=== PATIENT | female | born 1970 | race Caucasian/White ===

== ENCOUNTER 2016-05-11 17:55 | Emergency (ER) | payer MEDICARE, OTHER ==
[2016-05-11 18:55] VITALS: BP 135/83
[2016-05-11] MEDS ORDERED: Lidocaine 4% TOPICAL* 50 ML TOP.SOLN TOPICAL ONE (20:35)
[2016-05-11] MEDS ORDERED: Lidocaine 4% TOPICAL* 50 ML TOP.SOLN ONE (20:37)
[2016-05-11] MEDS ORDERED: Amoxicillin/Clavulanate TAB* 875 MG PO ONE (21:14)
[2016-05-11] MEDS ORDERED: Sulfamethox/Trimethoprim DS 800/160* TAB PO ONE (21:14)
[2016-05-11] MEDS ORDERED: cefTRIAXone VIAL(*) 250 MG VIAL IM ONE (21:14)
[2016-05-11] MEDS ORDERED: Lidocaine 1% MPF* 2 ML VIAL ONE (21:23)
--- NOTE | 2016-06-24 09:09 | UC ---
Gale Diaz Matthew, scribed for Katrina Hollis MD on 05/11/16 at 1954 . Skin Complaint HPI - HPI Summary HPI Summary: A 46 y/o female presents to [facility] with gradually worsening, constant pain at the incision site of a recent surgery on 03/30/[address] White. At that time, 3 lipomas were removed. The pain is rated 9/10 in severity. Associated symptoms include foul smell, worsening pain, purulent drainage, and erythema. The procedure was preformed at [facility]. The patient saw the surgeon this morning, who per the patient stated the incision was healing well. The patient's last tetanus shot was a few years ago. Hx of fibromyalgia. The patient 's glucose was 135 this morning. She is not currently taking Abx. The patient has been dressing her wound with aquacell and an Abx cream. The patient was exposed to MRSA two years ago. - History of Current Complaint Chief Complaint: UCSkin Time Seen by Provider: 05/11/16 19:47 Stated Complaint: OPEN INFLAMED INSCISION ON BACK Hx Obtained From: Patient Onset/Duration: Gradual Onset, Lasting Weeks, Still Present Timing: Constant Onset Severity: Moderate Current Severity: Moderate Pain Intensity: 9 Pain Scale Used: 0-10 Numeric Location: Other - buttock Character: Pain Aggravating: Touch Alleviating: Nothing Associated Signs & Symptoms: Positive: Drainage - Allergy/Home Medications Allergies/Adverse Reactions: Allergies Allergy/AdvReac Type Severity Reaction Status Date / Time Iodine Allergy Anaphylatic Verified 12/01/15 08:57 Shock BEE STINGS Allergy Mild Swelling Uncoded 12/01/15 08:57 DOWN FEATHERS Allergy Eyes Uncoded 12/01/15 08:57 Itchy/Swollen/Red/Watery Home Medications: Home Medications Lamotrigine [Lamictal] 100 mg PO 05/11/16 [History] Review of Systems Constitutional: Negative Skin: Other - 3 wounds on her ischium - 2 left one on the right; Yellow purulent drainage; erythema; foul smell Eyes: Negative ENT: Negative Respiratory: Negative Cardiovascular: Negative Gastrointestinal: Negative Genitourinary: Negative Motor: Negative Neurovascular: Negative Musculoskeletal: Negative Neurological: Negative Psychological: Negative All Other Systems Reviewed And Are Negative: Yes PMH/Surg Hx/FS Hx/Imm Hx Endocrine History Of: Reports: Diabetes - TAKES MEDICATION Cardiovascular History Of: Denies: Hypertension, Pacemaker/ICD, Myocardial Infarction Respiratory History Of: Reports: Asthma - USES INHALERS, Bronchitis Denies: COPD GI/ History Of: Reports: Gastroesophageal Reflux, Ulcer - CURRENTLY, Kidney Stones Denies: Renal Disease Neurological History Of: Reports: Seizures - EPILEPSY, Migraine Psychological History Of: Reports: Anxiety - PANIC ATTACKS - Surgical History Surgical History: Yes Surgery Procedure, Year, and Place: facial orif,stomach stapling and gastric bypass (rouyen y),laproscopic cholecystectomy,csection,tubal ligation,left shoulder repair x 2, carpal tunnel repair bilateral, left radial nerve relocation, rt elbow ulnar relocated surgery and bone fragments removed, tonsils , teeth extraction ,RADIAL LEFT and RIGHT HAND,RIGHT FIRST METATARSAL ABLATION, 3 INGROWN TOENAILS REMOVED, RIGHT CALCANEAL X3, LT KNEE ARTHROSCOPY, CERVICAL DYSPLASIA, LUMBAR SURGERY REMOVAL OF LYPOMAS X2, LEFT EYE (BLOW OUT FRACTURE) WITH SCREWS AND PLATES,fatty tumars removed. - Family History Known Family History: Positive: Cardiac Disease - [place], Hypertension, Diabetes, Other - CVA - Social History Alcohol Use: Occasionally Substance Use Type: None Smoking Status (MU): Former Smoker Physical Exam Triage Information Reviewed: Yes Appearance: Well-Nourished Vital Signs: Initial Vital Signs Temp 96.9 F 05/11/16 18:48 Pulse 94 05/11/16 18:48 Resp 18 05/11/16 18:48 BP 135/83 05/11/16 18:48 Pulse Ox 100 05/11/16 18:48 Vital Signs Reviewed: Yes Eye Exam: Normal ENT Exam: Normal Neck exam: Normal Neck: Positive: No Lymphadenopathy Respiratory: Positive: Chest non-tender, Lungs clear, Normal breath sounds, No respiratory distress, No accessory muscle use Cardiovascular: Positive: RRR, No Murmur, Pulses Normal, Brisk Capillary Refill Abdominal Exam: Normal Bowel Sounds: Positive: Present Musculoskeletal Exam: Normal Musculoskeletal: Positive: Strength Intact Neurological Exam: Normal - non-focal, grossly Psychological Exam: Normal Skin: Positive: Other - 2 wounds on the left ischemia and one on the right ischium- Inferior left ischium wound Depth of 5.8 cm, Length of 4.4cm, Width of 1cm; Superior left ischium wound Unsure of exact measurement, but wound was measured at .5cm, 4cm, .5cm; Right ischium wound 5.2cm, 6.2cm, .5cm. Post buttock / ischial regions with ulcers as above. + mild redness periulcers , not hot to touch. + green-yellow drainage to all ulcers, with odor. Ulcer bases lumpy bumpy, deep. No jorge a visible or palpable bone, although given configuration and conformity of ulcers, the exact depth is unclear. Suspect left ischial ulcers connect, but not directly evident on examn. No crepitus appreciated. ++ devitalized fibrin and slough noted among lumpy bumpy granulation type tissue. Course/Dx - Course Course Of Treatment: Ms. Cindy Barragan was seen by her surgeon, Dr. Knox, today, per pt report. Has upcoming appt next week. Concerned that drainage and pain has increased. I spoke with Dr. Garvey (mailroom personnel for her surgeon) to advise of situation/ condition, he recommends f/u early next week, start abx. Tests today: crp, sed rate. ulcer culture R ischium. FS glucose - 155mg / dl (pt states "borderline dm"). Will f/u pcp, re bg. Rocephin IM here. Rx - bactrim, augmentin (first dose here). Note pt has had exposure 3 yrs ago to mrsa. Ulcer cx sent. Has wound care dressings at home, and has help to change dressings for now. But will check with her doctor about home health. Strongly consider wound care physician referral. Questions answered to the best of my ability. Departed with , who will be driving. - Diagnoses Provider Diagnoses: non-healing surgical wounds. elevated blood glucose. wound infection - Physician Notification/Consults Discussed Patient Care With: Dr. Garvey (Surgery) at 20:49 -- Notified of patient' s history. Discharge - Discharge Plan Condition: Stable Disposition: HOME Prescriptions: Amoxicillin/Clavulanate TAB* [Augmentin TAB 875*] 875 mg PO BID #20 tab Sulfamethox/Trimethoprim DS* [Bactrim DS 800/160 TAB*] 1 tab PO BID #20 tab Patient Education Materials: Chronic Wound Care (ED) Referrals: Edouard Louie DO [Primary Care Provider] - Additional Instructions: Avoid pressure to ulcers. Use offloading cushion and offloading mattress. Check with your surgeon / wound care physician. Tests today: blood work - crp, sed rate fingerstick glucose 155mg/dl ulcer culture (Right buttock) Go to the Emergency Department for any worse or new problems. Change dressing at least every other day, more frequently as needed if soiled or soaked. The documentation as recorded by the Gale bacon Matthew accurately reflects the service I personally performed and the decisions made by me, Katrina Hollis MD.
== END 2016-05-11 21:53 | disposition home or self-care (01) ==
LOC: UCEAST 17:55
DX: T81.4XXA Infection following a procedure, initial encounter (principal); B99.9 Unspecified infectious disease; E11.65 Type 2 diabetes mellitus with hyperglycemia; J45.909 Unspecified asthma, uncomplicated; Z98.84 Bariatric surgery status; Z90.49 Acquired absence of other specified parts of digestive tract; Z87.891 Personal history of nicotine dependence
CPT/HCPCS: 36415; 85652; 86140; 87070; 87077; 87186; 87205; 87640; 87641; 96372; 99213; A9270-GY; G0463; J0696

== ENCOUNTER 2016-06-24 16:57 | Observation (INO) | payer MEDICARE, OTHER ==
[2016-06-24] MEDS ORDERED: NS 0.9% 1000 ML* 1,000 ML IV ONE (17:25)
[2016-06-24] MEDS ORDERED: LORazepam INJ* 2 MG/ML 1 ML VIAL IV ONE ×2 (17:32→17:52)
[2016-06-24 17:59] LABS: Albumin 4.3 g/dL (3.2-5.2); BUN/Creatinine Ratio 12.5 (8-20); C Reactive Protein 2.25 mg/L (< 5.00); Calcium 9.2 mg/dL (8.6-10.3); EGFR African American 98.9 (>60); EGFR Non-African American 76.9 (>60); Magnesium 1.9 mg/dL (1.9-2.7); Potassium 4.2 mmol/L (3.5-5.0); Total Bilirubin 0.2 mg/dL (0.2-1.0); Total Protein 7.3 g/dL (6.4-8.9)
[2016-06-24 18:01] LABS: Troponin I 0.02 ng/mL (<0.04)
[2016-06-24 18:10] LABS: Hematocrit 41 % (35-47); Hemoglobin 13.2 g/dl (12.0-16.0); Mean Corpuscular HGB Conc 32 g/dl (31-36); Mean Corpuscular Hemoglobin 27 pg (27-31); Mean Corpuscular Volume 84 fL (80-97); Mean Platelet Volume 8 um3 (7.4-10.4); Red Cell Distribution Width 15 % (10.5-15); White Blood Count 10.1 10^3/ul (3.5-10.8)
--- NOTE | 2016-06-24 18:30 | RAD ---
INDICATION: Seizures x3. COMPARISON: There is an is made with a prior chest x-ray study from December 01, 2015. TECHNIQUE: A portable view of the chest was obtained. FINDINGS: Cardiac and mediastinal contours appear to be within normal limits. The lungs are clear. No pleural effusion is seen. IMPRESSION: NO EVIDENCE FOR ACUTE DISEASE.
[2016-06-24 18:32] LABS: TSH (Thyroid Stimulating Horm) 4.05 mcIU/mL (0.34-5.60)
--- NOTE | 2016-06-24 19:45 | RAD ---
INDICATION: Seizures x3 today. COMPARISON: Comparison is made with a prior CT of the brain from February 11, 2015. TECHNIQUE: Contiguous axial sections of the brain were obtained from the skull base to the vertex without contrast. FINDINGS: The ventricles, cisterns and sulci are within normal limits. No significant focal abnormality or mass effect is seen. There is no evidence for hemorrhage. No significant focal osseous abnormality is seen. The visualized portion of the paranasal sinuses and mastoid air cells appear clear. On the lowest image there is a metallic nail in the posterior inferior wall of the left orbit extending part way into the orbit adjacent to the globe. Recommend clinical correlation. IMPRESSION: 1. NO EVIDENCE FOR GROSS ACUTE INFARCT, MASS EFFECT OR HEMORRHAGE. 2. ON THE LOWEST IMAGE PARTIALLY VISUALIZED ON THIS STUDY THERE IS A METALLIC NAIL IN THE POSTERIOR WALL OF THE LEFT ORBIT WHICH EXTENDS PARTLY INTO THE ORBIT. RECOMMEND CLINICAL CORRELATION.
--- NOTE | 2016-06-24 22:20 | ED ---
I, Oh,Maria Guadalupe, scribed for Lei Bustos MD on 06/24/16 at 1728 . Neurological HPI - HPI Summary HPI Summary: LEVEL 5 CAVEAT secondary to AMS This 46 y/o female presents to ED for 3x episodes of seizure this afternoon. First episode was at 1230 and lasted about 10 minutes, and pt has just taken her morning medications. Second episode occurred ~ 1430 PM, and third episodes occurred while in waiting room. RN reports rigid extremities during the third episode. Female family member present at bedside reports that pt was verbal and at her normal yesterday and today until her episode. PMHx does include known fibromyalgia and seizure per female family member. Negative fever. Primary care used to involve Dr. Louie as her neurologist. - History of Current Complaint Chief Complaint: EDSeizure Stated Complaint: SEIZURES Hx Obtained From: Patient, Medical Records Hx From Patient Unobtainable Due To: Altered Mental Status Onset/Duration: Sudden Onset Timing: Intermittent Episodes Lasting: - 10 minutes Number of Seizures: 3 Aggravating: Nothing Alleviating: Spontanious Resolution Associated Signs and Symptoms: Negative: Fever - Allergy/Home Medications Allergies/Adverse Reactions: Allergies Allergy/AdvReac Type Severity Reaction Status Date / Time Iodine Allergy Anaphylatic Verified 12/01/15 08:57 Shock BEE STINGS Allergy Mild Swelling Uncoded 12/01/15 08:57 DOWN FEATHERS Allergy Eyes Uncoded 12/01/15 08:57 Itchy/Swollen/Red/Watery PMH/Surg Hx/FS Hx/Imm Hx Endocrine/Hematology History: Reports: Hx Diabetes - TAKES MEDICATION Denies: Hx Sickle Cell Disease Cardiovascular History: Reports: Hx Angina - "a few weeks", Hx Hypotension Denies: Hx Coronary Artery Disease, Hx Hypercholesterolemia, Hx Hypertension , Hx Myocardial Infarction, Hx Pacemaker/ICD, Hx Valvular Heart Disease, Other Cardiovascular Problems/Disorders Respiratory History: Reports: Hx Asthma - USES INHALERS Denies: Hx Chronic Obstructive Pulmonary Disease (COPD) GI History: Reports: Hx Irritable Bowel, Hx Ulcer - CURRENTLY History: Reports: Hx Kidney Stones Denies: Hx Renal Disease Musculoskeletal History: Reports: Hx Arthritis - HANDS, SHOULDERS AND NECK, Hx Tendonitis, Other Musculoskeletal History - RT THUMB INJURY /12 LACERATION TO THUMB AND HYPEREXTENSION INJURY Sensory History: Reports: Hx Contacts or Glasses - GLASSES Denies: Hx Hearing Aid Opthamlomology History: Reports: Hx Contacts or Glasses - GLASSES Neurological History: Reports: Hx Migraine, Hx Seizures - EPILEPSY Psychiatric History: Reports: Hx Anxiety - PANIC ATTACKS, Hx Panic Disorder - Cancer History Cancer Type, 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 - Surgical History Surgery Procedure, Year, and Place: facial orif,stomach stapling and gastric bypass (rouyen y),laproscopic cholecystectomy,csection,tubal ligation,left shoulder repair x 2, carpal tunnel repair bilateral, left radial nerve relocation, rt elbow ulnar relocated surgery and bone fragments removed, tonsils , teeth extraction ,RADIAL LEFT and RIGHT HAND,RIGHT FIRST METATARSAL ABLATION, 3 INGROWN TOENAILS REMOVED, RIGHT CALCANEAL X3, LT KNEE ARTHROSCOPY, CERVICAL DYSPLASIA, LUMBAR SURGERY REMOVAL OF LYPOMAS X2, LEFT EYE (BLOW OUT FRACTURE) WITH SCREWS AND PLATES,fatty tumars removed. Hx Anesthesia Reactions: Yes - NAUSEA WITH ANESTHESIA - Family History Known Family History: Positive: Cardiac Disease - [place], Hypertension, Diabetes, Other - CVA - Social History Alcohol Use: Occasionally Hx Substance Use: No Substance Use Type: Reports: None Hx Tobacco Use: Yes Smoking Status (MU): Former Smoker Review of Systems - ROS Summary Review of Systems Summary: LEVEL 5 CAVEAT secondary to AMS Negative: Fever Neurological: Other - positive for post ictal. 3x seizure episodes All Other Systems Reviewed And Are Negative: No Physical Exam Vital Signs On Initial Exam: Initial Vitals BP 143/89 06/24/16 17:17 Completion Of Physical Exam Limited Due To: Altered Mental Status, Level 5 - LEVEL 5 CAVEAT secondary to AMS Appearance: Positive: No Pain Distress - post ictal Skin: Positive: Warm, Skin Color Reflects Adequate Perfusion, Dry Head/Face: Positive: Normal Head/Face Inspection Eyes: Positive: EOMI, DAVID Neck: Positive: Supple, Nontender Respiratory/Lung Sounds: Positive: Clear to Auscultation, Breath Sounds Present Cardiovascular: Positive: RRR, Pulses are Symmetrical in both Upper and Lower Extremities Neurological: Positive: Other - post-ictal. Somewhat obtunded. AVPU Assessment: Verbal (Reponds To) Diagnostics - Vital Signs Vital Signs Temp Pulse Resp BP Pulse Ox 06/24/16 19:00 93 21 96 06/24/16 18:24 18 06/24/16 18:00 103 98 06/24/16 17:31 111 22 154/66 98 06/24/16 17:30 98.2 F 109 16 154/66 98 06/24/16 17:19 98.6 F 108 21 144/90 96 06/24/16 17:17 143/89 - Laboratory Lab Results: Lab Results 06/24/16 06/24/16 06/24/16 Range/Units 17:20 17:20 17:50 WBC 10.1 (3.5-10.8) 10^3/ul RBC 4.90 (4.0-5.4) 10^6/ul Hgb 13.2 (12.0-16.0) g/dl Hct 41 (35-47) % MCV 84 (80-97) fL MCH 27 (27-31) pg MCHC 32 (31-36) g/dl RDW 15 (10.5-15) % Plt Count 364 (150-450) 10^3/ul MPV 8 (7.4-10.4) um3 Neut % (Auto) 78.5 (38-83) % Lymph % (Auto) 13.3 L (25-47) % Dundy % (Auto) 7.4 (1-9) % Eos % (Auto) 0.4 (0-6) % Baso % (Auto) 0.4 (0-2) % Absolute Neuts (auto) 7.9 H (1.5-7.7) 10^3/ul Absolute Lymphs (auto) 1.3 (1.0-4.8) 10^3/ul Absolute Monos (auto) 0.7 (0-0.8) 10^3/ul Absolute Eos (auto) 0 (0-0.6) 10^3/ul Absolute Basos (auto) 0 (0-0.2) 10^3/ul Absolute Nucleated RBC 0 10^3/ul Nucleated RBC % 0 INR (Anticoag Therapy) 0.94 (0.89-1.11) APTT 29.0 (26.0-36.3) seconds Sodium 135 (133-145) mmol/L Potassium 4.2 (3.5-5.0) mmol/L Chloride 103 (101-111) mmol/L Carbon Dioxide 18 L (22-32) mmol/L Anion Gap 14 H (2-11) mmol/L BUN 10 (6-24) mg/dL Creatinine 0.80 (0.51-0.95) mg/dL Est GFR ( Amer) 98.9 (>60) Est GFR (Non-Af Amer) 76.9 (>60) BUN/Creatinine Ratio 12.5 (8-20) Glucose 195 H (70-100) mg/dL Lactic Acid (0.5-2.0) mmol/L Calcium 9.2 (8.6-10.3) mg/dL Magnesium 1.9 (1.9-2.7) mg/dL Total Bilirubin 0.20 (0.2-1.0) mg/dL AST 31 (13-39) U/L ALT 47 (7-52) U/L Alkaline Phosphatase 121 H (34-104) U/L Total Creatine Kinase 86 (10-223) U/L CK-MB (CK-2) 2.4 (0.6-6.3) ng/mL Troponin I 0.02 (<0.04) ng/mL C-Reactive Protein 2.25 (< 5.00) mg/L Total Protein 7.3 (6.4-8.9) g/dL Albumin 4.3 (3.2-5.2) g/dL Globulin 3.0 (2-4) g/dL Albumin/Globulin Ratio 1.4 (1-3) Lipase 21 (11.0-82.0) U/L TSH 4.05 (0.34-5.60) mcIU/mL 06/24/16 Range/Units 18:40 WBC (3.5-10.8) 10^3/ul RBC (4.0-5.4) 10^6/ul Hgb (12.0-16.0) g/dl Hct (35-47) % MCV (80-97) fL MCH (27-31) pg MCHC (31-36) g/dl RDW (10.5-15) % Plt Count (150-450) 10^3/ul MPV (7.4-10.4) um3 Neut % (Auto) (38-83) % Lymph % (Auto) (25-47) % Dundy % (Auto) (1-9) % Eos % (Auto) (0-6) % Baso % (Auto) (0-2) % Absolute Neuts (auto) (1.5-7.7) 10^3/ul Absolute Lymphs (auto) (1.0-4.8) 10^3/ul Absolute Monos (auto) (0-0.8) 10^3/ul Absolute Eos (auto) (0-0.6) 10^3/ul Absolute Basos (auto) (0-0.2) 10^3/ul Absolute Nucleated RBC 10^3/ul Nucleated RBC % INR (Anticoag Therapy) (0.89-1.11) APTT (26.0-36.3) seconds Sodium (133-145) mmol/L Potassium (3.5-5.0) mmol/L Chloride (101-111) mmol/L Carbon Dioxide (22-32) mmol/L Anion Gap (2-11) mmol/L BUN (6-24) mg/dL Creatinine (0.51-0.95) mg/dL Est GFR ( Amer) (>60) Est GFR (Non-Af Amer) (>60) BUN/Creatinine Ratio (8-20) Glucose (70-100) mg/dL Lactic Acid 2.9 H* (0.5-2.0) mmol/L Calcium (8.6-10.3) mg/dL Magnesium (1.9-2.7) mg/dL Total Bilirubin (0.2-1.0) mg/dL AST (13-39) U/L ALT (7-52) U/L Alkaline Phosphatase (34-104) U/L Total Creatine Kinase (10-223) U/L CK-MB (CK-2) (0.6-6.3) ng/mL Troponin I (<0.04) ng/mL C-Reactive Protein (< 5.00) mg/L Total Protein (6.4-8.9) g/dL Albumin (3.2-5.2) g/dL Globulin (2-4) g/dL Albumin/Globulin Ratio (1-3) Lipase (11.0-82.0) U/L TSH (0.34-5.60) mcIU/mL Result Diagrams: 06/24/16 17:50 06/24/16 17:20 Lab Statement: Any lab studies that have been ordered have been reviewed, and results considered in the medical decision making process. - Radiology CXR Xray Interpretation: No Acute Changes Radiology Interpretation Completed By: Radiologist - CT Brain CT Interpretation: Positive (See Comments) - 1. NO EVIDENCE FOR GROSS ACUTE INFARCT, MASS EFFECT OR HEMORRHAGE. 2. ON THE LOWEST IMAGE PARTIALLY VISUALIZED ON THIS STUDY THERE IS A METALLIC NAIL IN THE POSTERIOR WALL OF THE LEFT ORBIT WHICH EXTENDS PARTLY INTO THE ORBIT. RECOMMEND CLINICAL CORRELATION. CT Interpretation Completed By: Radiologist - EKG 2041 Cardiac Rate: NL - 90 bpm EKG Rhythm: Sinus Rhythm Ectopy: None Re-Evaluation - Re-Evaluation First Eval Re-Evaluation Time: 18:03 Comment: MD in room to update family member on plan of care. Course/Dx - Course Course Of Treatment: NO CRITICAL CARE TIME Assessment/Plan: PATIENT HAD 3 SEIZURES TODAY. SHE IS SLOW IN CLEARING HER SENSORIUM POST ICTAL. DISCUSSED WITH DR RIVERA, NEUROLOGY. ADMIT HOSPITALIST STABLE. - Diagnoses Provider Diagnoses: Seizures - Physician Notifications Discussed Care of Patient With: Dr. Rivera (neurologist) at 1751 PM Discharge - Discharge Plan Condition: Stable Disposition: ADMITTED TO [facility] Referrals: Edouard Louie DO [Primary Care Provider] - The documentation as recorded by the Jatin bacon Soohyun accurately reflects the service I personally performed and the decisions made by me, Lei Bustos MD.
[2016-06-24] MEDS ORDERED: Naproxen TAB* 250 MG PO PRN (23:30)
[2016-06-24] MEDS ORDERED: Albuterol HFA INHALER* 8 gm MDI INH PRN (23:30)
[2016-06-24] MEDS ORDERED: Simethicone CHEW TAB* 80 MG PO PRN (23:30)
[2016-06-24] MEDS ORDERED: Diphenoxylat/Atrop 2.5-0.025M* 1 TAB PO PRN (23:30)
[2016-06-24] MEDS ORDERED: Albuterol/Ipratropium RESP(NF) MDI (Combivent Respimat) INH PRN (23:30)
[2016-06-24] MEDS ORDERED: Diclofenac 1.3% PATCH (NF) 5 PATCHS TRANSDERM PRN (23:30)
[2016-06-24] MEDS ORDERED: NS 0.9% 1000 ML* 1,000 ML IV SCH (23:45)
[2016-06-25] MEDS: Heparin VIAL(*) 5000 UNITS/ML VIAL (FIVE THOUSAND) SUBCUT SCH ×2 (06:11→14:01)
[2016-06-25] MEDS ORDERED: Calcium Polycarbophil TAB* 625 MG PO SCH (09:00)
[2016-06-25] MEDS ORDERED: Fludrocortisone Acetate TAB* 0.1 MG PO SCH (09:00)
[2016-06-25] MEDS ORDERED: Amoxicillin/Clavulanate TAB* 875 MG PO SCH (09:00)
[2016-06-25] MEDS ORDERED: lamoTRIgine TAB(*) 100 MG PO SCH (09:00)
[2016-06-25] MEDS ORDERED: Vitamin B Complex TAB PO SCH (09:00)
[2016-06-25] MEDS ORDERED: Sulfamethox/Trimethoprim DS 800/160* TAB PO SCH (09:00)
--- NOTE | 2016-06-25 09:24 | HP ---
HISTORY AND PHYSICAL: DATE OF ADMISSION: 06/24/16 PRIMARY CARE PHYSICIAN: Dr. Edouard Louie. CHIEF COMPLAINT: Seizure. HISTORY OF PRESENT ILLNESS: Please note that history is gotten from the patient who is very groggy at this time and cannot give me complete information. Apparently, this morning at some time, she was alone at home with her son when she started having a tonic-clonic seizure which she has not had for a few years. She said she was feeling in her usual state of health the day before with no complaints. She said she became confused, does not recall it, but apparently it lasted about 10 minutes before she awoke. When she did wake up, she was quite confused for some time. She denies tongue biting, urinary or bowel incontinence. She has a wound VAC source to clear up her wounds, but did not report or call 911 because she was stable. However, it happened apparently a second time and after that, she did call 911. Apparently, she had a seizure in the waiting room as well. The patient states she has been compliant with her meds and has no specific complaints. PAST MEDICAL HISTORY: She has a past medical history apparently for diabetes, although I currently do not see her on any medications; hypertension; chronic pain; fibromyalgia; asthma. PAST SURGICAL HISTORY: 1. Significant for gastric bypass. 2. Cholecystectomy. 3. Multiple lipomas removed from the lower back. 4. Cervical conization procedure. 5. First metatarsal joint fusion. 6. Multiple foot surgeries. 7. Bilateral carpal tunnel. 8. De Quervain's radial nerve relocation on the left arm and ulnar nerve relocation both on the right arm. 9. Left shoulder labral repair. 10. Left shoulder rotator cuff repair. 11. Tonsillectomy. CURRENT MEDICATIONS: Are as follows: 1. Vitamin C and E 1 capsule at bedtime. 2. Simethicone 1 tablet daily. 3. Pamelor 10 mg at bedtime. 4. Naproxen 100 mg twice daily. 5. Lamictal 100 mg twice daily. 6. Ginkgo biloba 1 capsule daily. 7. Fludrocortisone mg twice daily. 8. Fiber 1 packet daily. 9. Lomotil 1 tablet 4 times daily. 10. Diclofenac patch 1 topical daily. 11. Cyclobenzaprine 10 mg 3 times a day. 12. B-complex vitamins 2 tablets daily. 13. Albuterol. 14. Ipratropium/Combivent 1 puff every 6 hours. 15. Albuterol sulfate 1 puff every 6 hours as needed. ALLERGIES: She has an allergy to IODINE and IV CONTRAST. FAMILY HISTORY: Positive for cardiac history. SOCIAL HISTORY: She is . Lives with her and son. No alcohol, recreational drug use, or tobacco use. REVIEW OF SYSTEMS: Difficult to obtain from patient as she is quite groggy. PHYSICAL EXAMINATION GENERAL: Pleasant woman lying in bed, in no acute distress. VITAL SIGNS: Temperature 98.2 degrees, heart rate of 111 beats per minute, respiratory 22 breaths per minute, pulse ox 90%, blood pressure 150/66. HEENT: Normocephalic, atraumatic. Pupils equal, reactive to light. Moist mucous membranes. NECK: Supple. No JVD, bruits, palpable thyroid or lymphadenopathy. CHEST: Clear to auscultation and percussion bilaterally. CARDIOVASCULAR: S1, S2 appreciated. ABDOMEN: Positive bowel sounds in all 4 quadrants, soft, nontender, nondistended. EXTREMITIES: No cyanosis, clubbing or edema; +2 peripheral pulses bilaterally. NEUROLOGIC: Very groggy but she is alert and oriented x3 when aroused. Moves all extremities. SKIN: She has got a wound VAC on her lower back. DIAGNOSTIC STUDIES/LABORATORY DATA: White count 10.1, hemoglobin 13.2, hematocrit 41, platelets were 364. Sodium 135, potassium 4.2, chloride 103, CO2 18, BUN 10, creatinine 0.80, glucose 195, lactic acid 2.9. Alk phos 121. INR is 0.94. Brain CT shows no evidence for gross acute infarct, mass effect or hemorrhage. On the lowest image partially visualized in the study, there is a metallic nail in the posterior wall of the left orbit which extend partially into the orbit. Recommend clinical correlation. Chest x-ray, no evidence for acute disease. ASSESSMENT AND PLAN: 1. Seizure. We will get EEG in the morning. We have increased the Lamictal to 150 mg twice daily. We will monitor overnight, do neuro checks q.4h., do swallow evaluation on the floor. At this point, it is unclear as to what precipitated this. We will also get a urinalysis to make sure there is no evidence of urinary tract infection, although she was asymptomatic. 2. Fibromyalgia. Continue chronic pain medications. 3. Status post surgery it appears for the lipomas. Continue wound VAC. 4. FEN. Regular diet when awake and if swallow. 5. DVT prophylaxis. Heparin subcu. 6. The patient is a full code. TIME SPENT: Over 75 minutes was spent on this H and P, more than 40 minutes of which was spent in direct [id number] contact with the patient in evaluation, physical exam, and counseling and coordination of care. CC: Dr. Edouard Louie* [id number]/CPS #: [id number] MARJORIE
[2016-06-25 10:01] LABS: Urine Bilirubin Negative (Negative); Urine Glucose 3+(>=500 mg/dL) (Negative); Urine Nitrite Negative (Negative)
[2016-06-25] MEDS: Cyclobenzaprine TAB* 10 MG PO SCH ×2 (10:26→14:00)
[2016-06-25] MEDS ORDERED: oxyCODONE/Acetamin 5/325 MG* TAB PO PRN (11:02)
[2016-06-25] MEDS ORDERED: oxyCODONE TAB* 5 MG TAB PO PRN (11:21)
[2016-06-25] MEDS ORDERED: oxyCODONE TAB* 5 MG TAB ONE (11:23)
[2016-06-25] MEDS ORDERED: oxyCODONE SR TAB(*) 20 MG TAB.SR PO SCH (14:00)
[2016-06-25 16:28] VITALS: BP 115/56
[2016-06-25] MEDS ORDERED: Ascorbic Acid TAB* 500 MG PO SCH (21:00)
[2016-06-25] MEDS ORDERED: Amitriptyline TAB* 100 MG PO SCH (21:00)
[2016-06-25] MEDS ORDERED: Vitamin E CAP* 400 UNIT PO SCH (21:00)
[2016-06-25] MEDS ORDERED: Nortriptyline CAP* 10 MG PO SCH (21:00)
--- NOTE | 2016-06-25 22:45 | CONS ---
NEUROLOGY CONSULTATION: DATE OF CONSULT: 06/25/16 REFERRING PROVIDER: Sherri Bhat MD LOCATION: She is an inpatient at [facility]. CHIEF COMPLAINT: Seizures. HISTORY OF PRESENT ILLNESS: Jailene Barragan is a 46-year-old woman who had her first seizure at about 20 years of age in college when she was sleep deprived. She was not treated at that point in time which had several seizures over the years and ultimately ended on Depakote. She was started on it 15 or 20 years ago, she is not quite sure. She was on it for at least a decade or longer. She had occasional seizures and her medication will be adjusted. She then wanted to come off Depakote because of hair loss and weight gain and saw Dr. Walker at the [facility] Neurology Department within the last year or so. He decided to taper off the Depakote and on to lamotrigine. She has been gradually tapering since January and took her last Depakote dose about 3 weeks ago. She is on Lamotrigine 100 mg twice per day at home, although she is a little bit uncertain as to the exact dosing. In any case she says she has been taking it very regularly. She has not had any rashes, but she has been treated for chronic sacral decubitus at the [facility]. She is on a number of other medications, but none of them have been changed recently. She has not been ill lately, but she is under stressors. Her 's parents have been sick and he is gone to [place] to care for them. PAST MEDICAL HISTORY: Notable for chronic sacral wound, diabetes, fibromyalgia syndrome, depression, epilepsy, and asthma. MEDICATIONS: At home consist of: 1. Januvia 100 mg p.o. every day. 2. Oxycodone 10 mg p.o. q.4 hours p.r.n. pain. 3. Invokana 100 mg p.o. every day. 4. Fludrocortisone 0.1 mg p.o. every day. 5. Amitriptyline 100 mg p.o. at bedtime. 6. Opana ER 5 mg p.o. b.i.d. 7. Ginkgo biloba 1 tablet twice per day. 8. Lamotrigine 100 mg p.o. b.i.d. 9. Naproxen 500 mg p.o. b.i.d. 10. Cyclobenzaprine 10 mg p.o. t.i.d. 11. Albuterol inhaler. ALLERGIES: She is not allergic to medications, but she is to BEE STINGS. FAMILY HISTORY: Negative for epilepsy. SOCIAL HISTORY: She does not smoke, rarely drinks alcohol. Lives with her who is currently visiting in laws who are ill. REVIEW OF SYSTEMS: Notable for chronic neck, shoulder, and back pain. She says she has been sleeping pretty well recently in spite of the stress. She did not bite her tongue and no recent falls. She gets jerking motion of her head and trunk if she is exposed to flickering lights and avoids it. She has not noticed any jerking motions or seizures from alcohol, which she drinks very little. There is no recent gastrointestinal problems or weight gain. There is no recent headaches, fevers, or chills. She has chronic intermittent diarrhea. There is no history of heart disease. There is no history of meningitis or encephalitis. PHYSICAL EXAM: She is obese. Temperature 98.1 orally, blood pressure 115/56, heart rate 80s and regular, respirations 16, and oxygen saturation is 97% on room air. Head is atraumatic. Lungs are clear anterolaterally. Heart is in a regular rate and rhythm without murmurs. She has a bandage over sacral wound. Oral mucosa is moist and atraumatic. Neurologic Exam: Pupils, fundi, and eye movements are normal. Visual ford are full to confrontation. Facial musculature and sensation are symmetric. Palate and tongue are normal. Speech is clear. Hearing is intact. Motor exam reveals normal muscle tone and strength in the limbs proximally and distally. There is no myoclonus or asterixis. There is no rest tremor. There is no tension tremor either. Finger taps are normal in the hands. Reflexes are present and symmetric. Plantars are flexor bilaterally. Sensation to light touch and vibration is intact in the limbs. She is alert and oriented, but sleepy. She is able to provide a good history with intact memory and fluent language. She has reasonably good attention, concentration, and adequate fund of knowledge. DIAGNOSTIC STUDIES/LAB DATA: Includes a CT scan of the brain, which is reviewed and interpreted as normal. She has a metal plate in the left orbit, which was somewhat surgery to repair an orbital fracture, she describes. Other laboratories notable for a normal CBC and normal chemistries other than a glucose of 195 and a lactic acid when she presented of 2.9. TSH is normal at 4.05. She had an EEG earlier today, which I reviewed and reveals probably spike in slow wave activity, which appears to be generalized, but at times seems to have a right frontal origin. 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 I think she just needs her Lamictal increased. Recommend going to 150 mg twice per day. She has been on it for 4 or 5 months, so I think we can increase the dose relatively quickly particularly that she has been off Depakote for over 3 weeks. She is on a number of medications which could lower seizure threshold and I went over those with her, but she states she has been on them all for a long time and so as long as seizures going to control on an increased dose of Lamotrigine, I do not think we necessarily have to advice that she decrease any of them. Specifically, I brought up cyclobenzaprine, amitriptyline, opioids, and gingko as potentially lowering the seizure threshold. [id number]/[facility] #: [id number] [facility]
--- NOTE | 2016-06-26 15:47 | EEG ---
ELECTROENCEPHALOGRAM REPORT: DATE OF STUDY: 06/25/16 - ROOM #[id number] LOCATION: She is an inpatient. CLINICAL HISTORY: History of seizures, 3 seizures the day upon presentation in the emergency room, which is one day prior to this recording. Seizure started in her 20s. MEDICATIONS: Include: 1. Pamelor. 2. Lamictal. 3. Florinef. 4. Flexeril. EEG DESCRIPTION: This 16-channel EEG is remarkable for background activity consisting of a well-formed alpha rhythm in the posterior derivations at 10 cycles per second, which is symmetric and suppressed by eye opening. Lower voltage faster rhythms are seen bifrontally. Not long into the tracing, there is a brief polyspike and slow-wave discharge, which seems to start in the right frontal region, but is bilateral. Several times during the recording, there is a burst of generalized polyspike and slow-wave activity varying from 2-1/2 to about 4 to 5 cycles per second. There were no clinical accompaniments described. Activation procedures are not attempted. The patient does not sleep during the recording. INTERPRETATION: Abnormal EEG due to multiple generalized bursts of polyspike slow- wave activity consistent with either a primary generalized or rapidly secondarily generalized seizure disorder. [id number]/[facility] #: [id number] [facility] SYSTEMSravan
--- NOTE | 2016-06-26 18:28 | DS ---
DISCHARGE SUMMARY: DATE OF ADMISSION: 06/24/16 DATE OF DISCHARGE: 06/25/16 PRIMARY CARE PROVIDER: Dr. Louie. DISCHARGE DIAGNOSIS: Seizure. SECONDARY DIAGNOSES: 1. History of status post gastric bypass surgery. 2. Cholecystectomy. 3. Lipomas removed from the lower back with subsequent development of chronic wounds. The patient currently has a wound VAC. 4. History of cervical conization procedure. 5. First metatarsal joint fusion. 6. Multiple foot surgeries. 7. Bilateral carpal tunnel surgery. 8. History of radial nerve surgery on the left arm. 9. Left shoulder rotator cuff repair. 10. Tonsillectomy. MEDICATIONS AT DISCHARGE: Include: 1. Vitamin C and E one capsule at bedtime. 2. Simethicone 1 tablet daily. 3. Januvia 100 mg daily. 4. Invokana 100 mg daily. 5. Oxycodone 10 mg every 4 hours p.r.n. 6. Florinef 0.1 mg, the patient takes 2 in the morning and 1 in the afternoon. 7. Elavil 100 mg at bedtime. 8. Opana 5 mg b.i.d. 9. Ginkgo biloba complex 1 capsule b.i.d. 10. Vitamin C and E one capsule daily. 11. Naproxen 500 mg b.i.d. p.r.n. 12. Fiber therapy 1 packet daily. 13. Lomotil 1 tablet 4 times a day p.r.n. 14. Flexeril 10 mg 3 times a day p.r.n. 15. Combivent inhaler 1 puff every 4 to 6 hours p.r.n. 16. Albuterol inhaler every 6 hours p.r.n. 17. Lamictal 150 mg b.i.d. The patient's Lamictal was increased from 100 mg b.i.d. to 150 mg b.i.d. That is the only medication change. The remaining medications are unchanged. LABORATORY DATA AND STUDIES PERFORMED DURING THE HOSPITAL STAY: Included, brain CT, impression: No evidence for gross acute infarct, mass effect, or hemorrhage. On the lowest image partially visualized on the study, there is a metallic nail in the posterior wall of the left orbit, which extends partially into the orbit. Recommend clinical correlation. CONSULTATIONS DURING THE HOSPITAL STAY: Included Dr. Paula from Neurology. Pending at the time of dictation is the patient's EEG. HOSPITALIZATION COURSE: Ms. White is a 46-year-old female with a history of above- mentioned chronic conditions and current ongoing problems with bilateral lower back wounds with history of MRSA infection in the past, currently with a wound VAC. The patient stated that she started losing hair recently and she thought that could have been related to Depakote, which was controlling her seizures for over 20 years. She stated the left generalized tonic-clonic seizures she had 8 years ago. She presented to the [facility] on 06/24/16 after three seizures that occurred at home. Those were witnessed tonic-clonic episodes. The patient also stated that the last dose of Depakote she took was 2 weeks ago and she had been in process of switching from Depakote to Lamictal. The patient was treated in the emergency department with 750 mg of IV Keppra. She was placed on observation with telemetry monitored bed and seizure precautions. No further seizure episodes were noted. The patient was seen by Dr. Paula in Neurology consultation, who recommended for the patient to continue on her Lamictal, but at an increased dose at 150 mg b.i.d. The patient is also recommended not to drive. At discharge, the patient is recommended to follow up with her primary care provider in 4 to 7 days and her neurologist. PHYSICAL EXAMINATION: At the time of discharge, blood pressure of 115/56, heart rate of 81 and regular, respiratory rate 16, oxygen saturation 97% on room air, temperature 98.1. General: The patient is a pleasant 46-year-old female with a BMI of 35. The patient is in no acute distress. Alert, awake, and oriented x3. HEENT: Head is atraumatic, normocephalic. Eyes: Pupils equal , reactive to light and accommodation. Oropharynx clear. Mucosa moist. Neck: Supple. No JVD. No bruits bilaterally. Cardiovascular: Regular rate and rhythm. No murmur. Respiratory: Clear to auscultation bilaterally. Abdomen: Soft, nontender. Bowel sounds present in all 4 quadrants. Extremities: There is no edema. Pulses are +2 bilaterally. There is no clubbing or cyanosis. On neuro evaluation, cranial nerves II through XII grossly intact. Motor strength is 5/5 bilaterally. Upon evaluation of the skin, the patient has two incisions on her lower back, each of them is approximately 4 to 5 cm in length. They are mostly healed apart from the central area of each of the incisions and that is on both sides of the patient's lower back. The central areas are approximately 1 cm in length, 0.5 cm in width. The left side one is approximately 2 cm deep. The right side is approximately 0.5 cm deep. They were draining serous fluid. VAC was reapplied and changed during the hospital stay. Please note that this is a short summary of the patient's hospital stay. Please refer to the further medical records for details. CC: Dr. Louie; Dr. Hollis; [facility], [facility]; Dr. Paula* [id number]/[facility] #: [id number] MARJORIE
== END 2016-06-25 18:30 | disposition home or self-care (01) ==
LOC: ED 16:57 → MEDTELE 23:46
PROVIDERS: ADMIT Internal Medicine; ATTEND Internal Medicine
DX: G40.909 Epilepsy, unspecified, not intractable, without status epilepticus (principal); R94.01 Abnormal electroencephalogram [EEG]; Z98.84 Bariatric surgery status; I10 Essential (primary) hypertension; E11.9 Type 2 diabetes mellitus without complications; M79.7 Fibromyalgia; J45.909 Unspecified asthma, uncomplicated; Z79.899 Other long term (current) drug therapy; Z87.891 Personal history of nicotine dependence; Z79.84 Long term (current) use of oral hypoglycemic drugs
CPT/HCPCS: 36415; 70450; 71010; 80053; 80175; 81003; 82550; 82553; 83605; 83690; 83735; 84443; 84484; 85025; 85610; 85730; 86140; 87040; 93005; 95816; 96361; 96365; 96372; 96375; 99285; A9270-GY; G0378; J1644; J2060

== ENCOUNTER 2016-08-30 13:35 | Emergency (ER) | payer MEDICARE, OTHER ==
--- NOTE | 2016-08-30 15:09 | UC ---
Eye Complaint HPI - HPI Summary HPI Summary: left eye lid (upper and lower) swollen, red painful felt like she was getting a stye yesterday---warm compress applied significantly worse today with pain, erythema and swelling eye movements are painful- - History of Current Complaint Chief Complaint: UCEye Stated Complaint: EYE COMPLAINT Time Seen by Provider: 08/30/16 14:59 Hx Obtained From: Patient Hx Last Menstrual Period: 08/29/16 ?: No Onset/Duration: Sudden Onset, Lasting Days - 1, Still Present Timing: Constant Severity Initially: Mild Severity Currently: Moderate Pain Intensity: 7 Pain Scale Used: 0-10 Numeric Location of Injury: Eye Lid (lower), Eye Lid (upper) Character: Throbbing Aggravating Factor(s): Nothing Alleviating Factor(s): Nothing Associated Signs And Symptoms: Positive: Drainage (Purulent), Swelling - Allergies/Home Medications Allergies/Adverse Reactions: Allergies Allergy/AdvReac Type Severity Reaction Status Date / Time Iodine Allergy Anaphylatic Verified 08/30/16 13:41 Shock BEE STINGS Allergy Mild Swelling Uncoded 08/30/16 13:41 DOWN FEATHERS Allergy Eyes Uncoded 08/30/16 13:41 Itchy/Swollen/Red/Watery Home Medications: Home Medications Ascorbic Acid TAB* [Vitamin C TAB*] 500 mg PO BID 08/30/16 [History Confirmed 08/30/16] Divalproex Sodium [Depakote ER] 500 mg PO BEDTIME 08/30/16 [History Confirmed ] Vitamin E 400 mg PO DAILY 08/30/16 [History Confirmed 08/30/16] PMH/Surg Hx/FS Hx/Imm Hx Previously Healthy: No Endocrine History: Diabetes Cardiovascular History: Hypertension Neurological History: Seizures - Surgical History Surgical History: Yes Surgery Procedure, Year, and Place: facial orif,stomach stapling and gastric bypass (rouyen y),laproscopic cholecystectomy,csection,tubal ligation,left shoulder repair x 2, carpal tunnel repair bilateral, left radial nerve relocation, rt elbow ulnar relocated surgery and bone fragments removed, tonsils , teeth extraction ,RADIAL LEFT and RIGHT HAND,RIGHT FIRST METATARSAL ABLATION, 3 INGROWN TOENAILS REMOVED, RIGHT CALCANEAL X3, LT KNEE ARTHROSCOPY, CERVICAL DYSPLASIA, LUMBAR SURGERY REMOVAL OF LYPOMAS X2, LEFT EYE (BLOW OUT FRACTURE) WITH SCREWS AND PLATES,fatty tumars removed. - Family History Known Family History: Positive: Cardiac Disease - [place], Hypertension, Diabetes, Other - CVA - Social History Occupation: Disabled Lives: With Family Alcohol Use: Rare Substance Use Type: None Smoking Status (MU): Former Smoker Review of Systems Constitutional: Chills Skin: Negative Eyes: Drainage, Other - upper and lower lid red/swollen/moving eye is painful ENT: Negative Respiratory: Negative Cardiovascular: Negative Gastrointestinal: Negative Genitourinary: Negative Motor: Negative Neurovascular: Negative Musculoskeletal: Negative Neurological: Negative Psychological: Negative All Other Systems Reviewed And Are Negative: Yes Physical Exam Triage Information Reviewed: Yes Appearance: Well-Nourished, Ill-Appearing, Pain Distress Vital Signs: Initial Vital Signs Temp 97.9 F 08/30/16 13:37 Pulse 95 08/30/16 13:37 Resp 16 08/30/16 13:37 BP 152/98 08/30/16 13:37 Pulse Ox 98 08/30/16 13:37 Vital Signs Reviewed: Yes Eye Exam: Normal Eyes: Positive: Other: - left upper and lower eye lids are swollen red tender and warm, hurts to move eye in cardinal ford of gaze ENT Exam: Normal ENT: Positive: Normal ENT inspection, Hearing grossly normal, TMs normal. Negative: Nasal congestion, Nasal drainage, Tonsillar swelling, Tonsillar exudate, Trismus, Muffled/hoarse voice Dental Exam: Normal Neck exam: Normal Neck: Positive: Supple, Nontender, No Lymphadenopathy Respiratory Exam: Normal Respiratory: Positive: Chest non-tender, Lungs clear, Normal breath sounds, No respiratory distress, No accessory muscle use Cardiovascular Exam: Normal Cardiovascular: Positive: RRR, No Murmur, Pulses Normal, Brisk Capillary Refill Musculoskeletal Exam: Normal Musculoskeletal: Positive: Strength Intact, ROM Intact, No Edema Neurological Exam: Normal Neurological: Positive: Alert, Muscle Tone Normal Psychological Exam: Normal Skin Exam: Normal Eye Complaint Course/Dx - Course Course Of Treatment: transfer to [facility] ED for higher level of care--patient will go AMA in private car - Differential Dx/Diagnosis Differential Diagnosis/HQI/PQRI: Periorbital Cellulitis, Orbital Cellulitis Provider Diagnoses: Left eye cellulitis Discharge - Discharge Plan Condition: Stable Disposition: AGAINST MEDICAL ADVICE
[2016-08-30 15:31] VITALS: BP 160/90
== END 2016-08-30 15:33 | disposition left against medical advice (07) ==
LOC: UCEAST 13:35
DX: H00.036 Abscess of eyelid left eye, unspecified eyelid (principal); E11.9 Type 2 diabetes mellitus without complications; I10 Essential (primary) hypertension
CPT/HCPCS: 99212; G0463

== ENCOUNTER 2016-08-30 16:24 | Emergency (ER) | payer MEDICARE, OTHER ==
[2016-08-30] MEDS ORDERED: Ketorolac INJ* 30 MG/ML 1 ML VIAL IV ONE (17:13)
[2016-08-30] MEDS ORDERED: NS 0.9% 1000 ML* 1,000 ML IV ONE (17:13)
--- NOTE | 2016-08-30 17:47 | ED ---
Throat Pain/Nasal Congestion - HPI Summary HPI Summary: 46F presents with left orbital swelling today. She has a previous orbital blowout fracture there. She states that yesterday she had a stye there and applied warm compresses. She states this morning the swelling was significantly worst. She states eye movements are painful. She denies any previous infection here. She denies any sinus infection or dental pain. The area is warm and tender to touch. She denies any fever. She denies any drainage from the eye. She admits to blurry vision. She does not wear contacts. - History of Current Complaint Chief Complaint: EDEyeProblem Time Seen by Provider: 08/30/16 16:33 - Allergies/Home Medications Allergies/Adverse Reactions: Allergies Allergy/AdvReac Type Severity Reaction Status Date / Time Iodine Allergy Anaphylatic Verified 08/30/16 13:41 Shock BEE STINGS Allergy Mild Swelling Uncoded 08/30/16 13:41 DOWN FEATHERS Allergy Eyes Uncoded 08/30/16 13:41 Itchy/Swollen/Red/Watery PMH/Surg Hx/FS Hx/Imm Hx Endocrine/Hematology History: Reports: Hx Diabetes - TAKES MEDICATION Denies: Hx Sickle Cell Disease Cardiovascular History: Reports: Hx Angina - "a few weeks", Hx Hypotension Denies: Hx Coronary Artery Disease, Hx Hypercholesterolemia, Hx Hypertension , Hx Myocardial Infarction, Hx Pacemaker/ICD, Hx Valvular Heart Disease, Other Cardiovascular Problems/Disorders Respiratory History: Reports: Hx Asthma - USES INHALERS Denies: Hx Chronic Obstructive Pulmonary Disease (COPD) GI History: Reports: Hx Irritable Bowel, Hx Ulcer History: Reports: Hx Kidney Stones Denies: Hx Renal Disease Musculoskeletal History: Reports: Hx Arthritis - HANDS, SHOULDERS AND NECK, Hx Tendonitis, Other Musculoskeletal History - RT THUMB INJURY / LACERATION TO THUMB AND HYPEREXTENSION INJURY Sensory History: Reports: Hx Contacts or Glasses Denies: Hx Hearing Aid Opthamlomology History: Reports: Hx Contacts or Glasses Neurological History: Reports: Hx Migraine, Hx Seizures - EPILEPSY Psychiatric History: Reports: Hx Anxiety - PANIC ATTACKS, Hx Panic Disorder - Cancer History Cancer Type, 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 - Surgical History Surgery Procedure, Year, and Place: facial orif,stomach stapling and gastric bypass (rouyen y),laproscopic cholecystectomy,csection,tubal ligation,left shoulder repair x 2, carpal tunnel repair bilateral, left radial nerve relocation, rt elbow ulnar relocated surgery and bone fragments removed, tonsils , teeth extraction ,RADIAL LEFT and RIGHT HAND,RIGHT FIRST METATARSAL ABLATION, 3 INGROWN TOENAILS REMOVED, RIGHT CALCANEAL X3, LT KNEE ARTHROSCOPY, CERVICAL DYSPLASIA, LUMBAR SURGERY REMOVAL OF LYPOMAS X2, LEFT EYE (BLOW OUT FRACTURE) WITH SCREWS AND PLATES,fatty tumars removed. Hx Anesthesia Reactions: Yes - NAUSEA WITH ANESTHESIA Infectious Disease History: No Infectious Disease History: Reports: Hx of Known/Suspected MRSA Denies: Traveled Outside the [place] in Last 30 Days - Family History Known Family History: Positive: Cardiac Disease - [place], Hypertension, Diabetes, Other - CVA - Social History Alcohol Use: Rare Hx Substance Use: No Substance Use Type: Reports: Prescribed Substance Use Comment - Amount & Last Used: oxycodone, opana Hx Tobacco Use: Yes Smoking Status (MU): Former Smoker Review of Systems Negative: Fever Positive: Blurred Vision, Other - swelling left eye Negative: Chest Pain Negative: Shortness Of Breath All Other Systems Reviewed And Are Negative: Yes Physical Exam Triage Information Reviewed: Yes Vital Signs On Initial Exam: Initial Vitals Temp Pulse Resp BP Pulse Ox 97.0 F 101 20 151/76 98 08/30/16 16:27 08/30/16 16:27 08/30/16 16:27 08/30/16 16:27 08/30/16 16:27 Vital Signs Reviewed: Yes Appearance: Positive: Well-Appearing Skin: Positive: Warm, Cold Eyes: Positive: EOMI - with pain, DAVID, Conjunctiva Clear, Other: - edema and erythema to left eye ENT: Positive: Normal ENT inspection, Pharynx normal, TMs normal Neck: Positive: Supple, Nontender, No Lymphadenopathy Respiratory/Lung Sounds: Positive: Clear to Auscultation, Breath Sounds Present Cardiovascular: Positive: Normal, RRR Diagnostics - Vital Signs Vital Signs Temp Pulse Resp BP Pulse Ox 08/30/16 16:28 97.0 F 99 20 151/76 99 08/30/16 16:27 97.0 F 101 20 151/76 98 - Laboratory Result Diagrams: 08/30/16 17:40 08/30/16 17:40 Lab Statement: Any lab studies that have been ordered have been reviewed, and results considered in the medical decision making process. - CT orbit CT Interpretation: Positive (See Comments) - IMPRESSION: Soft tissue swelling is noted in the infraorbital soft tissues. No abscess is noted. CT Interpretation Completed By: Radiologist JEYSON Course/Dx - Course Course Of Treatment: 46F presents with left eye swelling for a day. admits to pain with eye movement. denies any drainage from eye. on exam edema and erythematous left eye. pain with EOM. gave dose of clindamycin. labs normal WBC. CT orbit no orbital cellulitis seen, will treat with clindamycin. patient understands and agrees with plan - Differential Diagnoses Differential Diagnoses: Conjunctivitis, Periorbital/Orbital Cellulitis, Sinusitis - Diagnoses Provider Diagnoses: Periorbital cellulitis of left eye Discharge - Discharge Plan Condition: Good Disposition: HOME Prescriptions: Clindamycin CAP* [Cleocin 150 MG CAP*] 300 mg PO TID #56 cap Patient Education Materials: Periorbital Cellulitis in Adults (ED) Referrals: Edouard Louie DO [Primary Care Provider] - Additional Instructions: Take antibiotic two tablets three times a day for 10 days, first dose given in ED Place ice on area Follow up with primary within 7 days Return to ED if develop extreme pain with eye movement or any new or worsening symptoms
[2016-08-30] MEDS ORDERED: Clindamycin 600 MG IVPREMIX(* 600 MG/50 ML SDV IV ONE (17:49)
[2016-08-30 17:51] LABS: Hematocrit 41 % (35-47); Mean Corpuscular HGB Conc 32 g/dl (31-36); Mean Corpuscular Hemoglobin 27 pg (27-31); Mean Corpuscular Volume 84 fL (80-97); Mean Platelet Volume 8 um3 (7.4-10.4); Red Blood Count 4.83 10^6/ul (4.0-5.4); Red Cell Distribution Width 19 % (10.5-15); White Blood Count 8.9 10^3/ul (3.5-10.8)
[2016-08-30 18:08] LABS: Albumin 4.1 g/dL (3.2-5.2); C Reactive Protein 5.24 mg/L (< 5.00); Calcium 9.3 mg/dL (8.6-10.3); EGFR African American 98.9 (>60); EGFR Non-African American 76.9 (>60); Globulin 2.8 g/dL (2-4); Total Bilirubin 0.2 mg/dL (0.2-1.0); Total Protein 6.9 g/dL (6.4-8.9)
--- NOTE | 2016-08-30 18:31 | RAD ---
Indication: Left orbit swelling. CT of the orbits was obtained in the axial plane. Sagittal and coronal reconstructed images were obtained. No IV contrast was given. There is soft tissue swelling and thickening of the subcutaneous tissue in the infraorbital region of the left orbit. There is no definite fracture noted. No abscess is noted. There is been prior hardware 4 internal fixation presumably from a orbital floor fracture reduction. The right orbit and paranasal sinuses are unremarkable. Paranasal sinuses are clear. No intraconal or extraconal masses are identified. IMPRESSION: Soft tissue swelling is noted in the infraorbital soft tissues. No abscess is noted.
[2016-08-30] MEDS ORDERED: Clindamycin CAP* 150 MG PO ONE (19:32)
[2016-08-30 20:04] VITALS: BP 146/76
== END 2016-08-30 20:03 | disposition home or self-care (01) ==
LOC: ED 16:24
DX: L03.213 Periorbital cellulitis (principal); H53.8 Other visual disturbances; Z87.891 Personal history of nicotine dependence
CPT/HCPCS: 36415; 70480; 80053; 85025; 86140; 96374; 99282; A9270-GY; J1885

== ENCOUNTER 2017-03-17 12:42 | Emergency (ER) | payer MEDICARE, OTHER ==
[2017-03-17 14:26] VITALS: BP 112/64
--- NOTE | 2017-03-17 14:33 | UC ---
Complaint Female HPI - HPI Summary HPI Summary: Patient presents with one day onset complaints of gross hematuria, dysuria,and urinary frequency. She denies fever, chills, abdominal pain, back pain, nausea, vomiting, diarrhea associated with her symptoms. - History Of Current Complaint Hx Obtained From: Patient Hx Last Menstrual Period: 08/29/16 ?: No Onset/Duration: Sudden Onset, Lasting Days Timing: Constant Severity Initially: Mild Severity Currently: Moderate Character: Burning Aggravating Factor(s): Urination Associated Signs And Symptoms: Positive: Back Pain - Risk Factors Ectopic Risk Factor: Negative Ovarian Torsion Risk Factor: Negative <Blank Blakely - Last Filed: 03/17/17 15:00> <Brie Anderson - Last Filed: 03/17/17 15:05> - History Of Current Complaint Chief Complaint: UCGU Stated Complaint: URINARY ISSUE Time Seen by Provider: 03/17/17 14:23 - Allergies/Home Medications Allergies/Adverse Reactions: Allergies Allergy/AdvReac Type Severity Reaction Status Date / Time Iodine Allergy Anaphylatic Verified 03/17/17 14:16 Shock BEE STINGS Allergy Mild Swelling Uncoded 03/17/17 14:16 DOWN FEATHERS Allergy Eyes Uncoded 03/17/17 14:16 Itchy/Swollen/Red/Watery Home Medications: Home Medications Azo For Uti 03/17/17 [History] Penicillin VK TAB* [Penicillin VK 250 mg Tab*] 03/17/17 [History] PMH/Surg Hx/FS Hx/Imm Hx Previously Healthy: Yes - Surgical History Surgical History: Yes Surgery Procedure, Year, and Place: facial orif,stomach stapling and gastric bypass (rouyen y),laproscopic cholecystectomy,csection,tubal ligation,left shoulder repair x 2, carpal tunnel repair bilateral, left radial nerve relocation, rt elbow ulnar relocated surgery and bone fragments removed, tonsils , teeth extraction ,RADIAL LEFT and RIGHT HAND,RIGHT FIRST METATARSAL ABLATION, 3 INGROWN TOENAILS REMOVED, RIGHT CALCANEAL X3, LT KNEE ARTHROSCOPY, CERVICAL DYSPLASIA, LUMBAR SURGERY REMOVAL OF LYPOMAS X2, LEFT EYE (BLOW OUT FRACTURE) WITH SCREWS AND PLATES,fatty tumars removed. - Family History Known Family History: Positive: Cardiac Disease - [place], Hypertension, Diabetes, Other - CVA - Social History Lives: Alone Alcohol Use: Rare Substance Use Type: Prescribed Substance Use Comment - Amount & Last Used: oxycodone, opana Smoking Status (MU): Former Smoker <Blank Blakely - Last Filed: 03/17/17 15:00> Review of Systems Constitutional: Fatigue Skin: Negative Eyes: Negative ENT: Negative Respiratory: Negative Cardiovascular: Negative Gastrointestinal: Negative Genitourinary: Dysuria, Hematuria, Frequency, Urgency Motor: Negative Neurovascular: Negative Musculoskeletal: Negative Neurological: Negative Psychological: Negative Is Patient Immunocompromised?: No All Other Systems Reviewed And Are Negative: Yes <Blank Blakely - Last Filed: 03/17/17 15:00> Physical Exam Triage Information Reviewed: Yes Appearance: Well-Appearing Vital Signs: Initial Vital Signs Temp 97.6 F 03/17/17 14:22 Pulse 91 03/17/17 14:22 Resp 16 03/17/17 14:22 BP 112/64 03/17/17 14:22 Pulse Ox 99 03/17/17 14:22 Vital Signs Reviewed: Yes Eye Exam: Normal ENT Exam: Normal Neck exam: Normal Neck: Positive: 1 Respiratory Exam: Normal Cardiovascular Exam: Normal Abdominal Exam: Normal Musculoskeletal Exam: Normal Skin Exam: Normal <Blank Blakely - Last Filed: 03/17/17 15:00> Vital Signs: Initial Vital Signs Temp 97.6 F 03/17/17 14:22 Pulse 91 03/17/17 14:22 Resp 16 03/17/17 14:22 BP 112/64 03/17/17 14:22 Pulse Ox 99 03/17/17 14:22 <Brie Anderson - Last Filed: 03/17/17 15:05> Complaint Female Dx - Course Course Of Treatment: Patient presents with complaints of hematuria, dysuria, and urinary frequency. Ua was obtained and was positive for UTI. The patient was started on Macrobid 100 mg by mouth twice daily for 10 days. - Differential Dx/Diagnosis Differential Diagnosis/HQI/PQRI: Urinary Tract Infection Provider Diagnoses: uti <Blank Blakely - Last Filed: 03/17/17 15:00> Discharge <Blank Blakely - Last Filed: 03/17/17 15:00> <Brie Anderson - Last Filed: 03/17/17 15:05> - Discharge Plan Condition: Stable Disposition: HOME Prescriptions: Nitrofurantoin Monohyd Macro [Macrobid] 100 mg PO BID #20 cap Patient Education Materials: Urinary Tract Infection in Women (ED) Referrals: Edouard Louie DO [Primary Care Provider] - Attestation Statement User Type: Provider - I was available for consult. This patient was seen by the [facility]. The patient was not presented to, seen by, or examined by me. -Moise <Brie Anderson - Last Filed: 03/17/17 15:05>
--- NOTE | 2017-03-20 07:57 | UC ---
- Progress Note Progress Note: NOTIFY PT NO UTI STOP ANTIBIOTIC RECHECK IF STILL SYMPTOMATIC Course/Dx - Course Course Of Treatment: Patient presents with complaints of hematuria, dysuria, and urinary frequency. Ua was obtained and was positive for UTI. The patient was started on Macrobid 100 mg by mouth twice daily for 10 days.
== END 2017-03-17 15:01 | disposition home or self-care (01) ==
LOC: UCEAST 12:42
DX: N39.0 Urinary tract infection, site not specified (principal); Z87.891 Personal history of nicotine dependence; Z79.891 Long term (current) use of opiate analgesic
CPT/HCPCS: 81003; 87086; 99212; G0463

== ENCOUNTER → 2017-12-16 07:57 | Day surgery (SDC) | payer MEDICARE, OTHER ==
[~2017-12-16 07:57] MED LIST: Buffered Lidocaine 0.9% SYRIN* 5 ML/SYR SYRINGE INTRADERM ONE; Bupivacaine 0.25% SDV PF* 10 ML VIAL INJ ONE; Dexamethasone IV* 4 MG/ML 1 ML (4 MG) ONE; Dextrose 50% Syringe 50 ML* 25 GM/50 ML SYRINGE IV PUSH PRN; DiMENhydriNATE IV* 50 MG/ML VIAL IV PUSH PRN; DiMENhydriNATE IV* 50 MG/ML VIAL ONE; Famotidine IV* 10 MG/ML 2 ML (20 mg) IV ONE; Famotidine IV* 10 MG/ML 2 ML (20 mg) ONE; Insulin LISPRO* 1 UNITS UNIT SUBCUT ONE; Levalbuterol 0.63MG/3ML NEB* UNIT OF USE INH PRN; Lidocaine 2% PF * 5 ML VIAL ONE; Midazolam* 1 MG/ML 5 ML VIAL (5 MG) ONE; Naloxone* 0.4 MG/ML 1 ML VIAL IV PRN; Ondansetron INJ* 2 MG/ML VIAL ONE; Phenylephrine INJ* 10 MG/ML 1 ML VIAL (10 MG) ONE; Propofol* 10 MG/ML 20 ML BTL IV PUSH ONE; ROPIVACAINE 5 MG/ML 30 ML BTL (0.5%) ONE; Scopolamine 1.5 mg* PATCH ONE; Scopolamine 1.5 mg* PATCH TRANSDERM ONE; Scopolamine PATCH Remove* 1 NOTE MISC PATCH OFF ONE; ceFAZolin 2 GM in NS PREMIX(*) 2 GM/100 ML BAG IVPB ONE; fentaNYL* 50 MCG/ML 2 ML VIAL (100 MCG VIAL) IV PRN; fentaNYL* 50 MCG/ML 2 ML VIAL (100 MCG VIAL) ONE; oxyCODONE/Acetamin 5/325 MG* TAB PO PRN
[2017-12-16 15:51] VITALS: BP 121/66
--- NOTE | 2017-12-17 07:02 | RAD ---
INDICATION: Right wrist arthroscopically ulnar shortening osteotomy. COMPARISON: Comparison is made with a prior MRI study of the right wrist from July 24, 2017. TECHNIQUE: 16 seconds of intermittent fluoroscopic guidance were provided and 7 spot films of the right wrist and forearm were obtained in the operating room. FINDINGS: There appear to be osteotomies of the fourth and fifth metacarpal bones transfixed with surgical plates and screws. There is also an osteotomy of the mid diaphysis of the ulna transfixed with a surgical plate and screws. The bones are normal alignment. IMPRESSION: INTRAOPERATIVE CONTROL FILMS. CPT II Codes: G9500
--- NOTE | 2017-12-17 16:43 | OP ---
DATE OF OPERATION: 12/16/17 - [facility] DATE OF : 68 SURGEON: Grzegorz Petersen MD SHIPWRIGHT SUPERVISOR: TRISTON Hoang. An account assistant was needed for the entirety of the procedure to aid in positioning of the arm and retraction. ANESTHESIOLOGIST: Dr. Orozco. ANESTHESIA: General. PRE-OP DIAGNOSES: 1. Right ulnar-sided wrist pain, degenerative changes. 2. Right pisotriquetral degenerative joint disease. 3. Right dorsal ulnar sensory nerve neuritis. 4. Right recurrent de Quervain's disease. POST-OP DIAGNOSES: 1. Right ulnar-sided wrist pain, degenerative changes. 2. Right pisotriquetral degenerative joint disease. 3. Right dorsal ulnar sensory nerve neuritis. 4. Right recurrent de Quervain's disease. OPERATIVE PROCEDURE: 1. Right wrist arthroscopic debridement of large TFCC tear. 2. Right ulnar shortening osteotomy. 3. Right pisiform excision. 4. Neurolysis of right dorsal ulnar sensory nerve. 5. Revision, right de Quervain's release. INDICATIONS: Jailene is 47. She is having severe right wrist pain. I followed her now for some time. She follows with Dr. Vail with Pain Management. She had multiple de Quervain's injections. She had a release done years ago. The pain on the ulnar-sided wrist has been progressive and moderate to severe. I had talked to her about the proposed surgery. She wished to proceed. She understands there is a risk of persistent pain and numbness and tingling in the dorsal ulnar sensory nerve distribution. She also understands there is a risk of nonunion with the ulnar shortening osteotomy. ESTIMATED BLOOD LOSS: 2 mL. COMPLICATIONS: None. FINDINGS: See above and below. DESCRIPTION OF PROCEDURE: Jailene was seen in the preoperative holding area. The correct site, side, and procedure were identified. We came back to the operating room where the arm was prepped and draped in the usual fashion. A time-out was performed. The arm was exsanguinated with the Esmarch and the tourniquet was inflated to 250 mmHg. The arm was placed in the Acumed traction tower. I developed a 3/4 portal in the typical location in standard fashion with an 11 blade and mosquito and then the trocar was placed and camera was placed in that portal. Radial-sided structures all looked good. When I came ulnar, there was a very large TFCC tear noted. I developed a 6R portal, brought in the biter, and debrided back the TFCC tear to the extent possible. There was a lot of tearing on the dorsal side. I attempted to dig it as much as of that with the biter as I could; however, some of it due to the location of the TFCC tear was just not able to debride it. I went ahead and used the shaver to trim everything back to a nice smooth stable edge. The arthroscopic equipment was then removed and I carried my attention to the open portion of the procedure. I then supinated the forearm and then made a V-shaped incision over the pisiform bone. The FCU tendon was split longitudinally, the soft tissue was released circumferentially around the pisiform until it was excised. Care was taken not to injure the ulnar neurovascular bundle. There were extensive degenerative changes on the undersurface of the pisiform. I irrigated out the wound. I closed the split in the FCU with 4-0 Ethibond suture, skin was closed with 4-0 nylon suture. I made a longitudinal incision over the distal ulnar. This was brought back and curved back over the dorsal ulnar side of the wrist. Dissection was carried down and the interval between the FCU and ECU tendons was utilized to raise a periosteal flap off the dorsal ulnar. A TriMed plate was brought in, this was clamped into place, 1 screw was placed in the oblong hole, 3 proximal screws were placed. I then used a 3-mm cutting guide and a sagittal saw to excise 3 mm of the ulna. The compression clamp was then used to compress the osteotomy. The lag screw was placed. Excellent compression was generated across the osteotomy. The remainder of the distal screws was placed. Everything was tightened down. Fluoroscopic imaging revealed that a couple of screws were a little short so I switched that out for screws that were 2 mm longer. This was the TriMed ulnar shortening osteotomy system. At this point, I went ahead and performed a neurolysis of the dorsal ulnar sensory nerve; this was taken from all the way where it came off from underneath the FCU and crossed over the ulnar styloid toward the nerve branch. Both branches were neurolysed. Once the nerve was decompressed in its entirety , I went ahead and irrigated out the wound. The subcutaneous tissue was reapproximated with 3-0 Vicryl sutures. Skin was closed with 3-0 Monocryl and Steri-Strips. Lastly, I reopened her longitudinal incision over the de Quervain's, where she had the prior de Quervain's release. Dissection was carried down. There were 2 compartments, more volar and a more dorsal compartment. The tendon sheath overlying the compartments was opened. There was some fraying of the tendon in the dorsal compartment. I excised the septum between the dorsal and volar compartments. The sheath was released off its dorsal margin. Once the release was complete, I irrigated out the wound. The skin was closed with 3-0 Monocryl suture and Steri-Strips. Local anesthetic was infiltrated all around the operative area. The wounds were dressed. She was placed in a sugar tong splint. Tourniquet was deflated. The hand pinked up immediately. She was taken to the recovery room in stable condition. [id number]/CPS #: [id number] MARJORIE
== END | disposition home or self-care (01) ==
LOC: OR 07:57
PROVIDERS: ATTEND Orthopaedic Surgery Hand Surgery
DX: M24.831 Other specific joint derangements of right wrist, not elsewhere classified (principal); G56.21 Lesion of ulnar nerve, right upper limb; M65.4 Radial styloid tenosynovitis [de Quervain]; Z87.891 Personal history of nicotine dependence; E11.9 Type 2 diabetes mellitus without complications; Z79.84 Long term (current) use of oral hypoglycemic drugs; K21.9 Gastro-esophageal reflux disease without esophagitis; J45.909 Unspecified asthma, uncomplicated; F41.8 Other specified anxiety disorders
CPT/HCPCS: 76000; 88304; 88311; A9270-GY; C1713; C1776; J0690; J1100; J1240; J2250; J2405; J2704; J2795; J3010; J3490

== ENCOUNTER 2018-03-04 18:07 | Emergency (ER) | payer MEDICARE, OTHER ==
--- OUTSIDE RECORDS SUMMARY | 2018-03-04 18:14 | XMS REPORT | Continuity of Care Document ---
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 [place] [address] Policy Number: [id number] [facility] [place] Barragan PayID: [id number] [address] [place] [address] Advance Directives Description No Information Available Problems Description No Information Family History Date Family Member(s) Problem(s) Comments Father 82 Mother 77 Children 1 Social History Type Date Description Comments Sex Unknown Marital Status Cigarette Use Former Cigarette Smoker ETOH Use Rarely consumes alcohol Recreational Drug Use Denies Drug Use Tobacco Use Start: Unknown End: Unknown Patient is a former smoker Smoking Status Reviewed: 02/26/18 Patient is a former smoker Allergies, Adverse Reactions, Alerts Date Description Reaction Status Severity Comments 08/19/2012 Iodine Active 08/19/2012 Shellfish-derived Products Active 08/19/2012 Bee Sting Active 08/19/2012 Down Feathers Active Medications Medication Date Status Form Strength Qnty SIG Indications Ordering Provider Oxycodone HCL 10/09 Active Tablets 5mg 120ta si by Yared, bs mouth Carmelo, every 6 to DO, MPH 8 hours as directed chronic pain patient Oxymorphone HCL 05/27 Active Tablets ER 5mg 60tab 1 by mouth Yared, ER 12HR s every 12 Carmelo, hours DO, MPH Zofran Odt 12/04 Active Tablets 8mg 90tab si by [place], Dispers s mouth Carmelo, every 8 DO, MPH hours as directed Alpha-Lipoic 07/27 Active Capsules 200mg 90cap take one [place]ail, s capsule by Carmelo, mouth DO, MPH every 8 hours as directed chronic pain. Naproxen Sodium 07/28 Active Tablets 550mg 60tab si by [place], s mouth Carmelo, every 12 DO, MPH hours Promethazine HCL 05/27 Active Tablets 25mg 30tab si/2-1 [place], s by mouth Carmelo, every 12 DO, MPH hours as directed Flonase Active Suspension 50mcg/Act Unknown /0000 Ventolin HFA Active Aerosol 108(90Bas Unknown /0000 e) mcg/Act No Doz Maximum Active Tablets 200mg Unknown Strength /0000 Cyclobenzaprine Active Tablets 10mg 90tab si po Unknown HCL /0000 s tid ud Excedrin Active Tablets 250-250-6 Unknown Migraine /0000 5mg Combivent Active Aerosol 18-103mcg Unknown /0000 /Act Proventil HFA Active Aerosol 108(90Bas Unknown /0000 e) mcg/Act Ginkoba Active Tablets 40mg Unknown /0000 B Complex Plus Active Tablets Unknown /0000 Fiber Therapy Active Tablets 500mg Unknown /0000 Diazepam Active Tablets 10mg 90tab si2 Unknown /0000 s -1 po q8h ud Gas-X Extra Active Capsules 125mg Unknown Strength /0000 Motrin Ib Active Tablets 200mg Unknown /0000 Magnesium Active Capsules 400mg 30cap Unknown /0000 s Januvia 00 Active Tablets 100mg 1 by mouth Unknown /0000 every other day Invokana Active Tablets 100mg 1 by mouth Unknown /0000 in the morning Lamictal Active Tablets 150mg twice Unknown /[address] Active Table[address] 500mg 1 by mouth Unknown /0000 every day as directed Oxycodone HCL 09/03 Hx Concentrate 100mg/5ML 30ml si/4 [place] milliliter Carmelo, - s sl by DO, MPH 10/09 every 6 to 8 hours as directed chronic pain patient Bactrim DS 12/04 Hx Tablets 800-160mg 14tab 1 by mouth Vail, s twice Cramelo, - daily DO, MPH 03/04 Oxycodone HCL 11/27 Hx Tablets 10mg 120ta si by Yared, bs mouth Carmelo, - every 6 DO, MPH / hours directed chronic pain patient Opana ER 07/02 Hx Tab ER 12H 5mg 60tab si by [place], Abuse-Det s mouth Carmelo, - every 12 DO, MPH / hours Oxycodone HCL 06/28 Hx Tablets 15mg 21tab si by Yared, s mouth Carmelo, - every 8 DO, MPH / hours directed chronic pain patient Oxycodone HCL 05/29 Hx Tablets 20mg 90tab si by Yared, s mouth Carmelo, - every 8 DO, MPH / hours directed chronic pain patient Oxycodone HCL 04/30 Hx Tablets 15mg 90tab si by Yared, s mouth Carmelo, - every 8 DO, MPH /07 hours directed chronic pain patient Oxycodone HCL 04/18 Hx Tablets 5mg 90tab si by [place] s mouth Carmelo, - every 8 DO, MPH /06 hours directed chronic pain patient, post-surgi katrina pain Amitriptyline 03/09 Hx Tablets 50mg 14tab si by Yared, s mouth Carmelo, - every DO, MPH 03/04 night as directed Oxycodone HCL 01/25 Hx Tablets 10mg 90tab si by Yared, s mouth Carmelo, - every 8 DO, MPH /06 hours directed chronic pain patient Opana ER 06/24 Hx Tab ER 12H 5mg 60tab si by Yared Abuse-Det s mouth Carmelo, - every 12 DO, MPH / Oxycodone HCL 06/24 Hx Tablets 5mg 120ta si-2 by Yared, bs mouth Carmelo, - every 4 to DO, MPH 07/28 6 hours directed chronic pain patient Opana ER 06/24 Hx Tab ER 12H 5mg 60tab si by [place], Abuse-Det s mouth Carmelo, - every 12 DO, MPH 06/28 hours chronic pain patient Oxycodone HCL 06/24 Hx Tablets 5mg 120ta si by [place], bs mouth Carmelo, - every 4 to DO, MPH 01/25 6 hours directed chronic pain patient Promethazine HCL 05/27 Hx Tablets 25mg 30tab si2-1 [place], s by mouth Carmelo, - every 12 DO, MPH 07/28 hours directed Oxycodone HCL 05/27 Hx Concentrate 20mg/ml 30ml sig: Vail03/28-1/2mls Carmelo, - l by mouth DO, MPH 06/24 q8-12h directed chronic pain patient Vicodin ES 03/26 Hx Tablets 7.5-300mg 90tab si by [place], s mouth Carmelo, - every 8 DO, MPH chronic pain patient Opana 02/23 Hx Tablets 5mg 60tab si po [place] s q12h ud Carmelo, - DO, MPH 03/26 chronic pain patient Dilaudid 10/26 Hx Tablets 2mg 90tab si q8h [place], s ud Carmelo, - DO, MPH 02/23 chronic pain patient Oxycodone HCL 03/04 Hx Concentrate 20mg/ml 30ml sig: Vail03/28-1/2mls Carmelo, - l po DO, MPH 03/26 q8-12h chronic pain patient Analgesic Cream 09/18 Hx Vail, (Black) Carmelo, - DO, MPH 06/18 Oxycodone HCL 09/02 Hx Tablets 10mg 90tab si2-1 [place], s po q8h ud Carmelo, - DO, MPH 10/26 chronic pain patient Oxycodone HCL 08/19 Hx Tablets 5mg 45tab si po V[place], /2012 s q8h Tyra Campos DO, MPH 09/02 chronic pain patient Vamsi Oil Hx Capsules 1000mg Unknown - 07/17 Metformin HCL Hx Tablets 500mg Unknown - 08/29 Fludrocortisone Hx Tablets 0.1mg Unknown Acetate - 08/[address] 500mg Unknown Sodium DR - 08/29 Amitriptyline Hx Tablets 10mg 30tab 1 po q hs Unknown HCL /0000 s - 03/09 Naproxen Hx Tablets 250mg 60tab si po Unknown / s bid - 08/29 Cipro HC Hx Suspension 0.2-1% Unknown - 08/29 Bactrim DS Hx Tablets 800-160mg 1 by mouth Unknown /0000 every 12 - hours 05/24 Amoxicillin/Clav Hx Tablets 875-125mg Unknown ulanate /0000 Potassium - 05/24 Lamotrigine Hx Tablets 25mg 1 by mouth Unknown /0000 Dispers every - other day 08/29 Nortriptyline Hx Capsules 25mg si by Unknown HCL /0000 mouth - every at 03/09 Amoxicillin/Clav Hx Tablets 875-125mg 1 by mouth Unknown ulanate /0000 twice a Potassium - day for 10 Immunizations Description No Information Available Vital Signs Date Vital Result Comment 02/26/2018 3:12pm BP Systolic 132 mmHg BP Diastolic 84 mmHg Heart Rate 86 /min Respiratory Rate 20 /min Height 66 inches 5'6" Weight 223.00 lb Pain Level 6 Pain at this time. Pain Level With Medicine 5 on average with meds Pain Level Without Medicine 01/01 without meds Pain Level After Procedure 4 BP Systolic Recheck 130 mmHg Pulse: 88 BP Diastolic Recheck 84 mmHg Pulse: 88 BMI (Body Mass Index) 36.0 kg/m2 02/18/2018 11:06am BP Systolic 132 mmHg BP Diastolic 84 mmHg Heart Rate 80 /min Respiratory Rate 20 /min Height 66 inches 5'6" Weight 224.00 lb Pain Level 9 Pain at this time. Pain Level With Medicine 8 on average with meds Pain Level Without Medicine 10 01/01 without meds BMI (Body Mass Index) 36.2 kg/m2 01/14/2018 11:13am BP Systolic 128 mmHg BP Diastolic 80 mmHg Heart Rate 82 /min Respiratory Rate 20 /min Height 66 inches 5'6" Weight 224.00 lb Pain Level 7 Pain at this time. Pain Level With Medicine 6 on average with meds Pain Level Without Medicine 10 01/01 without meds BMI (Body Mass Index) 36.2 kg/m2 12/13/2017 2:03pm BP Systolic 144 mmHg BP Diastolic 78 mmHg Heart Rate 82 /min Respiratory Rate 20 /min Height 66 inches 5'6" Weight 222.00 lb Pain Level 8 Pain at this time. Pain Level With Medicine 7 on average with meds Pain Level Without Medicine 10 01/01 without meds BMI (Body Mass Index) 35.8 kg/m2 11/15/2017 1:11pm BP Systolic 132 mmHg BP Diastolic 84 mmHg Heart Rate 86 /min Respiratory Rate 20 /min Height 66 inches 5'6" Weight 218.00 lb Pain Level 8 Pain at this time. Pain Level With Medicine 7 on average with meds Pain Level Without Medicine 01/01 without meds Pain Level After Procedure 2 BP Systolic Recheck 138 mmHg Pulse: 84 BP Diastolic Recheck 82 mmHg Pulse: 84 BMI (Body Mass Index) 35.2 kg/m2 10/03/2017 9:58am BP Systolic 124 mmHg BP Diastolic 76 mmHg Heart Rate 78 /min Respiratory Rate 20 /min Height 66 inches 5'6" Weight 225.00 lb Pain Level 8 Pain at this time. Pain Level With Medicine 7 on average with meds Pain Level Without Medicine 10 01/01 without meds BMI (Body Mass Index) 36.3 kg/m2 09/03/2017 10:00am BP Systolic 132 mmHg BP Diastolic 76 mmHg Heart Rate 90 /min Respiratory Rate 20 /min Height 66 inches 5'6" Weight 230.00 lb Pain Level 6 Pain at this time. Pain Level With Medicine 5 on average with meds Pain Level Without Medicine 10 01/01 without meds BMI (Body Mass Index) 37.1 kg/m2 08/02/2017 9:32am BP Systolic 140 mmHg BP Diastolic 86 mmHg Heart Rate 84 /min Respiratory Rate 20 /min Height 66 inches 5'6" Weight 232.00 lb Pain Level 5 Pain at this time. Pain Level With Medicine 4 on average with meds Pain Level Without Medicine 10 01/01 without meds Pain Level After Procedure 4 BP Systolic Recheck 140 mmHg Pulse: 84 BP Diastolic Recheck 86 mmHg Pulse: 84 BMI (Body Mass Index) 37.4 kg/m2 07/03/2017 10:16am BP Systolic 140 mmHg BP Diastolic 86 mmHg Heart Rate 84 /min Respiratory Rate 20 /min Height 66 inches 5'6" Weight 232.00 lb Pain Level 8 Pain at this time. Pain Level With Medicine 7 on average with meds Pain Level Without Medicine 10 01/01 without meds Pain Level After Procedure 6 BP Systolic Recheck 136 mmHg Pulse: 80 BP Diastolic Recheck 82 mmHg Pulse: 80 BMI (Body Mass Index) 37.4 kg/m2 06/11/2017 9:30am BP Systolic 128 mmHg BP Diastolic 82 mmHg Heart Rate 84 /min Respiratory Rate 20 /min Height 66 inches 5'6" Weight 231.00 lb Pain Level 5 Pain at this time. Pain Level With Medicine 4 on average with meds Pain Level Without Medicine 10 01/01 without meds Pain Level After Procedure 4 BP Systolic Recheck 124 mmHg Pulse: 80 BP Diastolic Recheck 78 mmHg Pulse: 80 BMI (Body Mass Index) 37.3 kg/m2 06/03/2017 9:57am BP Systolic 130 mmHg BP Diastolic 86 mmHg Heart Rate 84 /min Respiratory Rate 20 /min Height 66 inches 5'6" Weight 231.00 lb Pain Level 5 Pain at this time. Pain Level With Medicine 4 on average with meds Pain Level Without Medicine 10 01/01 without meds BMI (Body Mass Index) 37.3 kg/m2 05/03/2017 10:22am BP Systolic 140 mmHg BP Diastolic 86 mmHg Heart Rate 88 /min Respiratory Rate 20 /min Height 66 inches 5'6" Weight 226.00 lb Pain Level 8 Pain at this time. Pain Level With Medicine 6 on average with meds Pain Level Without Medicine 10 01/01 without meds Pain Level After Procedure 6 BP Systolic Recheck 132 mmHg Pulse: 84 BP Diastolic Recheck 88 mmHg Pulse: 84 BMI (Body Mass Index) 36.5 kg/m2 04/04/2017 9:58am BP Systolic 144 mmHg BP Diastolic 86 mmHg Heart Rate 80 /min Respiratory Rate 20 /min Height 66 inches 5'6" Weight 225.00 lb Pain Level 7 Pain at this time. Pain Level With Medicine 7 on average with meds Pain Level Without Medicine 10 01/01 without meds Pain Level After Procedure 5 BP Systolic Recheck 122 mmHg Pulse: 74 BP Diastolic Recheck 72 mmHg Pulse: 74 BMI (Body Mass Index) 36.3 kg/m2 03/04/2017 11:03am BP Systolic 132 mmHg BP Diastolic 84 mmHg Heart Rate 86 /min Respiratory Rate 20 /min Height 66 inches 5'6" Weight 214.00 lb Pain Level 8 Pain at this time. Pain Level With Medicine 7 on average with meds Pain Level Without Medicine 10 01/01 without meds Pain Level After Procedure 6 BP Systolic Recheck 120 mmHg Pulse: 80 BP Diastolic Recheck 76 mmHg Pulse: 80 BMI (Body Mass Index) 34.5 kg/m2 02/01/2017 11:04am BP Systolic 128 mmHg BP Diastolic 78 mmHg Heart Rate 80 /min Respiratory Rate 20 /min Height 66 inches 5'6" Weight 214.00 lb Pain Level 7 Pain at this time. Pain Level With Medicine 6 on average with meds Pain Level Without Medicine 10 01/01 without meds Pain Level After Procedure 5 BP Systolic Recheck 128 mmHg Pulse: 76 BP Diastolic Recheck 80 mmHg Pulse: 76 BMI (Body Mass Index) 34.5 kg/m2 01/15/2017 11:07am BP Systolic 130 mmHg BP Diastolic 84 mmHg Heart Rate 86 /min Respiratory Rate 20 /min Height 66 inches 5'6" Weight 214.00 lb Pain Level 9 Pain at this time. Pain Level With Medicine 8 on average with meds Pain Level Without Medicine 10 01/01 without meds BMI (Body Mass Index) 34.5 kg/m2 01/02/2017 3:23pm BP Systolic 128 mmHg BP Diastolic 82 mmHg Heart Rate 84 /min Respiratory Rate 20 /min Height 66 inches 5'6" Weight 210.00 lb Pain Level 8 Pain at this time. Pain Level With Medicine 7 on average with meds Pain Level Without Medicine 10 01/01 without meds BMI (Body Mass Index) 33.9 kg/m2 12/04/2016 2:49pm BP Systolic 128 mmHg BP Diastolic 84 mmHg Heart Rate 80 /min Respiratory Rate 20 /min Height 66 inches 5'6" Weight 210.00 lb Pain Level 7 Pain at this time. Pain Level With Medicine 7 on average with meds Pain Level Without Medicine 10 01/01 without meds BMI (Body Mass Index) 33.9 kg/m2 11/27/2016 10:48am BP Systolic 136 mmHg BP Diastolic 82 mmHg Heart Rate 84 /min Respiratory Rate 20 /min Height 66 inches 5'6" Weight 208.00 lb Pain Level 9 Pain at this time. Pain Level With Medicine 8 on average with meds Pain Level Without Medicine 10 01/01 without meds Pain Level After Procedure 6 BP Systolic Recheck 130 mmHg Pulse: 80 BP Diastolic Recheck 82 mmHg Pulse: 80 BMI (Body Mass Index) 33.6 kg/m2 10/25/2016 2:41pm BP Systolic 130 mmHg BP Diastolic 86 mmHg Heart Rate 80 /min Respiratory Rate 20 /min Height 66 inches 5'6" Weight 226.00 lb Pain Level 8 Pain at this time. Pain Level With Medicine 7 on average with meds Pain Level Without Medicine 10 01/01 without meds BMI (Body Mass Index) 36.5 kg/m2 09/27/2016 3:00pm BP Systolic 132 mmHg BP Diastolic 78 mmHg Heart Rate 76 /min Respiratory Rate 20 /min Height 66 inches 5'6" Weight 236.00 lb Pain Level 8 Pain at this time. Pain Level With Medicine 7 on average with meds Pain Level Without Medicine 01/01 without meds BMI (Body Mass Index) 38.1 kg/m2 08/29/2016 2:15pm BP Systolic 140 mmHg BP Diastolic 80 mmHg Heart Rate 78 /min Respiratory Rate 20 /min Height 66 inches 5'6" Weight 236.00 lb Pain Level 8 Pain at this time. Pain Level With Medicine 7 on average with meds Pain Level Without Medicine 10 01/01 without meds BMI (Body Mass Index) 38.1 kg/m2 07/27/2016 9:38am BP Systolic 130 mmHg BP Diastolic 82 mmHg Heart Rate 78 /min Respiratory Rate 20 /min Height 66 inches 5'6" Weight 235.00 lb Pain Level 8 Pain at this time. Pain Level With Medicine 7 on average with meds Pain Level Without Medicine 10 01/01 without meds BMI (Body Mass Index) 37.9 kg/m2 06/28/2016 2:01pm BP Systolic 128 mmHg BP Diastolic 76 mmHg Heart Rate 80 /min Respiratory Rate 20 /min Height 66 inches 5'6" Weight 235.00 lb Pain Level 7 Pain at this time. Pain Level With Medicine 7 on average with meds Pain Level Without Medicine 10 01/01 without meds BMI (Body Mass Index) 37.9 kg/m2 05/29/2016 10:06am BP Systolic 136 mmHg BP Diastolic 80 mmHg Heart Rate 82 /min Respiratory Rate 20 /min Height 66 inches 5'6" Weight 229.00 lb Pain Level 7 Pain at this time. Pain Level With Medicine 7 on average with meds Pain Level Without Medicine 10 01/01 without meds BMI (Body Mass Index) 37.0 kg/m2 04/30/2016 2:47pm BP Systolic 142 mmHg BP Diastolic 86 mmHg Heart Rate 84 /min Respiratory Rate 20 /min Height 66 inches 5'6" Weight 234.00 lb Pain Level 9 Pain at this time. Pain Level With Medicine 9 on average with meds Pain Level Without Medicine 10 01/01 without meds BMI (Body Mass Index) 37.8 kg/m2 04/18/2016 9:30am BP Systolic 130 mmHg BP Diastolic 78 mmHg Heart Rate 84 /min Respiratory Rate 20 /min Height 66 inches 5'6" Weight 234.00 lb Pain Level 9 Pain at this time. Pain Level With Medicine 8 on average with meds Pain Level Without Medicine 10 01/01 without meds BMI (Body Mass Index) 37.8 kg/m2 03/28/2016 10:02am BP Systolic 132 mmHg BP Diastolic 86 mmHg Heart Rate 84 /min Respiratory Rate 20 /min Height 66 inches 5'6" Weight 232.00 lb Pain Level 7 Pain at this time. Pain Level With Medicine 5 on average with meds Pain Level Without Medicine 10 01/01 without meds Pain Level After Procedure 5 BP Systolic Recheck 138 mmHg Pulse: 90 BP Diastolic Recheck 84 mmHg Pulse: 90 BMI (Body Mass Index) 37.4 kg/m2 03/09/2016 2:02pm BP Systolic 136 mmHg BP Diastolic 84 mmHg Heart Rate 80 /min Respiratory Rate 20 /min Height 66 inches 5'6" Weight 234.00 lb Pain Level 6 Pain at this time. Pain Level With Medicine 6 on average with meds Pain Level Without Medicine 10 01/01 without meds Pain Level After Procedure 5 BP Systolic Recheck 142 mmHg Pulse: 84 BP Diastolic Recheck 86 mmHg Pulse: 84 BMI (Body Mass Index) 37.8 kg/m2 02/24/2016 10:18am BP Systolic 132 mmHg BP Diastolic 86 mmHg Heart Rate 84 /min Respiratory Rate 20 /min Height 66 inches 5'6" Weight 234.00 lb Pain Level 6 Pain at this time. Pain Level With Medicine 5 on average with meds Pain Level Without Medicine 01/01 without meds BMI (Body Mass Index) 37.8 kg/m2 01/25/2016 10:03am BP Systolic 130 mmHg BP Diastolic 74 mmHg Heart Rate 78 /min Respiratory Rate 18 /min Height 66 inches 5'6" Weight 234.00 lb Pain Level 6 Pain at this time. Pain Level With Medicine 5 on average with meds Pain Level Without Medicine 10 01/01 without meds BMI (Body Mass Index) 37.8 kg/m2 01/02/2016 3:19pm BP Systolic 128 mmHg BP Diastolic 86 mmHg Heart Rate 80 /min Respiratory Rate 20 /min Height 66 inches 5'6" Weight 228.00 lb Pain Level 8 Pain at this time. Pain Level With Medicine 7 on average with meds Pain Level Without Medicine 01/01 without meds BMI (Body Mass Index) 36.8 kg/m2 12/26/2015 10:08am BP Systolic 126 mmHg BP Diastolic 78 mmHg Heart Rate 74 /min Respiratory Rate 18 /min Height 66 inches 5'6" Weight 228.00 lb Pain Level 8 Pain at this time. Pain Level With Medicine 7 on average with meds Pain Level Without Medicine 01/01 without meds BMI (Body Mass Index) 36.8 kg/m2 11/24/2015 10:24am BP Systolic 142 mmHg BP Diastolic 78 mmHg Heart Rate 80 /min Respiratory Rate 20 /min Height 66 inches 5'6" Weight 227.00 lb Pain Level 7 Pain at this time. Pain Level With Medicine 6 on average with meds Pain Level Without Medicine 01/01 without meds BMI (Body Mass Index) 36.6 kg/m2 11/08/2015 11:01am BP Systolic 128 mmHg BP Diastolic 80 mmHg Heart Rate 76 /min Respiratory Rate 20 /min Height 66 inches 5'6" Weight 227.00 lb Pain Level 7 Pain at this time. Pain Level With Medicine 6 on average with meds Pain Level Without Medicine 01/01 without meds BMI (Body Mass Index) 36.6 kg/m2 10/25/2015 8:43am BP Systolic 130 mmHg BP Diastolic 78 mmHg Heart Rate 76 /min Respiratory Rate 18 /min Height 66 inches 5'6" Weight 227.00 lb Pain Level 6 Pain at this time. Pain Level With Medicine 5 on average with meds Pain Level Without Medicine 10 01/01 without meds Pain Level After Procedure 2 BP Systolic Recheck 122 mmHg Pulse:74 BP Diastolic Recheck 70 mmHg Pulse:74 BMI (Body Mass Index) 36.6 kg/m2 09/27/2015 10:43am BP Systolic 124 mmHg BP Diastolic 80 mmHg Heart Rate 78 /min Respiratory Rate 18 /min Height 66 inches 5'6" Weight 223.00 lb Pain Level 7 Pain at this time. Pain Level With Medicine 6 on average with meds Pain Level Without Medicine 10 01/01 without meds BMI (Body Mass Index) 36.0 kg/m2 09/07/2015 2:58pm BP Systolic 132 mmHg BP Diastolic 84 mmHg Heart Rate 86 /min Respiratory Rate 20 /min Height 66 inches 5'6" Weight 223.00 lb Pain Level 9 Pain at this time. Pain Level With Medicine 9 on average with meds Pain Level Without Medicine 10 01/01 without meds BMI (Body Mass Index) 36.0 kg/m2 07/29/2015 1:00pm BP Systolic 132 mmHg BP Diastolic 86 mmHg Heart Rate 84 /min Respiratory Rate 20 /min Height 66 inches 5'6" Weight 224.00 lb Pain Level 7 Pain at this time. Pain Level With Medicine 6 on average with meds Pain Level Without Medicine 10 01/01 without meds BMI (Body Mass Index) 36.2 kg/m2 05/25/2015 10:00am BP Systolic 148 mmHg BP Diastolic 86 mmHg Heart Rate 112 /min Respiratory Rate 20 /min Height 66 inches 5'6" Weight 224.00 lb Pain Level 7 7/10, Pain at this time. Pain Level With Medicine 6 6/10, on average with meds Pain Level Without Medicine 10 01/01 without meds BMI (Body Mass Index) 36.2 kg/m2 04/11/2015 10:54am BP Systolic 128 mmHg BP Diastolic 78 mmHg Heart Rate 76 /min Respiratory Rate 20 /min Height 66 inches 5'6" Weight 224.00 lb Pain Level 8 8/10, Pain at this time. Pain Level With Medicine 7 7/10, on average with meds Pain Level Without Medicine 10 01/01 without meds Pain Level After Procedure 4 BP Systolic Recheck 128 mmHg Pulse:82 BP Diastolic Recheck 78 mmHg Pulse:82 BMI (Body Mass Index) 36.2 kg/m2 03/09/2015 2:45pm BP Systolic 136 mmHg BP Diastolic 82 mmHg Heart Rate 84 /min Respiratory Rate 20 /min Height 66 inches 5'6" Weight 224.00 lb Pain Level 9 Pain at this time. Pain Level With Medicine 8 on average with meds Pain Level Without Medicine 10 01/01 without meds BMI (Body Mass Index) 36.2 kg/m2 01/13/2015 10:10am BP Systolic 134 mmHg BP Diastolic 78 mmHg Heart Rate 76 /min Respiratory Rate 18 /min Height 66 inches 5'6" Weight 222.00 lb Pain Level 9 Pain at this time. Pain Level With Medicine 8 on average with meds Pain Level Without Medicine 10 01/01 without meds Pain Level After Procedure 7 BP Systolic Recheck 128 mmHg Pulse:76 BP Diastolic Recheck 74 mmHg Pulse:76 BMI (Body Mass Index) 35.8 kg/m2 12/23/2014 11:00am BP Systolic 144 mmHg BP Diastolic 90 mmHg Heart Rate 88 /min Respiratory Rate 20 /min Height 66 inches 5'6" Weight 222.00 lb Pain Level 9 Pain at this time. Pain Level With Medicine 8 on average with meds Pain Level Without Medicine 10 01/01 without meds BMI (Body Mass Index) 35.8 kg/m2 11/26/2014 12:59pm BP Systolic 132 mmHg BP Diastolic 80 mmHg Heart Rate 80 /min Respiratory Rate 20 /min Height 66 inches 5'6" Weight 230.00 lb Pain Level 6 Pain at this time. Pain Level With Medicine 5 on average with meds Pain Level Without Medicine 10 01/01 without meds BMI (Body Mass Index) 37.1 kg/m2 11/02/2014 9:06am BP Systolic 140 mmHg BP Diastolic 86 mmHg Heart Rate 84 /min Respiratory Rate 20 /min Height 66 inches 5'6" Weight 236.00 lb Pain Level 8 Pain at this time. Pain Level With Medicine 7 on average with meds Pain Level Without Medicine 10 01/01 without meds Pain Level After Procedure 7 BP Systolic Recheck 138 mmHg Pulse:82 BP Diastolic Recheck 84 mmHg Pulse:82 BMI (Body Mass Index) 38.1 kg/m2 10/29/2014 10:25am BP Systolic 126 mmHg BP Diastolic 78 mmHg Heart Rate 74 /min Respiratory Rate 18 /min Height 66 inches 5'6" Pain Level 7 Pain at this time. Pain Level With Medicine 6 on average with meds Pain Level Without Medicine 10 10/10 without meds 09/29/2014 11:16am BP Systolic 128 mmHg BP Diastolic 72 mmHg Heart Rate 76 /min Respiratory Rate 18 /min Height 66 inches 5'6" Weight 234.00 lb Pain Level 8 8/10, Pain at this time. Pain Level With Medicine 6 6/10, on average with meds Pain Level Without Medicine 10 10/10 without meds Pain Level After Procedure 7 BP Systolic Recheck 132 mmHg Pulse:78 BP Diastolic Recheck 72 mmHg Pulse:78 BMI (Body Mass Index) 37.8 kg/m2 08/30/2014 10:43am BP Systolic 128 mmHg BP Diastolic 76 mmHg Heart Rate 76 /min Respiratory Rate 18 /min Height 66 inches 5'6" Weight 242.00 lb Pain Level 8 8/10, Pain at this time. Pain Level With Medicine 7 7, on average with meds Pain Level Without Medicine 10 01/01 without meds Pain Level After Procedure 6 BP Systolic Recheck 124 mmHg Pulse: 80 BP Diastolic Recheck 78 mmHg Pulse: 80 BMI (Body Mass Index) 39.1 kg/m2 07/29/2014 3:04pm BP Systolic 126 mmHg BP Diastolic 78 mmHg Heart Rate 74 /min Respiratory Rate 20 /min Height 66 inches 5'6" Weight 242.00 lb Pain Level 8 Pain at this time. Pain Level With Medicine 6 on average with meds Pain Level Without Medicine 10 10 without meds Pain Level After Procedure 6 BP Systolic Recheck 132 mmHg Pulse: 80 BP Diastolic Recheck 84 mmHg Pulse: 80 BMI (Body Mass Index) 39.1 kg/m2 07/13/2014 3:34pm BP Systolic 140 mmHg BP Diastolic 86 mmHg Heart Rate 84 /min Respiratory Rate 20 /min Height 66 inches 5'6" Weight 240.00 lb Pain Level 7 Pain at this time. Pain Level With Medicine 6 on average with meds Pain Level Without Medicine 10 1010 without meds BMI (Body Mass Index) 38.7 kg/m2 06/24/2014 2:04pm BP Systolic 130 mmHg BP Diastolic 80 mmHg Heart Rate 84 /min Respiratory Rate 20 /min Height 66 inches 5'6" Weight 240.00 lb Pain Level 7 /10, Pain at this time. Pain Level With Medicine 7 /10, on average with meds Pain Level Without Medicine 10 01/01 without meds BMI (Body Mass Index) 38.7 kg/m2 06/10/2014 2:07pm BP Systolic 130 mmHg BP Diastolic 78 mmHg Heart Rate 84 /min Respiratory Rate 20 /min Height 66 inches 5'6" Weight 231.00 lb Pain Level 4 Pain at this time. Pain Level With Medicine 3 on average with meds Pain Level Without Medicine 10 01/01 without meds BMI (Body Mass Index) 37.3 kg/m2 05/27/2014 3:49pm BP Systolic 136 mmHg BP Diastolic 82 mmHg Heart Rate 84 /min Respiratory Rate 22 /min Height 66 inches 5'6" Weight 234.00 lb Pain Level 9 12/02, Pain at this time. Pain Level With Medicine 8 11/01, on average with meds Pain Level Without Medicine 10 01/01 without meds Pain Level After Procedure 5 BP Systolic Recheck 134 mmHg Pulse:86 BP Diastolic Recheck 80 mmHg Pulse:86 BMI (Body Mass Index) 37.8 kg/m2 04/08/2014 9:17am BP Systolic 132 mmHg BP Diastolic 80 mmHg Heart Rate 76 /min Respiratory Rate 20 /min Height 66 inches 5'6" Weight 234.00 lb Pain Level 6 Pain at this time. Pain Level With Medicine 5 on average with meds Pain Level Without Medicine 10 01/01 without meds BMI (Body Mass Index) 37.8 kg/m2 03/26/2014 1:05pm BP Systolic 128 mmHg BP Diastolic 84 mmHg Heart Rate 80 /min Respiratory Rate 20 /min Height 66 inches 5'6" Weight 242.00 lb Pain Level 6 Pain at this time. Pain Level With Medicine 5 on average with meds Pain Level Without Medicine 10 01/01 without meds BMI (Body Mass Index) 39.1 kg/m2 03/11/2014 9:57am BP Systolic 142 mmHg BP Diastolic 80 mmHg Heart Rate 84 /min Respiratory Rate 20 /min Height 66 inches 5'6" Weight 240.00 lb Pain Level 8 11/01, Pain at this time. Pain Level With Medicine 8 8/10, on average with meds Pain Level Without Medicine 10 01/01 without meds Pain Level After Procedure 6 BP Systolic Recheck 138 mmHg Pulse: 88 BP Diastolic Recheck 82 mmHg Pulse: 88 BMI (Body Mass Index) 38.7 kg/m2 02/23/2014 2:21pm BP Systolic 134 mmHg BP Diastolic 74 mmHg Heart Rate 78 /min Respiratory Rate 18 /min Height 66 inches 5'6" Weight 240.00 lb Pain Level 9 9/10, Pain at this time. Pain Level With Medicine 8 8/10, on average with meds Pain Level Without Medicine 10 10/10 without meds Pain Level After Procedure 8 BP Systolic Recheck 130 mmHg Pulse: 76 BP Diastolic Recheck 76 mmHg Pulse: 76 BMI (Body Mass Index) 38.7 kg/m2 01/27/2014 3:33pm BP Systolic 138 mmHg BP Diastolic 84 mmHg Heart Rate 80 /min Respiratory Rate 18 /min Height 66 inches 5'6" Weight 236.00 lb Pain Level 9.5 Pain at this time. Pain Level With Medicine 7 on average with meds Pain Level Without Medicine 10 10/10 without meds Pain Level After Procedure 7 BP Systolic Recheck 124 mmHg Pulse: 70 BP Diastolic Recheck 72 mmHg Pulse: 70 BMI (Body Mass Index) 38.1 kg/m2 01/11/2014 10:03am BP Systolic 128 mmHg BP Diastolic 76 mmHg Heart Rate 74 /min Respiratory Rate 18 /min Height 66 inches 5'6" Weight 236.00 lb Pain Level 8.5 8.5/10 Pain Level With Medicine 8 8/10 Pain Level Without Medicine 10 10 Pain Level After Procedure 7 BP Systolic Recheck 126 mmHg Pulse: 80 BP Diastolic Recheck 74 mmHg Pulse: 80 BMI (Body Mass Index) 38.1 kg/m2 12/08/2013 10:17am BP Systolic 132 mmHg BP Diastolic 78 mmHg Heart Rate 76 /min Respiratory Rate 18 /min Height 66 inches 5'6" Weight 229.00 lb Pain Level 8 8/10, Pain at this time. Pain Level With Medicine 7 7/10, on average with meds Pain Level Without Medicine 10 10/10 without meds Pain Level After Procedure 4-5 BP Systolic Recheck 130 mmHg Pulse: 80 BP Diastolic Recheck 76 mmHg Pulse: 80 BMI (Body Mass Index) 37.0 kg/m2 11/10/2013 10:34am BP Systolic 126 mmHg BP Diastolic 88 mmHg Heart Rate 84 /min Respiratory Rate 18 /min Height 66 inches 5'6" Weight 247.00 lb Pain Level 8 8/10, Pain at this time. Pain Level With Medicine 5 5/10, on average with meds Pain Level Without Medicine 10 10/10 without meds Pain Level After Procedure 3 BP Systolic Recheck 128 mmHg Pulse: 80 BP Diastolic Recheck 84 mmHg Pulse: 80 BMI (Body Mass Index) 39.9 kg/m2 10/26/2013 11:03am BP Systolic 126 mmHg BP Diastolic 80 mmHg Heart Rate 80 /min Respiratory Rate 18 /min Height 66 inches 5'6" Weight 225.00 lb Pain Level 8 8/10, Pain at this time. Pain Level With Medicine 4 4/10, on average with meds Pain Level Without Medicine 10 01/01 without meds BMI (Body Mass Index) 36.3 kg/m2 09/17/2013 11:07am BP Systolic 130 mmHg BP Diastolic 78 mmHg Heart Rate 76 /min Respiratory Rate 18 /min Height 66 inches 5'6" Weight 235.00 lb Pain Level 7 7/10, Pain at this time. Pain Level With Medicine 6.5 6.5/10, on average with meds Pain Level Without Medicine 10 01/01 without meds Pain Level After Procedure 4 BP Systolic Recheck 124 mmHg Pulse:74 BP Diastolic Recheck 72 mmHg Pulse:74 BMI (Body Mass Index) 37.9 kg/m2 09/01/2013 9:42am BP Systolic 132 mmHg BP Diastolic 80 mmHg Heart Rate 120 /min Respiratory Rate 20 /min Height 66 inches 5'6" Weight 220.00 lb Pain Level 7.5 Pain at this time. Pain Level With Medicine 7 on average with meds Pain Level Without Medicine 10 01/01 without meds Pain Level After Procedure 4 BP Systolic Recheck 128 mmHg Pulse:92 BP Diastolic Recheck 78 mmHg Pulse:92 BMI (Body Mass Index) 35.5 kg/m2 08/19/2013 10:42am BP Systolic 122 mmHg BP Diastolic 76 mmHg Heart Rate 74 /min Respiratory Rate 18 /min Height 66 inches 5'6" Weight 220.00 lb Pain Level 5-6 Pain at this time. Pain Level With Medicine 4 on average with meds Pain Level Without Medicine 10 01/01 without meds BMI (Body Mass Index) 35.5 kg/m2 07/22/2013 9:22am BP Systolic 122 mmHg BP Diastolic 80 mmHg Heart Rate 84 /min Respiratory Rate 20 /min Height 66 inches 5'6" Weight 220.00 lb Pain Level 4 Pain at this time. Pain Level With Medicine 3 on average with meds Pain Level Without Medicine 10 01/01 without meds Pain Level After Procedure 2 BP Systolic Recheck 120 mmHg Pulse: 76 BP Diastolic Recheck 68 mmHg Pulse: 76 BMI (Body Mass Index) 35.5 kg/m2 07/17/2013 10:55am BP Systolic 128 mmHg BP Diastolic 80 mmHg Heart Rate 78 /min Respiratory Rate 20 /min Height 66 inches 5'6" Weight 220.00 lb Pain Level 8 Pain at this time. Pain Level With Medicine 7 on average with meds Pain Level Without Medicine 10 10/10 without meds Pain Level After Procedure 5 BP Systolic Recheck 120 mmHg Pulse: 84 BP Diastolic Recheck 68 mmHg Pulse: 84 BMI (Body Mass Index) 35.5 kg/m2 06/18/2013 9:46am BP Systolic 124 mmHg BP Diastolic 76 mmHg Heart Rate 74 /min Respiratory Rate 20 /min Height 66 inches 5'6" Weight 230.00 lb Pain Level 6.5 6.5/10, Pain at this time. Pain Level With Medicine 5 on average with meds Pain Level Without Medicine 10 10/ without meds Pain Level After Procedure 5 BP Systolic Recheck 124 mmHg Pulse:72 BP Diastolic Recheck 76 mmHg Pulse:72 BMI (Body Mass Index) 37.1 kg/m2 05/19/2013 11:17am BP Systolic 124 mmHg BP Diastolic 76 mmHg Heart Rate 76 /min Respiratory Rate 18 /min Height 66 inches 5'6" Weight 221.00 lb Pain Level 8 8/10, Pain at this time. Pain Level With Medicine 3 3/10, on average with meds Pain Level Without Medicine 10 10/10 without meds BMI (Body Mass Index) 35.7 kg/m2 04/08/2013 10:47am BP Systolic 154 mmHg BP Diastolic 88 mmHg Heart Rate 80 /min Respiratory Rate 18 /min Height 66 inches 5'6" Weight 254.00 lb Pain Level 7 7/10, Pain at this time. Pain Level With Medicine 4 4/10, on average with meds Pain Level Without Medicine 10 10/10 without meds Pain Level After Procedure 6 BP Systolic Recheck 128 mmHg Pulse:76 BP Diastolic Recheck 80 mmHg Pulse:76 BMI (Body Mass Index) 41.0 kg/m2 03/04/2013 10:05am BP Systolic 124 mmHg BP Diastolic 76 mmHg Heart Rate 80 /min Respiratory Rate 18 /min Height 66 inches 5'6" Weight 236.00 lb Pain Level 9 9/10, Pain at this time. Pain Level With Medicine 7 7/10, on average with meds Pain Level Without Medicine 10 10/ without meds Pain Level After Procedure 5 BP Systolic Recheck 122 mmHg Pulse:76 BP Diastolic Recheck 80 mmHg Pulse:76 BMI (Body Mass Index) 38.1 kg/m2 02/23/2013 9:25am BP Systolic 122 mmHg BP Diastolic 74 mmHg Heart Rate 80 /min Respiratory Rate 18 /min Height 66 inches 5'6" Weight 236.00 lb Pain Level 7-8 7-810, Pain at this time. Pain Level With Medicine 4 4/10, on average with meds Pain Level Without Medicine 10 01/01 without meds Pain Level After Procedure 5 BP Systolic Recheck 122 mmHg Pulse:72 BP Diastolic Recheck 80 mmHg Pulse:72 BMI (Body Mass Index) 38.1 kg/m2 02/02/2013 10:07am BP Systolic 130 mmHg BP Diastolic 82 mmHg Heart Rate 80 /min Respiratory Rate 18 /min Height 66 inches 5'6" Weight 236.00 lb Pain Level 7.5 7.510, Pain at this time. Pain Level With Medicine 4 4/10, on average with meds Pain Level Without Medicine 10 01/01 without meds BMI (Body Mass Index) 38.1 kg/m2 01/02/2013 11:31am BP Systolic 132 mmHg BP Diastolic 78 mmHg Heart Rate 68 /min Respiratory Rate 18 /min Height 66 inches 5'6" Weight 238.00 lb Pain Level 6 6/10, Pain at this time. Pain Level With Medicine 4 4/10, on average with meds Pain Level Without Medicine 10 01/01 without meds BMI (Body Mass Index) 38.4 kg/m2 12/03/2012 11:08am BP Systolic 128 mmHg BP Diastolic 86 mmHg Heart Rate 76 /min Respiratory Rate 18 /min Height 66 inches 5'6" Weight 234.00 lb Pain Level 8 810, Pain at this time., Pain at this time. Pain Level With Medicine 6 6/10, on average with meds Pain Level Without Medicine 10 01/01 without meds Pain Level After Procedure 6 BP Systolic Recheck 118 mmHg Pulse:64 BP Diastolic Recheck 72 mmHg Pulse:64 BMI (Body Mass Index) 37.8 kg/m2 11/03/2012 10:46am BP Systolic 148 mmHg BP Diastolic 86 mmHg Heart Rate 88 /min Respiratory Rate 20 /min Height 66 inches 5'6" Weight 236.00 lb Pain Level 7.5 7.5/10, Pain at this time. Pain Level With Medicine 3.5-4 3.5-4/10, on average with meds Pain Level Without Medicine 10 10/10 without meds Pain Level After Procedure 5 BP Systolic Recheck 122 mmHg Pulse:72 BP Diastolic Recheck 82 mmHg Pulse:72 BMI (Body Mass Index) 38.1 kg/m2 10/02/2012 10:01am BP Systolic 120 mmHg BP Diastolic 80 mmHg Heart Rate 80 /min Respiratory Rate 18 /min Height 66 inches 5'6" Weight 240.00 lb Pain Level 7 7/10, Pain at this time. Pain Level With Medicine 4 4/10, on average with meds Pain Level Without Medicine 10 10/10 without meds BMI (Body Mass Index) 38.7 kg/m2 09/02/2012 11:04am BP Systolic 120 mmHg BP Diastolic 60 mmHg Heart Rate 70 /min Respiratory Rate 18 /min Height 66 inches 5'6" Weight 240.00 lb Pain Level 4 4/10, Pain at this time. Pain Level With Medicine 5 5/10, on average with meds Pain Level Without Medicine 10 10/10 without meds BMI (Body Mass Index) 38.7 kg/m2 08/19/2012 9:21am BP Systolic 142 mmHg BP Diastolic 88 mmHg Heart Rate 76 /min Respiratory Rate 18 /min Height 66 inches 5'6" Weight 231.00 lb Pain Level 8 8/10, Pain at this time. Pain Level With Medicine 6 6/10, on average with meds Pain Level Without Medicine 10 10/10 without meds BMI (Body Mass Index) 37.3 kg/m2 Results Test Date Facility Test Result H/L Range Note Laboratory test 12/16/2017 [facility] 157 mg/dL High 70-100 [address] [place] [address] [phone] Laboratory test 12/16/2017 [facility] 120 mg/dL High 70-100 [address] [place] [address] [phone] Laboratory test 12/16/2017 [facility] 182 mg/dL High 70-100 [address] Glucose [place] [id number] [phone] [employer]: [id number] [employer]: [id number] [employer]: [id number] Procedures Date Code Description Status 02/26/2018 Arthrocentesis/Aspiration/Inj Of Major Joint Or Bursa W/ Completed Ultra 02/18/2018 67503 Therapeutic, Prophylactic Or Diagnostic Injection Subq/Im Completed 11/15/2017 60919 Therapeutic, Prophylactic Or Diagnostic Injection Subq/Im Completed 11/15/2017 43060 Injection For Nerve Block, Greater Occipital Nerve Completed 11/15/201705438 Injection, Single Or Mutiple Trigger Points One Or Two Completed Muscles 09/03/2017 37867 Omt 1-2 Body Regions Completed 08/02/2017 Arthrocentesis Aspiration Inj, Small Joint/Bursa W US Completed Guidance 08/02/201728287 Inject Tendon/Ligament Completed 07/03/201777104 Arthrocentesis Aspiration Inj, Small Joint/Bursa W US Completed Guidance 06/11/201717627 Arthrocentesis Aspiration Inj, Small Joint/Bursa W US Completed Guidance 05/03/201757821 Arthrocentesis Aspiration Inj, Small Joint/Bursa W US Completed Guidance 04/04/2017 27097 Injection, Single Or Mutiple Trigger Points One Or Two Completed Muscles 04/04/2017 07891 Injection For Nerve Block, Greater Occipital Nerve Completed 03/04/2017 91105 Omt 1-2 Body Regions Completed 03/04/2017 75004 Therapeutic, Prophylactic Or Diagnostic Injection Subq/Im Completed 03/04/201739878 Injection, Single Or Mutiple Trigger Points One Or Two Completed Muscles 03/04/201733688 Injection, Tendon Origin/Insertion Completed 03/04/201701501 Injection, Tendon Origin/Insertion Completed 03/04/2017 60720 Inject Tendon/Ligament Completed 03/04/2017 26449 Inject Tendon/Ligament Completed 03/04/2017 36336 Inject Tendon/Ligament Completed 02/01/2017 10754 Inject Tendon/Ligament Completed 02/01/2017 58098 U/S Guidance For Needle Placement Completed 02/01/2017 84128 Therapeutic, Prophylactic Or Diagnostic Injection Subq/Im Completed 11/27/2016 82215 Injection For Nerve Block, Greater Occipital Nerve Completed 11/27/201653575 Injection, Single Or Mutiple Trigger Points One Or Two Completed Muscles 10/25/2016 48087 Therapeutic, Prophylactic Or Diagnostic Injection Subq/Im Completed 07/27/2016 64243 Omt 1-2 Body Regions Completed 07/27/2016 36055 Therapeutic, Prophylactic Or Diagnostic Injection Subq/Im Completed 05/29/2016 74819 Therapeutic, Prophylactic Or Diagnostic Injection Subq/Im Completed 03/28/201666710 Inject Tendon/Ligament Completed 03/28/201609770 Inject Tendon/Ligament Completed 03/28/201656585 Inject Tendon/Ligament Completed 03/28/201670360 Inject Tendon/Ligament Completed 03/28/201639885 Injection, Tendon Origin/Insertion Completed 03/28/201645979 Injection, Tendon Origin/Insertion Completed 03/28/201678908 Injection, Single Or Mutiple Trigger Points One Or Two Completed Muscles 03/28/2016 60325 Therapeutic, Prophylactic Or Diagnostic Injection Subq/Im Completed 03/28/2016 28720 Omt 1-2 Body Regions Completed 03/09/201608129 Arthrocentesis/Aspiration/Inj Of Major Joint Or Bursa W/ Completed Ultra 02/24/201609632 Inject Tendon/Ligament Completed 02/24/201699160 Inject Tendon/Ligament Completed 02/24/201692797 Inject Tendon/Ligament Completed 02/24/201650901 Inject Tendon/Ligament Completed 02/24/201607938 Injection, Tendon Origin/Insertion Completed 02/24/201640634 Injection, Tendon Origin/Insertion Completed 02/24/201691712 Injection, Single Or Mutiple Trigger Points One Or Two Completed Muscles 02/24/2016 38923 Omt 3-4 Body Regions Completed 01/25/2016 03322 Omt 3-4 Body Regions Completed 01/25/2016 59797 Therapeutic, Prophylactic Or Diagnostic Injection Subq/Im Completed 01/25/201671662 Arthrocentesis Aspiration Inj, Small Joint/Bursa W US Completed Guidance 01/02/2016 28034 Omt 3-4 Body Regions Completed 12/26/2015 55397 Omt 3-4 Body Regions Completed 11/24/201592459 Inject Tendon/Ligament Completed 11/24/2015 99345 U/S Guidance For Needle Placement Completed 11/08/2015 96728 Therapeutic, Prophylactic Or Diagnostic Injection Subq/Im Completed 11/08/201544732 Inject Tendon/Ligament Completed 10/25/2015 10700 Therapeutic, Prophylactic Or Diagnostic Injection Subq/Im Completed 10/25/2015 Arthrocentesis Aspiration Inj, Small Joint/Bursa W US Completed Guidance 10/25/201540784 Inject Tendon/Ligament Completed 09/27/201556978 Inject Tendon/Ligament Completed 09/27/201532719 Inject Tendon/Ligament Completed 09/27/201517991 Inject Tendon/Ligament Completed 09/27/201572593 Inject Tendon/Ligament Completed 09/27/201529923 Injection, Tendon Origin/Insertion Completed 09/27/201555474 Injection, Tendon Origin/Insertion Completed 09/27/201522080 Injection, Single Or Mutiple Trigger Points One Or Two Completed Muscles 09/27/2015 10952 Omt 1-2 Body Regions Completed 09/07/2015 65527 Omt 1-2 Body Regions Completed 09/07/201584827 Injection, Single Or Mutiple Trigger Points One Or Two Completed Muscles 09/07/201505579 Injection, Tendon Origin/Insertion Completed 09/07/201529294 Injection, Tendon Origin/Insertion Completed 09/07/201531142 Inject Tendon/Ligament Completed 09/07/201578601 Inject Tendon/Ligament Completed 09/07/201501285 Inject Tendon/Ligament Completed 07/29/2015 66782 Omt 1-2 Body Regions Completed 05/25/2015 Arthrocentesis Aspiration Inj, Small Joint/Bursa W US Completed Guidance 05/25/2015 03556 Omt 1-2 Body Regions Completed 04/11/2015 91313 Test Autonomic Nervous System, Sudomotor Completed 04/11/2015 26883 U/S Guidance For Needle Placement Completed 04/11/201550356 Injection, Tendon Origin/Insertion Completed 04/11/201522320 Injection, Tendon Origin/Insertion Completed 03/09/2015 58486 Omt 3-4 Body Regions Completed 03/09/201547334 Injection, Single Or Mutiple Trigger Points One Or Two Completed Muscles 03/09/201543842 Injection, Tendon Origin/Insertion Completed 03/09/201501585 Injection, Tendon Origin/Insertion Completed 03/09/201520604 Inject Tendon/Ligament Completed 01/13/201518737 Injection Single Or Multiple Trigger Points Three Or More Completed Muscles 01/13/2015 37420 Injection For Nerve Block, Greater Occipital Nerve Completed 01/13/2015 65571 Therapeutic, Prophylactic Or Diagnostic Injection Subq/Im Completed 01/13/2015 89043 Omt 1-2 Body Regions Completed 12/23/2014 64808 Omt 1-2 Body Regions Completed 11/26/2014 76256 Omt 1-2 Body Regions Completed 11/02/201476542 Arthrocentesis Aspiration Inj, Small Joint/Bursa W US Completed Guidance 09/29/201451968 Arthrocentesis Aspirtation Inj,Intermediate W/ US Guide & Completed Report 08/30/2014 21713 Omt 1-2 Body Regions Completed 08/30/2014 36230 Injection For Nerve Block, Greater Occipital Nerve Completed 08/30/201479807 Injection Single Or Multiple Trigger Points Three Or More Completed Muscles 07/29/2014 Inject/Drain Arthrocentesis Small Joint/Bursa Completed 07/29/2014 72641 U/S Guidance For Needle Placement Completed 07/29/2014 32324 Omt 3-4 Body Regions Completed 07/13/2014 63834 Omt 3-4 Body Regions Completed 06/24/2014 77690 Omt 1-2 Body Regions Completed 06/24/2014 15232 Test Autonomic Nervous System, Sudomotor Completed 06/24/2014 41410 Injection, Single Or Mutiple Trigger Points One Or Two Completed Muscles 06/24/201462481 Injection, Tendon Origin/Insertion Completed 06/24/201488897 Injection, Tendon Origin/Insertion Completed 06/24/2014 31398 Inject Tendon/Ligament Completed 06/24/201441027 Inject Tendon/Ligament Completed 06/10/2014 88887 Omt 1-2 Body Regions Completed 06/10/2014 84726 Test Autonomic Nervous System, Sudomotor Completed 05/27/201481571 Inject/Drain Arthrocentesis Intermediate Joint/Bursa Completed 05/27/2014 91620 U/S Guidance For Needle Placement Completed 05/27/2014 81049 Omt 1-2 Body Regions Completed 04/08/2014 78124 Omt 1-2 Body Regions Completed 03/26/2014 19961 Omt 1-2 Body Regions Completed 03/11/2014 58283 Injection For Nerve Block, Greater Occipital Nerve Completed 03/11/201494100 Injection, Single Or Mutiple Trigger Points One Or Two Completed Muscles 02/23/2014 54726 U/S Guidance For Needle Placement Completed 02/23/2014 Inject/Drain Arthrocentesis Small Joint/Bursa Completed 02/23/201462099 Inject Tendon/Ligament Completed 01/27/201403133 Inject Tendon/Ligament Completed 01/27/201497847 Inject Tendon/Ligament Completed 01/27/201406687 Inject Tendon/Ligament Completed 01/27/201411728 Injection, Single Or Mutiple Trigger Points One Or Two Completed Muscles 01/11/201459069 Inject Tendon/Ligament Completed 12/08/2013 46433 Omt 3-4 Body Regions Completed 12/08/201382957 Injection, Single Or Mutiple Trigger Points One Or Two Completed Muscles 12/08/201366816 Injection, Tendon Origin/Insertion Completed 12/08/201355082 Injection, Tendon Origin/Insertion Completed 12/08/201359055 Inject Tendon/Ligament Completed 12/08/201382106 Inject Tendon/Ligament Completed 12/08/201320411 Inject Tendon/Ligament Completed 11/10/201392862 Inject Tendon/Ligament Completed 11/10/2013 13433 U/S Guidance For Needle Placement Completed 11/10/2013 99445 Omt 3-4 Body Regions Completed 10/26/2013 68212 Omt 3-4 Body Regions Completed 09/17/2013 80758 Injection For Nerve Block, Other Peripheral Nerve Or Completed Branch 09/17/201336262 Injection, Single Or Mutiple Trigger Points One Or Two Completed Muscles 09/17/201383419 Inject Tendon/Ligament Completed 09/01/201390486 Inject Tendon/Ligament Completed 09/01/201380074 Inject Tendon/Ligament Completed 09/01/201396446 Inject Tendon/Ligament Completed 09/01/201328026 Injection, Tendon Origin/Insertion Completed 09/01/201343930 Injection, Tendon Origin/Insertion Completed 09/01/201336596 Injection, Single Or Mutiple Trigger Points One Or Two Completed Muscles 07/22/2013 26488 Omt 1-2 Body Regions Completed 07/17/2013 76196 Omt 1-2 Body Regions Completed 07/17/2013 57900 Injection For Nerve Block, Greater Occipital Nerve Completed 07/17/201339906 Injection, Single Or Mutiple Trigger Points One Or Two Completed Muscles 06/18/201376939 Inject Tendon/Ligament Completed 06/18/201330937 Inject Tendon/Ligament Completed 06/18/201391404 Inject Tendon/Ligament Completed 06/18/201336158 Injection, Tendon Origin/Insertion Completed 06/18/201388283 Injection, Tendon Origin/Insertion Completed 06/18/201325598 Injection, Single Or Mutiple Trigger Points One Or Two Completed Muscles 04/08/201393137 Injection, Single Or Mutiple Trigger Points One Or Two Completed Muscles 04/08/201363013 Inject Tendon/Ligament Completed 04/08/201320510 Inject Tendon/Ligament Completed 04/08/201357185 Inject Tendon/Ligament Completed 04/08/201301092 Inject Tendon/Ligament Completed 03/04/201392118 Inject Tendon/Ligament Completed 03/04/201342012 Inject Tendon/Ligament Completed 03/04/201370087 Injection, Tendon Origin/Insertion Completed 03/04/201303450 Injection, Tendon Origin/Insertion Completed 03/04/201323610 Injection, Single Or Mutiple Trigger Points One Or Two Completed Muscles 02/23/2013 55096 Omt 1-2 Body Regions Completed 02/23/2013 03816 Injection For Nerve Block, Greater Occipital Nerve Completed 02/23/2013 89207 Injection For Nerve Block, Greater Occipital Nerve Completed 02/23/2013 13471 Injection, Single Or Mutiple Trigger Points One Or Two Completed Muscles 12/03/2012 62568 Injection For Nerve Block, Greater Occipital Nerve Completed 12/03/2012 89130 Injection For Nerve Block, Greater Occipital Nerve Completed 12/03/2012 09395 Injection, Single Or Mutiple Trigger Points One Or Two Completed Muscles 11/03/2012 44043 Injection For Nerve Block, Greater Occipital Nerve Completed 11/03/2012 02230 Injection For Nerve Block, Greater Occipital Nerve Completed 11/03/2012 21236 Injection, Single Or Mutiple Trigger Points One Or Two Completed Muscles 10/02/2012 15869 Omt 1-2 Body Regions Completed Encounters Type Date Location Provider Dx Diagnosis Office Visit 02/26/2018 Main Office as Of [facility] [place] DO G89.29 Other chronic pain 3:15p 04/25/13 MPH M54.5 Low back pain M25.551 Pain in right hip M70.61 Trochanteric bursitis, right hip Office Visit 02/18/2018 11:00a Main Office as [facility]elo [place] G89.29 Other chronic Of 04/25/13 DO, [facility] pain M54.5 Low back pain M54.2 Cervicalgia Z79.891 [employer] (current) use of opiate analgesic R53.83 Other fatigue Office Visit 01/14/2018 11:30a Main Office as Carmelo [place] G89.29 Other chronic Of 04/25/13 DO, MPH pain M54.5 Low back pain M54.2 Cervicalgia M25.531 Pain in right wrist Z79.891 [employer]orer [employer] (current) use of opiate analgesic Office Visit 12/13/2017 1:45p Main Office as Carmelo [place] G89.29 Other chronic Of 04/25/13 DO, MPH pain M54.5 Low back pain M54.2 Cervicalgia M79.641 Pain in right hand M25.531 Pain in right wrist Z79.891 alf (current) use of opiate analgesic Office Visit 11/15/2017 1:15p Main Office as Carmelo [place] G89.29 Other chronic Of 04/25/13 DO, MPH pain M54.5 Low back pain M54.2 Cervicalgia M79.641 Pain in right hand M25.531 Pain in right wrist M54.81 Occipital neuralgia R53.83 Other fatigue M79.1 Myalgia Z79.891 [employer] (current) use of opiate analgesic Office Visit 10/03/2017 10:00a Main Office as Carmelo [place] G89.29 Other chronic Of 04/25/13 DO, MPH pain M54.2 Cervicalgia M54.5 Low back pain M25.531 Pain in right wrist M79.641 Pain in right hand Z79.891 alf (current) use of opiate analgesic Office Visit 09/03/2017 10:00a Main Office as Carmelo [place] G89.29 Other chronic Of 04/25/13 DO, MPH pain M54.2 Cervicalgia M99.01 Segmental and somatic dysfunction of cervical region M54.5 Low back pain M79.1 Myalgia M25.531 Pain in right wrist M79.641 Pain in right hand Z79.891 [employer] (current) use of opiate analgesic Office Visit 08/02/2017 10:15a Main Office as Carmelo [place] G89.29 Other chronic Of 04/25/13 DO, MPH pain M25.541 Pain in joints of right hand M65.88 Other synovitis and tenosynovitis, other site M79.1 Myalgia M54.5 Low back pain M54.2 Cervicalgia Z79.891 alf (current) use of opiate analgesic Office Visit 07/03/2017 10:15a Main Office as [place], G89.29 Other chronic Of 04/25/13 DO, MPH pain M25.542 Pain in joints of left hand M79.1 Myalgia M54.5 Low back pain Z79.891 [employer] (current) use of opiate analgesic Office Visit 06/11/2017 9:30a Main Office as Carmelo [place] G89.29 Other chronic Of 04/25/13 DO, MPH pain M54.5 Low back pain M25.542 Pain in joints of left hand M79.1 Myalgia Office Visit 06/03/2017 10:15a Main Office as Carmelo [place] G89.29 Other chronic Of 04/25/13 DO, MPH pain M54.5 Low back pain M25.531 Pain in right wrist M25.541 Pain in joints of right hand M25.542 Pain in joints of left hand M54.2 Cervicalgia Z79.891 [employer] (current) use of opiate analgesic Office Visit 05/03/2017 10:15a Main Office as [place], G89.29 Other chronic Of 04/25/13 DO, MPH pain M54.5 Low back pain M79.1 Myalgia M25.531 Pain in right wrist Z79.891 alf (current) use of opiate analgesic Office Visit 04/04/2017 10:30a Main Office as Carm[place] G89.29 Other chronic Of 04/25/13 DO, MPH pain G44.89 Other headache syndrome M79.1 Myalgia M54.81 Occipital neuralgia Z79.891 alf (current) use of opiate analgesic Office Visit 03/04/2017 10:45a Main Office as [place], G89.29 Other chronic Of 04/25/13 DO, MPH pain M54.5 Low back pain M54.2 Cervicalgia M99.01 Segmental and somatic dysfunction of cervical region M65.4 Radial styloid tenosynovitis [de Quervain] M65.88 Other synovitis and tenosynovitis, other site M79.1 Myalgia Z79.891 alf (current) use of opiate analgesic R53.83 Other fatigue Office Visit 02/01/2017 11:00a Main Office as Carmelo [place] G89.29 Other chronic Of 04/25/13 DO, MPH pain M65.4 Radial styloid tenosynovitis [de Quervain] M54.5 Low back pain M54.2 Cervicalgia M79.1 Myalgia G44.89 Other headache syndrome G40.89 Other seizures Z79.891 alf (current) use of opiate analgesic R53.83 Other fatigue Office Visit 01/15/2017 11:15a Main Office as Carmelo [place] G89.29 Other chronic Of 04/25/13 DO, MPH pain M54.5 Low back pain M54.2 Cervicalgia M79.1 Myalgia G44.89 Other headache syndrome G40.89 Other seizures Z79.891 alf (current) use of opiate analgesic Office Visit 01/02/2017 3:15p Main Office as Carmelo [place] G89.29 Other chronic Of 04/25/13 DO, MPH pain M54.2 Cervicalgia M54.5 Low back pain M79.1 Myalgia Z79.891 [employer] (current) use of opiate analgesic Z63.4 Disappearance and of family member Office Visit 12/04/2016 3:00p Main Office as Carmelo [place] G89.29 Other chronic Of 04/25/13 DO, MPH pain M54.5 Low back pain M54.2 Cervicalgia G44.89 Other headache syndrome N39.0 Urinary tract infection, site not specified Z79.891 alf (current) use of opiate analgesic Office Visit 11/27/2016 11:30a Main Office as Carmelo [place] G89.29 Other chronic Of 04/25/13 DO, MPH pain M54.5 Low back pain M54.2 Cervicalgia G44.89 Other headache syndrome M54.81 Occipital neuralgia M79.1 Myalgia Z63.4 Disappearance and of family member Z79.891 alf (current) use of opiate analgesic Office Visit 10/25/2016 2:30p Main Office as Carmelo [place] G89.29 Other chronic Of 04/25/13 DO, MPH pain M54.5 Low back pain M54.2 Cervicalgia M79.1 Myalgia R53.83 Other fatigue Z79.891 [employer] (current) use of opiate analgesic Office Visit 09/27/2016 3:00p Main Office as Carmelo [place] G89.29 Other chronic Of 04/25/13 DO, MPH pain M54.5 Low back pain M54.2 Cervicalgia H57.10 Ocular pain, unspecified eye Z79.891 alf (current) use of opiate analgesic Office Visit 08/29/2016 2:15p Main Office as Carmelo [place] G89.29 Other chronic Of 04/25/13 DO, MPH pain M54.5 Low back pain M79.1 Myalgia G40.89 Other seizures M54.2 Cervicalgia Z79.891 alf (current) use of opiate analgesic Office Visit 07/27/2016 9:30a Main Office as Carmelo [place] G89.29 Other chronic Of 04/25/13 DO, MPH pain M54.5 Low back pain M79.1 Myalgia G40.89 Other seizures M54.2 Cervicalgia M99.01 Segmental and somatic dysfunction of cervical region R53.83 Other fatigue Z79.891 alf (current) use of opiate analgesic Office Visit 06/28/2016 2:15p Main Office as Carmelo [place] G89.29 Other chronic Of 04/25/13 DO, MPH pain M54.5 Low back pain M79.1 Myalgia Z71.89 Other specified counseling Z79.891 alf (current) use of opiate analgesic Office Visit 05/29/2016 10:15a Main Office as Carm[place] G89.29 Other chronic Of 04/25/13 DO, MPH pain M54.5 Low back pain M79.1 Myalgia G89.18 Other acute postprocedural pain 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 J44.9 Chronic obstructive pulmonary disease, unspecified Z79.891 alf (current) use of opiate analgesic R53.83 Other fatigue Office Visit 04/30/2016 2:45p Main Office as [place], G89.29 Other chronic Of 04/25/13 DO, MPH pain M54.5 Low back pain M79.1 Myalgia G89.18 Other acute postprocedural pain 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 I10 Essential (primary) hypertension J44.9 Chronic obstructive pulmonary disease, unspecified Z79.891 alf (current) use of opiate analgesic Office Visit 04/18/2016 9:45a Main Office as [place], G89.29 Other chronic Of 04/25/13 DO, MPH pain M54.5 Low back pain M79.1 Myalgia G89.18 Other acute postprocedural pain Office Visit 03/28/2016 10:00a Main Office as [place], G89.29 Other chronic Of 04/25/13 DO, MPH pain M54.5 Low back pain M79.1 Myalgia M65.88 Other synovitis and tenosynovitis, other site M46.06 Spinal enthesopathy, lumbar region M99.03 Segmental and somatic dysfunction of lumbar region R53.83 Other fatigue Office Visit 03/09/2016 2:15p Main Office as [place], G89.29 Other chronic Of 04/25/13 DO, MPH pain M54.2 Cervicalgia M79.1 Myalgia M54.17 Radiculopathy, lumbosacral region Z79.891 [employer] (current) use of opiate analgesic Office Visit 02/24/2016 10:30a Main Office as [place], G89.29 Other chronic Of 04/25/13 DO, MPH pain M79.642 Pain in left hand M54.2 Cervicalgia M65.88 Other synovitis and tenosynovitis, other site M79.1 Myalgia M54.6 Pain in thoracic spine M99.01 Segmental and somatic dysfunction of cervical region M99.02 Segmental and somatic dysfunction of thoracic region M54.5 Low back pain M99.03 Segmental and somatic dysfunction of lumbar region Office Visit 01/25/2016 11:00a Main Office as Carm[place] G89.29 Other chronic Of 04/25/13 DO, MPH pain M79.642 Pain in left hand R53.83 Other fatigue Z79.891 [employer] (current) use of opiate analgesic Office Visit 01/02/2016 3:30p Main Office as Carm[place] G89.29 Other chronic Of 04/25/13 DO, MPH pain M54.2 Cervicalgia M99.01 Segmental and somatic dysfunction of cervical region M54.6 Pain in thoracic spine M99.02 Segmental and somatic dysfunction of thoracic region M25.511 Pain in right shoulder M25.512 Pain in left shoulder M99.07 Segmental and somatic dysfunction of upper extremity Office Visit 12/26/2015 10:15a Main Office as Carmelo [place] G89.29 Other chronic Of 04/25/13 DO, MPH pain M54.2 Cervicalgia M79.631 Pain in right forearm M76.51 Patellar tendinitis, right knee Z79.891 [employer] (current) use of opiate analgesic M99.01 Segmental and somatic dysfunction of cervical region M99.02 Segmental and somatic dysfunction of thoracic region M99.07 Segmental and somatic dysfunction of upper extremity Office Visit 11/24/2015 10:30a Main Office as Carmelo [place] G89.29 Other chronic Of 04/25/13 DO, MPH pain M54.2 Cervicalgia M65.88 Other synovitis and tenosynovitis, other site M79.631 Pain in right forearm Office Visit 11/08/2015 11:00a Main Office as Carmelo [place] G89.29 Other chronic Of 04/25/13 DO, MPH pain M54.2 Cervicalgia M76.51 Patellar tendinitis, right knee R53.83 Other fatigue Z79.891 [employer] (current) use of opiate analgesic Office Visit 10/25/2015 10:30a Main Office as Carm[place] G89.29 Other chronic Of 04/25/13 DO, MPH pain M54.2 Cervicalgia M25.841 Other specified joint disorders, right hand M65.88 Other synovitis and tenosynovitis, other site R53.83 Other fatigue Z71.89 Other specified counseling Z79.891 alf (current) use of opiate analgesic Office Visit 09/27/2015 10:45a Main Office as [place], Z79.891 [employer] Of 04/25/13 DO, MPH (current) use of opiate analgesic G89.29 Other chronic pain M54.2 Cervicalgia M99.01 Segmental and somatic dysfunction of cervical region G44.209 Tension-type headache, unspecified, not intractable M79.1 Myalgia M65.88 Other synovitis and tenosynovitis, other site Z79.891 [employer] (current) use of opiate analgesic Office Visit 09/07/2015 3:00p Main Office as Carmelo [place] G89.29 Other chronic Of 04/25/13 DO, MPH pain M54.2 Cervicalgia M99.01 Segmental and somatic dysfunction of cervical region G44.209 Tension-type headache, unspecified, not intractable M54.81 Occipital neuralgia M79.1 Myalgia M65.88 Other synovitis and tenosynovitis, other site Z79.891 [employer] (current) use of opiate analgesic Office Visit 07/29/2015 1:00p Main Office as Carmelo [place] G89.29 Other chronic Of 04/25/13 DO, MPH pain M54.2 Cervicalgia M99.01 Segmental and somatic dysfunction of cervical region M79.644 Pain in right finger(s) M79.1 Myalgia Z79.891 alf (current) use of opiate analgesic Z71.89 Other specified counseling Office Visit 05/25/2015 9:45a Main Office as Carm[place] Z79.891 [employer] Of 04/25/13 DO, MPH (current) use of opiate analgesic G89.29 Other chronic pain M54.2 Cervicalgia M99.01 Segmental and somatic dysfunction of cervical region M79.644 Pain in right finger(s) Z79.891 alf (current) use of opiate analgesic Office Visit 04/11/2015 10:30a Main Office as Carm[place] G89.29 Other chronic Of 04/25/13 DO, MPH pain M79.1 Myalgia M54.2 Cervicalgia M54.6 Pain in thoracic spine M54.5 Low back pain M65.88 Other synovitis and tenosynovitis, other site G90.3 Multi-system degeneration of the autonomic nervous system Office Visit 03/09/2015 2:45p Main Office as [place], G89.29 Other chronic Of 04/25/13 DO, MPH pain M79.1 Myalgia M54.2 Cervicalgia M54.6 Pain in thoracic spine M54.5 Low back pain M65.88 Other synovitis and tenosynovitis, other site M99.01 Segmental and somatic dysfunction of cervical region M99.02 Segmental and somatic dysfunction of thoracic region M99.03 Segmental and somatic dysfunction of lumbar region Office Visit 01/13/2015 10:00a Main Office as [place], G89.29 Other chronic Of 04/25/13 DO, MPH pain M54.2 Cervicalgia G44.209 Tension-type headache, unspecified, not intractable M79.1 Myalgia M54.81 Occipital neuralgia R53.83 Other fatigue M99.01 Segmental and somatic dysfunction of cervical region Office Visit 12/23/2014 11:15a Main Office as [place], G89.29 Other chronic Of 04/25/13 DO, MPH pain M54.2 Cervicalgia M99.01 Segmental and somatic dysfunction of cervical region M25.561 Pain in right knee Office Visit 11/26/2014 1:00p Main Office as [place], 338.29 Other Chronic Of 04/25/13 DO, MPH Pain 723.1 Cervicalgia 739.1 Lesion Nonallopathic Cervical Region Not Elsewhere Class 726.5 Enthesopathy Hip 729.1 Myalgia & Myositis Unspec Office Visit 10/29/2014 10:30a Main Office as [place], 338.29 Other Chronic Of 04/25/13 DO, MPH Pain 723.1 Cervicalgia 726.5 Enthesopathy Hip 719.44 Pain Joint Hand 729.1 Myalgia & Myositis Unspec Office Visit 09/29/2014 11:15a Main Office as [place], 338.29 Other Chronic Of 04/25/13 DO, MPH Pain 719.44 Pain Joint Hand Office Visit 08/30/2014 10:45a Main Office as [place], 338.29 Other Chronic Of 04/25/13 DO, MPH Pain 307.81 Headache Tension 723.1 Cervicalgia 729.1 Myalgia & Myositis Unspec 729.2 Neuralgia Neuritis & Radiculitis Unspec 739.1 Lesion Nonallopathic Cervical Region Not Elsewhere Class V58.69 Medications Mcc (Current) Use Encounter Office Visit 07/29/2014 3:00p Main Office as [place], 338.29 Other Chronic Of 04/25/13 DO, MPH Pain 726.5 Enthesopathy Hip 723.1 Cervicalgia 739.1 Lesion Nonallopathic Cervical Region Not Elsewhere Class 724.1 Pain Thoracic Spine 739.2 Lesion Nonallopathic Thoracic Region Not Elsewhere Class 724.2 Lumbago 739.3 Lesion Nonallopathic Lumbar Region Not Elsewhere Class 727.00 Synovitis & Tenosynovitis Unspec 719.44 Pain Joint Hand Office Visit 07/13/2014 3:30p Main Office as [place], 338.29 Other Chronic Of 04/25/13 DO, MPH Pain 729.1 Myalgia & Myositis Unspec 726.5 Enthesopathy Hip 723.1 Cervicalgia 739.1 Lesion Nonallopathic Cervical Region Not Elsewhere Class 724.1 Pain Thoracic Spine 739.2 Lesion Nonallopathic Thoracic Region Not Elsewhere Class 724.2 Lumbago 739.3 Lesion Nonallopathic Lumbar Region Not Elsewhere Class Office Visit 06/24/2014 2:15p Main Office as [place], 338.29 Other Chronic Of 04/25/13 DO, MPH Pain 724.2 Lumbago 726.5 Enthesopathy Hip 729.1 Myalgia & Myositis Unspec 727.00 Synovitis & Tenosynovitis Unspec 739.1 Lesion Nonallopathic Cervical Region Not Elsewhere Class 337.9 Autonomic Nervous System Disorder Unspec Office Visit 06/10/2014 2:00p Main Office as [place], 338.29 Other Chronic Of 04/25/13 DO, MPH Pain 724.2 Lumbago 723.1 Cervicalgia 739.1 Lesion Nonallopathic Cervical Region Not Elsewhere Class 337.9 Autonomic Nervous System Disorder Unspec Office Visit 05/27/2014 3:30p Main Office as [place], 338.29 Other Chronic Of 04/25/13 DO, MPH Pain 724.2 Lumbago 723.1 Cervicalgia 739.1 Lesion Nonallopathic Cervical Region Not Elsewhere Class 719.44 Pain Joint Hand Office Visit 04/08/2014 9:30a Main Office as [place], 338.29 Other Chronic Of 04/25/13 DO, MPH Pain 724.2 Lumbago 739.3 Lesion Nonallopathic Lumbar Region Not Elsewhere Class Office Visit 03/26/2014 1:00p Main Office as [place], 338.29 Other Chronic Of 04/25/13 DO, MPH Pain 724.2 Lumbago 739.3 Lesion Nonallopathic Lumbar Region Not Elsewhere Class Office Visit 03/11/2014 10:15a Main Office as [place], 338.29 Other Chronic Of 04/25/13 DO, MPH Pain 724.2 Lumbago 307.81 Headache Tension 729.1 Myalgia & Myositis Unspec 729.2 Neuralgia Neuritis & Radiculitis Unspec 723.4 Brachial,Cervical Or Suprascapular Neuritis Office Visit 02/23/2014 2:30p Main Office as [place], 338.29 Other Chronic Of 04/25/13 DO, MPH Pain 724.2 Lumbago 719.44 Pain Joint Hand 727.04 Tenosynovitis Radial Styloid V58.69 Medications 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 Office Visit 01/27/2014 3:30p Main Office as [place], 338.29 Other Chronic Of 04/25/13 DO, MPH Pain 724.2 Lumbago 726.5 Enthesopathy Hip 729.1 Myalgia & Myositis Unspec 727.09 Synovitis & Tenosynovitis Other Office Visit 01/11/2014 10:00a Main Office as [place], 338.29 Other Chronic Of 04/25/13 DO, MPH Pain 729.5 Pain In Limb 727.09 Synovitis & Tenosynovitis Other 724.2 Lumbago Office Visit 12/08/2013 11:00a Main Office as [place], 338.29 Other Chronic Of 04/25/13 DO, MPH Pain 726.5 Enthesopathy Hip 727.09 Synovitis & Tenosynovitis Other 729.1 Myalgia & Myositis Unspec 720.1 Enthesopathy Spinal 724.4 Neuritis Or Radiculitis Thoracic Or Lumbosacral Unspec 723.1 Cervicalgia 739.1 Lesion Nonallopathic Cervical Region Not Elsewhere Class 724.1 Pain Thoracic Spine 739.2 Lesion Nonallopathic Thoracic Region Not Elsewhere Class 724.2 Lumbago 739.3 Lesion Nonallopathic Lumbar Region Not Elsewhere Class Office Visit 11/10/2013 10:30a Main Office as [place], 338.29 Other Chronic Of 04/25/13 DO, MPH Pain 727.04 Tenosynovitis Radial Styloid 739.1 Lesion Nonallopathic Cervical Region Not Elsewhere Class 724.2 Lumbago 739.3 Lesion Nonallopathic Lumbar Region Not Elsewhere Class 724.1 Pain Thoracic Spine 739.2 Lesion Nonallopathic Thoracic Region Not Elsewhere Class 723.1 Cervicalgia Office Visit 10/26/2013 11:00a Main Office as [place], 338.29 Other Chronic Of 04/25/13 DO, MPH Pain 724.2 Lumbago 739.3 Lesion Nonallopathic Lumbar Region Not Elsewhere Class 724.1 Pain Thoracic Spine 739.2 Lesion Nonallopathic Thoracic Region Not Elsewhere Class 723.1 Cervicalgia 739.1 Lesion Nonallopathic Cervical Region Not Elsewhere Class 719.49 Pain Joint Multiple Sites 719.43 Pain Joint Forearm V62.82 Bereavement Uncomplicated V58.69 Medications Mcc (Current) Use Encounter Office Visit 09/17/2013 10:45a Main Office as [place], 338.29 Other Chronic Of 04/25/13 DO, MPH Pain 726.5 Enthesopathy Hip 727.09 Synovitis & Tenosynovitis Other 729.1 Myalgia & Myositis Unspec 720.1 Enthesopathy Spinal 724.4 Neuritis Or Radiculitis Thoracic Or Lumbosacral Unspec Office Visit 09/01/2013 9:30a Main Office as [place], 338.29 Other Chronic Of 04/25/13 DO, MPH Pain 726.5 Enthesopathy Hip 727.09 Synovitis & Tenosynovitis Other 729.1 Myalgia & Myositis Unspec 720.1 Enthesopathy Spinal Office Visit 08/19/2013 10:15a Main Office as [place], 338.29 Other Chronic Of 04/25/13 DO, MPH Pain 307.81 Headache Tension 726.5 Enthesopathy Hip Office Visit 07/22/2013 9:15a Main Office as [place], 338.29 Other Chronic Of 04/25/13 DO, MPH Pain 307.81 Headache Tension 726.5 Enthesopathy Hip 727.09 Synovitis & Tenosynovitis Other 739.3 Lesion Nonallopathic Lumbar Region Not Elsewhere Class Office Visit 07/17/2013 10:45a Main Office as [place], 338.29 Other Chronic Of 04/25/13 DO, MPH Pain 307.81 Headache Tension 739.0 Lesion Nonallopathic Head Region Not Elsewhere Class 729.1 Myalgia & Myositis Unspec 729.2 Neuralgia Neuritis & Radiculitis Unspec 724.2 Lumbago 719.47 Pain Joint Ankle & Foot Office Visit 06/18/2013 9:15a Main Office as [place], 338.29 Other Chronic Of 04/25/13 DO, MPH Pain 724.2 Lumbago 729.1 Myalgia & Myositis Unspec 720.1 Enthesopathy Spinal 727.09 Synovitis & Tenosynovitis Other 726.5 Enthesopathy Hip 729.2 Neuralgia Neuritis & Radiculitis Unspec Office Visit 05/19/2013 11:30a Main Office as [place], 338.29 Other Chronic Of 04/25/13 DO, MPH Pain 307.81 Headache Tension 729.1 Myalgia & Myositis Unspec 719.49 Pain Joint Multiple Sites 338.21 Chronic Pain Due To Trauma 816.00 FX One Or More Phalanx Or Phalanges Closed Unspec Office Visit 04/08/2013 10:45a Main Office as [place], 338.29 Other Chronic Of 04/25/13 DO, MPH Pain 307.81 Headache Tension 729.1 Myalgia & Myositis Unspec 719.49 Pain Joint Multiple Sites 726.5 Enthesopathy Hip Office Visit 03/04/2013 9:30a Main Office as [place], 307.81 Headache Tension Of 04/25/13 DO, MPH 729.1 Myalgia & Myositis Unspec 719.49 Pain Joint Multiple Sites 727.09 Synovitis & Tenosynovitis Other 338.29 Other Chronic Pain 278.01 Obesity Morbid 401.9 Hypertension Unspec Office Visit 02/23/2013 9:15a Main Office as [place], 338.29 Other Chronic Of 04/25/13 DO, MPH Pain 307.81 Headache Tension 729.1 Myalgia & Myositis Unspec 729.2 Neuralgia Neuritis & Radiculitis Unspec 739.1 Lesion Nonallopathic Cervical Region Not Elsewhere Class Office Visit 02/02/2013 10:30a Main Office as [place], 338.29 Other Chronic Of 04/25/13 DO, MPH Pain 724.2 Lumbago 307.81 Headache Tension 729.1 Myalgia & Myositis Unspec 337.9 Autonomic Nervous System Disorder Unspec Office Visit 01/02/2013 11:30a Main Office as [place], 338.29 Other Chronic Of 04/25/13 DO, MPH Pain 724.2 Lumbago 307.81 Headache Tension 729.1 Myalgia & Myositis Unspec 719.44 Pain Joint Hand Office Visit 12/03/2012 11:30a Main Office as [place], 338.29 Other Chronic Of 04/25/13 DO, MPH Pain 724.2 Lumbago 307.81 Headache Tension 729.1 Myalgia & Myositis Unspec 729.2 Neuralgia Neuritis & Radiculitis Unspec Office Visit 11/03/2012 10:45a Main Office as [place], 338.29 Other Chronic Of 04/25/13 DO, MPH Pain 724.2 Lumbago 739.7 Lesion Nonallopathic Upper Extremity Not Elsewhere Class 307.81 Headache Tension 729.1 Myalgia & Myositis Unspec 729.2 Neuralgia Neuritis & Radiculitis Unspec Office Visit 10/02/2012 10:30a Main Office as [place], 338.29 Other Chronic Of 04/25/13 DO, MPH Pain 724.2 Lumbago 739.7 Lesion Nonallopathic Upper Extremity Not Elsewhere Class Office Visit 09/02/2012 10:45a Main Office as [place], 338.29 Other Chronic Of 04/25/13 , MPH Pain 724.2 Lumbago 305.90 Drug Abuse Other Mixed Or Unspec Office Visit 08/19/2012 9:00a Main Office as Yared Carmelo, 338.29 Other Chronic Of 04/25/13 DO, MPH Pain 724.2 Lumbago 305.90 Drug Abuse Other Mixed Or Unspec Plan of Treatment Future Appointment(s):03/05/2018 10:15 am - Carmelo [place] DO, MPH at Main Office as Of 04/25/1411 11:15 am - Carmelo [place] DO, MPH at Main Office as Of 04/25/1411 - Carmelo [place] DO, MPHG89.29 Other chronic painComments: Chronic. Symptoms and complaints discussed and reviewed today. No significant changes in physical findings. Continue current medical pain management.M54.5 Low back painComments:Chronic. Symptoms and complaints discussed and reviewed today.No changes in physical findings. Patient is stable and comfortable when current medical therapy is rendered.M25.551 Pain in right hipComments:Injection therapy today. Joint injection performed using musculoskeletal ultrasound for visualization and demarcation of pertinent structures for needle guided injection. See procedure sheet.M70.61 Trochanteric bursitis, right hipComments: Chronic. Symptoms and complaints discussed and reviewed today. No significant changes in physical findings. Continue current medical pain management.AllComments:All above symptoms and complaints discussed as well as diagnoses reviewed.Continue trial of opioid pain management - note changes below ; injection therapy, osteopathic manipulation (OMT), PT / modalities, and consults as needed to manage chronic pain.Side effects discussed; anticipatory guidance given. Patient clearly understands and agrees with all medical treatments and suggestions. 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 Activity as toleratedContinue with PCP
--- OUTSIDE RECORDS SUMMARY | 2018-03-04 18:14 | XMS REPORT | Continuity of Care Document ---
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 [place] [address] Policy Number: [id number] [facility] Jailene Barragan PayID: [id number] [place] [address] Advance Directives Description No Information Available Problems [...] 14tab 1 by mouth Vail, s twice Carmelo, - daily DO, MPH 03/04 Oxycodone HCL [...] Result H/L Range Note Laboratory test 12/16/2017 [facility] 157 mg/dL High 70-[address] [place] [address] [phone] Laboratory test 12/16/2017 [facility] 120 mg/dL High 70-100 [address] [address] [phone] Laboratory test 12/16/2017 [facility] 182 mg/dL High 70-100 [address] Glucose [place] [id number] [phone] Computator: [id number] Computator: [id number] Computator: [id number] Procedures Date Code Description Status 02/18/2018 80693 Therapeutic, Prophylactic Or Diagnostic Injection Subq/Im Completed 11/15/2017 53558 Therapeutic, Prophylactic Or Diagnostic Injection Subq/Im Completed 11/15/2017 23064 Injection For Nerve Block, Greater Occipital Nerve Completed 11/15/2017 03723 Injection, Single Or Mutiple Trigger Points One Or Two Completed Muscles 09/03/2017 56336 Omt 1-2 Body Regions Completed 08/02/2017 Arthrocentesis Aspiration Inj, Small Joint/Bursa W US Completed Guidance 08/02/201715269 Inject Tendon/Ligament Completed 07/03/201740170 Arthrocentesis Aspiration Inj, Small Joint/Bursa W US Completed Guidance 06/11/201781379 Arthrocentesis Aspiration Inj, Small Joint/Bursa W US Completed Guidance 05/03/201755640 Arthrocentesis Aspiration Inj, Small Joint/Bursa W US Completed Guidance 04/04/2017 88248 Injection, Single Or Mutiple Trigger Points One Or Two Completed Muscles 04/04/2017 72820 Injection For Nerve Block, Greater Occipital Nerve Completed 03/04/2017 07723 Omt 1-2 Body Regions Completed 03/04/2017 27494 Therapeutic, Prophylactic Or Diagnostic Injection Subq/Im Completed 03/04/201795748 Injection, Single Or Mutiple Trigger Points One Or Two Completed Muscles 03/04/201761354 Injection, Tendon Origin/Insertion Completed 03/04/201781788 Injection, Tendon Origin/Insertion Completed 03/04/2017 20089 Inject Tendon/Ligament Completed 03/04/2017 99635 Inject Tendon/Ligament Completed 03/04/2017 33259 Inject Tendon/Ligament Completed 02/01/2017 72742 Inject Tendon/Ligament Completed 02/01/2017 00263 U/S Guidance For Needle Placement Completed 02/01/2017 32646 Therapeutic, Prophylactic Or Diagnostic Injection Subq/Im Completed 11/27/2016 65277 Injection For Nerve Block, Greater Occipital Nerve Completed 11/27/201682908 Injection, Single Or Mutiple Trigger Points One Or Two Completed Muscles 10/25/2016 91750 Therapeutic, Prophylactic Or Diagnostic Injection Subq/Im Completed 07/27/2016 42092 Omt 1-2 Body Regions Completed 07/27/2016 87690 Therapeutic, Prophylactic Or Diagnostic Injection Subq/Im Completed 05/29/2016 37268 Therapeutic, Prophylactic Or Diagnostic Injection Subq/Im Completed 03/28/201653849 Inject Tendon/Ligament Completed 03/28/201689793 Inject Tendon/Ligament Completed 03/28/201670430 Inject Tendon/Ligament Completed 03/28/201656392 Inject Tendon/Ligament Completed 03/28/201657601 Injection, Tendon Origin/Insertion Completed 03/28/201605447 Injection, Tendon Origin/Insertion Completed 03/28/201684962 Injection, Single Or Mutiple Trigger Points One Or Two Completed Muscles 03/28/2016 78677 Therapeutic, Prophylactic Or Diagnostic Injection Subq/Im Completed 03/28/2016 07117 Omt 1-2 Body Regions Completed 03/09/201656784 Arthrocentesis/Aspiration/Inj Of Major Joint Or Bursa W/ Completed Ultra 02/24/201699064 Inject Tendon/Ligament Completed 02/24/201615904 Inject Tendon/Ligament Completed 02/24/2016 80075 Inject Tendon/Ligament Completed 02/24/201627830 Inject Tendon/Ligament Completed 02/24/201664774 Injection, Tendon Origin/Insertion Completed 02/24/201647578 Injection, Tendon Origin/Insertion Completed 02/24/201681960 Injection, Single Or Mutiple Trigger Points One Or Two Completed Muscles 02/24/2016 72068 Omt 3-4 Body Regions Completed 01/25/2016 22867 Omt 3-4 Body Regions Completed 01/25/2016 77457 Therapeutic, Prophylactic Or Diagnostic Injection Subq/Im Completed 01/25/2016 75949 Arthrocentesis Aspiration Inj, Small Joint/Bursa W US Completed Guidance 01/02/2016 57920 Omt 3-4 Body Regions Completed 12/26/2015 45559 Omt 3-4 Body Regions Completed 11/24/201598426 Inject Tendon/Ligament Completed 11/24/2015 79860 U/S Guidance For Needle Placement Completed 11/08/2015 99446 Therapeutic, Prophylactic Or Diagnostic Injection Subq/Im Completed 11/08/2015 71027 Inject Tendon/Ligament Completed 10/25/2015 19106 Therapeutic, Prophylactic Or Diagnostic Injection Subq/Im Completed 10/25/2015 38995 Arthrocentesis Aspiration Inj, Small Joint/Bursa W US Completed Guidance 10/25/201545072 Inject Tendon/Ligament Completed 09/27/201546136 Inject Tendon/Ligament Completed 09/27/201523218 Inject Tendon/Ligament Completed 09/27/201526940 Inject Tendon/Ligament Completed 09/27/201599982 Inject Tendon/Ligament Completed 09/27/201510622 Injection, Tendon Origin/Insertion Completed 09/27/201585013 Injection, Tendon Origin/Insertion Completed 09/27/201525622 Injection, Single Or Mutiple Trigger Points One Or Two Completed Muscles 09/27/2015 40235 Omt 1-2 Body Regions Completed 09/07/2015 36191 Omt 1-2 Body Regions Completed 09/07/201580319 Injection, Single Or Mutiple Trigger Points One Or Two Completed Muscles 09/07/201572093 Injection, Tendon Origin/Insertion Completed 09/07/201582244 Injection, Tendon Origin/Insertion Completed 09/07/201546166 Inject Tendon/Ligament Completed 09/07/201528819 Inject Tendon/Ligament Completed 09/07/201593311 Inject Tendon/Ligament Completed 07/29/2015 61050 Omt 1-2 Body Regions Completed 05/25/2015 Arthrocentesis Aspiration Inj, Small Joint/Bursa W US Completed Guidance 05/25/2015 63908 Omt 1-2 Body Regions Completed 04/11/2015 72374 Test Autonomic Nervous System, Sudomotor Completed 04/11/2015 54669 U/S Guidance For Needle Placement Completed 04/11/201587546 Injection, Tendon Origin/Insertion Completed 04/11/201508489 Injection, Tendon Origin/Insertion Completed 03/09/2015 30229 Omt 3-4 Body Regions Completed 03/09/201569152 Injection, Single Or Mutiple Trigger Points One Or Two Completed Muscles 03/09/201549885 Injection, Tendon Origin/Insertion Completed 03/09/201572373 Injection, Tendon Origin/Insertion Completed 03/09/201595628 Inject Tendon/Ligament Completed 01/13/201537403 Injection Single Or Multiple Trigger Points Three Or More Completed Muscles 01/13/2015 26806 Injection For Nerve Block, Greater Occipital Nerve Completed 01/13/2015 74939 Therapeutic, Prophylactic Or Diagnostic Injection Subq/Im Completed 01/13/2015 22802 Omt 1-2 Body Regions Completed 12/23/2014 31168 Omt 1-2 Body Regions Completed 11/26/2014 51272 Omt 1-2 Body Regions Completed 11/02/201433223 Arthrocentesis Aspiration Inj, Small Joint/Bursa W US Completed Guidance 09/29/2014 Arthrocentesis Aspirtation Inj,Intermediate W/ US Guide & Completed Report 08/30/2014 71047 Omt 1-2 Body Regions Completed 08/30/2014 72822 Injection For Nerve Block, Greater Occipital Nerve Completed 08/30/201487306 Injection Single Or Multiple Trigger Points Three Or More Completed Muscles 07/29/2014 Inject/Drain Arthrocentesis Small Joint/Bursa Completed 07/29/2014 15317 U/S Guidance For Needle Placement Completed 07/29/2014 97866 Omt 3-4 Body Regions Completed 07/13/2014 30282 Omt 3-4 Body Regions Completed 06/24/2014 75143 Omt 1-2 Body Regions Completed 06/24/2014 16497 Test Autonomic Nervous System, Sudomotor Completed 06/24/201476466 Injection, Single Or Mutiple Trigger Points One Or Two Completed Muscles 06/24/201451351 Injection, Tendon Origin/Insertion Completed 06/24/201444209 Injection, Tendon Origin/Insertion Completed 06/24/201423281 Inject Tendon/Ligament Completed 06/24/201478038 Inject Tendon/Ligament Completed 06/10/2014 53640 Omt 1-2 Body Regions Completed 06/10/2014 40231 Test Autonomic Nervous System, Sudomotor Completed 05/27/201423816 Inject/Drain Arthrocentesis Intermediate Joint/Bursa Completed 05/27/2014 86005 U/S Guidance For Needle Placement Completed 05/27/2014 39468 Omt 1-2 Body Regions Completed 04/08/2014 82113 Omt 1-2 Body Regions Completed 03/26/2014 57373 Omt 1-2 Body Regions Completed 03/11/2014 93506 Injection For Nerve Block, Greater Occipital Nerve Completed 03/11/201408345 Injection, Single Or Mutiple Trigger Points One Or Two Completed Muscles 02/23/2014 28069 U/S Guidance For Needle Placement Completed 02/23/2014 Inject/Drain Arthrocentesis Small Joint/Bursa Completed 02/23/2014 90816 Inject Tendon/Ligament Completed 01/27/201444930 Inject Tendon/Ligament Completed 01/27/201429744 Inject Tendon/Ligament Completed 01/27/201429615 Inject Tendon/Ligament Completed 01/27/201448447 Injection, Single Or Mutiple Trigger Points One Or Two Completed Muscles 01/11/201409576 Inject Tendon/Ligament Completed 12/08/2013 77601 Omt 3-4 Body Regions Completed 12/08/201323588 Injection, Single Or Mutiple Trigger Points One Or Two Completed Muscles 12/08/201380069 Injection, Tendon Origin/Insertion Completed 12/08/201353118 Injection, Tendon Origin/Insertion Completed 12/08/201313977 Inject Tendon/Ligament Completed 12/08/201326765 Inject Tendon/Ligament Completed 12/08/201382847 Inject Tendon/Ligament Completed 11/10/201385759 Inject Tendon/Ligament Completed 11/10/2013 70686 U/S Guidance For Needle Placement Completed 11/10/2013 54921 Omt 3-4 Body Regions Completed 10/26/2013 33419 Omt 3-4 Body Regions Completed 09/17/2013 03623 Injection For Nerve Block, Other Peripheral Nerve Or Completed Branch 09/17/201378438 Injection, Single Or Mutiple Trigger Points One Or Two Completed Muscles 09/17/201348644 Inject Tendon/Ligament Completed 09/01/201303940 Inject Tendon/Ligament Completed 09/01/201313077 Inject Tendon/Ligament Completed 09/01/201312429 Inject Tendon/Ligament Completed 09/01/201303475 Injection, Tendon Origin/Insertion Completed 09/01/201385838 Injection, Tendon Origin/Insertion Completed 09/01/201310867 Injection, Single Or Mutiple Trigger Points One Or Two Completed Muscles 07/22/2013 92331 Omt 1-2 Body Regions Completed 07/17/2013 00169 Omt 1-2 Body Regions Completed 07/17/2013 81266 Injection For Nerve Block, Greater Occipital Nerve Completed 07/17/201326576 Injection, Single Or Mutiple Trigger Points One Or Two Completed Muscles 06/18/201337246 Inject Tendon/Ligament Completed 06/18/201340620 Inject Tendon/Ligament Completed 06/18/201317664 Inject Tendon/Ligament Completed 06/18/201314125 Injection, Tendon Origin/Insertion Completed 06/18/201318128 Injection, Tendon Origin/Insertion Completed 06/18/201314562 Injection, Single Or Mutiple Trigger Points One Or Two Completed Muscles 04/08/201391323 Injection, Single Or Mutiple Trigger Points One Or Two Completed Muscles 04/08/201339945 Inject Tendon/Ligament Completed 04/08/201356330 Inject Tendon/Ligament Completed 04/08/201309354 Inject Tendon/Ligament Completed 04/08/201316607 Inject Tendon/Ligament Completed 03/04/201324173 Inject Tendon/Ligament Completed 03/04/201351840 Inject Tendon/Ligament Completed 03/04/201329997 Injection, Tendon Origin/Insertion Completed 03/04/201377061 Injection, Tendon Origin/Insertion Completed 03/04/201303163 Injection, Single Or Mutiple Trigger Points One Or Two Completed Muscles 02/23/2013 12425 Omt 1-2 Body Regions Completed 02/23/2013 01609 Injection For Nerve Block, Greater Occipital Nerve Completed 02/23/2013 65473 Injection For Nerve Block, Greater Occipital Nerve Completed 02/23/2013 72961 Injection, Single Or Mutiple Trigger Points One Or Two Completed Muscles 12/03/2012 66641 Injection For Nerve Block, Greater Occipital Nerve Completed 12/03/2012 64218 Injection For Nerve Block, Greater Occipital Nerve Completed 12/03/2012 45408 Injection, Single Or Mutiple Trigger Points One Or Two Completed Muscles 11/03/2012 35522 Injection For Nerve Block, Greater Occipital Nerve Completed 11/03/2012 63541 Injection For Nerve Block, Greater Occipital Nerve Completed 11/03/2012 24547 Injection, Single Or Mutiple Trigger Points One Or Two Completed Muscles 10/02/2012 99929 Omt 1-2 Body Regions Completed Encounters Type Date Location Provider Dx Diagnosis Office Visit 02/18/2018 Main Office as Of Carmelo Vail DO G89.29 Other chronic pain 11:00a 04/25/13 MPH M54.5 Low back pain M54.2 Cervicalgia Z79.891 jail (current) use of opiate analgesic R53.83 Other fatigue Office Visit 01/14/2018 11:30a Main Office as Carmelo Vail G89.29 Other chronic Of 04/25/13 DO MPH pain M54.5 Low back pain M54.2 Cervicalgia M25.531 Pain in right wrist Z79.891 jail (current) use of opiate analgesic Office Visit 12/13/2017 1:45p Main Office as Carmelo Vail G89.29 Other chronic Of 04/25/13 DO, MPH pain M54.5 Low back pain M54.2 Cervicalgia M79.641 Pain in right hand M25.531 Pain in right wrist Z79.891 jail (current) use of opiate analgesic Office Visit 11/15/2017 1:15p Main Office as Carmelo Vail G89.29 Other chronic Of 04/25/13 DO, MPH pain M54.5 Low back pain M54.2 Cervicalgia M79.641 Pain in right hand M25.531 Pain in right wrist M54.81 Occipital neuralgia R53.83 Other fatigue M79.1 Myalgia 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 Office Visit 10/03/2017 10:00a Main Office as Carmelo Vail G89.29 Other chronic Of 04/25/13 DO, MPH pain M54.2 Cervicalgia M54.5 Low back pain M25.531 Pain in right wrist M79.641 Pain in right hand 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 Office Visit 09/03/2017 10:00a Main Office as Carmelo Vail G89.29 Other chronic Of 04/25/13 DO, MPH pain M54.2 Cervicalgia M99.01 Segmental and somatic dysfunction of cervical region M54.5 Low back pain M79.1 Myalgia M25.531 Pain in right wrist M79.641 Pain in right hand 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 Office Visit 08/02/2017 10:15a Main Office as Carmelo Vail G89.29 Other chronic Of 04/25/13 DO, MPH pain M25.541 Pain in joints of right hand M65.88 Other synovitis and tenosynovitis, other site M79.1 Myalgia M54.5 Low back pain M54.2 Cervicalgia Z79.891 jail (current) use of opiate analgesic Office Visit 07/03/2017 10:15a Main Office as Carmelo Vail G89.29 Other chronic Of 04/25/13 DO, MPH pain M25.542 Pain in joints of left hand M79.1 Myalgia M54.5 Low back pain Z79.891 jail (current) use of opiate analgesic Office Visit [...] joints of left hand M54.2 Cervicalgia 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 Office Visit 05/03/2017 10:15a Main Office as Carmelo Vail G89.29 Other chronic Of 04/25/13 DO, MPH pain M54.5 Low back pain M79.1 Myalgia M25.531 Pain in right wrist Z79.891 jail (current) use of opiate analgesic Office Visit 04/04/2017 10:30a Main Office as Carmelo Vail G89.29 Other chronic Of 04/25/13 DO, MPH pain G44.89 Other headache syndrome M79.1 Myalgia M54.81 Occipital neuralgia 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 Office Visit 03/04/2017 10:45a Main Office as Carmelo Vail G89.29 Other chronic Of 04/25/13 DO, MPH pain M54.5 Low back pain M54.2 Cervicalgia M99.01 Segmental and somatic dysfunction of cervical region M65.4 Radial styloid tenosynovitis [de Quervain] M65.88 Other synovitis and tenosynovitis, other site M79.1 Myalgia 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 R53.83 Other fatigue Office Visit 02/01/2017 11:00a Main Office as Carmelo Vail G89.29 Other chronic Of 04/25/13 DO, MPH pain M65.4 Radial styloid tenosynovitis [de Quervain] M54.5 Low back pain M54.2 Cervicalgia M79.1 Myalgia G44.89 Other headache syndrome G40.89 Other seizures Z79.891 jail (current) use of opiate analgesic R53.83 Other fatigue Office Visit 01/15/2017 11:15a Main Office as Carmelo Vail G89.29 Other chronic Of 04/25/13 DO, MPH pain M54.5 Low back pain M54.2 Cervicalgia M79.1 Myalgia G44.89 Other headache syndrome G40.89 Other seizures Z79.891 jail (current) use of opiate analgesic Office Visit 01/02/2017 3:15p Main Office as Carmelo Vail G89.29 Other chronic Of 04/25/13 DO, MPH pain M54.2 Cervicalgia M54.5 Low back pain M79.1 Myalgia Z79.891 jail (current) use of opiate analgesic Z63.4 Disappearance and of family member Office Visit 12/04/2016 3:00p Main Office as Carmelo Vail G89.29 Other chronic Of 04/25/13 DO, MPH pain M54.5 Low back pain M54.2 Cervicalgia G44.89 Other headache syndrome N39.0 Urinary tract infection, site not specified Z79.891 jail (current) use of opiate analgesic Office Visit 11/27/2016 11:30a Main Office as Carmelo Vail G89.29 Other chronic Of 04/25/13 DO, MPH pain M54.5 Low back pain M54.2 Cervicalgia G44.89 Other headache syndrome M54.81 Occipital neuralgia M79.1 Myalgia Z63.4 Disappearance and of family member Z79.891 jail (current) use of opiate analgesic Office Visit 10/25/2016 2:30p Main Office as Carmelo Vail G89.29 Other chronic Of 04/25/13 DO, MPH pain M54.5 Low back pain M54.2 Cervicalgia M79.1 Myalgia R53.83 Other fatigue Z79.891 jail (current) use of opiate analgesic Office Visit 09/27/2016 3:00p Main Office as Carmelo Vail G89.29 Other chronic Of 04/25/13 DO, MPH pain M54.5 Low back pain M54.2 Cervicalgia H57.10 Ocular pain, unspecified eye 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 Office Visit 08/29/2016 2:15p Main Office as Cramelo Vail G89.29 Other chronic Of 04/25/13 DO, MPH pain M54.5 Low back pain M79.1 Myalgia G40.89 Other seizures M54.2 Cervicalgia Z79.891 jail (current) use of opiate analgesic Office Visit 07/27/2016 9:30a Main Office as Carmelo Vail G89.29 Other chronic Of 04/25/13 DO, MPH pain M54.5 Low back pain M79.1 Myalgia G40.89 Other seizures M54.2 Cervicalgia M99.01 Segmental and somatic dysfunction of cervical region R53.83 Other fatigue Z79.891 jail (current) use of opiate analgesic Office Visit 06/28/2016 2:15p Main Office as Carmelo Vail G89.29 Other chronic Of 04/25/13 DO, MPH pain M54.5 Low back pain M79.1 Myalgia Z71.89 Other specified counseling Z79.891 jail (current) use of opiate analgesic Office Visit 05/29/2016 10:15a Main Office as Carmelo Vail G89.29 Other chronic Of 04/25/13 DO, MPH pain M54.5 Low back pain M79.1 Myalgia G89.18 Other acute postprocedural pain 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 J44.9 Chronic obstructive pulmonary disease, unspecified Z79.891 jail (current) use of opiate analgesic R53.83 Other fatigue Office Visit 04/30/2016 2:45p Main Office as Carmelo [place], G89.29 Other chronic Of 04/25/13 DO, MPH pain M54.5 Low back pain M79.1 Myalgia G89.18 Other acute postprocedural pain 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 I10 Essential (primary) hypertension J44.9 Chronic obstructive pulmonary disease, unspecified Z79.891 jail (current) use of opiate analgesic Office Visit [...] Visit 03/09/2016 2:15p Main Office as Carmelo Vail G89.29 Other chronic Of 04/25/13 DO, MPH pain M54.2 Cervicalgia M79.1 Myalgia M54.17 Radiculopathy, lumbosacral region Z79.891 jail (current) use of opiate analgesic Office Visit 02/24/2016 10:30a Main Office as Carmelo Vail G89.29 [...] in left hand R53.83 Other fatigue Z79.891 jail (current) use of opiate analgesic Office Visit [...] Visit 12/26/2015 10:15a Main Office as Carmelo [place], G89.29 Other chronic Of 04/25/13 DO, MPH pain M54.2 Cervicalgia M79.631 Pain in right forearm M76.51 Patellar tendinitis, right knee 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 M99.01 Segmental and somatic dysfunction of cervical region M99.02 Segmental and somatic dysfunction of thoracic region M99.07 Segmental and somatic dysfunction of upper extremity Office Visit 11/24/2015 10:30a Main Office as Carmelo [place], G89.29 Other chronic Of 04/25/13 DO, MPH pain M54.2 Cervicalgia M65.88 Other synovitis and tenosynovitis, other site M79.631 Pain in right forearm Office Visit 11/08/2015 11:00a Main Office as Carmelo [place], G89.29 Other chronic Of 04/25/13 DO, MPH pain M54.2 Cervicalgia M76.51 Patellar tendinitis, right knee R53.83 Other fatigue Z79.891 jail (current) use of opiate analgesic Office Visit 10/25/2015 10:30a Main Office as Carmelo [place], G89.29 Other chronic Of 04/25/13 DO, MPH pain M54.2 Cervicalgia M25.841 Other specified joint disorders, right hand M65.88 Other synovitis and tenosynovitis, other site R53.83 Other fatigue Z71.89 Other specified counseling Z79.891 jail (current) use of opiate analgesic Office Visit 09/27/2015 10:45a Main Office as Carmelo [place], Z79.891 long term care administrator Of 04/25/13 DO, MPH (current) use of opiate analgesic G89.29 Other chronic pain M54.2 Cervicalgia M99.01 Segmental and somatic dysfunction of cervical region G44.209 Tension-type headache, unspecified, not intractable M79.1 Myalgia M65.88 Other synovitis and tenosynovitis, other site Z79.891 jail (current) use of opiate analgesic Office Visit 09/07/2015 3:00p Main Office as Carmelo Vail G89.29 Other chronic Of 04/25/13 DO, MPH pain M54.2 Cervicalgia M99.01 Segmental and somatic dysfunction of cervical region G44.209 Tension-type headache, unspecified, not intractable M54.81 Occipital neuralgia M79.1 Myalgia M65.88 Other synovitis and tenosynovitis, other site Z79.891 jail (current) use of opiate analgesic Office Visit 07/29/2015 1:00p Main Office as Carmelo Vail G89.29 Other chronic Of 04/25/13 DO, MPH pain M54.2 Cervicalgia M99.01 Segmental and somatic dysfunction of cervical region M79.644 Pain in right finger(s) M79.1 Myalgia 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 Z71.89 Other specified counseling Office Visit 05/25/2015 9:45a Main Office as Carmelo [place], Z79.891 long term care administrator Of 04/25/13 DO, MPH (current) use of opiate analgesic G89.29 Other chronic pain M54.2 Cervicalgia M99.01 Segmental and somatic dysfunction of cervical region M79.644 Pain in right finger(s) Z79.891 jail (current) use of opiate analgesic Office Visit 04/11/2015 10:30a Main Office as Carmleo Vail G89.29 Other chronic Of 04/25/13 DO, MPH pain M79.1 Myalgia M54.2 Cervicalgia M54.6 Pain in thoracic spine M54.5 Low back pain M65.88 Other synovitis and tenosynovitis, other site G90.3 Multi-system degeneration of the autonomic nervous system Office Visit 03/09/2015 2:45p Main Office as Carmelo Vail G89.29 Other [...] Cervical Region Not Elsewhere Class V58.[address] (Current) Use Encounter Office Visit 07/29/2014 3:00p [...] Hand 727.04 Tenosynovitis Radial Styloid V58.69 Medications Alf (Current) Use Encounter Office Visit 01/27/2014 3:30p [...] Joint Forearm V62.82 Bereavement Uncomplicated V58.[address] (Current) Use Encounter Office Visit 09/17/2013 10:45a [...] Office Visit 08/19/2012 9:00a Main Office as Carmelo V[place], 338.29 Other [...] maintaining satisfactory side effect profile and minimizing jail end-organ damage. Activity as toleratedContinue with PCP
[2018-03-04 18:19] VITALS: BP 135/84
--- NOTE | 2018-03-04 20:13 | UC ---
Upper Extremity HPI - HPI Summary HPI Summary: 47-year-old woman comes in to clinic today with a chief complaint of right forearm injury. She has some small dogs at home and she tripped over one striking her right mid forearm on a piece of furniture. She has quite a bit of pain in that area. She's had prior surgery left forearm and she has hardware in. She has any pain with supination and pronation. She feels grinding when she started with supination and pronation. Pain is less when she does not move the arm. She has oxycodone for chronic pain and that's not helping very much with the pain. No loss of range of motion no numbness or weakness. Elbow and wrist do not have any pain. no Laceration. - History of Current Complaint Chief Complaint: UCUpperExtremity Stated Complaint: WRIST INJURY Time Seen by Provider: 03/04/18 18:58 Hx Last Menstrual Period: 4 months Pain Intensity: 9 - Allergies/Home Medications Allergies/Adverse Reactions: Allergies Allergy/AdvReac Type Severity Reaction Status Date / Time Iodinated Contrast- Oral and Allergy Severe Anaphylatic Verified 03/04/18 18:19 IV Dye Shock iodine Allergy Severe Difficulty Verified 03/04/18 18:19 Breathing/Wheezing BEE STINGS AdvReac Intermediate Swelling Uncoded 03/04/18 18:19 DOWN FEATHERS AdvReac Intermediate Eyes Uncoded 03/04/18 18:19 Itchy/Swollen/Red/Watery Home Medications: Home Medications Liraglutide (NF) [Victoza (NF)] 0.6 mg SUBCUT DAILY 03/04/18 [History Confirmed 03/04/18] PMH/Surg Hx/FS Hx/Imm Hx GI/ History: Gastroesophageal Reflux - Surgical History Surgical History: Yes Surgery Procedure, Year, and Place: Tonsillectomy, 1983, [facility] [place]. Extraction of 8 teeth, 1983, dental office. ORIF right 1st metatarsal, 1987, [place]. Right calcaneous (bursitis), 1989, [place]. Left knee arthroscopy, , [place]. ORIF left orbit for blow out fx,. Right calcaneous (bursitis), 1996, [place]. Left carpal tunnel release, 1996, [place]. Left DeQuervains, 1996 , [place]. Left elbow radial nerve relocation, decompression, removal of bone fragments, 1996, [place]. , and tubal ligation, 1998, [place]. Cone biopsy, uterine ablation (severe dysplasia) 1998, [place]. Right elbow tendonitis, 2001, [place]. Gastric bypass (ngoc-en-y), 2002, [facility]. Right elbow removal of bone fragments, 2003, [place]. Cholecystectomy, 2004, [place]. Right breast biopsy, titanium marker placement, 2005, [place]. Left shoulder labral repair, 2006, [place]. Left rotator cuff repair, 2007, [place]. Right carpal tunnel release, 2008, [place]. Right DeQuervains, 2008, [place]. ORIF right thumb x 2 (injury) 2009 [facility]. Removal of ingrown toenails x 3, podiatry office, [place]. Excision of 4 lipomas lumbar spine, 2016, [place]. Excision of 2 lipomas lumbar spine, 2016, [place] (contracted MRSA post-op). - Family History Known Family History: Positive: Cardiac Disease - [place], Hypertension, Diabetes, Other - CVA - Social History Alcohol Use: Rare Alcohol Amount: SPECIAL OCCASIONS- RARELY Substance Use Type: Prescribed Substance Use Comment - Amount & Last Used: oxycodone, opana Smoking Status (MU): Former Smoker Type: Cigarettes Amount Used/How Often: 1 PPD FOR 7 YRS Length of Time of Smoking/Using Tobacco: 7 YRS Have You Smoked in the Last Year: No When Did the Patient Quit Smoking/Using Tobacco: 2000 Review of Systems All Other Systems Reviewed And Are Negative: Yes Constitutional: Positive: Negative Skin: Positive: Negative Eyes: Positive: Negative ENT: Positive: Negative Respiratory: Positive: Negative Cardiovascular: Positive: Negative Gastrointestinal: Positive: Negative Motor: Positive: Negative Neurovascular: Positive: Negative Musculoskeletal: Positive: Other: - see hpi Neurological: Positive: Negative Psychological: Positive: Negative Is Patient Immunocompromised?: No Physical Exam Triage Information Reviewed: Yes Appearance: Well-Appearing, Well-Nourished, Pain Distress - mild with movement of rt forearm Vital Signs: Initial Vital Signs Temp 96.2 F 03/04/18 18:14 Pulse 87 03/04/18 18:14 Resp 18 03/04/18 18:14 BP 135/84 03/04/18 18:14 Pulse Ox 100 03/04/18 18:14 Vital Signs Reviewed: Yes Eye Exam: Normal Eyes: Positive: Conjunctiva Clear Neck exam: Normal Neck: Positive: Supple Respiratory: Positive: No respiratory distress Musculoskeletal: Positive: Other: - Tender to palpation right mid shaft ulna. There is no skin break. Wrist fingers and elbow have full range of motion full- strength. Neurological Exam: Normal Neurological: Positive: Alert, Muscle Tone Normal Psychological Exam: Normal Psychological: Positive: Age Appropriate Behavior Skin Exam: Normal Upper Extremity Course/Dx - Course Course Of Treatment: Obtained x-rays of the right elbow wrist and forearm. I do not appreciate any fracture on the x-rays. I discussed my findings with the patient. Radiologist reading is pending. Because the patient has pain and there is been surgery repair and she is feeling grinding with pronation and supination the plan is to have her follow-up with orthopedics tomorrow. I placed her in a sugar tong splint and she is neurovascularly intact after splint placement. also put her in a sling. - Differential Dx/Diagnosis Provider Diagnosis: Right forearm pain Discharge - Sign-Out/Discharge Documenting (check all that apply): Patient Departure All imaging exams completed and their final reports reviewed: No - Discharge Plan Condition: Stable Disposition: HOME Patient Education Materials: Arm Pain (ED) Referrals: Edouard Louie DO [Primary Care Provider] - Grzegorz Petersen MD [Medical Doctor] - Additional Instructions: FOLLOW UP WITH ORTHOPEDICS, DR PETERSEN. GET RECHECKED FOR ANY WORSENING OF YOUR CONDITION OR QUESTIONS OR CONCERNS. - Billing Disposition and Condition Condition: STABLE Disposition: Home
--- NOTE | 2018-03-05 10:27 | UC ---
- Progress Note Progress Note: Xrays reviewed - No acute finding Course/Dx - Diagnoses Provider Diagnoses: Right forearm pain Discharge - Sign-Out/Discharge Documenting (check all that apply): Post-Discharge Follow Up All imaging exams completed and their final reports reviewed: Yes - Discharge Plan Condition: Stable Disposition: HOME Patient Education Materials: Arm Pain (ED) Referrals: Edouard Louie DO [Primary Care Provider] - Grzegorz Petersen MD [Medical Doctor] - Additional Instructions: FOLLOW UP WITH ORTHOPEDICS, DR PETERSEN. GET RECHECKED FOR ANY WORSENING OF YOUR CONDITION OR QUESTIONS OR CONCERNS. - Billing Disposition and Condition Condition: STABLE Disposition: Home
== END 2018-03-04 20:15 | disposition home or self-care (01) ==
LOC: UCEAST 18:07
DX: M79.631 Pain in right forearm (principal); W01.0XXA Fall on same level from slipping, tripping and stumbling without subsequent striking against object, initial encounter; Y92.009 Unspecified place in unspecified non-institutional (private) residence as the place of occurrence of the external cause; Z91.041 Radiographic dye allergy status; Z88.8 Allergy status to other drugs, medicaments and biological substances; Z87.891 Personal history of nicotine dependence
CPT/HCPCS: 99211; G0463

== ENCOUNTER 2018-08-01 13:04 | Emergency (ER) | payer MEDICARE, OTHER ==
--- OUTSIDE RECORDS SUMMARY | 2018-08-01 13:20 | XMS REPORT | Continuity of Care Document ---
:1970 External Reference #:[id number] Author Name NarcisoDariusfaviola Care Team Providers Name Role Phone Edouard Louie DO Primary Care Physician Unavailable Payers Date Identification Numbers Payment Provider Subscriber Effective: Policy Number: [id number] Medicare Jailene Reid 2000 PayID: [id number] [address] [place] [address] Policy Number: [id number] Jens Reid PayID: [id number] [address] [place] [address] Effective: 2001 Policy Number: [id number] Jens Reid Expires: 2017 [address] [address] [place] [address] Advance Directives Description No Information Available Problems Active Problems Provider Date Radial styloid tenosynovitis Grzegorz Petersen MD Onset: 09/13/2017 Localized, primary osteoarthritis of the wrist Grzegorz Petersen MD Onset: 11/2017 Other specific joint derangements of right Grzegorz Petersen MD Onset: 2017 wrist, not elsewhere classified Lesion of ulnar nerve Grzegorz Petersen MD Onset: 06/21/2017 Sprain of medial collateral ligament of knee John Paul Ramey M.D. Onset: 2014 Family History Date Family Member(s) Observation Comments General heart disease General diabetes General cancer Social History Type Date Description Comments Sex Unknown Lives With Spouse Occupation Disabled Hand Dominance Right-handed ETOH Use Rarely consumes alcohol Tobacco Use Start: Unknown Patient has never smoked Recreational Drug Use Denies Drug Use Smoking Status Reviewed: 07/22/18 Patient has never smoked Exercise Type/Frequency Exercises regularly Allergies, Adverse Reactions, Alerts Active Allergies Reaction Severity Comments Date Iodine 04/24/2013 Contrast Dye 04/24/2013 Honey Bee Venom 06/11/2018 Medications Active Medications SIG Qnty Indications Ordering Date Provider Vinayak Quanunkeenan G62.9 Joshua Berrios 07/22/2018 Misc Katy Paula Hydrocodone-Acetamino 1 or 2 tabs by mouth 10tabs Grzegorz 06/23/2018 phen every 6-8 hours as MD [facility] 5-325mg Tablets needed for pain Amitriptyline HCL 1 by mouth every 90tabs G43.009 Joshua Berrios 01/21/2018 10mg night at bedtime 90 Katy Paula Tablets day supply Selenium 1 by mouth every day 90tabs L64.0 Joshua Berrios 03/27/2017 50mcg Tablets Katy Paula Divalproex Sodium 2 po qam 1 tab po q 360tabs G40.309 Joshua Berrios 08/08/2016 500mg afternoon and 2 tabs Katy Paula Tablets DR po qpm Custom Knee Brace For 844.1 John Paul Ramey 10/15/2014 Chronic MCL Sprain Katy Florinef 2 tab po qam 1 tab Lynn 04/28/2013 po pm Katy Riddle Oxycodone HCL 1 tabs by mouth four Unknown 5mg times daily Capsules Naproxen Sodium 1 by mouth twice a Unknown 550mg day Tablets Ztlido apply 1 patch every Unknown 1.8% Patches 24 hours Prilosec OTC 1 by mouth bid Unknown 20mg Tablets Cyanojustinamin 1 milliliters Unknown intramuscular 1000mcg/ML Solution [id number] Echinacea 1 tab po bid Unknown 125mg Capsules Metformin HCL 1 by mouth po qd Unknown 500mg Tablets Zinc 1 tab po bid Unknown 23-60-20mg Lozenges Oxymorphone HCL ER take 1 tablet by Unknown 5mg mouth every 12 hours Tablets ER 12HR Multivitamin Adults 1/2 tab po tid Unknown Tablets Vitamin B-Complex 1 by mouth tid Unknown Tablets Vitamin C 1 by mouth tid Unknown 500mg Capsules Vitamin D High 1 tab daily (unsure Unknown Potency of dosage) 1000Unit Capsules Calcium 600 High 1 by mouth bid Unknown Potency 600mg Tablets Fluticasone spray 1 spray in Unknown Propionate each nostril qd 50mcg/Act Suspension Combivent Respimat 1 puffs tid Unknown 20-100mcg/Act Aerosol Albuterol Sulfate 1 vial via nebulizer Unknown 4 times daily as (2.5mg/3ML) 0.083% needed Nebulizer Flexeril 1 tab po tid Unknown 25mg Amitriptyline HCL 1 tab po at hs Unknown 100mg History Medications Hydrocodone-Acetaminophen 1 or 2 tabs by 30tabs Grzegorz 12/16/2017 - 5-325mg Tablets mouth every 6-8 MD Trinity 05/22/2018 hours as needed for pain Lamotrigine 1/2 qam and 1 qhs 180tabs Joshua Berrios 01/23/2017 - 100mg Tablets for 1 month then Chai 07/14/2017 1/2 bid for 1 mo M.D. then 1/2 d/ Lamotrigine take one tablet 60tabs Joshua Berrios 08/08/2016 - 150mg Tablets by mouth twice a Chai 01/23/2017 day M.DEve Keppra 1 by mouth twice 60tabs Joshua Berrios 08/08/2016 - 500mg Tablets a day Chai 01/20/2017 M.D. Selenium 1 po qday 90tabs L63. Joshua Berrios 08/08/2016 - 50mcg Tablets 9 Chai 07/14/2017 M.DEve Asthma Medication Lynn 04/28/2013 - Janessa 07/24/2016 Katy apply to affected 1Tube John Paul Ramey, 02/12/2013 - 1% Gel area four times M.D. 01/23/2015 daily Percocet 1-2 tabs po tid 30tabs John Paul Ramey 08/22/2012 - 5-325mg Tablets M.D. 01/23/2015 Naproxen 1 tab bid 90tabs John Paul Ramey, 03/04/2012 - 500mg Tablets M.D. 05/22/2018 Salem 1 tablet po bid 10tabs John Paul Ramey, 01/09/2012 - 5-325mg Tablets prn pain M.D. 04/28/2013 Depakote Unknown - 07/24/2016 Combivent Respimat Unknown - 08/08/2016 Albuterol Sulfate as needed Unknown - 08/08/2016 15MG as needed Unknown - 15mg-325mg 07/24/2016 Opana unknown- Dr Padilla Unknown - Tablets 07/14/2017 Metformin HCL unknown- Unknown - Tablets Stupple 07/24/2016 Januvia 3 by mouth every Unknown - 100mg Tablets at night 05/22/2018 Vitamin B12 2 by mouth Qam 1 Unknown - 1000mcg Tablets ER tab po afternoon 07/14/2017 Cyanocobalamin 1 milliliters Unknown - 1000mcg/ML Solution intramuscular 07/14/2017 [id number] Ginseng 1 tab po qd ( Unknown - 50mg Capsules unsure of dosage) 01/20/2017 Oxycodone HCL 1 by mouth tid Unknown - 10mg Tablets and 1 tab as 05/23/2018 needed Flector apply for 12 Unknown - 1.3% Patches hours as needed 05/22/2018 cut patch to size of painful area Medications Administered in Office Medication SIG Qnty Indications Ordering Provider Date Celestone 3 mg and 3mg Grzegorz Petersen MD 09/13/2017 Injection Depomedrol 80MG John Paul Ramey M.D. 09/14/2014 Injection Depomedrol 80MG PASTORA Mcallister 05/08/2012 Injection Celestone 3 mg and 3mg Lynn Riddle, 08/08/2011 Injection M.DEve Celestone 3 mg and 3mg Lynn Riddle, 08/08/2011 Injection M.DEve Immunizations Description No Information Available Vital Signs Date Vital Result Comment 07/22/2018 11:50am Height 65 inches 5'5" Weight 225.00 lb Heart Rate 76 /min BP Systolic Sitting 120 mmHg BP Diastolic Sitting 82 mmHg BMI (Body Mass Index) 37.4 kg/m2 07/16/2018 11:55am Height 65 inches 5'5" Heart Rate 91 /min BP Systolic Sitting 130 mmHg BP Diastolic Sitting 92 mmHg Respiratory Rate 14 /min Pain Level 0 07/04/2018 1:15pm Height 65 inches 5'5" Weight 234.00 lb BP Systolic Sitting 132 mmHg BP Diastolic Sitting 82 mmHg Respiratory Rate 16 /min Pain Level 2 BMI (Body Mass Index) 38.9 kg/m2 06/11/2018 10:04am Height 65 inches 5'5" Weight 234.75 lb Heart Rate 76 /min BP Systolic Sitting 136 mmHg BP Diastolic Sitting 82 mmHg Respiratory Rate 20 /min Body Temperature 98.1 F Pain Level 8 BMI (Body Mass Index) 39.1 kg/m2 05/23/2018 3:32pm Height 66 inches 5'6" Weight 234.00 lb Heart Rate 90 /min BP Systolic Sitting 148 mmHg BP Diastolic Sitting 92 mmHg Respiratory Rate 16 /min Pain Level 8 BMI (Body Mass Index) 37.8 kg/m2 04/30/2018 11:59am Height 66 inches Weight 232.00 lb Heart Rate 96 /min Respiratory Rate 18 /min Body Temperature 98.0 F Pain Level 3 BMI (Body Mass Index) 37.4 kg/m2 04/04/2018 3:18pm Height 66 inches 5'6" Weight 232.00 lb BP Systolic Sitting 116 mmHg BP Diastolic Sitting 68 mmHg Respiratory Rate 16 /min Pain Level 8 BMI (Body Mass Index) 37.4 kg/m2 03/05/2018 12:27pm Height 66 inches 5'6" Weight 232.00 lb Heart Rate 102 /min Body Temperature 97.9 F O2 % BldC Oximetry 98 % BMI (Body Mass Index) 37.4 kg/m2 01/28/2018 3:08pm Height 66 inches 5'6" Heart Rate 68 /min Respiratory Rate 16 /min Body Temperature 97.8 F Pain Level 2 01/21/2018 2:39pm Height 66 inches 5'6" Weight 223.00 lb Heart Rate 82 /min BP Systolic Sitting 122 mmHg BP Diastolic Sitting 76 mmHg Respiratory Rate 16 /min BMI (Body Mass Index) 36.0 kg/m2 01/21/2018 2:38pm Height 66 inches 5'6" Respiratory Rate 16 /min 12/31/2017 11:55am Height 66 inches 5'6" Body Temperature 98.0 F Pain Level 5 12/04/2017 11:22am Height 66 inches 5'6" Weight 221.00 lb Heart Rate 80 /min BP Systolic 122 mmHg BP Diastolic 82 mmHg Respiratory Rate 16 /min Body Temperature 97.5 F Pain Level 3 BMI (Body Mass Index) 35.7 kg/m2 10/04/2017 1:18pm Height 66 inches 5'6" Weight 232.00 lb Heart Rate 94 /min BP Systolic 130 mmHg BP Diastolic 76 mmHg Respiratory Rate 17 /min Body Temperature 97.6 F Pain Level 5 BMI (Body Mass Index) 37.4 kg/m2 09/13/2017 9:50am Height 66 inches 5'6" Heart Rate 101 /min BP Systolic 118 mmHg BP Diastolic 76 mmHg Respiratory Rate 16 /min Body Temperature 97.8 F Pain Level 9 07/31/2017 10:45am Height 66 inches 5'6" Weight 230.00 lb Heart Rate 99 /min BP Systolic 150 mmHg BP Diastolic 80 mmHg Body Temperature 97.8 F BMI (Body Mass Index) 37.1 kg/m2 07/16/2017 2:15pm Height 66 inches 5'6" Weight 227.00 lb Heart Rate 98 /min BP Systolic 139 mmHg BP Diastolic 80 mmHg Body Temperature 96.9 F BMI (Body Mass Index) 36.6 kg/m2 07/15/2017 1:44pm Height 66 inches 5'6" Weight 228.00 lb Heart Rate 82 /min BP Systolic Sitting 128 mmHg BP Diastolic Sitting 82 mmHg Respiratory Rate 16 /min BMI (Body Mass Index) 36.8 kg/m2 06/21/2017 2:32pm Height 66 inches 5'6" Heart Rate 90 /min BP Systolic 118 mmHg BP Diastolic 76 mmHg Respiratory Rate 16 /min Body Temperature 97.6 F Pain Level 8 03/27/2017 3:56pm Height 66 inches 5'6" Weight 230.00 lb Heart Rate 79 /min BP Systolic Sitting 128 mmHg BP Diastolic Sitting 82 mmHg Respiratory Rate 16 /min BMI (Body Mass Index) 37.1 kg/m2 01/23/2017 10:00am Height 66 inches 5'6" Weight 224.00 lb Heart Rate 77 /min BP Systolic Sitting 130 mmHg BP Diastolic Sitting 80 mmHg Respiratory Rate 16 /min BMI (Body Mass Index) 36.2 kg/m2 01/21/2017 9:24am Height 66 inches 5'6" 08/08/2016 10:33am Height 66 inches 5'6" Weight 231.00 lb Heart Rate 72 /min BP Systolic Sitting 130 mmHg BP Diastolic Sitting 82 mmHg Respiratory Rate 15 /min BMI (Body Mass Index) 37.3 kg/m2 01/24/2015 8:27am Height 66 inches 5'6" Weight 232.00 lb Pain Level 7 BMI (Body Mass Index) 37.4 kg/m2 10/15/2014 1:39pm Height 66 inches 5'6" Weight 232.00 lb Pain Level 4 BMI (Body Mass Index) 37.4 kg/m2 09/28/2014 11:16am Height 66 inches 5'6" Weight 232.00 lb Pain Level 5 BMI (Body Mass Index) 37.4 kg/m2 09/14/2014 10:55am Height 66 inches 5'6" Weight 232.00 lb Pain Level 7 when going up stairs or getting up off floor BMI (Body Mass Index) 37.4 kg/m2 07/20/2014 3:07pm Body Temperature 96.9 F Pain Level 8 Results Test Date Facility Test Result H/L Range Note Laboratory test 06/23/2018 [facility] Surgical SEE RESULT [address] [place] [address] [phone] Laboratory test 06/23/2018 [facility] Tissue Culture SEE RESULT 2, [address] & [place] [address] [phone] Laboratory test 06/23/2018 [facility] C Reactive 1.77 mg/L N < 8.[address] [place] [address] [phone] CBC Auto Diff 06/23/2018 [facility] White Blood 5.9 10^3/uL N 3.5-10.[address] [place] [address] [phone] Red Blood Count 4.28 10^6/uL N 3.70-4.87 Hemoglobin 12.7 g/dL N 12.0-16.0 Hematocrit 38 % N 33-41 Mean Corpuscular Volume 89 fL N 80-97 Mean Corpuscular Hemoglobin 30 pg N 27-31 Mean Corpuscular HGB Conc 33 g/dL N 31-36 Red Cell Distribution Width 14 % N 10.5-15 Platelet Count 228 10^3/uL N 150-450 Mean Platelet Volume 7.8 fL N 7.4-10.4 Abs Neutrophils 3.4 10^3/uL N 1.5-7.7 Abs Lymphocytes 1.8 10^3/uL N 1.0-4.8 Abs Monocytes 0.5 10^3/uL N 0-0.8 Abs Eosinophils 0.2 10^3/uL N 0-0.6 Abs Basophils 0 10^3/uL N 0-0.2 Abs Nucleated RBC 0 10^3/uL Granulocyte % 58.0 % Lymphocyte % 30.4 % Monocyte % 7.6 % Eosinophil % 3.4 % Basophil % 0.6 % Nucleated Red Blood Cells % 0 Laboratory test 06/23/2018 [facility] Erythrocyte Sed 13 mm/Hr N 0-20 [address] [place] [address] [phone] Laboratory test 06/23/2018 [facility] Point of Care 151 mg/dL High 70-[address] [place] [address] [phone] Laboratory test 12/16/2017 [facility] Point of Care 157 mg/dL High 70-[address] [place] [address] [phone] Laboratory test 12/16/2017 [facility] 182 mg/dL High 70-[address] [place] [address] [phone] Laboratory test 12/16/2017 [facility] Point of Care 120 mg/dL High 70-100 [address] [place] [address] [phone] Laboratory test 12/16/2017 [facility] Surgical SEE RESULT [address] [place] [address] [phone] Surgical 08/22/2012 [facility] S RUN DATE: [address] 08/25/ [place] [address] <SEE NOTE> [phone] 1 SEE RESULT BELOW Name: BENIGNO ABDULLAHIJAILENE Diego : [address]: Grzegorz Petersen MD Acct: [id number] Unit: [id number] AGE: 48 Location: OR Re06/23/18 SEX: F Status: REG [facility] SPEC: [id number] RILEY: 06/23/18- SUBM DR: Grzegorz Petersen MD REQ: [id number] RECD: 06/23/18 STATUS: SOUT _ ORDERED: Ashok, LEVEL 1, LEVEL 4 FINAL DIAGNOSIS 1. Ulna, excision: -- Benign bone and cartilage with reactive change. 2. Ulna, right, hardware removal: -- Foreign body (orthopedic hardware) (gross diagnosis) PRE-OPERATIVE DIAGNOSIS Unspecified fracture of shaft of right ulna GROSS DESCRIPTION 1. The specimen is received fresh labeled, Right Ulnar Hypertrophic Nonunion, and consists of a 2.9 x 2.4 x 1.0 cm aggregate of caballero irregular bone fragments. Guitar Instructor sections, one cassette following decalcification. 2. The specimen is received fresh labeled, Right Ulna Plate and Screws, and consists of a 9.0 x 1.0 by up to 0.4 cm craft metallic plate with multiple circular to ovoid holes. The following inscription is identified: [employer] UP [id number]. Received separately in the same container are seven silver metallic threaded to partially threaded Chase- headed screws ranging from 1.4 x 0.3 cm to 2.2 x 0.3 cm. Per established hospital medical staff protocol, no tissue is submitted. Gross only. Signed by and Reported on: Emperatriz Noland MD 06/25/18 1305 END OF REPORT DEPARTMENT OF PATHOLOGY, [address] [place] [address] Kareem Bee M.D. Director [facility] # [id number] 2 Scant specimen recieved 3 SEE RESULT BELOW Name: JAILENE CROWLEY : [address]: Grzegorz Petersen MD Acct: [id number] Unit: [id number] AGE: 48 Location: OR Re06/23/18 SEX: F Status: REG [facility] SPEC: [id number] RILEY: 06/23/18 [facility] DR: Grzegorz Petersen MD REQ: [id number] RECD: 06/23/18 STATUS: FOSTER JUAREZ DR: Edouard LEONARDO [facility] ORDERED: Tissue Cult/GS, Anaerobic Cult COMMENTS: Scant specimen recieved RIGHT ULNAR NONUNION Procedure Result Reported Site Tissue Gram Stain Final 06/23/18- 1643 ML 2+ Neutrophils 1+ Epithelial Cells No Organisms Seen Tissue Culture Final 06/27/18923 ML Organism 1 NORMAL SP Quantity 1+ NO PATHOGENS ISOLATED. Anaerobic Culture Final 06/27/18923 ML No Growth Day 4 * ML - Main Lab . END OF REPORT DEPARTMENT OF PATHOLOGY, [address] [place] [address] Kareem Bee M.D. Director [facility] # [id number] 4 Test Performed by: [facility] [address] [place] [address] Kareem Bee M.D. Director of Laboratory 5 Impregnating Tank Operator: [id number] Impregnating Tank Operator: [id number] Impregnating Tank Operator: [id number] Impregnating Tank Operator: [id number] 9 SEE RESULT BELOW Name: JAILENE REID : [address]: Grzegorz Petersen MD Acct: [id number] Unit: [id number] AGE: 47 Location: OR Re12/16/17 SEX: F Status: REG [facility] SPEC: [id number] RILEY: 12/16/17-1306 [facility] DR: Grzegorz Petersen MD REQ: [id number] RECD: 12/16/172697 STATUS: SOUT _ ORDERED: Ashok, LEVEL 3 FINAL DIAGNOSIS Pisiform, right, excision: -- Benign bone and cartilage with degenerative change. PRE-OPERATIVE DIAGNOSIS Lesion of ulnar right upper limb. GROSS DESCRIPTION The specimen is received in formalin labeled, Pisiform, and consists of a 1.3 x 1.2 x 1.1 cm caballero-pink ovoid shaggy bone fragment with scant adherent red-brown muscle. The specimen is partially surfaced by a glistening smooth caballero-white articular surface. Guitar Instructor sections, one cassette following decalcification. Signed by and Reported on: Emperatriz Noland MD 12/19/17 1622 END OF REPORT DEPARTMENT OF PATHOLOGY, [facility] [place] [address] Kareem Bee M.D. Director [facility] # [id number] 10 RUN DATE: 08/25/12 [facility] LAB LIVE PAGE 1 RUN TIME: 1609 [facility] [place] [address] Specimen Inquiry Name: JAILENE CROWLEY : [address]: John Paul Ramey MD Acct: [id number] Unit: [id number] AGE: 42 Location: OR Re08/22/12 SEX: F Status: REG [facility] SPEC: [id number] RILEY: 08/22/12- [facility] DR: John Paul Ramey MD REQ: [id number] RECD: 08/22/12-1201 STATUS: SOUT _ ORDERED: LEVEL III FINAL DIAGNOSIS Knee, left, shavings: 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 PRE-OPERATIVE DIAGNOSIS Left knee meniscus tear. GROSS DESCRIPTION The specimen is received in formalin labeled Jailene Abdullahi, Left Knee Shavings, and consists of a 2.2 x 0.8 x 0.6 cm. aggregate of yellow and white tissue fragments. Guitar Instructor sections, one cassette. Signed (signature on file) Kareem Bee MD 1609 END OF REPORT * ML=Testing performed at Main Lab DEPARTMENT OF PATHOLOGY, [address] [place] [address] Kareem Bee M.D. Director [facility] Permit #[id number] Procedures Date Code Description Status 07/16/2018 34776 Long Arm Cast Application Completed 07/04/2018 17349 Long Arm Cast Application Completed 06/23/2018 06655 Repair Nonunion/Malunion Radius Or Ulna W/Graft Completed 06/23/2018 17117 Repair Nonunion/Malunion Radius Or Ulna W/Graft Completed 04/04/2018 54533 Rad Exam; Forearm Completed 12/16/2017 41910 Dequervains-Tendon Sheath Incision/Extensor Sheath,Wrist Completed 12/16/2017 04022 Excision Bone Cyst/Benign Tumor Radius/Ulna Completed 12/16/2017 85726 Excision Bone Cyst/Benign Tumor Radius/Ulna Completed 12/16/2017 17885 Osteoplasty Shorten Radius Or Ulna Completed 12/16/2017 36035 Osteoplasty Shorten Radius Or Ulna Completed 12/16/2017 94033 Arthroscopy Wrist Excision/Repair Triang Completed Fibrocartilage/Debride 12/16/2017 39248 Arthroscopy Wrist Excision/Repair Triang Completed Fibrocartilage/Debride 12/16/2017 10549 Neuroplasty/Transposition, Ulnar Nerve AT Wrist Completed 09/13/2017 79192 Inject Tendon Sheath Or Ligament Aponeurosis Eg Plantar Completed Fascia 07/18/2016 55550 Chemical Cautery Granulation Tissue Completed 06/25/2016 76454 EEG Recording Awake & Drowsy Completed 05/30/2016 14800 Removal Devitalization Tissue Wound Less Than Equal 20 Completed Square CM 05/23/2016 10114 Debridement Skin,& sq Tissue Completed 12/01/2015 26514 Stress Test Supervsn W/Out I/R Completed 12/01/2015 69965 Treadmill Interp/Report Only Completed 12/01/2015 60041 Stress ECHO Interpretation/Report Hospital Completed 09/14/2014 46443 Injection Single Tendon Origin/Insertion Completed 09/14/2014 27807 Inject Tendon Sheath Or Ligament Aponeurosis Eg Plantar Completed Fascia 04/28/2013 29035 Rad Exam; Fingers Completed 04/28/2013 50800 Rad Exam; Fingers Completed 04/28/2013 37565 Short Arm Cast Application Completed 12/23/2012 69386 Closed TX Phalanx finger/thumb shaft w/o manipulation Completed 12/23/2012 12607 Gauntlet Cast Application Completed 12/23/2012 66311 Rad Exam; Fingers Completed 12/23/2012 16475 Rad Exam; Fingers Completed 12/11/2012 56149 Repair Of Collateral Ligament Metacarpophalangeal Or Completed Interphl JT 12/11/2012 01851 Repair Of Collateral Ligament Metacarpophalangeal Or Completed Interphl JT 08/22/2012 47515 Arthroscopy,Knee,Meniscectomy Medial Or Lateral Completed 08/22/2012 05182 Arthroscopy,Knee,Meniscectomy Medial Or Lateral Completed 05/08/201242568 Inject/Drain Joint/Bursa Major W/O US Completed 08/08/201120327 Inject Tendon Sheath Or Ligament Aponeurosis Eg Plantar Completed Fascia Encounters Type Date Location Provider Dx Diagnosis Office Visit 05/23/2018 Orthopedic Grzegorz Petersen, S52.201K Unsp fx shaft of 3:00p Services Of Sean MIX right ulna, subs AT [facility] for clos fx w nonunion Office Visit 04/30/2018 Orthopedic Grzegorz Petersen, M24.831 Oth specific joint 11:00a Services Of derangements of C.M.A. right wrist, NEC S50.11xA Contusion of right forearm, initial encounter M79.631 Pain in right forearm Office Visit 04/04/2018 2:45p Dwight Lantigua S50.11xA Contusion of Services Of Sean Petersen MD right forearm, AT [facility] initial encounter Office Visit 03/05/2018 12:00p Orthopedic Grzegorz M19.031 Primary Services Of MD [facility] osteoarthritis, C.M.A. right wrist M24.831 Oth specific joint derangements of right wrist, NEC M65.4 Radial styloid tenosynovitis [de Quervain] S50.11xA Contusion of right forearm, initial encounter W19.xxxA Unspecified fall, initial encounter Office Visit 01/21/2018 2:30p [facility] Joshua Diego. Z79.899 Other longterm Services Of Sean Paula M.D. (current) drug therapy G43.009 Migraine w/o aura, not intractable, w/o status migrainosus G40.209 Local-rel symptc epi w cmplx prt seiz,not ntrct,w/o stat epi Office Visit 09/13/2017 10:00a Orthopedic Grzegorz M65.4 Radial styloid Services Of MD [facility] tenosynovitis [de C.M.A. 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 epilepsy, not intractable, w/o stat epi Office 08/08/2016 Neurohospitalist Joshua Berrios G40.309 Gen idiopathic Visit 10:30a Pedro Paula M.D. epilepsy, not intractable, w/o stat epi L63.9 Alopecia areata, unspecified Office Visit 06/29/2016 9:30a Wound Care Gilles Lui T81.31xA Disruption of [facility] [place], external FACS operation (surgical) wound, NEC, init T81.4xxA Infection following a procedure, initial encounter T81.31xD Disruption of external operation (surgical) wound, NEC, subs Office 06/25/2016 Neurohospitalist Joshua Berrios G40.409 Oth generalized Visit 3:40p Pedro Paula M.D. epilepsy, not intractable, w/o stat epi Office 06/25/2016 [facility] Sherri R56.9 Unspecified Visit 3:38p Assoc,pc Hospitalists Katy Bhat convulsions M79.7 Fibromyalgia Office Visit 06/24/2016 3:31p [facility], R56.9 Unspecified Assoc,markus Burns convulsions Hospitalists M79.7 Fibromyalgia J45.902 Unspecified asthma with status asthmaticus Office Visit 06/20/2016 9:30a Wound Care Lee Berrios T81.31xA [facility] [place] [facility] [place] [facility] [place] external operation (surgical) wound, NEC, init T81.4xxA Infection following a procedure, initial encounter Office Visit 06/13/2016 10:30a Wound Care Lee Berrios T81.31xA Disruption of [facility] [place] Jesus external operation (surgical) wound, NEC, init T81.4xxA Infection following a procedure, initial encounter Office Visit 05/23/2016 8:00a Wound Care Lee Berrios T81.31xA Disruption of [facility] [place] Jesus external operation (surgical) wound, NEC, init T81.4xxA Infection following a procedure, initial encounter Office Visit 01/24/2015 8:15a Orthopedic John Paul Ramey, S83.91xA Sprain of Services Of M.D. unspecified site C.M.A. of right knee, initial encounter S76.311A Strain msl/fasc/tnd post grp at [facility], right thigh, init Office Visit 10/15/2014 1:30p Dwight Ramey, 844.1 Sprains & Strains Services Of C.M.A. M.D. Knee Medial Collateral Ligament Office Visit 09/28/2014 10:30a Dwight Ramey, 844.1 Sprains & Strains Services Of C.M.A. M.D. Knee Medial Collateral Ligament Office Visit 09/14/2014 10:45a Dwight Ramey 844.1 Sprains & Strains Services Of C.M.A. M.D. Knee Medial Collateral Ligament V54.89 Aftercare, Orthopedic Other Office Visit 07/20/2014 2:45p Dwight Ramey 844.1 Sprains & Services Of M.DEve Strains Knee C.M.A. Medial Collateral Ligament Office Visit 04/28/2013 10:45a Orthopedic Lynn 841.1 Sprains & Services Of Marlon Riddle Ulnar C.M.Avi Burns Collateral (Ligament) Office Visit 02/12/2013 9:00a Orthopedic John Paul Ramey 719.46 Pain Joint Lower Services Of Katy Leg C.MEveAEve 726.90 Enthesopathy Unspec Site Office Visit 11/25/2012 Orthopedic Lynn 841.1 Sprains & 11:00a Services Of Katy Riddle Strains Ulnar C.M.A. Collateral (Ligament) Office Visit 11/25/2012 Orthopedic John Paul Ramey M.D. 924.11 Contusion Knee 10:15a Services Of C.M.A. Office Visit 07/14/2012 Orthopedic PASTORA Mcallister 844.1 Sprains & 2:30p Services Of Strains Knee C.M.A. Medial Collateral Ligament Office Visit 06/05/2012 Dwight Ramey M.D. 844.1 Sprains & 11:00a Services Of Strains Knee C.M.A. Medial Collateral Ligament Office Visit 05/08/2012 Orthopedic PASTORA Mcallister 844.1 Sprains & 10:15a Services Of Strains Knee C.M.A. Medial Collateral Ligament 844.1 Sprains & Strains Knee Medial Collateral Ligament Office Visit 04/10/2012 1:15p Orthopedic John Paul Ramey 844.1 Sprains & Strains Services Of C.MMeliton SampsonDEve Knee Medial Collateral Ligament Office Visit 03/04/2012 2:45p Orthopedic John Paul Ramey 844.1 Sprains & Strains Services Of C.MMeliton SampsonDEve Knee Medial Collateral Ligament 836.2 Dislocation Knee Tear Of Cartilage Or Meniscus Current Other Office Visit 02/08/2012 Orthopedic Lynn 841.1 Sprains & Strains 9:15a Services Of Katy Riddle Ulnar Collateral C.M.A. (Ligament) Office Visit 01/09/2012 Orthopedic Lynn 719.44 Pain Joint Hand 10:00a Services Of Katy Riddle C.M.A. Office Visit 09/05/2011 Orthopedic Lynn 727.05 Tenosynovitis Hand 11:15a Services Of Katy Riddle & Wrist Other C.MMeliton 719.44 Pain Joint Hand 841.1 Sprains & Strains Ulnar Collateral (Ligament) Office Visit 08/08/2011 Orthopedic Lynn 727.05 Tenosynovitis Hand 11:45a Services Of Katy Riddle & Wrist Other C.M.A. 719.44 Pain Joint Hand Office Visit 07/17/2011 Orthopedic Lynn 841.1 Sprains & 11:15a Services Of Katy Riddle Strains Ulnar C.M.A. Collateral (Ligament) 842.10 Sprains & Strains Hand Unspec Site Office Visit 07/04/2011 Orthopedic Lynn 841.1 Sprains & 10:30a Services Of Katy Riddle Strains Ulnar C.M.A. Collateral (Ligament) Office Visit 06/21/2011 Orthopedic John Paul Ramey M.D. 841.1 Sprains & 8:00a Services Of Strains Ulnar C.M.A. Collateral (Ligament) Office Visit 06/14/2011 Orthopedic John Paul Ramey M.D. 842.10 Sprains & 4:00p Services Of Strains Hand C.M.A. Unspec Site Office Visit 06/13/2011 Orthopedic Bhumika Aleman, 841.1 Sprains & 11:30a Services Of RPA-C Strains Ulnar C.M.A. Collateral (Ligament) 842.10 Sprains & Strains Hand Unspec Site Plan of Treatment 07/22/2018 - Wilton Lenz, NPG40.209 Localization-related (focal) (partial) symptomatic epilepsyFollow up:3 MONTHS with EricG43.009 Migraine without aura, not intractable, without status fsuruL48.9 Polyneuropathy, unspecifiedNew Medication:Cane -New Orders:EMG w/Nerve Conduct Study, Lower, Ordered:
--- OUTSIDE RECORDS SUMMARY | 2018-08-01 13:20 | XMS REPORT | Continuity of Care Document ---
:1970 External Reference #:[id number] Author Name Ronak Wells Care Team Providers Name Role Phone Edouard Louie DO Primary Care Physician Unavailable Payers Date Identification Numbers Payment Provider Subscriber Effective: Policy Number: [id number] Medicare Jailene Reid 2000 PayID: [id number] [address] [place] [address] Policy Number: [id number] Jens Reid PayID: [id number] [address] [place] [address] Effective: 2001 Policy Number: [id number] Jens Reid Expires: 2017 [address] [address] [place] [address] Advance Directives Description No Information Available Problems [...] Use Denies Drug Use Smoking Status Reviewed: 04/30/19 Patient has never smoked Exercise Type/Frequency Exercises regularly Allergies, Adverse Reactions, Alerts Active Allergies Reaction Severity Comments Date Iodine 04/24/2013 Contrast Dye 04/24/2013 Honey Bee Venom 06/11/2018 Medications Active Medications SIG Qnty Indications Ordering Date Provider Vinayak Quanunkeenan G62.9 Joshua Berrios 07/22/2018 Talita Paula M.D. Hydrocodone-Acetamino 1 or 2 tabs by mouth [...] 1 by mouth bid Unknown 20mg Tablets Cyanojenniferbalamin 1 milliliters Unknown intramuscular 1000mcg/ML Solution [id number] Echinacea 1 tab po bid Unknown 125mg [...] Ramey, 03/04/2012 - 500mg Tablets M.D. 05/22/2018 [place] 1 tablet po bid 10tabs John Paul [...] milliliters Unknown - 1000mcg/ML Solution intramuscular 07/14/2017 [id number] Ginseng 1 tab po qd ( Unknown [...] Result H/L Range Note Laboratory test 06/23/2018 [facility] Surgical SEE RESULT [address] [address] [phone] Laboratory test 06/23/2018 [facility] Tissue Culture SEE RESULT 2, [address] & [place] [address] [phone] Laboratory test 06/23/2018 [facility] C Reactive 1.77 mg/L N < 8.[address] [place] [address] [phone] CBC Auto Diff 06/23/2018 [facility] White Blood 5.9 10^3/uL N 3.5-10.[address] [place] [address] [phone] Red Blood Count 4.28 10^6/uL N 3.70-4.87 [...] Blood Cells % 0 Laboratory test 06/23/2018 [facility] Erythrocyte Sed 13 mm/Hr N 0-20 [address] [place] [address] [phone] Laboratory test 06/23/2018 [facility] Point of Care 151 mg/dL High 70-[address] [place] [address] [phone] Laboratory test 12/16/2017 [facility] Point of Care 157 mg/dL High 70-100 [address] [place] [address] [phone] Laboratory test 12/16/2017 [facility] Point of Care 182 mg/dL High 70-[address] [place] [address] [phone] Laboratory test 12/16/2017 [facility] Point of Care 120 mg/dL High 70-100 [address] [place] [address] [phone] Laboratory test 12/16/2017 [facility] Surgical SEE RESULT [address] [place] [address] [phone] Surgical 08/22/2012 [facility] S RUN DATE: [address] 08/25/ [place] [address] <SEE NOTE> [phone] 1 SEE RESULT BELOW Name: BENIGNO ABDULLAHIJAILENE Cortez : [address]: Grzegorz Petersen MD Acct: [id number] Unit: [id number] AGE: 48 Location: OR Re06/23/18 SEX: F Status: [facility] SPEC: [id number] RILEY: 06/23/18- [facility] DR: Grzegorz Petersen MD REQ: [id number] RECD: 06/23/18 STATUS: SOUT _ ORDERED: Ashok, [...] cm aggregate of caballero irregular bone fragments. Wheel And Caster Repairer sections, one cassette following decalcification. 2. The [...] 1305 END OF REPORT DEPARTMENT OF PATHOLOGY, [address] [place] [address] Kareem Bee M.D. Director [facility] # [id number] 2 Scant specimen recieved 3 SEE RESULT BELOW Name: JAILENE CROWLEY : [address]: Grzegorz Petersen MD Acct: [id number] Unit: [id number] AGE: 48 Location: OR Re06/23/18 SEX: F Status: [facility] SPEC: [id number] RILEY: 06/23/18 [facility] DR: Grzegorz Petersen MD REQ: [id number] RECD: 06/23/18 STATUS: FOSTER JUAREZ DR: Edouard LEONARDO S[facility]: Tissue Cult/GS, Anaerobic Cult COMMENTS: [...] . END OF REPORT DEPARTMENT OF PATHOLOGY, [address] [place] [address] Kareem Bee M.D. Director [facility] # [id number] 4 Test Performed by: [facility] [address] [place] [address] Kareem Bee M.D. Director of Laboratory 5 Meat Team Member: [id number] Meat Team Member: [id number] Meat Team Member: [id number] 8 Meat Team Member: [id number] 9 SEE RESULT BELOW Name: JAILENE REID : [address]: Grzegorz Petersen MD Acct: [id number] Unit: [id number] AGE: 47 Location: OR Re12/16/17 SEX: F Status: [facility] SPEC: [id number] RILEY: 12/16/17-1306 [facility] DR: Grzegorz Petersen MD REQ: [id number] RECD: 12/16/17 STATUS: SOUT _ ORDERED: Ashok, LEVEL 3 [...] by a glistening smooth caballero-white articular surface. Wheel And Caster Repairer sections, one cassette following decalcification. Signed by and Reported on: Emperatriz Noland MD 12/19/17 1622 END OF REPORT DEPARTMENT OF PATHOLOGY, [facility] [place] [address] Kareem Bee M.D. 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 PRE-OPERATIVE DIAGNOSIS Left knee meniscus tear. GROSS DESCRIPTION The specimen is received in formalin labeled Jailene Abdullahi, Left Knee Shavings, and consists of a 2.2 x 0.8 x 0.6 cm. aggregate of yellow and white tissue fragments. Wheel And Caster Repairer sections, one cassette. Signed (signature on file) Kareem Bee MD 1609 END OF REPORT * ML=Testing performed at Main Lab DEPARTMENT OF PATHOLOGY, [address] [place] [address] Kareem Bee M.D. Director [facility] Permit #[id number] Procedures Date Code Description Status 07/16/2018 60865 Long Arm Cast Application Completed 07/04/2018 49387 Long Arm Cast Application Completed 06/23/2018 62300 Repair Nonunion/Malunion Radius Or Ulna W/Graft Completed 06/23/2018 53097 Repair Nonunion/Malunion Radius Or Ulna W/Graft Completed 04/04/2018 84171 Rad Exam; Forearm Completed 12/16/2017 87174 Dequervains-Tendon Sheath Incision/Extensor Sheath,Wrist Completed 12/16/2017 70427 Excision Bone Cyst/Benign Tumor Radius/Ulna Completed 12/16/2017 64324 Excision Bone Cyst/Benign Tumor Radius/Ulna Completed 12/16/2017 81642 Osteoplasty Shorten Radius Or Ulna Completed 12/16/2017 57471 Osteoplasty Shorten Radius Or Ulna Completed 12/16/2017 66443 Arthroscopy Wrist Excision/Repair Triang Completed Fibrocartilage/Debride 12/16/2017 20390 Arthroscopy Wrist Excision/Repair Triang Completed Fibrocartilage/Debride 12/16/2017 54803 Neuroplasty/Transposition, Ulnar Nerve AT Wrist Completed 09/13/2017 09340 Inject Tendon Sheath Or Ligament Aponeurosis Eg Plantar Completed Fascia 07/18/2016 23041 Chemical Cautery Granulation Tissue Completed 06/25/2016 56254 EEG Recording Awake & Drowsy Completed 05/30/2016 53222 Removal Devitalization Tissue Wound Less Than Equal 20 Completed Square CM 05/23/2016 14271 Debridement Skin,& sq Tissue Completed 12/01/2015 26896 Stress Test Supervsn W/Out I/R Completed 12/01/2015 31483 Treadmill Interp/Report Only Completed 12/01/2015 74098 Stress ECHO Interpretation/Report Hospital Completed 09/14/2014 58496 Injection Single Tendon Origin/Insertion Completed 09/14/2014 49539 Inject Tendon Sheath Or Ligament Aponeurosis Eg Plantar Completed Fascia 04/28/2013 12238 Rad Exam; Fingers Completed 04/28/2013 24626 Rad Exam; Fingers Completed 04/28/2013 68607 Short Arm Cast Application Completed 12/23/2012 05187 Closed TX Phalanx finger/thumb shaft w/o manipulation Completed 12/23/2012 25106 Gauntlet Cast Application Completed 12/23/2012 49189 Rad Exam; Fingers Completed 12/23/2012 87202 Rad Exam; Fingers Completed 12/11/2012 48647 Repair Of Collateral Ligament Metacarpophalangeal Or Completed Interphl JT 12/11/2012 30823 Repair Of Collateral Ligament Metacarpophalangeal Or Completed Interphl JT 08/22/2012 08044 Arthroscopy,Knee,Meniscectomy Medial Or Lateral Completed 08/22/2012 18632 Arthroscopy,Knee,Meniscectomy Medial Or Lateral Completed 05/08/2012 Inject/Drain Joint/Bursa Major W/O US Completed 08/08/201141377 Inject Tendon Sheath Or Ligament Aponeurosis Eg Plantar Completed Fascia Encounters Type Date Location Provider Dx Diagnosis Office Visit 05/23/2018 Orthopedic Grzegorz Petersen, S52.201K Unsp fx shaft of 3:00p Services Of Sean MIX right ulna, subs AT [facility] for clos fx w nonunion Office Visit 04/30/2018 Orthopedic Grzegorz Petersen, M24.831 Oth specific joint 11:00a Services Of derangements of C.M.A. 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 right wrist M24.831 Oth specific joint derangements of right wrist, NEC M65.4 Radial styloid tenosynovitis [de Quervain] S50.11xA Contusion of right forearm, initial encounter W19.xxxA Unspecified fall, initial encounter Office Visit 01/21/2018 2:30p [facility] Joshua Berrios Z79.899 Other predatory animal exterminator Services Of Sean Paula M.D. (current) drug [...] Neurologic Katy Paula epilepsy, not Services Of [facility] intractable, w/o stat epi Z79.899 Other senior living (current) drug therapy G43.909 Migraine, unsp, not intractable, without status migrainosus G25.1 Drug-induced tremor Office Visit 06/21/2017 2:00p Orthopedic Grzegorz G56.21 Lesion of ulnar Services Of MD Trinity nerve, right Malick.M.A. 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 epilepsy, not intractable, w/o stat epi Office 08/08/2016 Neurohospitalist Joshua Berrios G40.309 Gen idiopathic Visit 10:30a [place] Paula M.D. epilepsy, not intractable, w/o stat epi L63.9 Alopecia areata, unspecified Office Visit 06/29/2016 9:30a Wound Care Gilles Lui T81.31xA Disruption of [facility] [place], external FACS operation (surgical) wound, NEC, init T81.4xxA Infection following a procedure, initial encounter T81.31xD Disruption of external operation (surgical) wound, NEC, subs Office 06/25/2016 Neurohospitalist Joshua Berrios G40.409 Oth generalized Visit 3:40p [place] Paula M.D. epilepsy, not intractable, w/o stat epi Office 06/25/2016 [facility] Sherri R56.9 Unspecified Visit 3:38p Assoc,pc Hospitalists Katy Bhat convulsions M79.7 Fibromyalgia Office Visit 06/24/2016 3:31p [facility] Wilton Shanta, R56.9 Unspecified Assoc,pc Katy convulsions Hospitalists M79.7 Fibromyalgia J45.902 Unspecified asthma with status asthmaticus Office Visit 06/20/2016 9:30a Wound Care Lee Berrios T81.31xA Disruption of [facility] [place] Jesus external operation (surgical) wound, NEC, init T81.4xxA Infection following a procedure, initial encounter Office Visit 06/13/2016 10:30a Wound Care Lee Berrios T81.31xA Disruption of [facility] [place] Jesus external operation (surgical) wound, NEC, init T81.4xxA Infection following a procedure, initial encounter Office Visit 05/23/2016 8:00a Wound Care Lee Berrios T81.31xA Disruption of [facility] [place] Jesus external operation (surgical) wound, NEC, init T81.4xxA Infection following a procedure, initial encounter Office Visit 01/24/2015 8:15a Orthopedic John Paul Ramey, S83.91xA Sprain of Services Of M.D. unspecified site C.M.A. of right knee, initial encounter S76.311A Strain msl/fasc/tnd post grp at [facility], right thigh, init Office Visit 10/15/2014 1:30p [...] Dwight Ramey 844.1 Sprains & Services Of MRufino Strains Knee C.M.A. Medial Collateral Ligament Office Visit 04/28/2013 10:45a Orthopedic Lynn 841.1 Sprains & Services Of Marlon Riddle Ulnar C.M.A. M.D. Collateral (Ligament) Office Visit 02/12/2013 9:00a Orthopedic [...] Ramey 844.1 Sprains & Strains Services Of C.M.AEve MEveDEve Knee Medial Collateral Ligament Office Visit 03/04/2012 2:45p Dwight Ramey 844.1 Sprains & Strains Services [...] Migraine without aura, not intractable, without status kulueX10.9 Polyneuropathy, unspecifiedNew Medication:Cane -New Orders:EMG w/Nerve Conduct Study, Lower, Ordered:
--- OUTSIDE RECORDS SUMMARY | 2018-08-01 13:21 | XMS REPORT | Continuity of Care Document ---
:1970 External Reference #:[id number] Author Name Claudine Palma Care Team Providers Name Role Phone Edouard Louie DO Primary Care Physician Unavailable Payers Date Identification Numbers Payment Provider Subscriber Effective: Policy Number: [id number] Medicare Jailene Reid 2000 PayID: [id number] [address] [place] [address] Policy Number: [id number] Jens Reid PayID: [id number] [address] [place] [address] Effective: 2001 Policy Number: [id number] Jens Reid Expires: 2017 [address] [address] [place] [address] Advance Directives Description No Information Available Problems [...] Use Denies Drug Use Smoking Status Reviewed: 04/24/19 Patient has never smoked Exercise Type/Frequency Exercises regularly Allergies, Adverse Reactions, Alerts Active Allergies Reaction Severity Comments Date Iodine 04/24/2013 Contrast Dye 04/24/2013 Honey Bee Venom 06/11/2018 Medications Active Medications SIG Qnty Indications Ordering Date Provider Hydrocodone-Acetamino 1 or 2 tabs by mouth [...] Paul Ramey 10/15/2014 Chronic MCL Sprain Katy Elenaf 2 tab po qam 1 tab Lynn 04/28/2013 po pm Katy Riddle Oxycodone HCL 1 tabs by mouth four Unknown 5mg times daily Capsules Naproxen Sodium 1 by mouth twice a Unknown 550mg day Tablets Ztlido apply 1 patch every Unknown 1.8% Patches 24 hours Prilosec OTC 1 by mouth bid Unknown 20mg Tablets Cyanocobalamin 1 milliliters Unknown intramuscular 1000mcg/ML Solution [id number] Echinacea 1 tab po bid Unknown 125mg [...] Medications Hydrocodone-Acetaminophen 1 or 2 tabs by 30tasidney Lantigua 12/16/2017 - 5-325mg Tablets mouth every 6-8 MD [facility] 05/22/2018 hours as needed for pain Lamotrigine 1/2 qam and 1 qhs 180tabs Joshua Berrios 01/23/2017 - 100mg Tablets for 1 month then Chai 07/14/2017 1/2 bid for 1 mo M.D. then 1/2 d/ Lamotrigine take one tablet 60tabs Joshua Berrios 08/08/2016 - 150mg Tablets by mouth twice a Chai, 01/23/2017 day M.DEve Keppra 1 by mouth twice 60tabs Joshua Berrios 08/08/2016 - 500mg Tablets a day Chai 01/20/2017 M.D. Selenium 1 po qday 90tabs L63. Joshua Berrios 08/08/2016 - 50mcg Tablets 9 Chai, 07/14/2017 M.DEve Asthma Medication Lynn 04/28/2013 - Janessa 07/24/2016 Katy apply to affected 1Tube John Paul Ramey, 02/12/2013 - 1% Gel area four times M.D. 01/23/2015 daily Percocet 1-2 tabs po tid 30tabs John Paul Ramey 08/22/2012 - 5-325mg Tablets M.D. 01/23/2015 Naproxen 1 tab bid 90tabs John Paul Ramey 03/04/2012 - 500mg Tablets M.D. 05/22/2018 Hazen 1 tablet po bid 10tabs John Paul [...] milliliters Unknown - 1000mcg/ML Solution intramuscular 07/14/2017 [id number] Ginseng 1 tab po qd ( Unknown [...] mg and 3mg Lynn Riddle, 08/08/2011 Injection Katy Celestone 3 mg and 3mg Lynn Riddle, 08/08/2011 Injection Katy Immunizations Description No Information Available Vital Signs Date Vital Result Comment 07/16/2018 11:55am Height 65 inches 5'5" Heart [...] Result H/L Range Note Laboratory test 06/23/2018 [facility] Point of Care 151 mg/dL High 70-100 [address] [place] [address] [phone] Laboratory test 06/23/2018 [facility] Surgical SEE RESULT [address] [place] [address] [phone] Laboratory test 06/23/2018 [facility] Tissue Culture & SEE RESULT 3, [address] [address] [phone] Laboratory test 06/23/2018 [facility] C Reactive 1.77 mg/L N < 8.[address] [place] [address] [phone] Laboratory test 06/23/2018 [facility] Erythrocyte Sed 13 mm/Hr N 0-20 [address] [place] [address] [phone] CBC Auto Diff 06/23/2018 [facility] White Blood 5.9 10^3/uL N 3.5-10.[address] [place] [address] [phone] Red Blood Count 4.28 10^6/uL N 3.70-4.87 [...] Red Blood Cells % 0 Laboratory test 12/16/2017 [facility] Point of Care 182 mg/dL High 70-100 [address] [place] [address] [phone] Laboratory test 12/16/2017 [facility] Point of Care 157 mg/dL High 70-100 [address] [place] [address] [phone] Laboratory test 12/16/2017 [facility] Point of Care 120 mg/dL High 70-100 [address] [place] [address] [phone] Laboratory test 12/16/2017 [facility] Surgical SEE RESULT [address] [address] [phone] Surgical 08/22/2012 [facility] S RUN DATE: [address] 08/25/ <[place] [address] NOTE> [phone] Coffee Shop Manager: [id number] 2 SEE RESULT BELOW Name: JAILENE CROWLEY : [address]: Grzegorz Petersen MD Acct: [id number] Unit: [id number] AGE: 48 Location: OR Re06/23/18 SEX: F Status: REG [facility] SPEC: [id number] RILEY: 06/23/18- SUBM DR: Grzegorz Petersen MD REQ: [id number] RECD: 06/23/18 STATUS: SOUT _ ORDERED: Decal, LEVEL 1, LEVEL 4 FINAL DIAGNOSIS 1. [...] cm aggregate of caballero irregular bone fragments. Carpenter Prototype sections, one cassette following decalcification. 2. The specimen is received fresh labeled, Right Ulna Plate and Screws, and consists of a 9.0 x 1.0 by up to 0.4 cm craft metallic plate with multiple circular to ovoid holes. The following inscription is identified: [employer] UOCP 1771-. Received separately in the same container are seven silver metallic threaded to partially threaded Chase- headed screws ranging from 1.4 x 0.3 cm to 2.2 x 0.3 cm. Per established hospital medical staff protocol, no tissue is submitted. Gross only. Signed by and Reported on: Emperatriz Noland MD 06/25/18 1305 END OF REPORT DEPARTMENT OF PATHOLOGY, [address] [place] [address] Kareem Bee M.D. Director [facility] # [id number] 3 Scant specimen recieved 4 SEE RESULT BELOW Name: JAILENE CROWLEY : [address]: Grzegorz Petersen MD Acct: [id number] Unit: [id number] AGE: 48 Location: OR Re06/23/18 SEX: F Status: REG [facility] SPEC: [id number] RILEY: 06/23/18-[address] [facility] [address]: Grzegorz Petersen MD REQ: [id number] RECD: 06/23/18 STATUS: [facility] DR: Edouard Grant DO _ S[facility] ORDERED: Tissue Cult/GS, Anaerobic Cult COMMENTS: Scant specimen recieved RIGHT ULNAR NONUNION Procedure Result Reported Site Tissue Gram Stain Final 06/23/181643 ML 2+ Neutrophils 1+ Epithelial Cells No Organisms Seen Tissue Culture Final 06/27/18923 ML Organism 1 NORMAL SP Quantity 1+ NO PATHOGENS ISOLATED. Anaerobic Culture Final 06/27/18923 ML No Growth Day 4 * ML - Main Lab . END OF REPORT DEPARTMENT OF PATHOLOGY, [address] [place], [place] [id number] Kareem Bee M.D. Director [facility] # [id number] 5 Test Performed by: [facility] [address] [place] [address] Kareem Bee M.D. Director of Laboratory 6 Coffee Shop Manager: [id number] Coffee Shop Manager: [id number] Coffee Shop Manager: [id number] 9 SEE RESULT BELOW Name: JAILENE REID : [address]: Grzegorz Petersen MD Acct: [id number] Unit: [id number] AGE: 47 Location: OR Re12/16/17 SEX: F Status: REG [facility] SPEC: [id number] RILEY: 12/16/17-[address] [facility] [address]: Grzegorz Petersen MD REQ: [id number] RECD: 12/16/17 STATUS: SOUT _ ORDERED: [facility], LEVEL 3 FINAL DIAGNOSIS Pisiform, right, excision: [...] by a glistening smooth caballero-white articular surface. Carpenter Prototype sections, one cassette following decalcification. Signed by and Reported on: Emperatriz Noland MD 12/19/17 1622 END OF REPORT DEPARTMENT OF PATHOLOGY, [facility] [employer] [place], [place] [address] Kareem Bee M.D. Director [facility] # [id number] 10 RUN DATE: 08/25/12 [facility] LAB LIVE PAGE 1 RUN TIME: 1609 [facility] [employer] [place], [place] [address] Specimen Inquiry Name: JAILENE CROWLEY : [address]: John Paul Ramey MD Acct: [id number] Unit: [id number] AGE: 42 Location: OR Re08/22/12 SEX: F Status: REG [facility] SPEC: [id number] RILEY: 08/22/12- SUBM DR: John Paul Ramey MD REQ: [id number] RECD: 08/22/12-1201 STATUS: SOUT _ ORDERED: LEVEL III FINAL DIAGNOSIS Knee, left, shavings: 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 PRE-OPERATIVE DIAGNOSIS Left knee meniscus tear. GROSS DESCRIPTION The specimen is received in formalin labeled Jailene Barragan, Left Knee Shavings, and consists of a 2.2 x 0.8 x 0.6 cm. aggregate of yellow and white tissue fragments. Carpenter Prototype sections, one cassette. Signed (signature on file) Kareem Bee MD 1609 END OF REPORT * ML=Testing performed at Main Lab DEPARTMENT OF PATHOLOGY, [address] [place] [address] Kareem Bee M.D. Director [facility] Permit #[id number] Procedures Date Code Description Status 07/16/2018 37086 Long Arm Cast Application Completed 07/04/2018 19307 Long Arm Cast Application Completed 06/23/2018 25063 Repair Nonunion/Malunion Radius Or Ulna W/Graft Completed 06/23/2018 35530 Repair Nonunion/Malunion Radius Or Ulna W/Graft Completed 04/04/2018 20111 Rad Exam; Forearm Completed 12/16/2017 46393 Dequervains-Tendon Sheath Incision/Extensor Sheath,Wrist Completed 12/16/2017 65983 Excision Bone Cyst/Benign Tumor Radius/Ulna Completed 12/16/2017 07319 Excision Bone Cyst/Benign Tumor Radius/Ulna Completed 12/16/2017 77881 Osteoplasty Shorten Radius Or Ulna Completed 12/16/2017 20722 Osteoplasty Shorten Radius Or Ulna Completed 12/16/2017 17348 Arthroscopy Wrist Excision/Repair Triang Completed Fibrocartilage/Debride 12/16/2017 33919 Arthroscopy Wrist Excision/Repair Triang Completed Fibrocartilage/Debride 12/16/2017 98557 Neuroplasty/Transposition, Ulnar Nerve AT Wrist Completed 09/13/2017 46769 Inject Tendon Sheath Or Ligament Aponeurosis Eg Plantar Completed Fascia 07/18/2016 89570 Chemical Cautery Granulation Tissue Completed 06/25/2016 72571 EEG Recording Awake & Drowsy Completed 05/30/2016 14507 Removal Devitalization Tissue Wound Less Than Equal 20 Completed Square CM 05/23/2016 38985 Debridement Skin,& sq Tissue Completed 12/01/2015 83619 Stress Test Supervsn W/Out I/R Completed 12/01/2015 21649 Treadmill Interp/Report Only Completed 12/01/2015 15230 Stress ECHO Interpretation/Report Hospital Completed 09/14/2014 11184 Injection Single Tendon Origin/Insertion Completed 09/14/2014 67938 Inject Tendon Sheath Or Ligament Aponeurosis Eg Plantar Completed Fascia 04/28/2013 27777 Rad Exam; Fingers Completed 04/28/2013 19027 Rad Exam; Fingers Completed 04/28/2013 53709 Short Arm Cast Application Completed 12/23/2012 02717 Closed TX Phalanx finger/thumb shaft w/o manipulation Completed 12/23/2012 79890 Gauntlet Cast Application Completed 12/23/2012 74995 Rad Exam; Fingers Completed 12/23/2012 68004 Rad Exam; Fingers Completed 12/11/2012 00451 Repair Of Collateral Ligament Metacarpophalangeal Or Completed Interphl JT 12/11/2012 97644 Repair Of Collateral Ligament Metacarpophalangeal Or Completed Interphl JT 08/22/2012 53304 Arthroscopy,Knee,Meniscectomy Medial Or Lateral Completed 08/22/2012 14697 Arthroscopy,Knee,Meniscectomy Medial Or Lateral Completed 05/08/2012 89111 Inject/Drain Joint/Bursa Major W/O US Completed 08/08/2011 50792 Inject Tendon Sheath Or Ligament Aponeurosis Eg Plantar Completed Fascia Encounters Type Date Location Provider Dx Diagnosis Office Visit 05/23/2018 Orthopedic Grzegorz Petersen, S52.201K Unsp fx shaft of 3:00p Services Of Sean MIX right ulna, subs AT [place] for clos fx w nonunion Office Visit 04/30/2018 Orthopedic Grzegorz Petersen, M24.831 Oth specific joint 11:00a Services Of derangements of C.M.A. right wrist, NEC S50.11xA Contusion of right forearm, initial encounter M79.631 Pain in right forearm Office Visit 04/04/2018 2:45p Orthopedic Grzegorz S50.11xA Contusion of Services Of Sean Petersen MD right forearm, AT [place] initial encounter Office Visit 03/05/2018 12:00p Orthopedic Grzegorz M19.031 Primary Services Of MD [facility] osteoarthritis, C.M.A. 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 G40.309 Gen idiopathic epilepsy, not intractable, w/o stat epi Z79.899 Other [facility] (current[facility] drug therapy Office 01/23/2017 Neurohospitalist Joshua Berrios G40.309 Gen idiopathic Visit 10:00a Clinic Katy Paula epilepsy, not intractable, w/o stat epi Office 08/08/2016 Neurohospitalist Joshua Berrios G40.309 Gen idiopathic Visit 10:30a Clinic Katy Paula epilepsy, not intractable, w/o stat epi L63.9 Alopecia areata, unspecified Office Visit 06/29/2016 9:30a Wound Care Gilles Lui T81.31xA Disruption of [facility] [place], external FACS operation (surgical) wound, NEC, init T81.4xxA Infection following a procedure, initial encounter T81.31xD Disruption of external operation (surgical) wound, NEC, subs Office 06/25/2016 Neurohospitalist Joshua Berrios G40.409 Oth generalized Visit 3:40p Clinic Katy Paula epilepsy, not intractable, w/o stat epi Office 06/25/2016 [facility] Sherri R56.9 Unspecified Visit 3:38p [facility]oc[facility] Hospitalists Katy Bhat convulsions M79.7 Fibromyalgia Office Visit 06/24/2016 3:31p [facility] Wilton Womack R56.9 Unspecified Assocmarkus M.D. convulsions Hospitalists M79.7 Fibromyalgia J45.902 Unspecified asthma with status asthmaticus Office Visit 06/20/2016 9:30a Wound Care Lee Berrios T81.31xA Disruption of [facility] [place] Jesus external operation (surgical) wound, NEC, init T81.4xxA Infection following a procedure, initial encounter Office Visit 06/13/2016 10:30a Wound Care Lee Berrios T81.31xA Disruption of [facility] MD Jesus external operation (surgical) wound, NEC, init T81.4xxA Infection following a procedure, initial encounter Office Visit 05/23/2016 8:00a Wound Care Lee Berrios T81.31xA Disruption of [facility] MD Jesus external operation (surgical) wound, NEC, init T81.4xxA Infection following a procedure, initial encounter Office Visit 01/24/2015 8:15a Orthopedic John Paul Ramey, S83.91xA Sprain of Services Of M.D. unspecified site C.M.A. of right knee, initial encounter S76.311A Strain msl/fasc/tnd post grp at [facility], right thigh, init Office Visit 10/15/2014 1:30p Orthopedic John Paul Ramey 844.1 Sprains & Strains Services Of C.M.A. M.D. Knee Medial Collateral Ligament Office Visit 09/28/2014 10:30a Dwight Ramey 844.1 Sprains & Strains Services [...] Orthopedic Lynn 841.1 Sprains & Services Of Janessa, Marlon Ulnar C.M.A. M.D. Collateral (Ligament) Office Visit 02/12/2013 9:00a Orthopedic John Paul Ramey, 719.46 Pain Joint Lower Services Of M.D. Leg C.M.A. 726.90 Enthesopathy Unspec Site Office Visit 11/25/2012 Dwight Bailey 841.1 Sprains & 11:00a Services Of Katy [...] 844.1 Sprains & Strains Services Of C.M.A. M.DEve Knee Medial Collateral Ligament Office Visit 03/04/2012 2:45p Orthopedic John Paul Ramey 844.1 Sprains & Strains Services Of C.MMeliton MEveDEve Knee Medial Collateral Ligament 836.2 Dislocation Knee Tear Of Cartilage Or Meniscus Current Other Office Visit 02/08/2012 Orthopedic Lynn 841.1 Sprains & Strains 9:15a Services Of Katy Riddle Ulnar Collateral C.M.A. (Ligament) Office Visit 01/09/2012 Orthopedic Lynn 719.44 Pain Joint Hand 10:00a Services Of Katy Riddle C.M.A. Office Visit 09/05/2011 Orthopedic Lynn 727.05 Tenosynovitis Hand 11:15a Services Of Katy Ridlde & Wrist Other C.M.A. 719.44 Pain Joint Hand 841.1 Sprains & [...] C.M.A. Collateral (Ligament) Office Visit 06/14/2011 Orthopedic Joh nPaul Ramey M.D. 842.10 Sprains & 4:00p Services Of Strains Hand C.M.A. Unspec Site Office Visit 06/13/2011 Orthopedic Bhumika Aleman, 841.1 Sprains & 11:30a Services Of RPA-C Strains Ulnar C.M.A. Collateral (Ligament) 842.10 Sprains & Strains Hand Unspec Site Plan of Treatment Future Appointment(s):07/22/2018 11:15 am - Joshua Paula M.D. at [place] [facility]07/16/2018 - Grzegorz Petersen, MDS52.201K Unspecified fracture of shaft of right ulna, subsequent encoFollow up:Follow up: 1 week
--- OUTSIDE RECORDS SUMMARY | 2018-08-01 13:21 | XMS REPORT | Continuity of Care Document ---
:1970 External Reference #:[id number] Author Name Carmelo Vail DO, MPH Address [address] [place] [address] [address] [place] [address] Care Team Providers Name Role Phone Edouard Louie DO Care Team Information Client Technical Specialist Unavailable Edouard Louie DO Primary Care Physician Unavailable Payers Date Identification Numbers Payment Provider Subscriber Policy Number: [id number] [place] PayID: [id number] [address] [facility] [place] [address] Policy Number: [id number] Formerly [facility] Jailene Barragan PayID: [id number] [place] [address] Expires: 2018 Policy Number: [id number] [place] PayID: [id number] [facility] [address] Advance Directives Description No Information Available Problems Description No Information Family History Date Family Member(s) Observation Comments Father 82 Mother 77 Children 1 Social History Type Date Description Comments Sex Unknown Marital Status Cigarette Use Former Cigarette Smoker ETOH Use Rarely consumes alcohol Recreational Drug Use Denies Drug Use Tobacco Use Start: Unknown End: Unknown Patient is a former smoker Smoking Status Reviewed: 07/18/18 Patient is a former smoker Allergies, Adverse Reactions, Alerts Active Allergies Reaction Severity Comments Date Iodine 08/19/2012 Shellfish-derived Products 08/19/2012 Bee Sting 08/19/2012 Down Feathers 08/19/2012 Medications Active Medications SIG Qnty Indications Ordering Date Provider Oxycodone HCL si by mouth 120tabs Carmelo Vail, 10/09/2017 5mg Tablets every 6 to 8 hours DO MPH as directed chronic pain patient Oxymorphone HCL ER 1 by mouth every 12 60tabs Carmelo Vail, 05/27/2017 5mg hours DO, MPH Tablets ER 12HR Naproxen Sodium si by mouth Unknown 550mg every 12 hours Tablets Tylenol Extra Strength si by mouth Unknown twice a day as 500mg Tablets directed Prevagen Unknown 10mg Capsules Echinacea Unknown 125mg Capsules Zinc 15 Unknown 66mg Tablets Calcium 500 + D3 Unknown [id number] Tablets Prevacid take one by mouth Unknown 15mg Capsules DR every day. Icy Hot Extra Strength apply to alycia lower Unknown back twice a day as 10-30% Cream needed Fludrocortisone 2 by mouth in the Unknown Acetate morning and 1 in 0.1mg Tablets the afternoon Multi Vitamin Unknown Tablets Victoza Unknown 18mg/3ML Solution Pen-Inject Amitriptyline HCL 1 by mouth every at Unknown 10mg bedtime as directed Tablets taken with Amitriptyline 100 mg Amitriptyline HCL si by mouth Unknown 100mg every night at Tablets bedtime as directed Flonase Unknown 50mcg/Act Suspension No Doz Maximum Unknown Strength 200mg Tablets Cyclobenzaprine HCL si po tid ud 90tabs Unknown 10mg Tablets Excedrin Migraine Unknown [phone] Tablets Combivent Unknown 18-103mcg/Act Aerosol Proventil HFA Unknown 108(90Base) mcg/Act Aerosol Ginkoba Unknown 40mg Tablets B Complex Plus Unknown Tablets Fiber Therapy Unknown 500mg Tablets Gas-X Extra Strength Unknown 125mg Capsules Motrin Ib Unknown 200mg Tablets Magnesium 30caps Unknown 400mg Capsules Depakote 2 by mouth three Unknown 500mg Tablets DR times a day as directed History Medications Alpha Lipoic Acid take one capsule by 90abhis Carmelo Vail, 05/19/2018 - 200mg mouth every 8 hours DO, MPH 07/18/2018 Capsules as directed chronic pain. Ztlido 1 applied daily 30units VailCarmelo dawkins, 05/19/2018 - 1.8% Patches DO, MPH 07/18/2018 Oxycodone HCL si/4 30ml VailCarmelo dawkins, 09/03/2017 - 100mg/5ML milliliters sl by DO, MPH 10/09/2017 Concentrate mouth every 6 to 8 hours as directed chronic pain patient Bactrim DS 1 by mouth twice 14tabs VailCarmelo dawkins, 12/04/2016 - 800-160mg daily DO, MPH 03/04/2017 Tablets Zofran Odt si by mouth 90tabs VailCarmelo dawkins, 12/04/2016 - 8mg Tablets every 8 hours as DO, MPH 03/20/2018 Dispers directed Oxycodone HCL si by mouth 120tabs VailCarmelo dawkins, 11/27/2016 - 10mg Tablets every 6 hours as DO, MPH 09/03/2017 directed chronic pain patient Alpha-Lipoic Acid take one capsule by 90caps VailCarmelo dawkins, 07/27/2016 - 200mg mouth every 8 hours DO, MPH 07/31/2017 Capsules as directed chronic pain. Opana ER si by mouth 60tabs VailCarmelo dawkins, 07/02/2016 - 5mg Tab ER 12H every 12 hours DO, MPH 05/27/2017 Abuse-Det Oxycodone HCL si by mouth 21tabs Vail Carmelo, 06/28/2016 - 15mg Tablets every 8 hours as DO, MPH 11/27/2016 directed chronic pain patient Oxycodone HCL si by mouth 90tabs Vail Carmelo, 05/29/2016 - 20mg Tablets every 8 hours as DO, MPH 06/28/2016 directed chronic pain patient Oxycodone HCL si by mouth 90tabs Vail, Carmelo, 04/30/2016 - 15mg Tablets every 8 hours as DO, MPH 05/29/2016 directed chronic pain patient Oxycodone HCL si by mouth 90tabs Vail Carmelo, 04/18/2016 - 5mg Tablets every 8 hours as DO, MPH 04/30/2016 directed chronic pain patient, post-surgical pain Amitriptyline HCL si by mouth 14tabs Vail, Carmelo, 03/09/2016 - 50mg every night as DO, MPH 03/04/2017 Tablets directed Oxycodone HCL si by mouth 90tabs Vail, Carmelo, 01/26/2016 - 10mg Tablets every 8 hours as DO, MPH 04/30/2016 directed chronic pain patient Naproxen Sodium si by mouth 60tabs Vail, Carmelo, 07/29/2015 - 550mg every 12 hours DO, MPH 09/02/2017 Tablets Oxycodone HCL si by mouth 120tabs Vail, Carmelo, 06/24/2014 - 5mg Tablets every 4 to 6 hours DO, MPH 01/26/2016 as directed chronic pain patient Opana ER si by mouth 60tabs Vail, Carmelo, 06/24/2014 - 5mg Tab ER 12H every 12 hours DO, MPH 06/28/2016 Abuse-Det chronic pain patient Oxycodone HCL si-2 by mouth 120tabs Vail, Carmelo, 06/24/2014 - 5mg Tablets every 4 to 6 hours DO, MPH 07/29/2015 as directed chronic pain patient Opana ER si by mouth 60tabs Vail, Carmelo, 06/24/2014 - 5mg Tab ER 12H every 12 hours DO, MPH 07/29/2015 Abuse-Det Promethazine HCL si/2-1 by mouth 30tabs Vail, Carmelo, 05/27/2014 - 25mg every 12 hours as DO, MPH 07/29/2015 Tablets directed Oxycodone HCL si/4-1/2mlsl by 30ml Vail, Carmelo, 05/27/2014 - 20mg/ml mouth q8-12h as DO, MPH 06/24/2014 Concentrate directed chronic pain patient Promethazine HCL si/2-1 by mouth 30tabs Vail, Carmelo, 05/27/2014 - 25mg every 12 hours as DO, MPH 03/20/2018 Tablets directed Vicodin ES si by mouth 90tabs Vail, Carmelo, 03/26/2014 - 7.5-300mg every 8 hours DO, MPH 06/24/2014 Tablets chronic pain patient Opana si po q12h ud 60tabs Vail, Carmelo, 02/23/2014 - 5mg Tablets DO, [facility] 03/26/2014 chronic pain patient Dilaudid si q8h ud 90tabs Vail, Carmelo, 10/26/2013 - 2mg Tablets DO, [facility] 02/23/2014 chronic pain patient Oxycodone HCL si/4-1/2mlsl po 30ml Vail, Carmelo, 03/04/2013 - 20mg/ml q8-12h ud DO, [facility] 03/26/2014 Concentrate chronic pain patient Analgesic Cream Vail, Carmelo, 09/18/2012 - ([place]) DO, [facility] 06/18/2013 Oxycodone HCL si2-1 po q8h ud 90tabs Vail, Carmelo, 09/02/2012 - 10mg Tablets DO, [facility] 10/26/2013 chronic pain patient Oxycodone HCL si po q8h ud 45tabs Vail, Carmelo, 08/19/2012 - 5mg Tablets DO, [facility] 09/02/2012 chronic pain patient Amoxicillin/Clavulanate 1 by mouth twice a Unknown - Potassium day for 10 days 07/03/2017 875-125mg Tablets Lamictal twice daily Unknown - 150mg Tablets 03/20/2018 Invokana 1 by mouth in the Unknown - 100mg Tablets morning 03/20/2018 Januvia 1 by mouth every Unknown - 100mg Tablets other day 07/18/2018 Nortriptyline HCL si by mouth Unknown - 25mg every at night 03/09/2016 Capsules Lamotrigine 1 by mouth every Unknown - 25mg Tablets other day 08/29/2016 Dispers Amoxicillin/Clavulanate Unknown - Potassium 05/25/2015 875-125mg Tablets Bactrim DS 1 by mouth every 12 Unknown - 800-160mg hours 05/25/2015 Tablets Cipro HC Unknown - 0.2-1% Suspension 08/29/2016 Naproxen si po bid ud 60tabs Unknown - 250mg Tablets 08/29/2016 Amitriptyline HCL 1 po q hs ud 30tabs Unknown - 10mg 03/09/2016 Tablets Diazepam si/2 -1 po q8h 90tabs Unknown - 10mg Tablets ud 03/20/[address] Unknown - 500mg 08/29/[address] Fludrocortisone Acetate Unknown - 08/29/2016 0.1mg Tablets Metformin HCL Unknown - 500mg Tablets 08/29/2016 Vamsi Oil Unknown - 1000mg Capsules 07/17/2013 Immunizations Description No Information Available Vital Signs Date Vital Result Comment 07/18/2018 10:48am BP Systolic 140 mmHg BP Diastolic 82 mmHg Heart Rate 88 /min Respiratory Rate 20 /min Height 66 inches 5'6" Weight 233.00 lb Pain Level 7 Pain at this time. Pain Level With Medicine 7 on average with meds Pain Level Without Medicine 9 10/ without meds Pain Level After Procedure 5 BP Systolic Recheck 136 mmHg Pulse: 82 BP Diastolic Recheck 84 mmHg Pulse: 82 BMI (Body Mass Index) 37.6 kg/m2 06/16/2018 10:49am BP Systolic 132 mmHg BP Diastolic 84 mmHg Heart Rate 86 /min Respiratory Rate 20 /min Height 66 inches 5'6" Weight 233.00 lb Pain Level 8 Pain at this time. Pain Level With Medicine 7 on average with meds Pain Level Without Medicine 10 10/ without meds Pain Level After Procedure 7 BP Systolic Recheck 130 mmHg Pulse:84 BP Diastolic Recheck 80 mmHg Pulse:84 BMI (Body Mass Index) 37.6 kg/m2 05/19/2018 10:40am BP Systolic 144 mmHg BP Diastolic 86 mmHg Heart Rate 82 /min Respiratory Rate 20 /min Height 66 inches 5'6" Weight 233.00 lb Pain Level 7 Pain at this time. Pain Level With Medicine 7 on average with meds Pain Level Without Medicine 10 10/10 without meds BMI (Body Mass Index) 37.6 kg/m2 04/18/2018 10:48am BP Systolic 140 mmHg BP Diastolic 82 mmHg Heart Rate 78 /min Respiratory Rate 20 /min Height 66 inches 5'6" Weight 230.00 lb Pain Level 7 Pain at this time. Pain Level With Medicine 6 on average with meds Pain Level Without Medicine 10 01/01 without meds Pain Level After Procedure 5 BP Systolic Recheck 142 mmHg Pulse: 112 BP Diastolic Recheck 86 mmHg Pulse: 112 BMI (Body Mass Index) 37.1 kg/m2 03/20/2018 11:06am BP Systolic 144 mmHg BP Diastolic 82 mmHg Heart Rate 88 /min Respiratory Rate 20 /min Height 66 inches 5'6" Weight 225.00 lb Pain Level 8 Pain at this time. Pain Level With Medicine 7 on average with meds Pain Level Without Medicine 10 01/01 without meds BMI (Body Mass Index) 36.3 kg/m2 02/26/2018 3:12pm BP Systolic 132 mmHg BP [...] 10/10 without meds Pain Level After Procedure 4 [...] Level Without Medicine 10 10/ without meds BMI (Body Mass Index) 37.3 [...] 10/10 without meds BMI (Body Mass Index) 36.8 [...] 10/10 without meds BMI (Body Mass Index) 36.0 [...] Level Without Medicine 10 10 without meds BMI (Body Mass Index) 35.8 kg/m2 11/26/2014 12:59pm BP Systolic 132 mmHg BP Diastolic 80 mmHg Heart Rate 80 /min Respiratory Rate 20 /min Height 66 inches 5'6" Weight 230.00 lb Pain Level 6 Pain at this time. Pain Level With Medicine 5 on average with meds Pain Level Without Medicine 10 10 without meds BMI (Body Mass Index) 37.1 [...] Level Without Medicine 10 01/01 without meds 09/29/2014 11:16am BP Systolic 128 mmHg BP Diastolic 72 mmHg Heart Rate 76 /min Respiratory Rate 18 /min Height 66 inches 5'6" Weight 234.00 lb Pain Level 8 8/10, Pain at this time. Pain Level With Medicine 6 6/10, on average with meds Pain Level Without Medicine 10 10 without meds Pain Level After Procedure 7 [...] 10/ without meds Pain Level After Procedure 6 [...] 5'6" Weight 234.00 lb Pain Level 9 9/10, Pain at [...] 10/10 without meds BMI (Body Mass Index) 37.8 kg/m2 03/26/2014 1:05pm BP Systolic 128 mmHg BP Diastolic 84 mmHg Heart Rate 80 /min Respiratory Rate 20 /min Height 66 inches 5'6" Weight 242.00 lb Pain Level 6 Pain at this time. Pain Level With Medicine 5 on average with meds Pain Level Without Medicine 10 10/10 without meds BMI (Body Mass Index) 39.1 kg/m2 03/11/2014 9:57am BP Systolic 142 mmHg BP Diastolic 80 mmHg Heart Rate 84 /min Respiratory Rate 20 /min Height 66 inches 5'6" Weight 240.00 lb Pain Level 8 8/10, Pain at [...] 10/10 without meds BMI (Body Mass Index) 36.3 kg/m2 09/17/2013 11:07am BP Systolic 130 mmHg BP Diastolic 78 mmHg Heart Rate 76 /min Respiratory Rate 18 /min Height 66 inches 5'6" Weight 235.00 lb Pain Level 7 7/10, Pain at this time. Pain Level With Medicine 6.5 6.5/10, on average with meds Pain Level Without Medicine 10 10/10 without meds Pain Level After Procedure 4 [...] 10/ without meds Pain Level After Procedure 4 [...] 10 without meds Pain Level After Procedure 5 [...] Level Without Medicine 10 10/ without meds BMI (Body Mass Index) 35.7 [...] 5'6" Weight 236.00 lb Pain Level 9 10, Pain at this time. Pain Level With [...] Pain Level 8 8/10, Pain at this time., Pain at this time. Pain Level With Medicine 6 10, on average with meds Pain Level Without [...] Result H/L Range Note Laboratory test 06/23/2018 [facility] Tissue Culture SEE RESULT 1, [address] & [place] [address] [phone] Laboratory test 06/23/2018 [facility] C Reactive 1.77 mg/L N <8.[address] [place] [address] [phone] CBC Auto Diff 06/23/2018 [facility] White Blood 5.9 10 ^3/uL N 3.5-10.[address] [place] [address] [phone] Red Blood Count 4.28 10^6/uL N 3.70-4.87 [...] Blood Cells % 0 Laboratory test 06/23/2018 [facility] Erythrocyte Sed 13 mm/Hr N 0-20 [address] [place] [address] [phone] Laboratory test 06/23/2018 [facility] Point of Care 151 mg/dL High 70-100 [address] [place] [address] [phone] Laboratory test 12/16/2017 [facility] Point of Care 157 mg/dL High 70-100 [address] [place] [place] [address] [phone] Laboratory test 12/16/2017 [facility] Point of Care 120 mg/dL High 70-100 [address] [place] [address] [phone] Laboratory test 12/16/2017 [facility] Point of Care 182 mg/dL High 70-100 [address] [place] [place] [address] [phone] Scant specimen recieved 2 SEE RESULT BELOW Name: JAILENE FIELD : [address]: Grzegorz Petersen MD Acct: [id number] Unit: [id number] AGE: 48 Location: OR Re06/23/18 SEX: F Status: REG [facility] SPEC: [id number] [place]: 06/23/18 [facility] DR: Grzegorz Petersen MD REQ: [id number] RECD: 06/23/18 STATUS: FOSTER JUAREZ DR: Edouard LEONARDO SOURCE: T[facility]: ORDERED: Tissue Cult/GS, Anaerobic Cult COMMENTS: Scant [...] . END OF REPORT DEPARTMENT OF PATHOLOGY, [address] [place] [address] Kareem Bee M.D. Director [facility] # [id number] 3 Test Performed by: [facility] [address] [place] [id number] Kareem Bee M.D. Director of Laboratory 4 Drywall Stripper: [id number] Drywall Stripper: [id number] 6 Drywall Stripper: [id number] 7 Drywall Stripper: [id number] Procedures Date Code Description Status 06/16/2018 59727 Therapeutic, Prophylactic Or Diagnostic Injection Subq/Im Completed 06/16/201859622 Injection, Single Or Mutiple Trigger Points One Or Two Completed Muscles 06/16/201893805 Injection, Tendon Origin/Insertion Completed 06/16/201898787 Injection, Tendon Origin/Insertion Completed 06/16/201872695 Inject Tendon/Ligament Completed 06/16/201815028 Inject Tendon/Ligament Completed 06/16/201855951 Inject Tendon/Ligament Completed 06/16/201805679 Inject Tendon/Ligament Completed 05/19/2018 35775 Inject Tendon/Ligament Completed 05/19/2018 06992 Inject Tendon/Ligament Completed 05/19/201861455 Inject Tendon/Ligament Completed 05/19/2018 65048 Inject Tendon/Ligament Completed 05/19/201825359 Injection, Tendon Origin/Insertion Completed 05/19/201803767 Injection, Tendon Origin/Insertion Completed 05/19/201844011 Injection, Tendon Origin/Insertion Completed 05/19/201895525 Injection, Tendon Origin/Insertion Completed 05/19/201839824 Injection, Single Or Mutiple Trigger Points One Or Two Completed Muscles 05/19/2018 67060 Therapeutic, Prophylactic Or Diagnostic Injection Subq/Im Completed 04/18/2018 50012 Therapeutic, Prophylactic Or Diagnostic Injection Subq/Im Completed 04/18/2018 23228 Injection For Nerve Block, Other Peripheral Nerve Or Completed Branch 02/26/201890319 Arthrocentesis/Aspiration/Inj Of Major Joint Or Bursa W/ Completed Ultra 02/18/2018 41474 Therapeutic, Prophylactic Or Diagnostic Injection Subq/Im Completed 11/15/2017 73213 Therapeutic, Prophylactic Or Diagnostic Injection Subq/Im Completed 11/15/2017 74070 Injection For Nerve Block, Greater Occipital Nerve Completed 11/15/201731404 Injection, Single Or Mutiple Trigger Points One Or Two Completed Muscles 09/03/2017 74477 Omt 1-2 Body Regions Completed 08/02/201751205 Inject Tendon/Ligament Completed 08/02/201785003 Arthrocentesis Aspiration Inj, Small Joint/Bursa W US Completed Guidance 07/03/2017 Arthrocentesis Aspiration Inj, Small Joint/Bursa W US Completed Guidance 06/11/201792510 Arthrocentesis Aspiration Inj, Small Joint/Bursa W US Completed Guidance 05/03/201756728 Arthrocentesis Aspiration Inj, Small Joint/Bursa W US Completed Guidance 04/04/2017 22366 Injection For Nerve Block, Greater Occipital Nerve Completed 04/04/201750608 Injection, Single Or Mutiple Trigger Points One Or Two Completed Muscles 03/04/201789115 Inject Tendon/Ligament Completed 03/04/201756936 Inject Tendon/Ligament Completed 03/04/201755917 Inject Tendon/Ligament Completed 03/04/201750528 Injection, Tendon Origin/Insertion Completed 03/04/201704886 Injection, Tendon Origin/Insertion Completed 03/04/201704788 Injection, Single Or Mutiple Trigger Points One Or Two Completed Muscles 03/04/2017 91423 Therapeutic, Prophylactic Or Diagnostic Injection Subq/Im Completed 03/04/2017 63541 Omt 1-2 Body Regions Completed 02/01/2017 31630 Therapeutic, Prophylactic Or Diagnostic Injection Subq/Im Completed 02/01/2017 80269 U/S Guidance For Needle Placement Completed 02/01/201771357 Inject Tendon/Ligament Completed 11/27/201629126 Injection, Single Or Mutiple Trigger Points One Or Two Completed Muscles 11/27/2016 10319 Injection For Nerve Block, Greater Occipital Nerve Completed 10/25/2016 36378 Therapeutic, Prophylactic Or Diagnostic Injection Subq/Im Completed 07/27/2016 41878 Omt 1-2 Body Regions Completed 07/27/2016 05431 Therapeutic, Prophylactic Or Diagnostic Injection Subq/Im Completed 05/29/2016 40170 Therapeutic, Prophylactic Or Diagnostic Injection Subq/Im Completed 03/28/201601586 Inject Tendon/Ligament Completed 03/28/201698394 Inject Tendon/Ligament Completed 03/28/201683356 Inject Tendon/Ligament Completed 03/28/201605350 Inject Tendon/Ligament Completed 03/28/201665621 Injection, Tendon Origin/Insertion Completed 03/28/201609244 Injection, Tendon Origin/Insertion Completed 03/28/201695361 Injection, Single Or Mutiple Trigger Points One Or Two Completed Muscles 03/28/2016 16156 Therapeutic, Prophylactic Or Diagnostic Injection Subq/Im Completed 03/28/2016 90537 Omt 1-2 Body Regions Completed 03/09/201627680 Arthrocentesis/Aspiration/Inj Of Major Joint Or Bursa W/ Completed Ultra 02/24/201632971 Inject Tendon/Ligament Completed 02/24/201639729 Inject Tendon/Ligament Completed 02/24/201695417 Inject Tendon/Ligament Completed 02/24/201683730 Inject Tendon/Ligament Completed 02/24/201633918 Injection, Tendon Origin/Insertion Completed 02/24/201613500 Injection, Tendon Origin/Insertion Completed 02/24/201648473 Injection, Single Or Mutiple Trigger Points One Or Two Completed Muscles 02/24/2016 67243 Omt 3-4 Body Regions Completed 01/25/2016 82409 Omt 3-4 Body Regions Completed 01/25/2016 56108 Therapeutic, Prophylactic Or Diagnostic Injection Subq/Im Completed 01/25/201664816 Arthrocentesis Aspiration Inj, Small Joint/Bursa W US Completed Guidance 01/02/2016 46032 Omt 3-4 Body Regions Completed 12/26/2015 67437 Omt 3-4 Body Regions Completed 11/24/2015 04137 U/S Guidance For Needle Placement Completed 11/24/201506396 Inject Tendon/Ligament Completed 11/08/2015 70736 Therapeutic, Prophylactic Or Diagnostic Injection Subq/Im Completed 11/08/201552867 Inject Tendon/Ligament Completed 10/25/201500958 Inject Tendon/Ligament Completed 10/25/201505275 Arthrocentesis Aspiration Inj, Small Joint/Bursa W US Completed Guidance 10/25/2015 10543 Therapeutic, Prophylactic Or Diagnostic Injection Subq/Im Completed 09/27/2015 72726 Omt 1-2 Body Regions Completed 09/27/201525406 Injection, Single Or Mutiple Trigger Points One Or Two Completed Muscles 09/27/201585437 Injection, Tendon Origin/Insertion Completed 09/27/201596727 Injection, Tendon Origin/Insertion Completed 09/27/201549364 Inject Tendon/Ligament Completed 09/27/201510959 Inject Tendon/Ligament Completed 09/27/201557220 Inject Tendon/Ligament Completed 09/27/201519970 Inject Tendon/Ligament Completed 09/07/201581950 Inject Tendon/Ligament Completed 09/07/201565778 Inject Tendon/Ligament Completed 09/07/201528082 Inject Tendon/Ligament Completed 09/07/201531666 Injection, Tendon Origin/Insertion Completed 09/07/201524482 Injection, Tendon Origin/Insertion Completed 09/07/201519875 Injection, Single Or Mutiple Trigger Points One Or Two Completed Muscles 09/07/2015 32944 Omt 1-2 Body Regions Completed 07/29/2015 94491 Omt 1-2 Body Regions Completed 05/25/2015 89462 Omt 1-2 Body Regions Completed 05/25/201504744 Arthrocentesis Aspiration Inj, Small Joint/Bursa W US Completed Guidance 04/11/201504044 Injection, Tendon Origin/Insertion Completed 04/11/201577890 Injection, Tendon Origin/Insertion Completed 04/11/2015 65335 U/S Guidance For Needle Placement Completed 04/11/2015 90492 Test Autonomic Nervous System, Sudomotor Completed 03/09/2015 20442 Omt 3-4 Body Regions Completed 03/09/201505156 Injection, Single Or Mutiple Trigger Points One Or Two Completed Muscles 03/09/201538565 Injection, Tendon Origin/Insertion Completed 03/09/201531681 Injection, Tendon Origin/Insertion Completed 03/09/201560083 Inject Tendon/Ligament Completed 01/13/2015 13175 Omt 1-2 Body Regions Completed 01/13/2015 68479 Therapeutic, Prophylactic Or Diagnostic Injection Subq/Im Completed 01/13/2015 65576 Injection For Nerve Block, Greater Occipital Nerve Completed 01/13/201580736 Injection Single Or Multiple Trigger Points Three Or More Completed Muscles 12/23/2014 99381 Omt 1-2 Body Regions Completed 11/26/2014 28205 Omt 1-2 Body Regions Completed 11/02/201464562 Arthrocentesis Aspiration Inj, Small Joint/Bursa W US Completed Guidance 09/29/201481209 Arthrocentesis Aspirtation Inj,Intermediate W/ US Guide & Completed Report 08/30/2014 87516 Omt 1-2 Body Regions Completed 08/30/2014 03599 Injection For Nerve Block, Greater Occipital Nerve Completed 08/30/201455191 Injection Single Or Multiple Trigger Points Three Or More Completed Muscles 07/29/2014 63424 Omt 3-4 Body Regions Completed 07/29/2014 25852 U/S Guidance For Needle Placement Completed 07/29/2014 Inject/Drain Arthrocentesis Small Joint/Bursa Completed 07/13/2014 31636 Omt 3-4 Body Regions Completed 06/24/201477353 Inject Tendon/Ligament Completed 06/24/201426534 Inject Tendon/Ligament Completed 06/24/201470533 Injection, Tendon Origin/Insertion Completed 06/24/201404873 Injection, Tendon Origin/Insertion Completed 06/24/201422879 Injection, Single Or Mutiple Trigger Points One Or Two Completed Muscles 06/24/2014 36393 Test Autonomic Nervous System, Sudomotor Completed 06/24/2014 04519 Omt 1-2 Body Regions Completed 06/10/2014 11520 Omt 1-2 Body Regions Completed 06/10/2014 72444 Test Autonomic Nervous System, Sudomotor Completed 05/27/2014 78008 Omt 1-2 Body Regions Completed 05/27/2014 30717 U/S Guidance For Needle Placement Completed 05/27/201441968 Inject/Drain Arthrocentesis Intermediate Joint/Bursa Completed 04/08/2014 42445 Omt 1-2 Body Regions Completed 03/26/2014 65964 Omt 1-2 Body Regions Completed 03/11/201475509 Injection, Single Or Mutiple Trigger Points One Or Two Completed Muscles 03/11/2014 05139 Injection For Nerve Block, Greater Occipital Nerve Completed 02/23/2014 [address]24 U/S Guidance For Needle Placement Completed 02/23/2014 Inject/Drain Arthrocentesis Small Joint/Bursa Completed 02/23/201454572 Inject Tendon/Ligament Completed 01/27/201483166 Injection, Single Or Mutiple Trigger Points One Or Two Completed Muscles 01/27/201466268 Inject Tendon/Ligament Completed 01/27/201443576 Inject Tendon/Ligament Completed 01/27/201450804 Inject Tendon/Ligament Completed 01/11/201402831 Inject Tendon/Ligament Completed 12/08/201371643 Inject Tendon/Ligament Completed 12/08/201397048 Inject Tendon/Ligament Completed 12/08/201368535 Inject Tendon/Ligament Completed 12/08/201314994 Injection, Tendon Origin/Insertion Completed 12/08/201368131 Injection, Tendon Origin/Insertion Completed 12/08/201320016 Injection, Single Or Mutiple Trigger Points One Or Two Completed Muscles 12/08/2013 64278 Omt 3-4 Body Regions Completed 11/10/2013 24452 Omt 3-4 Body Regions Completed 11/10/2013 25473 U/S Guidance For Needle Placement Completed 11/10/201309623 Inject Tendon/Ligament Completed 10/26/2013 10090 Omt 3-4 Body Regions Completed 09/17/2013 07475 Injection For Nerve Block, Other Peripheral Nerve Or Completed Branch 09/17/201360754 Injection, Single Or Mutiple Trigger Points One Or Two Completed Muscles 09/17/201383239 Inject Tendon/Ligament Completed 09/01/201365986 Inject Tendon/Ligament Completed 09/01/201321521 Inject Tendon/Ligament Completed 09/01/201319034 Inject Tendon/Ligament Completed 09/01/201354304 Injection, Tendon Origin/Insertion Completed 09/01/201380946 Injection, Tendon Origin/Insertion Completed 09/01/201335116 Injection, Single Or Mutiple Trigger Points One Or Two Completed Muscles 07/22/2013 39706 Omt 1-2 Body Regions Completed 07/17/2013 82921 Omt 1-2 Body Regions Completed 07/17/2013 38525 Injection For Nerve Block, Greater Occipital Nerve Completed 07/17/201395391 Injection, Single Or Mutiple Trigger Points One Or Two Completed Muscles 06/18/201330903 Inject Tendon/Ligament Completed 06/18/201382351 Inject Tendon/Ligament Completed 06/18/201309982 Inject Tendon/Ligament Completed 06/18/201388969 Injection, Tendon Origin/Insertion Completed 06/18/201301409 Injection, Tendon Origin/Insertion Completed 06/18/201347954 Injection, Single Or Mutiple Trigger Points One Or Two Completed Muscles 04/08/201388458 Injection, Single Or Mutiple Trigger Points One Or Two Completed Muscles 04/08/201396465 Inject Tendon/Ligament Completed 04/08/201382078 Inject Tendon/Ligament Completed 04/08/201344387 Inject Tendon/Ligament Completed 04/08/201310291 Inject Tendon/Ligament Completed 03/04/201325784 Inject Tendon/Ligament Completed 03/04/201377773 Inject Tendon/Ligament Completed 03/04/2013 Injection, Tendon Origin/Insertion Completed 03/04/201317798 Injection, Tendon Origin/Insertion Completed 03/04/201382840 Injection, Single Or Mutiple Trigger Points One Or Two Completed Muscles 02/23/2013 99270 Omt 1-2 Body Regions Completed 02/23/2013 15174 Injection For Nerve Block, Greater Occipital Nerve Completed 02/23/2013 61909 Injection For Nerve Block, Greater Occipital Nerve Completed 02/23/201309885 Injection, Single Or Mutiple Trigger Points One Or Two Completed Muscles 12/03/2012 46602 Injection For Nerve Block, Greater Occipital Nerve Completed 12/03/2012 17898 Injection For Nerve Block, Greater Occipital Nerve Completed 12/03/201275509 Injection, Single Or Mutiple Trigger Points One Or Two Completed Muscles 11/03/2012 94338 Injection For Nerve Block, Greater Occipital Nerve Completed 11/03/2012 20348 Injection For Nerve Block, Greater Occipital Nerve Completed 11/03/201214508 Injection, Single Or Mutiple Trigger Points One Or Two Completed Muscles 10/02/2012 72302 Omt 1-2 Body Regions Completed Encounters Type Date Location Provider Dx Diagnosis Office Visit 06/16/2018 Main Office as Of Carmelo Vail DO, G89.29 Other chronic pain 10:45a 04/25/13 MPH M54.5 Low back pain M54.17 Radiculopathy, lumbosacral region M65.88 Other synovitis and tenosynovitis, other site M46.07 Spinal enthesopathy, lumbosacral region M79.18 Myalgia, other site Z79.891 terminal operator (current) use of opiate analgesic R53.83 Other fatigue Office Visit 05/19/2018 10:45a Main Office as Carmelo Vail G89.29 Other chronic Of 04/25/13 , MPH pain M54.5 Low back pain M54.17 Radiculopathy, lumbosacral region M65.88 Other synovitis and tenosynovitis, other site M46.07 Spinal enthesopathy, lumbosacral region M79.18 Myalgia, other site R53.83 Other fatigue Z79.891 terminal operator (current) use of opiate analgesic Z13.31 Encounter for screening for depression Office Visit 04/18/2018 11:00a Main Office as Carmelo Vail G89.29 Other chronic Of 04/25/13 DO, MPH pain M54.5 Low back pain M25.551 Pain in right hip M54.17 Radiculopathy, lumbosacral region R53.83 Other fatigue Z79.891 [facility] (current) use of opiate analgesic Office Visit 03/20/2018 11:15a Main Office as Carmelo Vail G89.29 Other chronic Of 04/25/13 DO, MPH pain M54.5 Low back pain M25.551 Pain in right hip Z79.891 [facility] (current) use of opiate analgesic Office Visit 02/26/2018 3:15p Main Office as Carmelo Vail G89.29 Other chronic Of 04/25/13 DO, MPH pain M54.5 Low back pain M25.551 Pain in right hip M70.61 Trochanteric bursitis, right hip Office Visit 02/18/2018 11:00a Main Office as Carmelo Vail G89.29 Other chronic Of 04/25/13 DO, MPH pain M54.5 Low back pain M54.2 Cervicalgia Z79.891 [facility] (current) use of opiate analgesic R53.83 Other fatigue Office Visit 01/14/2018 11:30a Main Office as Carmelo Vail G89.29 Other chronic Of 04/25/13 DO, MPH pain M54.5 Low back pain M54.2 Cervicalgia M25.531 Pain in right wrist Z79.891 [facility] (current) use of opiate analgesic Office Visit 12/13/2017 1:45p Main Office as Carmelo Vail G89.29 Other chronic Of 2 DO, MPH pain M54.5 Low back pain M54.2 Cervicalgia M79.641 Pain in right hand M25.531 Pain in right wrist Z79.891 terminal operator (current) use of opiate analgesic Office Visit 11/15/2017 1:15p Main Office as Carmelo Vail G89.29 Other chronic Of 04/25/13 DO, MPH pain M54.5 Low back pain M54.2 Cervicalgia M79.641 Pain in right hand M25.531 Pain in right wrist M54.81 Occipital neuralgia R53.83 Other fatigue M79.1 Myalgia Z79.891 [facility] (current) use of opiate analgesic Office Visit 10/03/2017 10:00a Main Office as Carmelo Vail G89.29 Other chronic Of 04/25/13 DO, MPH pain M54.2 Cervicalgia M54.5 Low back pain M25.531 Pain in right wrist M79.641 Pain in right hand Z79.891 [facility] (current) use of opiate analgesic Office Visit 09/03/2017 10:00a Main Office as Carmelo Vail G89.29 Other chronic Of 04/25/13 DO, MPH pain M54.2 Cervicalgia M99.01 Segmental and somatic dysfunction of cervical region M54.5 Low back pain M79.1 Myalgia M25.531 Pain in right wrist M79.641 Pain in right hand Z79.891 [facility] (current) use of opiate analgesic Office Visit 08/02/2017 10:15a Main Office as Carmelo Vail G89.29 Other chronic Of 04/25/13 DO, MPH pain M25.541 Pain in joints of right hand M65.88 Other synovitis and tenosynovitis, other site M79.1 Myalgia M54.5 Low back pain M54.2 Cervicalgia Z79.891 [facility] (current) use of opiate analgesic Office Visit 07/03/2017 10:15a Main Office as Carmelo Vail G89.29 Other chronic Of 04/25/13 DO, MPH pain M25.542 Pain in joints of left hand M79.1 Myalgia M54.5 Low back pain Z79.891 terminal operator (current) use of opiate analgesic Office Visit [...] joints of left hand M54.2 Cervicalgia Z79.891 [facility] (current) use of opiate analgesic Office Visit 05/03/2017 10:15a Main Office as Carmelo Vail G89.29 Other chronic Of 04/25/13 DO, MPH pain M54.5 Low back pain M79.1 Myalgia M25.531 Pain in right wrist Z79.891 [facility] (current) use of opiate analgesic Office Visit 04/04/2017 10:30a Main Office as Carmelo Vail G89.29 Other chronic Of 04/25/13 DO, MPH pain G44.89 Other headache syndrome M79.1 Myalgia M54.81 Occipital neuralgia Z79.891 terminal operator (current) use of opiate analgesic Office Visit 03/04/2017 10:45a Main Office as Carmelo Vail G89.29 Other chronic Of 04/25/13 DO, MPH pain M54.5 Low back pain M54.2 Cervicalgia M99.01 Segmental and somatic dysfunction of cervical region M65.4 Radial styloid tenosynovitis [de Quervain] M65.88 Other synovitis and tenosynovitis, other site M79.1 Myalgia Z79.891 [facility] (current) use of opiate analgesic R53.83 Other fatigue Office Visit 02/01/2017 11:00a Main Office as Carmelo Vail G89.29 Other chronic Of 04/25/13 DO, MPH pain M65.4 Radial styloid tenosynovitis [de Quervain] M54.5 Low back pain M54.2 Cervicalgia M79.1 Myalgia G44.89 Other headache syndrome G40.89 Other seizures Z79.891 terminal operator (current) use of opiate analgesic R53.83 Other fatigue Office Visit 01/15/2017 11:15a Main Office as Carmelo Vail G89.29 Other chronic Of 04/25/13 DO, MPH pain M54.5 Low back pain M54.2 Cervicalgia M79.1 Myalgia G44.89 Other headache syndrome G40.89 Other seizures Z79.891 [facility] (current) use of opiate analgesic Office Visit 01/02/2017 3:15p Main Office as Carmelo Vail G89.29 Other chronic Of 04/25/13 DO, MPH pain M54.2 Cervicalgia M54.5 Low back pain M79.1 Myalgia Z79.891 terminal operator (current) use of opiate analgesic Z63.4 Disappearance and of family member Office Visit 12/04/2016 3:00p Main Office as Carmelo Vail G89.29 Other chronic Of 04/25/13 DO, MPH pain M54.5 Low back pain M54.2 Cervicalgia G44.89 Other headache syndrome N39.0 Urinary tract infection, site not specified Z79.891 [facility] (current) use of opiate analgesic Office Visit 11/27/2016 11:30a Main Office as Carmelo Vail G89.29 Other chronic Of 04/25/13 DO, MPH pain M54.5 Low back pain M54.2 Cervicalgia G44.89 Other headache syndrome M54.81 Occipital neuralgia M79.1 Myalgia Z63.4 Disappearance and of family member Z79.891 [facility] (current) use of opiate analgesic Office Visit 10/25/2016 2:30p Main Office as Carmelo Vail G89.29 Other chronic Of 04/25/13 DO, MPH pain M54.5 Low back pain M54.2 Cervicalgia M79.1 Myalgia R53.83 Other fatigue Z79.891 terminal operator (current) use of opiate analgesic Office Visit 09/27/2016 3:00p Main Office as Carmelo Vail G89.29 Other chronic Of 04/25/13 DO, MPH pain M54.5 Low back pain M54.2 Cervicalgia H57.10 Ocular pain, unspecified eye Z79.891 terminal operator (current) use of opiate analgesic Office Visit 08/29/2016 2:15p Main Office as Carmelo Vail G89.29 Other chronic Of 04/25/13 DO, MPH pain M54.5 Low back pain M79.1 Myalgia G40.89 Other seizures M54.2 Cervicalgia Z79.891 terminal operator (current) use of opiate analgesic Office Visit 07/27/2016 9:30a Main Office as Caremlo V[place] G89.29 Other chronic Of 04/25/13 DO, MPH pain M54.5 Low back pain M79.1 Myalgia G40.89 Other seizures M54.2 Cervicalgia M99.01 Segmental and somatic dysfunction of cervical region R53.83 Other fatigue Z79.891 [facility] (current) use of opiate analgesic Office Visit 06/28/2016 2:15p Main Office as Carmelo Vail G89.29 Other chronic Of 04/25/13 DO, MPH pain M54.5 Low back pain M79.1 Myalgia Z71.89 Other specified counseling Z79.891 [facility] (current) use of opiate analgesic Office Visit 05/29/2016 10:15a Main Office as Carmelo Vail G89.29 Other chronic Of 04/25/13 DO, MPH pain M54.5 Low back pain M79.1 Myalgia G89.18 Other acute postprocedural pain 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 J44.9 Chronic obstructive pulmonary disease, unspecified Z79.891 terminal operator (current) use of opiate analgesic R53.83 Other fatigue Office Visit 04/30/2016 2:45p Main Office as Carmelo Vail G89.29 Other chronic Of 04/25/13 DO, MPH pain M54.5 Low back pain M79.1 Myalgia G89.18 Other acute postprocedural pain 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 I10 Essential (primary) hypertension J44.9 Chronic obstructive pulmonary disease, unspecified Z79.891 [facility] (current) use of opiate analgesic Office Visit 04/18/2016 9:45a Main Office as Carmelo Vail G89.29 Other chronic Of 04/25/13 DO, MPH pain M54.5 Low back pain M79.1 Myalgia G89.18 Other acute postprocedural pain Office Visit 03/28/2016 10:00a Main Office as Carmelo Vail G89.29 [...] M79.1 Myalgia M54.17 Radiculopathy, lumbosacral region Z79.891 [facility] (current) use of opiate analgesic Office Visit [...] Visit 01/25/2016 11:00a Main Office as Carmelo V[place], G89.29 Other chronic Of 04/25/13 DO, MPH pain M79.642 Pain in left hand R53.83 Other fatigue Z79.891 terminal operator (current) use of opiate analgesic Office Visit 01/02/2016 3:30p Main Office as Carmelo [place], G89.29 Other [...] forearm M76.51 Patellar tendinitis, right knee Z79.891 terminal operator (current) use of opiate analgesic M99.01 Segmental [...] tendinitis, right knee R53.83 Other fatigue Z79.891 [facility] (current) use of opiate analgesic Office Visit 10/25/2015 10:30a Main Office as Carmelo V[place], G89.29 Other chronic Of 04/25/13 DO, MPH pain M54.2 Cervicalgia M25.841 Other specified joint disorders, right hand M65.88 Other synovitis and tenosynovitis, other site R53.83 Other fatigue Z71.89 Other specified counseling Z79.891 terminal operator (current) use of opiate analgesic Office Visit 09/27/2015 10:45a Main Office as Carmelo [place], Z79.891 terminal operator Of 04/25/13 DO, MPH (current) use of opiate analgesic G89.29 Other chronic pain M54.2 Cervicalgia M99.01 Segmental and somatic dysfunction of cervical region G44.209 Tension-type headache, unspecified, not intractable M79.1 Myalgia M65.88 Other synovitis and tenosynovitis, other site Z79.891 [facility] (current) use of opiate analgesic Office Visit 09/07/2015 3:00p Main Office as Carmelo Vail G89.29 Other chronic Of 04/25/13 DO, MPH pain M54.2 Cervicalgia M99.01 Segmental and somatic dysfunction of cervical region G44.209 Tension-type headache, unspecified, not intractable M54.81 Occipital neuralgia M79.1 Myalgia M65.88 Other synovitis and tenosynovitis, other site Z79.891 terminal operator (current) use of opiate analgesic Office Visit 07/29/2015 1:00p Main Office as Carmelo [place], G89.29 Other chronic Of 04/25/13 DO, MPH pain M54.2 Cervicalgia M99.01 Segmental and somatic dysfunction of cervical region M79.644 Pain in right finger(s) M79.1 Myalgia Z79.891 terminal operator (current) use of opiate analgesic Z71.89 Other specified counseling Office Visit 05/25/2015 9:45a Main Office as Carmelo [place], Z79.891 [facility] Of 04/25/13 DO, MPH (current) use of opiate analgesic G89.29 Other chronic pain M54.2 Cervicalgia M99.01 Segmental and somatic dysfunction of cervical region M79.644 Pain in right finger(s) Z79.891 [facility] (current) use of opiate analgesic Office Visit 04/11/2015 10:30a Main Office as Carmelo V[place], G89.29 [...] Visit 12/23/2014 11:15a Main Office as Carmelo Vail G89.29 [...] Cervical Region Not Elsewhere Class V58.69 Medications Intermediate (Current) Use Encounter Office Visit 07/29/2014 3:00p [...] Hand 727.04 Tenosynovitis Radial Styloid V58.69 Medications Teller Coordinator (Current) Use Encounter Office Visit 01/27/2014 3:30p [...] Joint Forearm V62.82 Bereavement Uncomplicated V58.69 Medications Teller Coordinator (Current) Use Encounter Office Visit 09/17/2013 10:45a [...] Mixed Or Unspec Plan of Treatment Future Appointment(s):08/27/2018 10:45 am - Carmelo Vail DO MPH at Main Office as Of 04/25/1403 - Carmelo Vail DO MPHG89.29 Other chronic painComments:Chronic. Symptoms and complaints discussed and reviewed today. No significant changes in physical findings. Continue current medical pain management.M54.5 Low back painComments:Chronic. Symptoms and complaints discussed and reviewed today.No changes in physical findings. Patient is stable and comfortable when current medical therapy is rendered.M54.17 Radiculopathy, lumbosacral regionComments:Chronic. Symptoms and complaints discussed and reviewed today. No changes in physical findings; patient is stable on current medical therapy.M25.551 Pain in right hipComments:Injection therapy today. Joint injection performed using musculoskeletal ultrasound for visualization and demarcation of pertinent structures for needle guided injection. See procedure sheet.Z79.891 terminal operator (current) use of opiate analgesicNew Labs: Urine Drug Screen, Ordered: 07/18/18Comments:Urine drug screen sample taken today to monitor opiate use and to monitor use of illicit substances.Will discuss results at next appointment.The following tests were ordered:6 AM, AMPH , JUSTO, TIFFANIE, BUP, CARIS, COCM, COT, ETG, FENT, MCSHSG, OPI, OXY, PCP, TAPEN, XTSY, ZOLP. A urine drug test (UDT) was ordered for this patient and collected on site today. Creatinine has been ordered as well for specimen validity, not for kidney function. Preliminary UDT results are not final and should not be used to determine patient care or plan of treatment. Initially a qualitative immunoassay screen will be done. Any inconsistent or positive findings will be further tested with a more comprehensive quantitative confirmation LCMS study. It is part of the treatment process of prescribing controlled substances and is considered standard of care.AllComments:All above symptoms and complaints discussed as well as diagnoses reviewed.Continue trial of opioid pain management - note changes below; injection therapy, osteopathic manipulation (OMT), PT / [...] maintaining satisfactory side effect profile and minimizing assistant terminal manager end-organ damage. Activity as toleratedContinue with PCP
--- OUTSIDE RECORDS SUMMARY | 2018-08-01 13:22 | XMS REPORT | Continuity of Care Document ---
:1970 External Reference #:[id number] Author Name Sanjay Metzger Care Team Providers Name Role Phone Edouard Louie DO Primary Care Physician Unavailable Payers Date Identification Numbers Payment Provider Subscriber Effective: Policy Number: [id number] Medicare Jailene Matamoros 2000 PayID: [id number] [address] [place] [address] Policy Number: [id number] Jens Matamoros PayID: [id number] [address] [place] [address] Effective: 2001 Policy Number: [id number] eJns Matamoros Expires: 2017 [address] [address] [place] [address] Advance Directives Description No Information Available Problems Date Description Provider Status Onset: 09/13/2017 Radial styloid tenosynovitis Grzegorz Petersen MD Active Onset: 07/31/2017 Localized, 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 Active knee Family History Date Family Member(s) Observation Comments General heart disease General diabetes General cancer Social History Type Date Description Comments Sex Unknown Lives With Spouse Occupation Disabled Hand Dominance Right-handed ETOH Use Rarely consumes alcohol Tobacco Use Start: Unknown Patient has never smoked Recreational Drug Use Denies Drug Use Smoking Status Reviewed: 07/04/18 Patient has never smoked Exercise Type/Frequency Exercises regularly Allergies, Adverse Reactions, Alerts Date Description Reaction Status Severity Comments 04/24/2013 Iodine Active 04/24/2013 Contrast Dye Active 06/11/2018 Honey Bee Venom Active Medications Medication Date Status Form Strength Qnty SIG Indications Ordering Provider Hydrocodone-Santo 06/23 Active Tablets 5-325mg 10tab 1 or 2 tabs Grzegorz taminophen s by mouth Petersen, every 6-8 MD hours as needed for pain Amitriptyline 01/21 Active Tablets 10mg 90tab 1 by mouth G43.009 Joshua S. HCL /2017 s every night Chai at bedtime M.DEve 90 day supply Selenium 03/27 Active Tablets 50mcg 90tab 1 by mouth L64.0 Joshua S. /2017 s every day Katy Paula Divalproex 08/[address] 500mg 360ta 2 po qam 1 G40.309 Joshua S. Sodium /2016 bs tab po q Chai, afternoon M.DEve and 2 tabs po qpm Custom Knee 10/15 Active 844.1 John Paul Brace For /2014 Young, Chronic MCL Katy Sprain Florinef 04/28 Active 2 tab po qam Lynn /2013 1 tab po pm Laly perea M.D. Amitriptyline Active 100mg 1 tab po at Unknown HCL /0000 hs Flexeril Active 25mg 1 tab po tid Unknown /0000 Albuterol Active Nebulizer (2.5mg/3M 1 vial via Unknown Sulfate /0000 L) 0.083% nebulizer 4 times daily as needed Combivent Active Aerosol 20-100mcg 1 puffs tid Unknown Respimat /0000 /Act Fluticasone Active Suspension 50mcg/Act spray 1 Unknown Propionate /0000 spray in each nostril qd Calcium 600 Active Tablets 600mg 1 by mouth Unknown High Potency /0000 bid Vitamin D High Active Capsules 1000Unit 1 tab daily Unknown Potency /0000 (unsure of dosage) Vitamin C Active Capsules 500mg 1 by mouth Unknown /0000 tid Vitamin 00 Active Tablets 1 by mouth Unknown B-Complex /0000 tid Multivitamin 00/00 Active Tablets 1/2 tab po Unknown Adults /0000 tid Oxymorphone HCL Active Tablets ER 5mg take 1 Unknown ER /0000 12HR tablet by mouth every 12 hours Zinc Active Lozenges 23-60-20m 1 tab po bid Unknown g Metformin HCL Active Tablets 500mg 1 by mouth Unknown po qd Echinacea Active Capsules 125mg 1 tab po bid Cyanocobalamin Active Solution 1000mcg/M 1 L milliliters intramuscula r [id number] Prilosec OTC Active Tablets DR 20mg 1 by mouth Unknown bid Ztlido Active Patches 1.8% apply 1 patch every 24 hours Naproxen Sodium Active Tablets 550mg 1 by mouth Unknown twice a day Oxycodone HCL Active Capsules 5mg 1 tabs by Unknown mouth four times daily Hydrocodone-Santo 12/16 Hx Tablets 5-325mg 30tab 1 or 2 tabs Grzegorz taminophen s by mouth Petersen, - every 6-8 MD 05/22 hours as needed for pain Lamotrigine 01/23 Hx Tablets 100mg 180ta /2 qam and . bs 1 qhs for 1 Chai, - month then M.DEve 07/14/2 bid for 1 mo then 2 d/ Lamotrigine 08/08 Hx Tablets 150mg 60tab take one Joshua . s tablet by Chai, - mouth twice M.D. 01/23 a day Keppra 08/08 Hx Tablets 500mg 60tab 1 by mouth Joshua . s twice a day Tyra Paula M.D. 01/20 Selenium 08/08 Hx Tablets 50mcg 90tab 1 po qday L63.9 Joshua . s Tyra Paula M.D. 07/14 Asthma 04/28 Hx Lynn Medication /2013 Laly perea M.D. 07/24 Voltaren 02/12 Hx Gel 1% 1Tube apply to John Paul /2012 affected Young, - area four M.D. 01/23 times daily Percocet 08/22 Hx Tablets 5-325mg 30tab 1-2 tabs po s tid Tyra Ramey M.D. 01/23 Naproxen 03/04 Hx Tablets 500mg 90tab 1 tab bid s Tyra Ramey M.D. 05/22 [place]ton 01/08 Hx Tablets 5-325mg 10tab 1 tablet po s bid prn pain Tyra Ramey M.D. 04/28 Depakote Hx Unknown /0000 - 07/24 Combivent Hx Unknown Respimat /0000 - 08/08 Albuterol Hx as needed Unknown Sulfate /0000 - 08/08 15MG Hx 15mg-325m as needed Unknown /0000 g - 07/24 Opana Hx Tablets unknown- Unknown /0000 Randy - 07/14 Metformin HCL Hx Tablets unknown- Unknown /0000 Stupple - 07/24 Januvia Hx Tablets 100mg 3 by mouth Unknown /0000 every at - night 05/22 Vitamin B12 Hx Tablets ER 1000mcg 2 by mouth Unknown /0000 Qam 1 tab po - afternoon 07/14 Cyanocobalamin Hx Solution 1000mcg/M 1 Unknown /0000 L milliliters - intramuscula 07/14 r [id number] /2018 Ginseng Hx Capsules 50mg 1 tab po qd Unknown /0000 ( unsure of - dosage) 01/20 Oxycodone HCL Hx Tablets 10mg 1 by mouth Unknown /0000 tid and 1 - tab as 05/23 Flector Hx Patches 1.3% apply for 12 Unknown /0000 hours as - needed cut 05/22 patch to size of painful area Medications Administered in Office Medication Date Status Form Strength Qnty SIG Indications Ordering Provider Celestone 3 mg Administered Injection Grzegorz and 3mg 018 MD Trinity Depomedrol Administered Injection John Paul 80MG 015 Katy Ramey Depomedrol Administered Injection Stephanie 80MG 013 PASTORA Ramos Celestone 3 mg Administered Injection Lynn and 3mg 012 Jamilah tabor M.D. Celestone 3 mg Administered Injection Lynn and 3mg 012 Jamilah tabor M.D. Immunizations Description No Information Available Vital Signs Date Vital Result Comment 07/04/2018 1:15pm Height 65 inches 5'5" Weight [...] Result H/L Range Note Laboratory test 06/23/2018 [facility] Point of Care 151 mg/dL High 70-100 [address] [place] [address] [phone] Laboratory test 06/23/2018 [facility] Erythrocyte Sed 13 mm/Hr N 0-20 [address] [place] [address] [phone] Laboratory test 06/23/2018 [facility] Surgical SEE RESULT [address] [place] [address] [phone] Laboratory test 06/23/2018 [facility] Tissue Culture & SEE RESULT 4, [address] [place] [address] [phone] CBC Auto Diff 06/23/2018 [facility] White Blood 5.9 10^3/uL N 3.5-10.[address] [place] [address] [phone] Red Blood Count 4.28 10^6/uL N 3.70-4.87 [...] Blood Cells % 0 Laboratory test 06/23/2018 [facility] C Reactive 1.77 mg/L N < 8.[address] [place] [address] [phone] Laboratory test 12/16/2017 [facility] Point [facility] 157 mg/dL High 70-100 [address] [place] [address] [phone] Laboratory test 12/16/2017 [facility] Surgical SEE RESULT [address] [place] [address] [phone] Laboratory test 12/16/2017 [facility] Point [facility] 120 mg/dL High 70-100 [address] [place] [address] [phone] Laboratory test 12/16/2017 [facility] Point [facility] 182 mg/dL High 70-100 [address] [place] [address] [phone] Surgical 08/22/2012 [facility] S RUN DATE: [address] 08/25/ <[place] [address] NOTE> [phone] 1 Non Destructive Evaluation Technician: [id number] Test Performed by: [facility] [address] [place], [place] [address] Kareem Bee M.D. Director of Laboratory 3 SEE RESULT BELOW Name: BENIGNO JAILENE ABDULLAHI : [address]: Grzegorz Petersen MD Acct: [id number] Unit: [id number] AGE: 48 Location: OR Re06/23/18 SEX: F Status: [facility] SPEC: [id number] RILEY: 06/23/18- [facility] DR: Grzegorz Petersen MD REQ: [id number] RECD: 06/23/18 STATUS: KELECHIT _ ORDERED: Ashok, LEVEL 1, LEVEL 4 [...] cm aggregate of caballero irregular bone fragments. Ceramics Teacher sections, one cassette following decalcification. 2. The specimen is received fresh labeled, Right Ulna Plate and Screws, and consists of a 9.0 x 1.0 by up to 0.4 cm craft metallic plate with multiple circular to ovoid holes. The following inscription is identified: TriMjaxon UP [id number]. Received separately in the same container are seven silver metallic threaded to partially threaded Chase- headed screws ranging from 1.4 x 0.3 cm to 2.2 x 0.3 cm. Per established hospital medical staff protocol, no tissue is submitted. Gross only. Signed by and Reported on: Emperatriz Noland MD 06/25/18 1300 END OF REPORT DEPARTMENT OF PATHOLOGY, [address] [place] [address] Kareem Bee M.D. Director [facility] # [id number] 4 Scant specimen recieved 5 SEE RESULT BELOW Name: JAILENE CROWLEY : [address]: Grzegorz Petersen MD Acct: [id number] Unit: [id number] AGE: 48 Location: OR Re06/23/18 SEX: F Status: [facility] SPEC: [id number] RILEY: 06/23/18150 [facility] DR: Grzegorz Petersen MD REQ: [id number] RECD: 06/23/18 STATUS: FOSTER JUAREZ DR: Edouard Grant DO _ SOURCE: TISSUE SPDESC: ORDERED: Tissue Cult/GS, Anaerobic Cult COMMENTS: Scant specimen recieved RIGHT ULNAR NONUNION Procedure Result Reported Site Tissue Gram Stain Final 06/23/18- 164 ML 2+ Neutrophils 1+ Epithelial Cells No Organisms Seen Tissue Culture Final 06/27/18- 923 ML Organism 1 NORMAL SP Quantity 1+ NO PATHOGENS ISOLATED. Anaerobic Culture Final 06/27/18- 923 ML No Growth Day 4 * - Main Lab . END OF REPORT DEPARTMENT OF PATHOLOGY, [address] [place] [address] Kareem Bee M.D. Director [facility] # [id number] 6 Non Destructive Evaluation Technician: [id number] 7 SEE RESULT BELOW Name: BENIGNOJAILENE CAMARILLO : [address]: Grzegorz Petersen MD Acct: [id number] Unit: [id number] AGE: 47 Location: OR Re12/16/17 SEX: F Status: [facility] SPEC: [id number] RILEY: 12/16/17-1306 [facility] DR: Grzegorz Petersen MD REQ: [id number] RECD: 12/16/17 STATUS: SOUT _ ORDERED: Ashok, [...] by a glistening smooth caballero-white articular surface. Ceramics Teacher sections, one cassette following decalcification. Signed by and Reported on: Emperatriz Noland MD 12/19/17 1622 END OF REPORT DEPARTMENT OF PATHOLOGY, [facility] [place] [address] Kareem Bee M.D. Director [facility] # [id number] 8 Non Destructive Evaluation Technician: [id number] Non Destructive Evaluation Technician: [id number] RUN DATE: 08/25/12 [facility] LAB LIVE PAGE 1 RUN TIME: 1609 [facility] [employer] [place], [place] [address] Specimen Inquiry Name: JAILENE CROWLEY : [address]: John Paul Ramey MD Acct: [id number] Unit: [id number] AGE: 42 Location: OR Re08/22/12 SEX: F Status: [facility] SPEC: [id number] RILEY: 08/22/12- SUBM DR: John Paul Ramey MD REQ: [id number] RECD: 08/22/121201 STATUS: SOUT _ ORDERED: LEVEL III FINAL DIAGNOSIS Knee, left, shavings: 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 PRE-OPERATIVE DIAGNOSIS Left knee meniscus tear. GROSS DESCRIPTION The specimen is received in formalin labeled Jailene Abdullahi, Left Knee Shavings, and consists of a 2.2 x 0.8 x 0.6 cm. aggregate of yellow and white tissue fragments. Ceramics Teacher sections, one cassette. Signed (signature on file) Kareem Bee MD 1609 END OF REPORT * ML=Testing performed at Main Lab DEPARTMENT OF PATHOLOGY, [address] [place] [address] Kareem Bee M.D. Director [facility] Permit #[id number] Procedures Date Code Description Status 06/23/2018 55099 Repair Nonunion/Malunion Radius Or Ulna W/Graft Completed 06/23/2018 79293 Repair Nonunion/Malunion Radius Or Ulna W/Graft Completed 04/04/2018 91206 Rad Exam; Forearm Completed 12/16/2017 12778 Dequervains-Tendon Sheath Incision/Extensor Sheath,Wrist Completed 12/16/2017 13316 Excision Bone Cyst/Benign Tumor Radius/Ulna Completed 12/16/2017 53552 Excision Bone Cyst/Benign Tumor Radius/Ulna Completed 12/16/2017 07996 Osteoplasty Shorten Radius Or Ulna Completed 12/16/2017 72453 Osteoplasty Shorten Radius Or Ulna Completed 12/16/2017 14568 Arthroscopy Wrist Excision/Repair Triang Completed Fibrocartilage/Debride 12/16/2017 10178 Arthroscopy Wrist Excision/Repair Triang Completed Fibrocartilage/Debride 12/16/2017 08337 Neuroplasty/Transposition, Ulnar Nerve AT Wrist Completed 09/13/2017 61855 Inject Tendon Sheath Or Ligament Aponeurosis Eg Plantar Completed Fascia 07/18/2016 79648 Chemical Cautery Granulation Tissue Completed 06/25/2016 44622 EEG Recording Awake & Drowsy Completed 05/30/2016 81388 Removal Devitalization Tissue Wound Less Than Equal 20 Completed Square CM 05/23/2016 30576 Debridement Skin,& sq Tissue Completed 12/01/2015 30409 Stress Test Supervsn W/Out I/R Completed 12/01/2015 51101 Treadmill Interp/Report Only Completed 12/01/2015 28276 Stress ECHO Interpretation/Report Hospital Completed 09/14/2014 57552 Injection Single Tendon Origin/Insertion Completed 09/14/2014 55867 Inject Tendon Sheath Or Ligament Aponeurosis Eg Plantar Completed Fascia 04/28/2013 25412 Rad Exam; Fingers Completed 04/28/2013 19882 Rad Exam; Fingers Completed 04/28/2013 41076 Short Arm Cast Application Completed 12/23/2012 21552 Closed TX Phalanx finger/thumb shaft w/o manipulation Completed 12/23/2012 48668 Gauntlet Cast Application Completed 12/23/2012 35229 Rad Exam; Fingers Completed 12/23/2012 53845 Rad Exam; Fingers Completed 12/11/2012 54676 Repair Of Collateral Ligament Metacarpophalangeal Or Completed Interphl JT 12/11/2012 77665 Repair Of Collateral Ligament Metacarpophalangeal Or Completed Interphl JT 08/22/2012 77312 Arthroscopy,Knee,Meniscectomy Medial Or Lateral Completed 08/22/2012 38915 Arthroscopy,Knee,Meniscectomy Medial Or Lateral Completed 05/08/2012 56840 Inject/Drain Joint/Bursa Major W/O US Completed 08/08/2011 23096 Inject Tendon Sheath Or Ligament Aponeurosis Eg Plantar Completed Fascia Encounters Type Date Location Provider Dx Diagnosis Office Visit 05/23/2018 Orthopedic Grzegorz Petersen, S52.201K Unsp fx shaft of 3:00p Services Of Sean MIX right ulna, subs AT [place] for clos fx w nonunion Office Visit 04/30/2018 Dwight Petersen, M24.831 Oth specific joint 11:00a Services Of derangements of C.M.A. right wrist, NEC S50.11xA Contusion of right forearm, initial encounter M79.631 Pain in right forearm Office Visit 04/04/2018 2:45p Dwight Lantigua S50.11xA Contusion of Services Of Sean Petersen MD right forearm, AT [place] initial encounter Office Visit 03/05/2018 12:00p Dwight Lantigua M19.031 Primary Services Of MD Trinity osteoarthritis, C.M.A. right wrist M24.831 Oth specific joint derangements of right wrist, NEC M65.4 Radial styloid tenosynovitis [de Quervain] S50.11xA Contusion of right forearm, initial encounter W19.xxxA Unspecified fall, initial encounter Office Visit 01/21/2018 2:30p [facility] Joshua Berrios Z79.899 Other terminal manager Services Of Sean Paula M.D. 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.309 Gen idiopathic epilepsy, not intractable, w/o stat epi Z79.899 Other senior living (current) drug therapy Office 01/23/2017 Neurohospitalist Joshua Berrios G40.309 Gen idiopathic Visit 10:00a Clinic Katy Paula epilepsy, not intractable, w/o stat epi Office 08/08/2016 Neurohospitalist Joshua Berrios G40.309 Gen idiopathic Visit 10:30a Clinic Katy Paula epilepsy, not intractable, w/o stat epi L63.9 Alopecia areata, unspecified Office Visit 06/29/2016 9:30a Wound Care Gilles Lui T81.31xA Disruption of Center AT [facility] MD Yokasta, external FACS operation (surgical) wound, NEC, init T81.4xxA Infection following a procedure, initial encounter T81.31xD Disruption of external operation (surgical) wound, NEC, subs Office 06/25/2016 Neurohospitalist Joshua Berrios G40.409 Oth generalized Visit 3:40p Clinic Katy Paula epilepsy, not intractable, w/o stat epi Office 06/25/2016 [facility] Sherri R56.9 Unspecified Visit 3:38p Assoc,pc Hospitalists Katy Bhat convulsions M79.7 Fibromyalgia Office Visit 06/24/2016 3:31p [facility] Wilton Womack R56.9 Unspecified Assoc,pc M.D. convulsions Hospitalists M79.7 Fibromyalgia J45.902 Unspecified asthma with status asthmaticus Office Visit 06/20/2016 9:30a Wound Care Lee CortezEve T81.31xA Disruption of Center AT [facility] MD Jesus external operation (surgical) wound, NEC, init T81.4xxA Infection following a procedure, initial encounter Office Visit 06/13/2016 10:30a Wound Care Lee DiegoEve T81.31xA Disruption of Center AT [facility] MD Jesus external operation (surgical) wound, NEC, init T81.4xxA Infection following a procedure, initial encounter Office Visit 05/23/2016 8:00a Wound Care Lee DiegoEve T81.31xA Disruption of Center AT [facility] MD Jesus external operation (surgical) wound, NEC, init T81.4xxA Infection following a procedure, initial encounter Office Visit 01/24/2015 8:15a Orthopedic John Paul Ramey, S83.91xA Sprain of Services Of M.Sravan. unspecified site C.M.A. of right knee, initial encounter S76.311A Strain msl/fasc/tnd post grp at [facility], right thigh, init Office Visit 10/15/2014 1:30p Orthopedic John Paul Ramey, 844.1 Sprains & Strains Services Of [...] Ramey, 719.46 Pain Joint Lower Services Of MAryan. Leg C.M.A. 726.90 Enthesopathy Unspec Site Office Visit 11/25/2012 Orthopedic Lynn 841.1 Sprains & 11:00a Services Of Katy Riddle Strains Ulnar C.M.A. Collateral (Ligament) Office Visit 11/25/2012 Dwight Ramey M.D. 924.11 Contusion Knee 10:15a Services Of C.M.A. Office Visit 07/14/2012 Orthopedic PASTORA Mcallister 844.1 Sprains & 2:30p Services Of Strains Knee C.M.A. Medial Collateral Ligament Office Visit 06/05/2012 wDight Ramey M.D. 844.1 Sprains & 11:00a Services Of Strains Knee C.M.A. Medial Collateral Ligament Office Visit 05/08/2012 PASTORA Palomino 844.1 Sprains & 10:15a Services Of Strains Knee C.M.A. Medial Collateral Ligament 844.1 Sprains & Strains Knee Medial Collateral Ligament Office Visit 04/10/2012 1:15p Dwight Ramey 844.1 Sprains & Strains Services Of C.M.Avi MEveDEve Knee Medial Collateral Ligament Office Visit 03/04/2012 2:45p Dwight Ramey 844.1 Sprains & Strains Services Of C.M.A. MEveDEve Knee Medial Collateral Ligament 836.2 Dislocation [...] Unspec Site Office Visit 06/13/2011 Orthopedic Bhumika Aleman 841.1 Sprains & 11:30a Services Of RPA-C Strains Ulnar C.M.A. Collateral (Ligament) 842.10 Sprains & Strains Hand Unspec Site Plan of Treatment Future Appointment(s):07/16/2018 10:30 am - Grzegorz Petersen MD at Orthopedic Services Of C.M.A.07/22/2018 11:15 am - Joshua Paula M.D. at [facility] Services Of [facility]
[2018-08-01 16:07] LABS: ABS Eosinophils 0.2 10^3/ul (0-0.6); ABS Lymphocytes 1.4 10^3/ul (1.0-4.8); ABS Monocytes 0.8 10^3/ul (0-0.8); ABS Neutrophils 5.7 10^3/ul (1.5-7.7); Hematocrit 48 % (35-47); Lymphocyte % 16.9 %; Mean Corpuscular HGB Conc 34 g/dL (31-36); Mean Corpuscular Hemoglobin 30 pg (27-31); Mean Corpuscular Volume 90 fL (80-97); Mean Platelet Volume 7.5 fL (7.4-10.4); Platelet Count 382 10^3/uL (150-450); Red Blood Count 5.31 10^6 /uL (3.70-4.87); Red Cell Distribution Width 15 % (10.5-15)
[2018-08-01] MEDS ORDERED: NS 0.9% 1000 ML** 2,000 ML IV ONE (16:22)
[2018-08-01 16:23] LABS: Albumin 4.8 g/dL (3.2-5.2); Albumin/Globulin Ratio 1.5 (1-3); BUN/Creatinine Ratio 24.1 (8-20); C Reactive Protein 9.93 mg/L (<8.01); Calcium 9.9 mg/dL (8.6-10.3); EGFR African American 83.7 (>60); EGFR Non-African American 69.2 (>60); Globulin 3.1 g/dL (2-4); Potassium 3.7 mmol/L (3.5-5.0); Total Bilirubin 0.3 mg/dL (0.2-1.0); Total Protein 7.9 g/dL (6.4-8.9)
--- NOTE | 2018-08-01 16:31 | ED ---
Abdominal Pain/Female - HPI Summary HPI Summary: This patient is a 48 year old female presenting to [facility] with a chief complaint of decreased PO intake since 3 days ago. The patient reports abdominal pain, nausea, diarrhea, and crushing rib pain. Pt denies any fever, chills, erythema of eyes, sore throat, CP, SOB, cough, vomiting, dysuria, hematuria, myalgia, edema, rash, or dizziness. The patient rates her pain 8/10 in severity. Patient has Hx of MRSA. Cyclobenzaprine TAB* [Flexeril 10 MG TAB*] 25 mg PO TID 08/15/12 [History Confirmed 08/01/18] Fludrocortisone Acetate TAB* [Florinef TAB*] 0.1 mg PO SEE INSTRUCTIONS [History Confirmed 08/01/18] Amitriptyline TAB* [Elavil TAB*] 100 mg PO BEDTIME 06/25/16 [History Confirmed 08/01/18] Oxymorphone HCl [Opana ER] 5 mg PO SEE INSTRUCTIONS 06/25/16 [History Confirmed 08/01/18] oxyCODONE TAB* [Roxycodone TAB 5 mg*] 5 mg PO QID 06/25/16 [History Confirmed ] Ascorbic Acid TAB* [Vitamin C TAB*] 500 mg PO BID 08/30/16 [History Confirmed 08/01/18] Divalproex Sodium [Depakote ER] 500 mg PO SEE INSTRUCTIONS 08/30/16 [History Confirmed 08/01/18] Albuterol 2.5MG/3ML (0.083%)* [Ventolin 2.5 MG/3 ML NEB.NATALIO*] 2.5 mg INH Q6H PRN 12/11/17 [History Confirmed 08/01/18] Albuterol/Ipratropium RESP(NF) [Combivent Respimat(NF)] 1 puff IN TID PRN [History Confirmed 08/01/18] Calcium Carbonate/Vitamin D3 [Calcium 600 + Vit D Tablet] 1 tab PO BID 12/11/17 [History Confirmed 08/01/18] Echinacea 380 mg PO BID 12/11/17 [History Confirmed 08/01/18] Fluticasone NASAL SPRAY 50MCG* [Flonase NASAL SPRAY 50MCG*] 1 spray BOTH NARES QAM 12/11/17 [History Confirmed 08/01/18] Ginkgo Biloba 500 mg PO QAM 12/11/17 [History Confirmed 08/01/18] Lansoprazole CAP (NF) [Prevacid CAP (NF)] 15 mg PO QAM 12/11/17 [History Confirmed 08/01/18] Multivit-Min/Iron/Folic/Lutein [Centrum Silver Women Tablet] 0.5 tab PO TID [History Confirmed 08/01/18] Naproxen Sodium [Naproxen 550 mg] 550 mg PO BID PRN 12/11/17 [History Confirmed 08/01/18] Selenium [Oceanic Selenium] 50 mcg PO QAM 12/11/17 [History Confirmed 08/01/18] Simethicone [Gas-X Extra Strength] 125 mg PO DAILY PRN 12/11/17 [History Confirmed 08/01/18] Vitamin B Complex CAP* [B Complex CAP*] 2 cap PO BID 12/11/17 [History Confirmed 08/01/18] Vitamin E Mixed [E400 Mixed] 400 unit PO 1200 12/11/17 [History Confirmed ] Liraglutide (NF) [Victoza (NF)] 1.8 mg SUBCUT QAM 03/04/18 [History Confirmed ] Hydrocortisone 2.5% CREAM(NF) 1 applic TOPICAL QAM 06/16/18 [History Confirmed 08/01/18] Loperamide CAP* [Imodium CAP*] 2 cap PO QID PRN 06/16/18 [History Confirmed 01/10] Nystatin CREAM* 1 applic TOPICAL TID 06/16/18 [History Confirmed 08/01/18] Scopolamine 1.5 mg* PATCH* [Transderm-Scop 1.5 mg Patch*] 1 patch TRANSDERM ONCE PRN 06/16/18 [History Confirmed 08/01/18] metFORMIN* [Glucophage 500 MG TAB *] 1 tab PO QPM 06/16/18 [History Confirmed ] - History of Current Complaint Chief Complaint: EDNauseaVomitDiarrh Stated Complaint: CANT EAT/DHIARREA/TIGHTNESS IN RIB CAGE/ PER PT Time Seen by Provider: 08/01/18 16:22 Hx Obtained From: Patient Hx Last Menstrual Period: 4 months Timing: Days Severity Currently: None Pain Intensity: 0 Pain Scale Used: 0-10 Numeric Allergies/Adverse Reactions: Allergies Allergy/AdvReac Type Severity Reaction Status Date / Time Iodinated Contrast- Oral and Allergy Severe Anaphylatic Verified 08/01/18 13:10 IV Dye Shock iodine Allergy Severe Difficulty Verified 08/01/18 13:10 Breathing/Wheezing bee venom protein (honey bee) Allergy Swelling Verified 08/01/18 13:10 codeine AdvReac Nausea Verified 08/01/18 13:10 DOWN FEATHERS AdvReac Intermediate Eyes Uncoded 06/23/18 11:58 Itchy/Swollen/Red/Watery PMH/Surg Hx/FS Hx/Imm Hx Endocrine/Hematology History: Reports: Hx Diabetes - TYPE II- ON VICTOZA AND METFORMIN FOR, Hx Anemia - HX OF Denies: Hx Bone Marrow Disease, Hx Sickle Cell Disease, Hx Thyroid Disease Cardiovascular History: Reports: Hx Angina - "a few weeks", Hx Hypotension, Other Cardiovascular Problems/Disorders - LOW BLOOD PRESSURE-OCCASIONALLY SKIPPED BEAT-NO [id number] Denies: Hx Coronary Artery Disease, Hx Hypercholesterolemia, Hx Hypertension , Hx Myocardial Infarction, Hx Pacemaker/ICD, Hx Valvular Heart Disease Respiratory History: Reports: Hx Asthma - PRN INHALER AND NEBULIZER FOR Denies: Hx Chronic Obstructive Pulmonary Disease (COPD), Other Respiratory Problems/Disorders GI History: Reports: Hx Gastroesophageal Reflux Disease - ON MEDICATION FOR, Hx Hiatal Hernia, Hx Irritable Bowel, Hx Ulcer - STOMACH ULCER YRS AGO, Other GI Disorders - GASTRIC BYPASS 2010 History: Reports: Hx Kidney Stones - LONG AGO, Other Problems/Disorders - HX OF UTI'S Denies: Hx Renal Disease Musculoskeletal History: Reports: Hx Arthritis - OSTEO-WRISTS, ARTHRITIS MULTIPLE JOINTS, Hx Tendonitis, Other Musculoskeletal History - "HYPER CURVATURE OF SPINE"-"HIPS TILTED FORWARD Sensory History: Reports: Hx Contacts or Glasses - GLASSES Denies: Hx Cataracts, Hx Glaucoma, Hx Hearing Aid Opthamlomology History: Reports: Hx Contacts or Glasses - GLASSES Denies: Hx Cataracts, Hx Glaucoma Neurological History: Reports: Hx Migraine - UP TO 12 DAYS PER MONTH- TREAT WITH PAIN MEDICATION OR GOES TO DR. 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Extraction of 8 teeth, 1983, dental office. -ORIF right 1st metatarsal, 1987, [place]. - Right calcaneous (bursitis), 1989, [place]. -Left knee arthroscopy, , [place]. -ORIF left orbit for blow out fx,. -Right calcaneous (bursitis), 1996, [place]. -Left carpal tunnel release, 1996, [place]. -Left DeQuervains, 1996, [place]. -Left elbow radial nerve relocation, decompression , removal of bone fragments, 1996, [place]. - WITH tubal ligation , 1998, [place]. -Cone biopsy. -uterine ablation (severe dysplasia) 1998, [place]. -Right elbow tendonitis, 2001, [place]. -Gastric bypass (ngoc-en- y), 2002, [facility]. -Right elbow removal of bone fragments , 2003, [place]. -Cholecystectomy, 2003, [place]. -Right breast biopsy, titanium marker placement, 2004, [place]. -Left shoulder labral repair, 2006, [place]. -Left rotator cuff repair, 2006, [place]. -Right carpal tunnel release, 2007, [place]. -Right DeQuervains, 2007, [place]. -2 OTHER SURGERIES TO THE RIGHT WRIST- REMOVAL OF STITCHES. -ORIF right thumb x 2 (injury) 2009 [place]. -Removal of ingrown toenails x 3, podiatry office, [place]. - Excision of 4 lipomas lumbar spine, 2015, [place]. -Excision of 2 lipomas lumbar spine, 2016, [place] (contracted MRSA post-op). -LIPOMAS REMOVED OVER THE COURSE OF 4 SURGERIES. Hx Anesthesia Reactions: Yes - NAUSEA Infectious Disease History: Yes Infectious Disease History: Reports: Hx of Known/Suspected MRSA, History Other Infectious Disease Denies: Hx Hepatitis, Traveled Outside the [place] in Last 30 Days - Family History Known Family History: Positive: Cardiac Disease - [place], Hypertension, Diabetes, Other - CVA - Social History Alcohol Use: Rare Alcohol Amount: SPECIAL OCCASIONS- RARELY Hx Substance Use: No Substance Use Type: Reports: Prescribed Substance Use Comment - Amount & Last Used: oxycodone, opana//SECOND HAND SMOKE FROM [place] Hx Tobacco Use: Yes Smoking Status (MU): Former Smoker Type: Cigarettes Amount Used/How Often: 1 PPD FOR 7 YRS Length of Time of Smoking/Using Tobacco: 7 YRS Have You Smoked in the Last Year: No Review of Systems Negative: Fever, Chills Negative: Erythema Negative: Sore Throat Negative: Chest Pain Negative: Shortness Of Breath, Cough Positive: Abdominal Pain, Diarrhea, Nausea. Negative: Vomiting Negative: dysuria, hematuria Positive: Other - Rib pain. Negative: Myalgia, Edema Neurological: Other - neg: Dizziness All Other Systems Reviewed And Are Negative: No Physical Exam - Summary Physical Exam Summary: Constitutional: Well-developed, Well-nourished, Alert. (-) Distressed Skin: Warm, Dry HENT: Normocephalic; Atraumatic Eyes: Conjunctiva normal Neck: Musculoskeletal ROM normal neck. (-) JVD, (-) Stridor, (-) Tracheal deviation Cardio: Rhythm regular, rate normal, Heart sounds normal; Intact distal pulses; The pedal pulses are 2+ and symmetric. Radial pulses are 2+ and symmetric. (-) Murmur Pulmonary/Chest wall: Effort normal. (-) Respiratory distress, (-) Wheezes, (-) Rales Abd: Soft, Mild RUQ and epigastric tenderness, (-) Distension, (-) Guarding, (- ) Rebound Musculoskeletal: (-) Edema Lymph: (-) Cervical adenopathy Neuro: Alert, Oriented x3 Psych: Mood and affect Normal Triage Information Reviewed: Yes Vital Signs On Initial Exam: Initial Vitals Temp Pulse Resp BP Pulse Ox 97.2 F 103 16 127/99 96 08/01/18 13:06 08/01/18 13:06 08/01/18 13:06 08/01/18 13:06 08/01/18 13:06 Vital Signs Reviewed: Yes Diagnostics - Vital Signs Vital Signs Temp Pulse Resp BP Pulse Ox 08/01/18 14:49 96.8 F 107 19 145/79 99 08/01/18 13:06 97.2 F 103 16 127/99 96 - Laboratory Lab Results: Lab Results 08/01/18 08/01/18 08/01/18 Range/Units 15:59 15:59 15:59 WBC 8.0 (3.5-10.8) 10^3/uL RBC 5.31 H (3.70-4.87) 10^6 /uL Hgb 16.0 (12.0-16.0) g/dL Hct 48 H (35-47) % MCV 90 (80-97) fL MCH 30 (27-31) pg MCHC 34 (31-36) g/dL RDW 15 (10.5-15) % Plt Count 382 (150-450) 10^3/uL MPV 7.5 (7.4-10.4) fL Neut % (Auto) 70.9 % Lymph % (Auto) 16.9 % Pope % (Auto) 9.8 % Eos % (Auto) 2.0 % Baso % (Auto) 0.4 % Absolute Neuts (auto) 5.7 (1.5-7.7) 10^3/ul Absolute Lymphs (auto) 1.4 (1.0-4.8) 10^3/ul Absolute Monos (auto) 0.8 (0-0.8) 10^3/ul Absolute Eos (auto) 0.2 (0-0.6) 10^3/ul Absolute Basos (auto) 0.0 (0-0.2) 10^3/ul Absolute Nucleated RBC 0.0 10^3/ul Nucleated RBC % 0.0 Sodium 137 (135-145) mmol/L Potassium 3.7 (3.5-5.0) mmol/L Chloride 102 (101-111) mmol/L Carbon Dioxide 25 (22-32) mmol/L Anion Gap 10 (2-11) mmol/L BUN 21 (6-24) mg/dL Creatinine 0.87 (0.51-0.95) mg/dL Est GFR ( Amer) 83.7 (>60) Est GFR (Non-Af Amer) 69.2 (>60) BUN/Creatinine Ratio 24.1 H (8-20) Glucose 224 H (70-100) mg/dL Lactic Acid 1.4 (0.5-2.0) mmol/L Calcium 9.9 (8.6-10.3) mg/dL Total Bilirubin 0.30 (0.2-1.0) mg/dL AST 58 H (13-39) U/L ALT 93 H (7-52) U/L Alkaline Phosphatase 144 H (34-104) U/L C-Reactive Protein 9.93 H (<8.01) mg/L Total Protein 7.9 (6.4-8.9) g/dL Albumin 4.8 (3.2-5.2) g/dL Globulin 3.1 (2-4) g/dL Albumin/Globulin Ratio 1.5 (1-3) Lipase 36 (11.0-82.0) U/L Result Diagrams: 08/01/18 15:59 08/01/18 15:59 Lab Statement: Any lab studies that have been ordered have been reviewed, and results considered in the medical decision making process. Re-Evaluation - Re-Evaluation First Eval Re-Evaluation Time: 18:42 Change: Unchanged Comment: Blood pressure 97 systolic. Patient has not given us a stool sample yet. Abdominal Pain Fem Course/Dx - Course Course Of Treatment: This patient is a 48 year old female presenting to [facility] with a chief complaint of decreased PO intake since 3 days ago. The patient was complaining of rib and shoulder pain. D-Dimer was unremarkable. Patient will be signed out to Dr. Sandoval pending CT to rule out cholitis and additional IV fluids. - Diagnoses Provider Diagnoses: Diarrhea Discharge - Sign-Out/Discharge Documenting (check all that apply): Sign-Out Patient - Dr. Sandoval Signing out patient TO: Guy Sandoval - At 1900 shift change Patient Received Moderate/Deep Sedation with Procedure: No - Discharge Plan Condition: Stable Referrals: Edouard Louie DO [Primary Care Provider] - - Attestation Statements Document Initiated by Scribe: Yes Documenting Scribe: Grzegorz Hayes Provider For Whom Scribe is Documenting (Include Credential): Jim Estrella MD Scribe Attestation: Grzegorz Diaz, scribed for Jim Estrella MD on 08/01/18 at 1853. Status of Scribe Document: Ready
[2018-08-01 19:39] LABS: Urine Appearance Turbid; Urine Bacteria Absent (Absent); Urine Bilirubin Negative (Negative); Urine Blood 3+ (Negative); Urine Color Amber; Urine Glucose Negative (Negative); Urine Ketones 1+ (Negative); Urine Nitrite Negative (Negative); Urine Protein 2+(100 mg/dL) (Negative); Urine Red Blood Cell 3+(>10/hpf) (Absent); Urine Squamous Epithelial Cell Present (Absent); Urine Urobilinogen Negative (Negative); Urine White Blood Cell Trace(0-5/hpf) (Absent)
--- NOTE | 2018-08-01 19:41 | ED ---
Progress - Progress Note Progress Note: Patient is received as a sign out from Dr. Estrella at 1900 08/01/18 shift change pending additional fluids, Gallbladder US results, and CT chest/abd/pel of this patient. GALLBLADDER US IMPRESSION: 1. Gallbladder surgically absent. 2. Mildly enlarged diffusely echogenic liver, difficult to assess due to to poor sound beam penetration. 3. Common bile duct not visualized secondary to poor sound beam penetration from hepatic echogenicity. THIS REPORT WAS REVIEWED BY DR. GUILLEN. CT CHEST IMPRESSION: No acute findings in the chest. CT ABD/PEL IMPRESSION: 1. Status post gastric bypass with mild small bowel distention just proximal to the distal anastomosis. No evidence of bowel obstruction. 2. Mixture of solid and liquid stool in colon consistent with history of diarrhea 3. Hepatic steatosis with heterogeneous appearance of the liver, likely with areas of peripheral fatty sparing and possible regenerating nodules. Recommend correlation with LFTs and alpha-fetoprotein levels and comparison with prior cross-sectional imaging. Consider multiphase abdominal CT or MRI if this has not already been performed. 4. Post cholecystectomy. Pneumobilia left lobe liver, likely secondary to prior sphincterotomy or instrumentation. Correlate with clinical and surgical history. THIS REPORT WAS REVIEWED BY DR. GUILLEN. 2312 - Results of Gallbladder US and CT chest/abd/pel were discussed with patient, she will be discharged to home and follow up with PCP. She is agreeable with this plan. - EKG/XRAY/CT CT: SEE ABOVE Re-Evaluation - Re-Evaluation First Eval Re-Evaluation Time: 18:42 Change: Unchanged Comment: Blood pressure 97 systolic. Patient has not given us a stool sample yet. Second Eval Re-Evaluation Time: 23:13 Comment: Results of Gallbladder US and CT chest/abd/pel were discussed with patient, she will be discharged to home and follow up with PCP. She is agreeable with this plan. Course/Dx - Course Course Of Treatment: Patient is received as a sign out from Dr. Estrella at 1900 shift change pending additional fluids, Gallbladder US results, and CT chest/abd /pel of this patient. GALLBLADDER US IMPRESSION: 1. Gallbladder surgically absent. 2. Mildly enlarged diffusely echogenic liver, difficult to assess due to to. poor sound beam penetration. 3. Common bile duct not visualized secondary to poor sound beam penetration. from hepatic echogenicity. CT CHEST IMPRESSION: No acute findings in the chest. CT ABD/PEL IMPRESSION: 1. Status post gastric bypass with mild small bowel distention just proximal to. the distal anastomosis. No evidence of bowel obstruction. 2. Mixture of solid and liquid stool in colon consistent with history of. diarrhea. 3. Hepatic steatosis with heterogeneous appearance of the liver, likely with. areas of peripheral fatty sparing and possible regenerating nodules. Recommend. correlation with LFTs and alpha-fetoprotein levels and comparison with prior. cross-sectional imaging. Consider multiphase abdominal CT or MRI if this has. not already been performed. 4. Post cholecystectomy. Pneumobilia left lobe liver, likely secondary to. prior sphincterotomy or instrumentation. Correlate with clinical and surgical. history. Patient was given fluids, protonix 40 mg IV ED ONCE ONE, and relgan 10 mg IV SLOW PU ONCE ONE. 2312 - Results of Gallbladder US and CT chest/abd/pel were discussed with patient, she will be discharged to home and follow up with PCP. She is agreeable with this plan. - Diagnoses Provider Diagnoses: Gastroenteritis Discharge - Sign-Out/Discharge Documenting (check all that apply): Patient Departure - discharge Patient Received Moderate/Deep Sedation with Procedure: No - Discharge Plan Condition: Stable Disposition: HOME Prescriptions: Metoclopramide TAB* [Reglan TAB*] 10 mg PO Q6H PRN #14 tab PRN Reason: Nausea/Vomiting Pantoprazole TAB * [Protonix TAB*] 40 mg PO DAILY #30 tab Patient Education Materials: Gastroenteritis (ED) Referrals: Edouard Louie DO [Primary Care Provider] - 3 Days Additional Instructions: PLEASE RETURN TO THE ED IMMEDIATELY FOR WORSENING OR CONCERNING SYMPTOMS. FOLLOW UP WITH YOUR PRIMARY CARE PHYSICIAN WITHIN THREE DAYS. - Attestation Statements Document Initiated by Scribe: Yes Documenting Scribe: NAA FERNANDO Provider For Whom Phylicia is Documenting (Include Credential): JACKIE GUILLEN MD Scribe Attestation: I, NAA FERNANDO, elmered for JACKIE GUILLEN MD on 08/01/18 at [id number]. Status of Scribe Document: Ready
[2018-08-01] MEDS ORDERED: Metoclopramide IV* 5 MG/ML 2 ML VIAL IV SLOW PU ONE (21:18)
[2018-08-01] MEDS ORDERED: NS 0.9% 1000 ML** 1,000 ML IV ONE (21:19)
[2018-08-01] MEDS ORDERED: Pantoprazole IV* 40 MG IV ONE (21:19)
[2018-08-01 23:32] VITALS: BP 103/67
--- NOTE | 2018-08-02 13:30 | PN ---
Progress Note - Progress Note Date of Service: 08/01/18 Note: Stool culture today positive for aeromonas sobria. I called and spoke to pt. lagunas at 1327. She notes that she has been having diarrhea for 5 days. She notes diarrhea is not improving and she has lost 15 pounds this week. Given symptoms are not improving, will treat with Bactrim.
--- NOTE | 2018-08-04 10:04 | PN ---
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
== END 2018-08-01 23:34 | disposition home or self-care (01) ==
LOC: ED 13:04
DX: R19.7 Diarrhea, unspecified (principal); K76.0 Fatty (change of) liver, not elsewhere classified; I95.9 Hypotension, unspecified; E11.9 Type 2 diabetes mellitus without complications; J45.909 Unspecified asthma, uncomplicated; K21.9 Gastro-esophageal reflux disease without esophagitis; K58.9 Irritable bowel syndrome, unspecified; K44.9 Diaphragmatic hernia without obstruction or gangrene; F41.9 Anxiety disorder, unspecified; F32.9 Major depressive disorder, single episode, unspecified; Z79.899 Other long term (current) drug therapy; Z79.51 Long term (current) use of inhaled steroids; Z79.84 Long term (current) use of oral hypoglycemic drugs; Z88.5 Allergy status to narcotic agent; Z91.041 Radiographic dye allergy status; Z98.84 Bariatric surgery status; Z87.891 Personal history of nicotine dependence; Z90.49 Acquired absence of other specified parts of digestive tract
CPT/HCPCS: 36415; 71250; 74176; 76705; 80053; 81003; 81015; 83605; 83690; 85025; 85379; 86140; 87045; 87046; 87077; 87086; 87493; 87899; 96361; 96374; 96375; 99284; J2765

== ENCOUNTER 2019-01-24 17:21 | Emergency (ER) | payer MEDICARE, OTHER ==
[2019-01-24] MEDS ORDERED: oxyCODONE TAB* 5 MG TAB PO ONE (18:07)
--- OUTSIDE RECORDS SUMMARY | 2019-01-24 18:20 | XMS REPORT | Continuity of Care Document ---
:1970 External Reference #:[id number] Author Name Grzegorz Petersen MD (transmitted by agent of provider Sanjay Metzger) Address [address] [place] [phone] Care Team Providers Name Role Phone Edouard Louie DO - Family Medicine Care Team Information Cnc Specialist [phone] Problems Active Problems Provider Date Sprain of medial collateral ligament of knee John Paul Ramey M.D. Onset: 2014 Lesion of ulnar nerve Grzegorz Petersen MD Onset: 06/21/2017 Other specific joint derangements of right Grzegorz Petersen MD Onset: 2017 wrist, not elsewhere classified Localized, primary osteoarthritis of the wrist Grzegorz Petersen MD Onset: 11/2017 Radial styloid tenosynovitis Grzegorz Petersen MD Onset: 09/13/2017 Lesion of radial nerve Grzegorz Petersen MD Onset: 12/19/2018 Social History Type Date Description Comments Sex Unknown Tobacco Use Start: Unknown End: Former Cigarette Smoker 1 Unknown Pack Daily ETOH Use Rarely consumes alcohol Recreational Drug Use Denies Drug Use Tobacco Use Start: Unknown End: Patient is a former smoker Unknown Smoking Status Reviewed: 12/19/18 Patient is a former smoker Exercise Type/Frequency Exercises regularly Allergies, Adverse Reactions, Alerts Active Allergies Reaction Severity Comments Date Iodine 04/24/2013 Contrast Dye 04/24/2013 Honey Bee Venom 06/11/2018 Medications Active Medications SIG Qnty Indications Ordering Date Provider Amitriptyline HCL 1 by mouth every 90tabs G43.009 Joshua Berrios 01/21/2018 10mg night at bedtime 90 Katy Paula Tablets day supply Selenium 1 by mouth every day 90tabs L64.0 Joshua Berrios 03/27/2017 50mcg Tablets [place], M.D. Divalproex Sodium 2 po qam 1 tab po q 360tabs G40.309 Joshua Berrios 08/08/2016 500mg afternoon and 2 tabs Katy Paula Tablets po qpm Custom Knee Brace For as needed 844.1 John Paul Ramey, 10/15/2014 Chronic MCL Sprain Katy Florinef 2 [...] Cyanocobalamin 1 milliliters Unknown intramuscular 1000mcg/ML Solution [id number] Echinacea 1 tab po bid Unknown 125mg Capsules Metformin HCL 1 by mouth twice Unknown 500mg daily Tablets Zinc 1 tab po bid Unknown 23-60-20mg Lozenges Oxymorphone HCL ER take 1 tablet by Unknown 5mg mouth every 12 hours Tablets ER 12HR Multivitamin Adults 1 tab by mouth twice Unknown daily Tablets Vitamin B-Complex 1 by mouth tid Unknown Tablets Vitamin C 1 by mouth tid Unknown 500mg Capsules Vitamin D High 1 tab daily (unsure Unknown Potency of dosage) 1000Unit Capsules Calcium 600 High 1 by mouth bid Unknown Potency 600mg Tablets Fluticasone spray 1 spray in Unknown Propionate each nostril qd 50mcg/Act Suspension Combivent Respimat 1 puff as needed Unknown 20-100mcg/Act Aerosol Albuterol Sulfate 1 vial via nebulizer Unknown 4 times daily as (2.5mg/3ML) 0.083% needed Nebulizer Flexeril 1 tab po tid Unknown 25mg Amitriptyline HCL 1 tab po at hs Unknown 100mg History Medications Cane 1units G62.9 Joshua Paula, 07/22/2018 - Misc Katy 12/17/2018 Hydrocodone-Acetam 1 or 2 tabs by 10tabs Grzegorz Petersen MD 06/23/2018 - inophen mouth every 6-8 11/25/2018 5-325mg hours as needed Tablets for pain Medications Administered in Office Medication SIG Qnty [...] Available Vital Signs Date Vital Result Comment 12/19/2018 1:41pm Height 65 inches 5'5" Weight 220.00 lb Heart Rate 107 /min BP Systolic Sitting 140 mmHg BP Diastolic Sitting 86 mmHg Pain Level 4 O2 % BldC Oximetry 98 % BMI (Body Mass Index) 36.6 kg/m2 11/27/2018 2:51pm Height 65 inches 5'5" Weight 218.00 lb Heart Rate 116 /min BP Systolic Sitting 116 mmHg BP Diastolic Sitting 66 mmHg Respiratory Rate 16 /min Pain Level 6 O2 % BldC Oximetry 98 % BMI (Body Mass Index) 36.3 kg/m2 Results Test Date Facility Test Result H/L Range Note Laboratory test 07/22/2018 [facility] Vitamin B12 700 pg/mL Normal 180-914 [address] [place] [address] [phone] TSH (Thyroid Stim Horm) 1.49 mcIU/mL Normal 0.34-5.60 Protein 07/22/2018 [facility] Total 6.8 g/dL 6.3 - Electrophoresis [address] Protein(Pep) 7.9 [place] [address] [phone] Albumin 3.6 g/dL 3.4-4.7 Alpha-1 Globulin 0.2 g/dL 0.1-0.3 Alpha-2 Globulin 1.2 g/dL Abnormal 0.6-1.0 Beta Globulin 1.0 g/dL 0.7-1.2 Gamma Globulin 0.9 g/dL 0.6-1.6 Albumin/Globulin Ratio 1.09 Impression See Comment 2 Laboratory 07/22/2018 [facility] Lyme Screen Negative Negative test finding [address] W/ [place] [address] WB [phone] Laboratory 06/23/2018 [facility] Surgical SEE RESULT 3 test finding [address] [place] [address] [phone] Laboratory 06/23/2018 [facility] Tissue SEE RESULT 4, 5 test finding [address] Culture & [place] [address] Sensitiv [phone] Laboratory 06/23/2018 [facility] C Reactive 1.77 mg/L Normal < 8.01 test finding [address] Protein [place], [place] [id number] [phone] CBC Auto Diff 06/23/2018 [facility] White Blood 5.9 10^3/uL Normal 3.5-10.[address] Count [place], [place] [address] [phone] Red Blood Count 4.28 10^6/uL Normal 3.70-4.87 Hemoglobin 12.7 g/dL Normal 12.0-16.0 Hematocrit 38 % Normal 33-41 Mean Corpuscular Volume 89 fL Normal 80-97 Mean Corpuscular Hemoglobin 30 pg Normal 27-31 Mean Corpuscular HGB Conc 33 g/dL Normal 31-36 Red Cell Distribution Width 14 % Normal 10.5-15 Platelet Count 228 10^3/uL Normal 150-450 Mean Platelet Volume 7.8 fL Normal 7.4-10.4 Abs Neutrophils 3.4 10^3/uL Normal 1.5-7.7 Abs Lymphocytes 1.8 10^3/uL Normal 1.0-4.8 Abs Monocytes 0.5 10^3/uL Normal 0-0.8 Abs Eosinophils 0.2 10^3/uL Normal 0-0.6 Abs Basophils 0 10^3/uL Normal 0-0.2 Abs Nucleated RBC 0 10^3/uL Granulocyte % 58.0 % Lymphocyte % 30.4 % Monocyte % 7.6 % Eosinophil % 3.4 % Basophil % 0.6 % Nucleated Red Blood Cells % 0 Laboratory test 06/23/2018 [facility] Erythrocyte Sed 13 mm/Hr Normal 0-20 [address] [place] [address] [phone] Laboratory test 06/23/2018 [facility] Point of Care 151 mg/dL High 70-100 [address] [place] [address] [phone] 1 Normal Range 180 to 914 Indeterminate Range 145 to 180 Deficient Range <145 2 RESULT: No apparent monoclonal protein on serum electrophoresis. Test Performed by: [facility] [facility] [address] [place] [address] 3 SEE RESULT BELOW Name: JAILENE CROWLEY : [address]: Grzegorz Petersen MD Acct: [id number] Unit: [id number] AGE: 48 Location: OR Re06/23/18 SEX: F [place] [facility]: [id number] RILEY: 06/23/18- [facility] DR: Grzegorz Petersen MD REQ: [id number] RECD: 06/23/18 STATUS: SOUT _ ORDERED: Ashok, [...] cm aggregate of caballero irregular bone fragments. Manager Technical Support sections, one cassette following decalcification. 2. The specimen is received fresh labeled, Right Ulna Plate and Screws, and consists of a 9.0 x 1.0 by up to 0.4 cm craft metallic plate with multiple circular to ovoid holes. The following inscription is identified: [facility] 1771-02. Received separately in the same container are seven silver metallic threaded to partially threaded Chase- headed screws ranging from 1.4 x 0.3 cm to 2.2 x 0.3 cm. Per established hospital medical staff protocol, no tissue is submitted. Gross only. Signed by and Reported on: Emperatriz Noland MD 06/25/18 1305 END OF REPORT DEPARTMENT OF PATHOLOGY, [address] [place] [address] Kareem Bee M.D. Director [facility] # [id number] 4 Scant specimen recieved 5 SEE RESULT BELOW Name: BENIGNO ABDULLAHIJAILENE Cortez : [address]: Grzegorz Petersen MD Acct: [id number] Unit: [id number] AGE: 48 Location: OR Re06/23/18 SEX: F Status: REG SDC SPEC: [id number] RILEY: 06/23/18-[address] [facility] [address]: Grzegorz Petersen MD REQ: [id number] RECD: 06/23/18153 STATUS: FOSTER JUAREZ DR: Edouard LEONARDO SOURCE: TISSUE SPDESC: ORDERED: Tissue Cult/GS, Anaerobic [...] . END OF REPORT DEPARTMENT OF PATHOLOGY, [address] [place] [address] Kareem Bee M.D. Director [facility] # [id number] 6 Test Performed by: [facility] [address] [place] [address] Kareem Bee M.D. Director of Laboratory 7 Selvage Machine Operator: [id number] Procedures Date Code Description Status 12/19/2018 13546 Inject Tendon Sheath Or Ligament Aponeurosis Eg Plantar Completed Fascia 11/27/2018 92045 Nerve Conduction 03-04 Studies Completed 07/22/2018 88085 Long Arm Splint Application Completed 07/16/2018 11016 Long Arm Cast Application Completed 07/04/2018 35877 Rad Exam; Forearm Completed 07/04/2018 47706 Long Arm Cast Application Completed 06/23/2018 10733 Repair Nonunion/Malunion Radius Or Ulna W/Graft Completed 06/23/2018 68763 Repair Nonunion/Malunion Radius Or Ulna W/Graft Completed Medical Devices Description No Information Available Encounters Type Date Location Provider Dx Diagnosis Office Visit 07/22/2018 [facility] Wilton Lenz, ERIC G40.209 Local- rel symptc 11:30a [facility] [employer] In[employer] epi w cmplx prt seiz,not ntrct,w/o stat epi G43.009 Migraine w/o aura, not intractable, w/o status migrainosus G62.9 Polyneuropathy, unspecified R53.1 Weakness R26.81 Unsteadiness on feet R29.6 Repeated falls Assessments Date Code Description Provider 12/19/2018 S52.201K Unspecified fracture of shaft of right Grzegorz Petersen MD ulna, subsequent enco 12/19/2018 G56.31 Lesion of radial nerve, right upper limb Grzegorz Petersen MD 11/27/2018 R26.81 Unsteadiness on feet Joshua Paula M.D. 11/27/2018 R29.6 Repeated falls Joshua Paula M.D. 07/22/2018 S52.201K Unspecified fracture of shaft of right Grzegorz Petersen MD ulna, subsequent enco 07/22/2018 G40.209 Localization-related (focal) (partial) Wiltonteofilo Lenz, ANTHROPOLOGIST symptomatic epilepsy 07/22/2018 G43.009 Migraine without aura, not intractable, Wiltonteofilo Lenz, ANTHROPOLOGIST without status migra 07/22/2018 G62.9 Polyneuropathy, unspecified Wliton Aleke, ANTHROPOLOGIST 07/22/2018 R53.1 Weakness Wilton Delfin, ANTHROPOLOGIST 07/22/2018 R26.81 Unsteadiness on feet Wilton Delfin, ANTHROPOLOGIST 07/22/2018 R29.6 Repeated falls Wiltonteofilo Lenz, ANTHROPOLOGIST 07/17/2018 M19.031 Primary osteoarthritis, right wrist Grzegorz Petersen MD 07/17/2018 M24.831 Oth specific joint derangements of right Grzegorz Petersen MD wrist, NEC 07/16/2018 S52.201K Unspecified fracture of shaft of right Grzegorz Petersen MD ulna, subsequent enco 07/04/2018 S52.201K Unspecified fracture of shaft of right Grzegorz Petersen MD ulna, subsequent enco 07/04/2018 M19.031 Primary osteoarthritis, right wrist Grzegorz Petersen MD 07/04/2018 M24.831 Oth specific joint derangements of right Grzegorz Petersen MD wrist, NEC 06/23/2018 S52.201K Unspecified fracture of shaft of right TRISTON Hoang ulna, subsequent enco 06/23/2018 S52.201K Unspecified fracture of shaft of right Grzegorz Petersen MD ulna, subsequent enco Plan of Treatment Future Appointment(s):01/30/2019 1:15 pm - Grzegorz Petersen MD at [facility] at [facility]69/05/2020 1:45 pm - Joshua Paula M.D. at [facility]12/19/2018 - Grzegorz Petersen, MDS52.201K Unspecified fracture of shaft of right ulna, subsequent encoNew Therapy: Physical TherapyFollow up:Follow up: 6 ghbowP86.31 Lesion of radial nerve, right upper limb Functional Status Description No Information Available Mental Status Description No Information Available Referrals Description No Information Available
--- OUTSIDE RECORDS SUMMARY | 2019-01-24 18:20 | XMS REPORT | Continuity of Care Document ---
:1970 External Reference #:[id number] Author Name Joshua Paula M.D. 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 Onset: 2014 Lesion of ulnar nerve Grzegorz Petersen MD Onset: 06/21/2017 Other specific joint derangements of right Grzegorz Petersen MD Onset: 2017 wrist, not elsewhere classified Localized, primary osteoarthritis of the wrist Grzegorz Petersen MD Onset: 11/2017 Radial styloid tenosynovitis Grzegorz Petersen MD Onset: 09/13/2017 Social History Type Date Description Comments Sex Unknown Tobacco Use Start: Unknown End: Former Cigarette Smoker 1 Unknown Pack Daily ETOH Use Rarely consumes alcohol Recreational Drug Use Denies Drug Use Tobacco Use Start: Unknown End: Patient is a former smoker Unknown Smoking Status Reviewed: 11/27/18 Patient is a former smoker Exercise Type/Frequency Exercises regularly Allergies, Adverse Reactions, Alerts Active Allergies Reaction Severity Comments Date Iodine 04/24/2013 Contrast Dye 04/24/2013 Honey Bee Venom 06/11/2018 Medications Active Medications SIG Qnty Indications Ordering Date Provider Vinayak villarreal G62.9 Joshua Berrios 07/22/2018 Talita Paula M.D. Amitriptyline HCL 1 by mouth every 90tabs [...] Custom Knee Brace For 844.1 John Paul Ramey, 10/15/2014 Chronic MCL [...] 1 by mouth bid Unknown 20mg Tablets DR Cyanocobalamin 1 milliliters Unknown intramuscular 1000mcg/ML Solution [id number] Echinacea 1 tab po bid Unknown 125mg [...] History Medications Hydrocodone-Acetaminophen 1 or 2 tabs 10tabs Grzegorz 06/23/2018 - 5-325mg Tablets by mouth MD [facility] 11/25/2018 every 6-8 hours as needed for pain Medications Administered in Office Medication SIG Qnty Indications Ordering Provider Date Celestone 3 mg and 3mg Grzegorz Petersen MD 09/13/2017 Injection Depomedrol 80MG John Paul Ramey M.D. 09/14/2014 Injection Depomedrol 80MG PASTORA Mcallister 05/08/2012 Injection Celestone 3 mg and 3mg Lynn Riddle, 08/08/2011 Injection M.D. Celestone 3 mg and 3mg Lynn Riddle, 08/08/2011 Injection M.DEve Immunizations Description No Information Available Vital Signs Date Vital Result Comment 11/27/2018 2:51pm Height 65 inches 5'5" Weight 218.00 lb Heart Rate 116 /min BP Systolic Sitting 116 mmHg BP Diastolic Sitting 66 mmHg Respiratory Rate 16 /min Pain Level 6 O2 % BldC Oximetry 98 % BMI (Body Mass Index) 36.3 kg/m2 07/22/2018 11:50am Height 65 inches 5'5" Weight 225.00 lb Heart Rate 76 /min BP Systolic Sitting 120 mmHg BP Diastolic Sitting 82 mmHg BMI (Body Mass Index) 37.4 kg/m2 Results Test Date Facility Test Result H/L Range Note Laboratory test 07/22/2018 [facility] Vitamin B12 700 pg/mL Normal 180-[address] [place] [address] [phone] TSH (Thyroid Stim Horm) 1.49 mcIU/mL Normal 0.34-5.60 Protein 07/22/2018 [facility] Total 6.8 g/dL 6.3 - Electrophoresis [address] Protein(Pep) 7.9 [place] [address] [phone] Albumin 3.6 g/dL 3.4-4.7 Alpha-1 Globulin 0.2 g/dL 0.1-0.3 Alpha-2 Globulin 1.2 g/dL Abnormal 0.6-1.0 Beta Globulin 1.0 g/dL 0.7-1.2 Gamma Globulin 0.9 g/dL 0.6-1.6 Albumin/Globulin Ratio 1.09 Impression See Comment 2 Laboratory 07/22/2018 [facility] Lyme Screen Negative Negative test finding [address] W/ [place] [address] WB [phone] Laboratory 06/23/2018 [facility] Surgical SEE RESULT 3 test finding [address] [place] [address] [phone] Laboratory 06/23/2018 [facility] Tissue SEE RESULT 4, 5 test finding [address] Culture & [place] [address] Sensitiv [phone] Laboratory 06/23/2018 [facility] C Reactive 1.77 mg/L Normal < 8.01 test finding [address] [place] [address] [phone] CBC Auto Diff 06/23/2018 [facility] White Blood 5.9 10^3/uL Normal 3.5-10.[address] [place] [address] [phone] Red Blood Count 4.28 10^6/uL Normal 3.70-4.87 [...] Blood Cells % 0 Laboratory test 06/23/2018 [facility] Erythrocyte Sed 13 mm/Hr Normal 0-20 [address] [place] [address] [phone] Laboratory test 06/23/2018 [facility] Point of Care 151 mg/dL High 70-100 7 finding [address] Glucose [place], [place] [address] [phone] 1 Normal Range 180 to 914 Indeterminate Range 145 to 180 Deficient Range <145 2 RESULT: No apparent monoclonal protein on serum electrophoresis. Test Performed by: [facility] [employer] - [facility] [address] [place] [address] 3 SEE RESULT BELOW Name: JAILENE CROWLEY : [address]: Grzegorz Petersen MD Acct: [id number] Unit: [id number] AGE: 48 Location: OR Re06/23/18 SEX: F Status: REG [facility] [place] SPEC: [id number] RILEY: 06/23/18- SUBM DR: Grzegorz Petersen MD REQ: [id number] RECD: 06/23/18 STATUS: SOUT _ ORDERED: Ashok, [...] cm aggregate of caballero irregular bone fragments. Theater Set Production Designer sections, one cassette following decalcification. 2. The specimen is received fresh labeled, Right Ulna Plate and Screws, and consists of a 9.0 x 1.0 by up to 0.4 cm craft metallic plate with multiple circular to ovoid holes. The following inscription is identified: [facility] 1771-02. Received separately in the same container are seven silver metallic threaded to partially threaded Chase- headed screws ranging from 1.4 x 0.3 cm to 2.2 x 0.3 cm. Per established hospital medical staff protocol, no tissue is submitted. Gross only. Signed by and Reported on: Emperatriz Noland MD 06/25/18 1305 END OF REPORT DEPARTMENT OF PATHOLOGY, [address] [place] [address] Kareem Bee M.D. Director [facility] # [id number] 4 Scant specimen recieved 5 SEE RESULT BELOW Name: JAILENE CROWLEY : [address]: Grzegorz Petersen MD Acct: [id number] Unit: [id number] AGE: 48 Location: OR Re06/23/18 SEX: F Status: REG SDC SPEC: [id number] RILEY: 06/23/18-[address]: Grzegorz Petersen MD REQ: [id number] RECD: 06/23/18 STATUS: [facility] DR: Edouard Louie DO Carmeloeileen Vail DO _ SOURCE: TISSUE SPDESC: ORDERED: Tissue Cult/GS, Anaerobic Cult COMMENTS: Scant specimen recieved RIGHT ULNAR NONUNION Procedure Result Reported Site Tissue Gram Stain Final 06/23/18- 1644 ML 2+ Neutrophils 1+ Epithelial Cells No Organisms Seen Tissue Culture Final 06/27/18- 923 ML Organism 1 NORMAL SP Quantity 1+ NO PATHOGENS ISOLATED. Anaerobic Culture Final 06/27/18- 7170 ML No Growth Day 4 * ML - Main Lab . END OF REPORT DEPARTMENT OF PATHOLOGY, [address] [place] [address] Kareem Bee M.D. Director [facility] # [id number] 6 Test Performed by: [facility] [address] [place] [address] Kareem Bee M.D. Director of Laboratory 7 Senior Digital Designer: [id number] Procedures Date Code Description Status 07/22/2018 41873 Long Arm Splint Application Completed 07/16/2018 58797 Long Arm Cast Application Completed 07/04/2018 93897 Rad Exam; Forearm Completed 07/04/2018 15766 Long Arm Cast Application Completed 06/23/2018 30464 Repair Nonunion/Malunion Radius Or Ulna W/Graft Completed 06/23/2018 97799 Repair Nonunion/Malunion Radius Or Ulna W/Graft Completed Medical Devices Description No Information Available Encounters Type Date Location Provider Dx Diagnosis Office Visit 07/22/2018 [facility] Wilton Lenz, ERIC G40.209 [facility] [employer] epi w cmplx prt seiz,not ntrct,w/o stat epi G43.009 Migraine w/o aura, not intractable, w/o status migrainosus G62.9 Polyneuropathy, unspecified R53.1 Weakness R26.81 Unsteadiness on feet R29.6 Repeated falls Assessments Date Code Description Provider 11/27/2018 R26.81 Unsteadiness on feet Joshua Paula M.D. 11/27/2018 G43.909 Migraine, unspecified, not intractable, Joshua Paula M.D. 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 epileptic syndromes, not intractable, without status epilepticus 07/22/2018 S52.201K Unspecified fracture of shaft of right Grzegorz Petersen MD ulna, subsequent enco 07/22/2018 G40.209 Localization-related (focal) (partial) Wiltonteofilo Lenz, MEDICAL RESEARCH TECH symptomatic epilepsy 07/22/2018 G43.009 Migraine without aura, not intractable, Wiltonteofilo Lenz, MEDICAL RESEARCH TECH without status migra 07/22/2018 G62.9 Polyneuropathy, unspecified Wilton Aleke, MEDICAL RESEARCH TECH 07/22/2018 R53.1 Weakness Wilton Delfin, MEDICAL RESEARCH TECH 07/22/2018 R26.81 Unsteadiness on feet Wilton Lenz, MEDICAL RESEARCH TECH 07/22/2018 R29.6 Repeated falls Wilton Lenz, MEDICAL RESEARCH TECH 07/17/2018 M19.031 Primary osteoarthritis, right wrist Grzegorz [...] right Grzegorz Petersen MD ulna, subsequent enco 06/11/2018 S52.201K Unspecified fracture of shaft of right Grzegorz Petersen MD ulna, subsequent enco Plan of Treatment Future Appointment(s):12/19/2018 1:45 pm - Grzegorz Petersen MD at [facility] AT Yyybabjc56/05/2020 1:45 pm - Joshua Paula M.D. at [place] [facility]11/27/2018 - Joshua Paula M.D.R26.81 Unsteadiness on feetG43.909 Migraine, unspecified, not intractable, without status uzvqskztxsjA25.309 Generalized idiopathic epilepsy and epileptic syndromes, not intractable, without status epilepticus Functional Status Description No Information Available Mental Status Description No Information Available Referrals Description No Information Available
--- OUTSIDE RECORDS SUMMARY | 2019-01-24 18:20 | XMS REPORT | Continuity of Care Document ---
:1970 External Reference #:[id number] Author Name Carmelo Vail DO, MPH Address [address] [place] [address], [address] [place] [address] Care Team Providers Name Role Phone Edouard Louie DO - Family Medicine Care Team Information Engineer Chief [phone] Problems Active Problems Provider Date Chronic pain Carmelo Vail DO MPH Onset: 11/27/2018 Neck pain Carmelo Vail DO MPH Onset: 11/27/2018 Low back pain Carmelo Vail DO MPH Onset: 11/27/2018 Solitary sacroiliitis Carmelo Vail DO, MPH Onset: 11/27/2018 Morbid obesity Carmelo Vail DO, MPH Onset: 11/27/2018 Essential hypertension Carmelo Vail DO, MPH Onset: 11/27/2018 Tension-type headache Carmelo Vail DO, MPH Onset: 11/27/2018 Long-term current use of opiate analgesic Carmelo Vail DO, MPH Onset: 2018 drug Myalgia of auxiliary muscles, head and neck Carmelo Vail DO, MPH Onset: 07/2018 Social History Type Date Description Comments Sex Unknown Cigarette Use Former Cigarette Smoker ETOH Use Rarely consumes alcohol Recreational Drug Use Denies Drug Use Tobacco Use Start: Unknown End: Unknown Patient is a former smoker Smoking Status Reviewed: 12/24/18 Patient is a former smoker Allergies, Adverse Reactions, Alerts Active Allergies Reaction Severity Comments Date Iodine 08/19/2012 Shellfish-derived Products 08/19/2012 Bee Sting 08/19/2012 Down Feathers 08/19/2012 Medications Active Medications SIG Qnty Indications Ordering Date Provider Oxycodone HCL si by mouth 120tabs Carmelo Vail 10/09/2017 5mg Tablets every 6 to 8 hours DO, MPH as directed chronic pain patient Oxymorphone [...] 66mg Tablets Calcium 500 + D3 Unknown [id number] Tablets Prevacid take one by mouth Unknown [...] every night at Tablets bedtime as directed Depakote 2 by mouth three Unknown 500mg Tablets DR times a day as directed Magnesium 30caps Unknown 400mg Capsules Motrin Ib Unknown 200mg Tablets Gas-X Extra Strength Unknown 125mg Capsules Fiber Therapy Unknown 500mg Tablets B Complex Plus Unknown Tablets Ginkoba Unknown 40mg Tablets Proventil HFA Unknown 108(90Base) mcg/Act Aerosol Combivent Unknown 18-103mcg/Act Aerosol Excedrin Migraine Unknown [phone] Tablets Cyclobenzaprine HCL si po tid ud 90tabs Unknown 10mg Tablets No Doz Maximum Unknown Strength 200mg Tablets Flonase Unknown 50mcg/Act Suspension Immunizations Description No Information Available Vital Signs Date Vital Result Comment 12/24/2018 10:19am BP Systolic 132 mmHg BP Diastolic 84 mmHg Heart Rate 86 /min Respiratory Rate 20 /min Height 66 inches 5'6" Weight 220.00 lb Pain Level 8 Pain at this time. Pain Level With Medicine 7 on average with meds Pain Level Without Medicine 9 without meds Pain Level After Procedure 6 BP Systolic Recheck 140 mmHg Pulse: 112 BP Diastolic Recheck 88 mmHg Pulse: 112 BMI (Body Mass Index) 35.5 kg/m2 12/06/2018 10:05am BP Systolic 130 mmHg BP Diastolic 82 mmHg Heart Rate 84 /min Respiratory Rate 20 /min Height 66 inches 5'6" Weight 220.00 lb Pain Level 5 Pain at this time. Pain Level With Medicine 4 on average with meds Pain Level Without Medicine 9 without meds Pain Level After Procedure 2 BP Systolic Recheck 128 mmHg Pulse:88 BP Diastolic Recheck 80 mmHg Pulse:88 BMI (Body Mass Index) 35.5 kg/m2 Procedures Date Code Description Status 12/06/2018 86775 Omt 1-2 Body Regions Completed 12/06/2018 97750 Injection For Nerve Block, Suprascapular Nerve Completed 12/06/201819010 Injection, Single Or Mutiple Trigger Points One Or Two Completed Muscles 12/06/201862612 Injection, Tendon Origin/Insertion Completed 12/06/201865037 Injection, Tendon Origin/Insertion Completed 12/06/201882225 Inject Tendon/Ligament Completed 12/06/201879165 Inject Tendon/Ligament Completed 12/06/201873398 Inject Tendon/Ligament Completed 12/06/201857405 Inject Tendon/Ligament Completed 12/06/201812424 Inject Tendon/Ligament Completed 11/27/2018 41206 Omt 1-2 Body Regions Completed 11/08/201857961 Inject Tendon/Ligament Completed 11/08/201846151 Inject Tendon/Ligament Completed 11/08/201894796 Inject Tendon/Ligament Completed 11/08/201808653 Inject Tendon/Ligament Completed 11/08/201827232 Injection, Single Or Mutiple Trigger Points One Or Two Completed Muscles 11/08/2018 Arthrocentesis/Aspiration/Inj Of Major Joint Or Bursa W/ Completed Ultra 11/08/2018 Arthrocentesis/Aspiration/Inj Of Major Joint Or Bursa W/ Completed Ultra 11/08/2018 00384 Omt 1-2 Body Regions Completed 10/27/2018 52430 Omt 1-2 Body Regions Completed 10/27/2018 85360 Therapeutic, Prophylactic Or Diagnostic Injection Subq/Im Completed 09/29/2018 98613 Therapeutic, Prophylactic Or Diagnostic Injection Subq/Im Completed 09/29/2018 89417 Injection For Nerve Block, Greater Occipital Nerve Completed 09/29/2018 73378 Injection, Single Or Mutiple Trigger Points One Or Two Completed Muscles 09/29/2018 93542 Inject Tendon/Ligament Completed 09/29/2018 76204 Inject Tendon/Ligament Completed 08/14/2018 72251 Omt 1-2 Body Regions Completed 08/14/2018 33588 Therapeutic, Prophylactic Or Diagnostic Injection Subq/Im Completed 07/18/2018 12815 Arthrocentesis/Aspiration/Inj Of Major Joint Or Bursa W/ Completed Ultra Medical Devices Description No Information Available Encounters Type Date Location Provider Dx Diagnosis Office Visit 12/06/2018 Main Office as Of Carmelo Vail DO, G89.29 Other chronic pain 10:30a 04/25/13 MPH M54.2 Cervicalgia M99.01 Segmental and somatic dysfunction of cervical region M65.88 Other synovitis and tenosynovitis, other site M79.12 Myalgia of auxiliary muscles, head and neck M46.02 Spinal enthesopathy, cervical region Office Visit 11/27/2018 10:00a Main Office as Carmelo Vail G89.29 Other chronic Of 04/25/13 , MPH pain M54.2 Cervicalgia M99.01 Segmental and somatic dysfunction of cervical region M79.12 Myalgia of auxiliary muscles, head and neck M54.5 Low back pain M46.1 Sacroiliitis, not elsewhere classified E66.01 Morbid (severe) obesity due to excess calories I10 Essential (primary) hypertension G44.209 Tension-type headache, unspecified, not intractable Z79.891 correction (current) use of opiate analgesic Office Visit 11/08/2018 10:30a Main Office as Carmelo Vail G89.29 Other chronic Of 04/25/13 DO MPH pain M54.5 Low back pain M46.1 Sacroiliitis, not elsewhere classified M65.88 Other synovitis and tenosynovitis, other site M79.18 Myalgia, other site M46.08 Spinal enthesopathy, sacral and sacrococcygeal region M99.03 Segmental and somatic dysfunction of lumbar region M99.04 Segmental and somatic dysfunction of sacral region Office Visit 10/27/2018 10:30a Main Office as Carmelo Vail, G89.29 Other chronic Of 04/25/13 DO, MPH pain M54.2 Cervicalgia M99.01 Segmental and somatic dysfunction of cervical region R53.83 Other fatigue Z79.891 intermediate project manager (current) use of opiate analgesic Office Visit 09/29/2018 10:15a Main Office as Carmelo Vail, M54.81 Occipital Of 04/25/13 DO, MPH neuralgia G89.29 Other chronic pain M54.2 Cervicalgia M54.81 Occipital neuralgia M65.88 Other synovitis and tenosynovitis, other site M79.12 Myalgia of auxiliary muscles, head and neck Z79.891 correction (current) use of opiate analgesic R53.83 Other fatigue Office Visit 08/14/2018 10:45a Main Office as Carmelo Vail, G89.29 Other chronic Of 04/25/13 DO, MPH pain M54.2 Cervicalgia M99.01 Segmental and somatic dysfunction of cervical region M54.17 Radiculopathy, lumbosacral region Z79.891 correction (current) use of opiate analgesic R53.83 Other fatigue Office Visit 07/18/2018 10:45a Main Office as Carmelo Vail, G89.29 Other chronic Of 04/25/13 DO, MPH pain M54.5 Low back pain M54.17 Radiculopathy, lumbosacral region M25.551 Pain in right hip Z79.891 correction (current) use of opiate analgesic Assessments Date Code Description Provider 12/24/2018 G89.29 Other chronic pain Carmelo Vail DO, MPH 12/24/2018 M54.2 Cervicalgia Carmelo Vail DO, MPH 12/24/2018 M65.88 Other synovitis and tenosynovitis, other Carmelo Vail DO , MPH site 12/24/2018 M46.02 Spinal enthesopathy, cervical region Vail, Carmelo, DO, MPH 12/24/2018 M54.5 Low back pain Vail, Carmelo, DO, MPH 12/24/2018 Z79.891 intermediate project manager (current) use of opiate analgesic Vail, Carmelo , DO, MPH 12/24/2018 R53.83 Other fatigue Vail, Carmelo, DO, MPH 12/24/2018 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, Carmelo, DO , MPH nervous system 12/06/2018 G89.29 Other chronic pain Vail, Carmelo, DO, MPH 12/06/2018 M54.2 Cervicalgia Vail, Carmelo, DO, MPH 12/06/2018 M99.01 Segmental and somatic dysfunction of Vail, Carmelo, DO, MPH cervical region 12/06/2018 M65.88 Other synovitis and tenosynovitis, other Vail, Carmelo, DO , MPH site 12/06/2018 M79.12 Myalgia of auxiliary muscles, head and neck Vail, Carmelo, DO, MPH 12/06/2018 M46.02 Spinal enthesopathy, cervical region Vail, Carmelo, DO, MPH 11/27/2018 G89.29 Other chronic pain Vail, Carmelo, DO, MPH 11/27/2018 M54.2 Cervicalgia Vail, Carmelo, DO, MPH 11/27/2018 M99.01 Segmental and somatic dysfunction of Vail, Carmelo, DO, MPH cervical region 11/27/2018 M79.12 Myalgia of auxiliary muscles, head and neck Vail, Carmelo, DO, MPH 11/27/2018 M54.5 Low back pain Vail, Carmelo, DO, MPH 11/27/2018 M46.1 Sacroiliitis, not elsewhere classified Vail, Carmelo, DO, MPH 11/27/2018 E66.01 Morbid (severe) obesity due to excess Vail, Carmelo, DO, MPH calories 11/27/2018 I10 Essential (primary) hypertension Vail, Carmelo, DO, MPH 11/27/2018 G44.209 Tension-type headache, unspecified, not Vail, Carmelo, DO , MPH intractable 11/27/2018 Z79.891 correction (current) use of opiate analgesic Vail, Carmelo , DO, MPH 11/08/2018 G89.29 Other chronic pain Avil, Carmelo, DO, MPH 11/08/2018 M54.5 Low back pain Vail, Carmelo, DO, MPH 11/08/2018 M46.1 Sacroiliitis, not elsewhere classified Vail, Carmelo, DO, MPH 11/08/2018 M65.88 Other synovitis and tenosynovitis, other Vail, Carmelo, DO , MPH site 11/08/2018 M79.18 Myalgia, other site Vail, Carmelo, DO, MPH 11/08/2018 M46.08 Spinal enthesopathy, sacral and Vail, Carmelo, DO, MPH sacrococcygeal region 11/08/2018 M99.03 Segmental and somatic dysfunction of lumbar Vail, Carmelo, DO, MPH region 11/08/2018 M99.04 Segmental and somatic dysfunction of sacral Vail, Carmelo, DO, MPH region 10/27/2018 G89.29 Other chronic pain Vail, Carmelo, DO, MPH 10/27/2018 M54.2 Cervicalgia Vail, Carmelo, DO, MPH 10/27/2018 M99.01 Segmental and somatic dysfunction of Vail, Carmelo, DO, MPH cervical region 10/27/2018 R53.83 Other fatigue Vail, Carmelo, DO, MPH 10/27/2018 Z79.891 intermediate project manager (current) use of opiate analgesic Vail, Carmelo , DO, MPH 09/29/2018 M54.81 Occipital neuralgia Vail, Carmelo, DO, MPH 09/29/2018 G89.29 Other chronic pain Vail, Carmelo, DO, MPH 09/29/2018 M54.2 Cervicalgia Vail, Carmelo, DO, MPH 09/29/2018 M54.81 Occipital neuralgia Vail, Carmelo, DO, MPH 09/29/2018 M65.88 Other synovitis and tenosynovitis, other Vail, Carmelo, DO , MPH site 09/29/2018 M79.12 Myalgia of auxiliary muscles, head and neck Vail, Carmelo, DO, MPH 09/29/2018 Z79.891 intermediate project manager (current) use of opiate analgesic VailCarmelo dawkins DO, MPH 09/29/2018 R53.83 Other fatigue Carmelo Vail DO, MPH 08/14/2018 G89.29 Other chronic pain VailCarmelo dawkins DO, MPH 08/14/2018 M54.2 Cervicalgia VailCarmelo dawkins DO, MPH 08/14/2018 M99.01 Segmental and somatic dysfunction of Carmelo Vail DO, MPH cervical region 08/14/2018 M54.17 Radiculopathy, lumbosacral region VailCarmelo dawkins, DO, MPH 08/14/2018 Z79.891 correction (current) use of opiate analgesic Carmelo Vail DO, MPH 08/14/2018 R53.83 Other fatigue Carmelo Vail DO, MPH 07/18/2018 G89.29 Other chronic pain Carmelo Vail DO, MPH 07/18/2018 M54.5 Low back pain Carmelo Vail DO, MPH 07/18/2018 M54.17 Radiculopathy, lumbosacral region VailCarmelo dawkins DO, MPH 07/18/2018 M25.551 Pain in right hip Carmelo Vail DO, MPH 07/18/2018 Z79.891 correction (current) use of opiate analgesic Carmelo Vail DO, MPH Plan of Treatment 12/24/2018 - Carmelo Vail DO, MPHG89.29 Other chronic painComments:Chronic. Symptoms and complaints discussed and reviewed today. No significant changes in physical findings. Continue current medical pain management.M54.2 CervicalgiaComments:Chronic. Symptoms and complaints discussed and reviewed today. No significant changes in physical findings. Continue current medical pain management.M65.88 Other synovitis and tenosynovitis, other siteComments: Chronic. Symptoms and complaints discussed and reviewed today. Physical findings reviewed and warrant intervention. Continue current medical pain management.M46.02 Spinal enthesopathy, cervical regionComments:Chronic. Symptoms and complaints discussed and reviewed today. Physical findings reviewed and warrant intervention. Patient is stable and comfortable with current medical therapy.M54.5 Low back painComments:Chronic. Symptoms and complaints discussed and reviewed today.No changes in physical findings. Patient is stable and comfortable when current medical therapy is rendered.Z79.891 intermediate project manager (current) use of opiate analgesicNew Labs:Urine Drug Screen, Ordered: 12/24/18Comments:Urine drug screen sample taken today to monitor opiate use and to monitor use of illicit substances.Will discuss results at next appointment.The following tests were ordered:6 AM, AMPH, JUSTO, TIFFANIE, BUP, CARIS, COCM, COT, ETG, [...] controlled substances and is considered standard of care.R53.83 Other fatigueComments:Symptoms and complaints discussed and reviewed today. No significant changes in physical findings. Continue current medical pain management. B12 injection administered after patient evaluated. 1ml IM for fatigue. (See Consent for injection-B12 document for lot number and expiration date.)G90.3 Multi-system degeneration of the autonomic nervous systemNew Orders:Sudomotor Test, Ordered: 12/24/18Comments:Sudomotor testing ordered to determine the effect, if any, of chronic illness and pain on small nerve fibers and/or autonomic nervous system function. Future testing will help to monitor the effects ofchronic illness, pain and subsequent treatments on the autonomic nervous system. If proper diagnosis and monitoring of ANS and/or small pain fiber problems is not appropriately addressed, adequate pain management may not be achieved.AllComments:Continue current medical pain management; injection therapy, osteopathic manipulation, PT / modalities, and consults as needed to manage chronic pain.Non - opioid pain management discussed and optionsdiscussed.Side effects discussed; anticipatory guidance given. Patient clearly understand and agree with all medical treatments and suggestions. All medicines prescribed are adequate and appropriate for this patient's complaint of pain, medical history, physical, and personal goals.Goals of Treatment are to provide adequate and appropriate multidisciplinary medical pain management to increase/ maintain patient's quality of life and functionality while maintaining satisfactory side effect profile andminimizing intermediate end-organ damage. Importance of regular nutrition throughout the day discussed.Activity as toleratedContinue with PCP Functional Status Description No Information Available Mental Status Description No Information Available Referrals Description No Information Available
--- OUTSIDE RECORDS SUMMARY | 2019-01-24 18:20 | XMS REPORT | Continuity of Care Document ---
:1970 External Reference #:[id number] Author Name Grzegorz Petersen MD (transmitted by agent of provider Sanjay Metzger) Address [address] [place] [id number] Care Team Providers Name Role Phone Edouard Louie DO - Family Medicine Care Team Information Workforce Development Specialist [phone] Problems Active Problems Provider Date Sprain of [...] 90tabs L64.0 Joshua Berrios 03/27/2017 50mcg Tablets [place], M.D. Divalproex Sodium 2 po qam 1 [...] Cyanocobalamin 1 milliliters Unknown intramuscular 1000mcg/ML Solution [id number] Echinacea 1 tab po bid Unknown 125mg [...] 100mg History Medications Cane 1units G62.9 Joshua Paula M.D. 07/22/2018 - 12/17/2018 [facility] Medications Administered in Office Medication SIG Qnty Indications Ordering Provider Date Celestone 3 mg and 3mg Grzegorz Petersen MD 12/19/2018 Injection Celestone 3 mg and 3mg Grzegorz Petersen [...] Result H/L Range Note Laboratory test 07/22/2018 [facility] Vitamin B12 700 pg/mL Normal 180-[address] [place] [address] [phone] TSH (Thyroid Stim Horm) 1.49 mcIU/mL Normal 0.34-5.60 Protein 07/22/2018 [facility] Total 6.8 g/dL 6.3 - Electrophoresis [address] Protein(Pep) 7.9 [place] [address] [phone] Albumin 3.6 g/dL 3.4-4.7 Alpha-1 Globulin 0.2 g/dL 0.1-0.3 Alpha-2 Globulin 1.2 g/dL Abnormal 0.6-1.0 Beta Globulin 1.0 g/dL 0.7-1.2 Gamma Globulin 0.9 g/dL 0.6-1.6 Albumin/Globulin Ratio 1.09 Impression See Comment 2 Laboratory test 07/22/2018 [facility] Lyme Screen Negative Negative finding [address] W/ [place] [address] WB [phone] 1 Normal Range 180 to 914 Indeterminate Range 145 to 180 Deficient Range <145 2 RESULT: No apparent monoclonal protein on serum electrophoresis. Test Performed by: [facility] [address] [place] [address] Procedures Date Code Description Status 12/19/2018 51915 Rad Exam; Forearm Completed 12/19/2018 49680 Inject Tendon Sheath Or Ligament Aponeurosis Eg Plantar Completed Fascia 11/27/2018 59841 Nerve Conduction 03-04 Studies Completed 07/22/2018 51200 Long Arm Splint Application Completed 07/16/2018 77261 Long Arm Cast Application Completed 07/04/2018 61452 Rad Exam; Forearm Completed 07/04/2018 30782 Long Arm Cast Application Completed Medical Devices Description No Information Available Encounters Type Date Location Provider Dx Diagnosis Office Visit 07/22/2018 [facility] Wilton Lenz, ERIC G40.209 Local- rel symptc 11:30a [facility] [employer] epi w cmplx prt seiz,not ntrct,w/o stat epi G43.009 Migraine w/o aura, not intractable, w/o status migrainosus G62.9 Polyneuropathy, unspecified R53.1 Weakness R26.81 Unsteadiness on feet R29.6 Repeated falls Assessments Date Code Description Provider 12/19/2018 S52.201K Unspecified fracture of shaft of right Grzegorz Petersen MD ulna, subsequent enco 12/19/2018 G56.31 Lesion of radial nerve, right upper limb Grzegorz Petersen MD 12/19/2018 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 11/27/2018 R29.6 Repeated falls Joshua Paula M.D. 07/22/2018 S52.201K Unspecified fracture of shaft of right Grzegorz Petersen MD ulna, subsequent enco 07/22/2018 G40.209 Localization-related (focal) (partial) Wilton Lenz, [employer] symptomatic epilepsy 07/22/2018 G43.009 Migraine without aura, not intractable, Wilton Lenz, [employer] without status migra 07/22/2018 G62.9 Polyneuropathy, unspecified Wilton Lenz, MA[employer] 07/22/2018 R53.1 Weakness Wilton Lenz, [employer] 07/22/2018 R26.81 Unsteadiness on feet Wilton Lenz, MA[employer] 07/22/2018 R29.6 Repeated falls Wilton Lenz, [employer]GER [employer] 07/17/2018 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 at [place]/ [facility]12/19/2018 - SULAIMAN Deng52.201K Unspecified fracture of shaft of right ulna, subsequent encoNew Therapy: Physical TherapyFollow up:Follow up: 6 jobwzS90.31 Lesion of radial nerve, right upper limbM19.031 Primary osteoarthritis, right gokfkA23.831 Other specific joint derangements of right wrist, not elsewhere classified Functional Status Description No Information Available Mental Status Description No Information Available Referrals Description No Information Available
--- OUTSIDE RECORDS SUMMARY | 2019-01-24 18:20 | XMS REPORT | Continuity of Care Document ---
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 Active Problems Provider Date Chronic pain [...] is a former smoker Smoking Status Reviewed: 11/27/18 Patient is a former smoker Allergies, Adverse [...] 66mg Tablets Calcium 500 + D3 Unknown [id number] Tablets Prevacid take one by mouth Unknown [...] Combivent Unknown 18-103mcg/Act Aerosol Excedrin Migraine Unknown [phone] Tablets Cyclobenzaprine HCL si po tid ud 90tabs Unknown 10mg Tablets No Doz Maximum Unknown Strength 200mg Tablets Flonase Unknown 50mcg/Act Suspension Immunizations Description No Information Available Vital Signs Date Vital Result Comment 11/27/2018 10:04am BP Systolic 132 mmHg BP Diastolic 84 mmHg Heart Rate 86 /min Respiratory Rate 20 /min Height 66 inches 5'6" Weight 220.00 lb Pain Level 7 Pain at this time. Pain Level With Medicine 6 on average with meds Pain Level Without Medicine 9 without meds BMI (Body Mass Index) 35.5 kg/m2 11/08/2018 10:34am BP Systolic 140 mmHg BP Diastolic 86 mmHg Heart Rate 82 /min Respiratory Rate 20 /min Height 66 inches 5'6" Weight 220.00 lb Pain Level 8 Pain at this time. Pain Level With Medicine 8 on average with meds Pain Level Without Medicine 9 without meds Pain Level After Procedure 6 BP Systolic Recheck 148 mmHg Pulse: 88 BP Diastolic Recheck 86 mmHg Pulse: 88 BMI (Body Mass Index) 35.5 kg/m2 Results Test Date Facility Test Result H/L Range Note Laboratory test 06/23/2018 [facility] Tissue SEE RESULT 1, [address] Culture & [place] [address] [employer] [phone] Laboratory test 06/23/2018 [facility] C Reactive 1.77 mg/L Normal <8.[address] [place] [address] [phone] CBC Auto Diff 06/23/2018 [facility] White Blood 5.9 10 ^3/uL Normal 3.5-10.[address] [place] [address] [phone] Red Blood Count 4.28 10^6/uL Normal 3.70-4.87 [...] Blood Cells % 0 Laboratory test 06/23/2018 [facility] Erythrocyte Sed 13 mm/Hr Normal 0-20 [address] [place] [address] [phone] Laboratory test 06/23/2018 [facility] Point of Care 151 mg/dL High 70-100 [address] [place] [address] [phone] 1 Scant specimen recieved 2 SEE RESULT BELOW Name: JAILENE FIELD : [address]: Grzegorz Petersen MD Acct: [id number] Unit: [id number] AGE: 48 Location: OR Re06/23/18 SEX: F Status: [place] [facility] [place]: [id number] [place]: 06/23/18-1506 [facility] DR: Grzegorz Petersen MD REQ: [id number] RECD: 06/23/185320 STATUS: FOSTER HERNANDEZ DR: Edouard Grant DO _ SOURCE: TISSUE [...] . END OF REPORT DEPARTMENT OF PATHOLOGY, [address] [place] [address] Kareem Bee M.D. Director [facility] # [id number] 3 Test Performed by: [facility] [address] [place] [id number] Kareem Bee M.D. Director of Laboratory 4 Electronic Pagination System Operator: [id number] Procedures Date Code Description Status 11/08/2018 55903 Omt 1-2 Body Regions Completed 11/08/201888696 Arthrocentesis/Aspiration/Inj Of Major Joint Or Bursa W/ Completed Ultra 11/08/2018 Arthrocentesis/Aspiration/Inj Of Major Joint Or Bursa W/ Completed Ultra 11/08/201874459 Injection, Single Or Mutiple Trigger Points One Or Two Completed Muscles 11/08/201828040 Inject Tendon/Ligament Completed 11/08/201808262 Inject Tendon/Ligament Completed 11/08/201822241 Inject Tendon/Ligament Completed 11/08/201808835 Inject Tendon/Ligament Completed 10/27/2018 23516 Omt 1-2 Body Regions Completed 10/27/2018 80101 Therapeutic, Prophylactic Or Diagnostic Injection Subq/Im Completed 09/29/201844076 Inject Tendon/Ligament Completed 09/29/201871095 Inject Tendon/Ligament Completed 09/29/201815967 Injection, Single Or Mutiple Trigger Points One Or Two Completed Muscles 09/29/2018 03449 Injection For Nerve Block, Greater Occipital Nerve Completed 09/29/2018 86442 Therapeutic, Prophylactic Or Diagnostic Injection Subq/Im Completed 08/14/2018 37557 Omt 1-2 Body Regions Completed 08/14/2018 59288 Therapeutic, Prophylactic Or Diagnostic Injection Subq/Im Completed 07/18/201826998 Arthrocentesis/Aspiration/Inj Of Major Joint Or Bursa W/ Completed Ultra 06/16/2018 01968 Therapeutic, Prophylactic Or Diagnostic Injection Subq/Im Completed 06/16/201838416 Injection, Single Or Mutiple Trigger Points One Or Two Completed Muscles 06/16/201819062 Injection, Tendon Origin/Insertion Completed 06/16/201852761 Injection, Tendon Origin/Insertion Completed 06/16/201839146 Inject Tendon/Ligament Completed 06/16/201896687 Inject Tendon/Ligament Completed 06/16/201839424 Inject Tendon/Ligament Completed 06/16/201829112 Inject Tendon/Ligament Completed Medical Devices Description No Information Available Encounters Type Date Location Provider Dx Diagnosis Office Visit 11/08/2018 Main Office as Of Carmelo Vail DO G89.29 Other chronic pain 10:30a 04/25/13 MPH M54.5 Low back pain M46.1 Sacroiliitis, not [...] of cervical region R53.83 Other fatigue 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 Office Visit 09/29/2018 10:15a Main Office as Carmelo Vail, M54.81 Occipital Of 04/25/13 DO, MPH neuralgia G89.29 Other chronic pain M54.2 Cervicalgia M54.81 Occipital neuralgia M65.88 Other synovitis and tenosynovitis, other site M79.12 Myalgia of auxiliary muscles, head and neck Z79.891 senior living (current) use of opiate analgesic R53.83 Other fatigue Office Visit 08/14/2018 10:45a Main Office as Carmelo Vail, G89.29 Other chronic Of 04/25/13 DO, MPH pain M54.2 Cervicalgia M99.01 Segmental and somatic dysfunction of cervical region M54.17 Radiculopathy, lumbosacral region 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 R53.83 Other fatigue Office Visit 07/18/2018 10:45a Main Office as Carmelo Vail, G89.29 Other chronic Of 04/25/13 DO, MPH pain M54.5 Low back pain M54.17 Radiculopathy, lumbosacral region M25.551 Pain in right hip 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 Office Visit 06/16/2018 10:45a Main Office as Carmelo Vail, G89.29 Other chronic Of 04/25/13 DO, MPH pain M54.5 Low back pain M54.17 Radiculopathy, lumbosacral region M65.88 Other synovitis and tenosynovitis, other site M46.07 Spinal enthesopathy, lumbosacral region M79.18 Myalgia, other site 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 R53.83 Other fatigue Assessments Date Code Description Provider 11/27/2018 G89.29 Other chronic pain VailCarmelo dawkins DO, MPH 11/27/2018 M54.2 Cervicalgia VailCarmelo dawkins DO, MPH 11/27/2018 M99.01 Segmental and somatic dysfunction of VailCarmelo dawkins, DO, MPH cervical region 11/27/2018 M79.12 Myalgia of auxiliary muscles, head and neck VailCarmelo dawkins DO, MPH 11/27/2018 M54.5 Low back pain Vail, Carmelo, DO, MPH 11/27/2018 M46.1 Sacroiliitis, not elsewhere classified VailCarmelo dawkins, DO, MPH 11/27/2018 E66.01 Morbid (severe) obesity due to excess VailCarmelo dawkins, DO, MPH calories 11/27/2018 I10 Essential (primary) hypertension VailCarmelo dawkins, DO, MPH 11/27/2018 G44.209 Tension-type headache, unspecified, not Vail, Carmelo, DO , MPH intractable 11/27/2018 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 VailCarmelo dawkins , DO, MPH 11/08/2018 G89.29 Other chronic pain Vail, Carmelo, DO, MPH 11/08/2018 M54.5 Low back pain Vail, Carmelo, DO, MPH 11/08/2018 M46.1 Sacroiliitis, not elsewhere classified VailCarmelo dawkins DO, MPH 11/08/2018 M65.88 Other synovitis and tenosynovitis, other Vail, Carmelo, DO , MPH site 11/08/2018 M79.18 Myalgia, other site VailLee dawkinsph, DO, MPH 11/08/2018 M46.08 Spinal enthesopathy, sacral [...] fatigue Vail, Carmelo, DO, MPH 10/27/2018 Z79.891 senior living (current) use of opiate analgesic Vail, Carmelo [...] neck Vail, Carmelo, DO, MPH 09/29/2018 Z79.891 senior living (current) use of opiate analgesic Vail, Carmelo , DO, MPH 09/29/2018 R53.83 Other fatigue Vail, Carmelo, DO, MPH 08/14/2018 G89.29 Other chronic pain Vail, Carmelo, DO, MPH 08/14/2018 M54.2 Cervicalgia Vail, Carmelo, DO, MPH 08/14/2018 M99.01 Segmental and somatic dysfunction of Vail, Carmelo, DO, MPH cervical region 08/14/2018 M54.17 Radiculopathy, lumbosacral region Vail, Carmelo, DO, MPH 08/14/2018 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 Vail, Carmelo , DO, MPH 08/14/2018 R53.83 Other fatigue Vail, Carmelo, DO, MPH 07/18/2018 G89.29 Other chronic pain Vail, Carmelo, DO, MPH 07/18/2018 M54.5 Low back pain Vail, Carmelo, DO, MPH 07/18/2018 M54.17 Radiculopathy, lumbosacral region Carmelo Vail DO, MPH 07/18/2018 M25.551 Pain in right hip Carmelo Vail DO, MPH 07/18/2018 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 VailCarmelo dawkins DO, MPH 06/16/2018 G89.29 Other chronic pain Carmelo Vail DO, MPH 06/16/2018 M54.5 Low back pain Carmelo Vail DO, MPH 06/16/2018 M54.17 Radiculopathy, lumbosacral region Carmelo Vail DO, MPH 06/16/2018 M65.88 Other synovitis and tenosynovitis, other Carmelo Vail DO , MPH site 06/16/2018 M46.07 Spinal enthesopathy, lumbosacral region Carmelo Vail DO, MPH 06/16/2018 M79.18 Myalgia, other site Carmelo Vail DO, MPH 06/16/2018 Z79.891 senior living (current) use of opiate analgesic Carmelo Vail DO, MPH 06/16/2018 R53.83 Other fatigue Carmelo Vail DO, MPH Plan of Treatment Future Appointment(s):12/06/2018 10:30 am - Carmelo Vail DO, MPH at Main Office as Of 04/25/1409 10:15 am - Carmelo Vail DO, MPH at Main Office as Of 04/25/1408 - Carmelo Vail DO, MPHG89.29 Other chronic painNew Xrays :Spine, Cervical, 2 Or 3 Views, Ordered: 11/27/18Comments:Chronic. Symptoms and complaints discussed and reviewed today. No significant changes in physical findings. Continue current medical pain management.M54.2 CervicalgiaNew Xrays: Spine, Cervical, 2 Or 3 Views, Ordered: 11/27/18Comments:Chronic. Symptoms and complaints discussed and reviewed today. No significant changes in physical findings. Continue current medical pain management.M99.01 Segmental and somatic dysfunction of cervical regionComments:Chronic. Symptoms and complaints discussed and reviewed today. Somatic dysfunctions noted warrantingOMT. Continue current medical pain management and OMT. Q1HXeUk. OMT performed.M79.12 Myalgia of auxiliary muscles, head and neckComments:Chronic. Symptoms and complaints discussed and reviewed today. No significant changes in physical findings. Continue current medical pain management.M54.5 Low back painComments: Chronic. Symptoms and complaints discussed and reviewed today.No changes in physical findings. Patient is stable and comfortable when current medical therapy is rendered.M46.1 Sacroiliitis, not elsewhere classifiedComments: Symptoms and complaints discussed and reviewed today. Continue current medical pain management.E66.01 Morbid (severe) obesity due to excess caloriesComments: Adherence to diet suggested. Followed by PCP. Morbid obesity greatly affects this patient's pain syndrome. Activity as tolerated is encouraged.I10 Essential (primary) hypertensionComments:Chronic. Symptoms and complaints discussed and reviewed today. No significant changes in physical findings or treatments. Continue current medical pain management. Followed by PCP and cardiology. Will follow in terms of pain management and associated medications. No changes in treatment reported at this time. Activity as tolerated. Will follow and refer when appropriate. Diet and exercise discussed.G44.209 Tension-type headache, unspecified, not intractableComments:Chronic. Symptoms and complaints discussed and reviewed today. No significant changes in physical findings. Continue current medical pain management.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New Labs:Urine Drug Screen, Ordered: 11/27/18Comments:Urine drug screen sample taken today to monitor [...] controlled substances and is considered standard of care.AllComments:Continue current medical pain management; injection therapy, osteopathic [...] while maintaining satisfactory side effect profile andminimizing [facility] end-organ damage. Importance of regular nutrition throughout the day discussed.Activity as toleratedContinue with PCP Functional Status Description No Information Available Mental Status Description No Information Available Referrals Description No Information Available
--- OUTSIDE RECORDS SUMMARY | 2019-01-24 18:20 | XMS REPORT | Continuity of Care Document ---
:1970 External Reference #:[id number] Author Name Carmelo Vail DO, MPH Address [address] [place] [address], [address] [place] [address] Care Team Providers Name Role Phone Edouard Louie DO - Family Medicine Care Team Information [employer] [phone] Problems Active Problems Provider Date Chronic pain [...] is a former smoker Smoking Status Reviewed: 12/06/18 Patient is a former smoker Allergies, Adverse [...] 66mg Tablets Calcium 500 + D3 Unknown [id number] Tablets Prevacid take one by mouth Unknown [...] Combivent Unknown 18-103mcg/Act Aerosol Excedrin Migraine Unknown [phone] Tablets Cyclobenzaprine HCL si po tid ud 90tabs Unknown 10mg Tablets No Doz Maximum Unknown Strength 200mg Tablets Flonase Unknown 50mcg/Act Suspension Immunizations Description No Information Available Vital Signs Date Vital Result Comment 12/06/2018 10:05am BP Systolic 130 mmHg BP [...] Pulse:88 BMI (Body Mass Index) 35.5 kg/m2 11/27/2018 10:04am BP Systolic 132 mmHg BP Diastolic 84 mmHg Heart Rate 86 /min Respiratory Rate 20 /min Height 66 inches 5'6" Weight 220.00 lb Pain Level 7 Pain at this time. Pain Level With Medicine 6 on average with meds Pain Level Without Medicine 9 without meds BMI (Body Mass Index) 35.5 kg/m2 Results Test Date Facility Test Result H/L Range Note Laboratory test 06/23/2018 [facility] Tissue SEE RESULT 1, [address] Culture & [place] [address] [employer] [phone] Laboratory test 06/23/2018 [facility] C Reactive 1.77 mg/L Normal <8.[address] [place] [address] [phone] CBC Auto Diff 06/23/2018 [facility] White Blood 5.9 10 ^3/uL Normal 3.5-10.[address] [place] [address] [phone] Red Blood Count 4.28 10^6/uL Normal 3.70-4.87 [...] Blood Cells % 0 Laboratory test 06/23/2018 [facility] Erythrocyte Sed 13 mm/Hr Normal 0-20 [address] [place] [address] [phone] Laboratory test 06/23/2018 [facility] Point of Care 151 mg/dL High 70-100 [address] [place] [address] [phone] 1 Scant specimen recieved 2 SEE RESULT BELOW Name: JAILENE FIELD : [address]: Grzegorz Petersen MD Acct: [id number] Unit: [id number] AGE: 48 Location: [place] Re06/23/18 SEX: F [place]: [place] [facility] [place]: [id number] [place]: 06/23/18-1506 [facility] [address]: Grzegorz Petersen MD REQ: [id number] RECD: 06/23/183327 STATUS: FOSTER HERNANDEZ DR: Edouard Grant DO [...] . END OF REPORT DEPARTMENT OF PATHOLOGY, [address] [place] [address] Kareem Bee M.D. Director [facility] # [id number] 3 Test Performed by: [facility] [address] [place] [address] Kareem Bee M.D. Director of Laboratory 4 Sales Program Manager: [id number] Procedures Date Code Description Status 12/06/2018 01324 Omt 1-2 Body Regions Completed 12/06/2018 63023 Injection For Nerve Block, Suprascapular Nerve Completed 12/06/201868037 Injection, Single Or Mutiple Trigger Points One Or Two Completed Muscles 12/06/201808432 Injection, Tendon Origin/Insertion Completed 12/06/201876210 Injection, Tendon Origin/Insertion Completed 12/06/201832117 Inject Tendon/Ligament Completed 12/06/201877251 Inject Tendon/Ligament Completed 12/06/201830685 Inject Tendon/Ligament Completed 12/06/201886961 Inject Tendon/Ligament Completed 12/06/201865979 Inject Tendon/Ligament Completed 11/27/2018 12443 t 1-2 Body Regions Completed 11/08/201894930 Inject Tendon/Ligament Completed 11/08/201805392 Inject Tendon/Ligament Completed 11/08/201811919 Inject Tendon/Ligament Completed 11/08/201858323 Inject Tendon/Ligament Completed 11/08/201814974 Injection, Single Or Mutiple Trigger Points One Or Two Completed Muscles 11/08/201885356 Arthrocentesis/Aspiration/Inj Of Major Joint Or Bursa W/ Completed Ultra 11/08/2018 38794 Arthrocentesis/Aspiration/Inj Of Major Joint Or Bursa W/ Completed Ultra 11/08/2018 63414 t 1-2 Body Regions Completed 10/27/2018 79844 Omt 1-2 Body Regions Completed 10/27/2018 84545 Therapeutic, Prophylactic Or Diagnostic Injection Subq/Im Completed 09/29/2018 77468 Therapeutic, Prophylactic Or Diagnostic Injection Subq/Im Completed 09/29/2018 85803 Injection For Nerve Block, Greater Occipital Nerve Completed 09/29/201811170 Injection, Single Or Mutiple Trigger Points One Or Two Completed Muscles 09/29/201890892 Inject Tendon/Ligament Completed 09/29/2018 34230 Inject Tendon/Ligament Completed 08/14/2018 99324 Therapeutic, Prophylactic Or Diagnostic Injection Subq/Im Completed 08/14/2018 98381 Omt 1-2 Body Regions Completed 07/18/2018 07483 Arthrocentesis/Aspiration/Inj Of Major Joint Or Bursa W/ Completed Ultra 06/16/2018 37881 Therapeutic, Prophylactic Or Diagnostic Injection Subq/Im Completed 06/16/2018 25875 Injection, Single Or Mutiple Trigger Points One Or Two Completed Muscles 06/16/2018 Injection, Tendon Origin/Insertion Completed 06/16/2018 Injection, Tendon Origin/Insertion Completed 06/16/2018 Inject Tendon/Ligament Completed 06/16/2018 Inject Tendon/Ligament Completed 06/16/2018 Inject Tendon/Ligament Completed 06/16/2018 Inject Tendon/Ligament Completed Medical Devices Description No Information Available Encounters Type Date Location Provider Dx Diagnosis Office Visit 12/06/2018 Main Office as Of Carmelo Vail DO [...] G44.209 Tension-type headache, unspecified, not intractable 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 Office Visit 11/08/2018 10:30a Main Office as Carmelo Vail G89.29 Other chronic Of 04/25/13 DO, MPH pain M54.5 Low back pain M46.1 Sacroiliitis, not elsewhere classified M65.88 Other synovitis and tenosynovitis, other site M79.18 Myalgia, other site M46.08 Spinal enthesopathy, sacral and sacrococcygeal region M99.03 Segmental and somatic dysfunction of lumbar region M99.04 Segmental and somatic dysfunction of sacral region Office Visit 10/27/2018 10:30a Main Office as Carmelo Vail G89.29 Other chronic Of 04/25/13 DO, MPH pain M54.2 Cervicalgia M99.01 Segmental and somatic dysfunction of cervical region R53.83 Other fatigue Z79.891 [facility] (current) use of opiate analgesic Office Visit 09/29/2018 10:15a Main Office as Carmelo Vail, M54.81 Occipital Of 04/25/13 DO, MPH neuralgia G89.29 Other chronic pain M54.2 Cervicalgia M54.81 Occipital neuralgia M65.88 Other synovitis and tenosynovitis, other site M79.12 Myalgia of auxiliary muscles, head and neck 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 R53.83 Other fatigue Office Visit 08/14/2018 10:45a Main Office as Carmelo Vail G89.29 Other chronic Of 04/25/13 DO, MPH pain M54.2 Cervicalgia M99.01 Segmental and somatic dysfunction of cervical region M54.17 Radiculopathy, lumbosacral region 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 R53.83 Other fatigue Office Visit 07/18/2018 10:45a Main Office as Carmelo Vail G89.29 Other chronic Of 04/25/13 DO, MPH pain M54.5 Low back pain M54.17 Radiculopathy, lumbosacral region M25.551 Pain in right hip Z79.891 [facility] (current) use of opiate analgesic Office Visit 06/16/2018 10:45a Main Office as Carmelo Vail, G89.29 Other chronic Of 04/25/13 DO, MPH pain M54.5 Low back pain M54.17 Radiculopathy, lumbosacral region M65.88 Other synovitis and tenosynovitis, other site M46.07 Spinal enthesopathy, lumbosacral region M79.18 Myalgia, other site Z79.891 [facility] (current) use of opiate analgesic R53.83 Other fatigue Assessments Date Code Description Provider 12/06/2018 G89.29 Other chronic pain Carmelo Vail DO, MPH 12/06/2018 M54.2 Cervicalgia Carmelo Vail DO, MPH 12/06/2018 M99.01 Segmental and somatic dysfunction of Carmelo Vail DO, MPH cervical region 12/06/2018 M65.88 Other [...] Carmelo, DO , MPH intractable 11/27/2018 Z79.891 [facility] (current) use of opiate analgesic Vail, Carmelo [...] fatigue Vail, Carmelo, DO, MPH 10/27/2018 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 Vail, Carmelo [...] neck Vail, Carmelo, DO, MPH 09/29/2018 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 Vail, Carmelo , DO, MPH 09/29/2018 R53.83 Other fatigue Vail, Carmelo, DO, MPH 08/14/2018 G89.29 Other chronic pain Vail, Carmelo, DO, MPH 08/14/2018 M54.2 Cervicalgia Vail, Carmelo, DO, MPH 08/14/2018 M99.01 Segmental and somatic dysfunction of Vail, Carmelo, DO, MPH cervical region 08/14/2018 M54.17 Radiculopathy, lumbosacral region Vail, Carmelo, DO, MPH 08/14/2018 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 Vail, Carmelo , DO, MPH 08/14/2018 R53.83 Other fatigue Vail, Carmelo, DO, MPH 07/18/2018 G89.29 Other chronic pain Carmelo Vail DO, MPH 07/18/2018 M54.5 Low back pain Carmelo Vail DO, MPH 07/18/2018 M54.17 Radiculopathy, lumbosacral region Carmelo Vail DO, MPH 07/18/2018 M25.551 Pain in right hip Carmelo Vail DO, MPH 07/18/2018 Z79.891 [facility] (current) use of opiate analgesic Carmelo Vail DO, MPH 06/16/2018 G89.29 Other chronic pain Carmelo Vail DO, MPH 06/16/2018 M54.5 Low back pain Carmelo Vail DO, MPH 06/16/2018 M54.17 Radiculopathy, lumbosacral region Carmelo Vail DO, MPH 06/16/2018 M65.88 Other synovitis and tenosynovitis, other Carmelo Vail DO , MPH site 06/16/2018 M46.07 Spinal enthesopathy, lumbosacral region Carmelo Vail DO, MPH 06/16/2018 M79.18 Myalgia, other site Carmelo Vail DO, MPH 06/16/2018 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 Symptoms and complaints discussed and reviewed today. No significant changes in physical findings. Continue current medical pain management.M54.2 CervicalgiaComments:Chronic. Symptoms and complaints discussed and reviewed today. Physical findings warrant injection therapy. Continue current medical pain management. Injection therapy performed today. Informed consentgiven/ refusal reviewed. See procedure sheet. Injection therapy will lower this patient's pain, increase ROM improve functionality and mitigate the need for increased medication.M99.01 Segmental and somatic dysfunction of cervical regionComments:Chronic. Symptoms and complaints discussed and reviewed today. Somatic dysfunctions noted warrantingOMT. Continue current medical pain management and OMT. [id number]. OMT performed.M65.88 Other synovitis and tenosynovitis, other siteComments:Chronic. Symptoms and complaints discussed and reviewed today. Physical findings reviewed and warrant intervention. Continue current medical pain management. Injection therapy today - tendon sheath. Informed consent given/refusal reviewed. See procedure sheet.M79.12 Myalgia of auxiliary muscles, head and neckComments:Symptoms and complaints discussed and reviewed today. Physical findings reviewed and warrant intervention. Injection therapy today - Trigger Point injections. Informed consent given/refusal reviewed. See procedure sheet.M46.02 Spinal enthesopathy, cervical regionComments:Chronic. Symptoms and complaints discussed and reviewed today. Physical findings reviewed and warrant intervention. Patient is stable and comfortable with current medical therapy. Injection therapy today.Tendon I/ O injections performed. See procedure sheet.AllComments:Continue current medical pain management; injection therapy, osteopathic [...] while maintaining satisfactory side effect profile andminimizing halfway end-organ damage. Importance of regular nutrition throughout the day discussed.Activity as toleratedContinue with PCP Functional Status Description No Information Available Mental Status Description No Information Available Referrals Description No Information Available
--- NOTE | 2019-01-24 18:23 | ED ---
Adult Trauma - HPI Summary HPI Summary: 48 year old female presents with right arm and back injury today. States that she ended up tripping and falling on her right forearm. She tried to get up and fell again onto her arm and did the same again. she was complaining of back and neck pain. She denies any head injury or loss consciousness. She also admits to right ankle pain was able to ambulate without any difficulties. Denies any hip or knee pain. Fall was mechanical fall. Denies any chest pain or shortness of breath. Admits to some numbness into her right arm. No urinary symptoms. No loss of bowel or bladder. No saddle anesthesias. No fevers. He has a history of seizures fibromyalgia, seizure, diabetes. - History of Current Complaint Chief Complaint: EDFall Stated Complaint: "FALL PER PT" Time Seen by Provider: 01/24/19 17:49 Hx Last Menstrual Period: 4 months Pain Intensity: 10 - Additional Pertinent History Primary Care Physician: [id number] - Allergy/Home Medications Allergies/Adverse Reactions: Allergies Allergy/AdvReac Type Severity Reaction Status Date / Time Iodinated Contrast Media Allergy Severe Anaphylatic Verified 01/24/19 17:30 [Iodinated Contrast- Oral Shock and IV Dye] iodine Allergy Severe Difficulty Verified 01/24/19 17:30 Breathing/Wheezing bee venom protein (honey bee) Allergy Swelling Verified 01/24/19 17:30 codeine AdvReac Nausea Verified 01/24/19 17:30 DOWN FEATHERS AdvReac Intermediate Eyes Uncoded 06/23/18 11:58 Itchy/Swollen/Red/Watery PMH/Surg Hx/FS Hx/Imm Hx Endocrine/Hematology History: Reports: Hx Diabetes - TYPE II- ON VICTOZA AND METFORMIN FOR, Hx Anemia - HX OF Denies: Hx Bone Marrow Disease, Hx Sickle Cell Disease, Hx Thyroid Disease Cardiovascular History: Reports: Hx Angina - "a few weeks", Hx Hypotension, Other Cardiovascular Problems/Disorders - LOW BLOOD PRESSURE-OCCASIONALLY SKIPPED BEAT-NO [id number] Denies: Hx Coronary Artery Disease, Hx Hypercholesterolemia, Hx Hypertension , Hx Myocardial Infarction, Hx Pacemaker/ICD, Hx Valvular Heart Disease Respiratory History: Reports: Hx Asthma - PRN INHALER AND NEBULIZER FOR Denies: Hx Chronic Obstructive Pulmonary Disease (COPD), Other Respiratory Problems/Disorders GI History: Reports: Hx Gastroesophageal Reflux Disease - ON MEDICATION FOR, Hx Hiatal Hernia, Hx Irritable Bowel, Hx Ulcer - STOMACH ULCER YRS AGO, Other GI Disorders - GASTRIC BYPASS 2010 History: Reports: Hx Kidney Stones - LONG AGO, Other Problems/Disorders - HX OF UTI'S Denies: Hx Renal Disease Musculoskeletal History: Reports: Hx Arthritis - OSTEO-WRISTS, ARTHRITIS MULTIPLE JOINTS, Hx Tendonitis, Other Musculoskeletal History - "HYPER CURVATURE OF SPINE"-"HIPS TILTED FORWARD Sensory History: Reports: Hx Contacts or Glasses - GLASSES Denies: Hx Cataracts, Hx Glaucoma, Hx Hearing Aid Opthamlomology History: Reports: Hx Contacts or Glasses - GLASSES Denies: Hx Cataracts, Hx Glaucoma Neurological History: Reports: Hx Migraine - UP TO 12 DAYS PER MONTH- TREAT WITH PAIN MEDICATION OR GOES TO DR. 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 -Extraction of 8 teeth, 1983, dental office. -ORIF right 1st metatarsal, 1987, [place]. - Right calcaneous (bursitis), 1989, [place]. -Left knee arthroscopy, , [place]. -ORIF left orbit for blow out fx,. -Right calcaneous (bursitis), 1996, [place]. -Left carpal tunnel release, 1996, [place]. -Left DeQuervains, 1996, [place]. -Left elbow radial nerve relocation, decompression , removal of bone fragments, 1996, [place]. - WITH tubal ligation , 1998, [place]. -[facility] biopsy. -uterine ablation (severe dysplasia) 1998, [place]. -Right elbow tendonitis, 2001, [place]. -Gastric bypass (ngoc-en- y), 2002, [facility]. -Right elbow removal of bone fragments , 2003, [place]. -Cholecystectomy, 2003, [place]. -Right breast biopsy, titanium marker placement, 2005, [place]. -Left shoulder labral repair, 2006, [place]. -Left rotator cuff repair, 2007, [place]. -Right carpal tunnel release, 2008, [place]. -Right DeQuervains, 2008, [place]. -2 OTHER SURGERIES TO THE RIGHT WRIST- REMOVAL OF STITCHES. -ORIF right thumb x 2 (injury) 2009 [place]. -Removal of ingrown toenails x 3, podiatry office, [place]. - Excision of 4 lipomas lumbar spine, 2016, [place]. -Excision of 2 lipomas lumbar spine, 2016, [place] (contracted MRSA post-op). -LIPOMAS REMOVED OVER THE COURSE OF 4 SURGERIES. Hx Anesthesia Reactions: Yes - NAUSEA Infectious Disease History: No Infectious Disease History: Reports: Hx of Known/Suspected MRSA, History Other Infectious Disease Denies: Hx Hepatitis, Traveled Outside the [place] in Last 30 Days - Family History Known Family History: Positive: Cardiac Disease - OR, Hypertension, Diabetes, Other - CVA - Social History Alcohol Use: Rare Alcohol Amount: SPECIAL OCCASIONS- RARELY Hx Substance Use: No Substance Use Type: Reports: Prescribed Substance Use Comment - Amount & Last Used: oxycodone, opana//SECOND HAND SMOKE FROM [place] Hx Tobacco Use: Yes Smoking Status (MU): Former Smoker Type: Cigarettes Amount Used/How Often: 1 PPD FOR 7 YRS Length of Time of Smoking/Using Tobacco: 7 YRS Have You Smoked in the Last Year: No Review of Systems Negative: Fever Negative: Chest Pain Negative: Shortness Of Breath Positive: Myalgia - right arm pain, back pain All Other Systems Reviewed And Are Negative: Yes Physical Exam Triage Information Reviewed: Yes Vital Signs On Initial Exam: Initial Vitals Temp Pulse Resp BP Pulse Ox 96.9 F 95 18 143/100 96 01/24/19 17:22 01/24/19 17:22 01/24/19 17:22 01/24/19 17:22 01/24/19 17:22 Vital Signs Reviewed: Yes Appearance: Positive: Well-Appearing Skin: Positive: Warm, Dry Head/Face: Positive: Normal Head/Face Inspection Eyes: Positive: Normal, Conjunctiva Clear ENT: Positive: Pharynx normal Neck: Positive: Other: - tenderness over neck Respiratory/Lung Sounds: Positive: Clear to Auscultation, Breath Sounds Present Cardiovascular: Positive: Normal, RRR Abdomen Description: Positive: Nontender, Soft Bowel Sounds: Positive: Present Musculoskeletal: Positive: Limited @ - right hand and elbow, Other - tenderness right wrist and forearm, old surgical scars, good pulses, sensation grossly intact, tenderness entire back Neurological: Positive: Normal Psychiatric: Positive: Normal Procedures - Sedation Patient Received Moderate/Deep Sedation with Procedure: No Diagnostics - Vital Signs Vital Signs Temp Pulse Resp BP Pulse Ox 01/24/19 17:22 96.9 F 95 18 143/100 96 - Laboratory Lab Statement: Any lab studies that have been ordered have been reviewed, and results considered in the medical decision making process. - Radiology humerus Radiology Interpretation Completed By: ED Physician Summary of Radiographic Findings: no fracture hand, forearm Radiology Interpretation Completed By: ED Physician Summary of Radiographic Findings: plate present, no fracture neck Radiology Interpretation Completed By: ED Physician Summary of Radiographic Findings: no fracture thoracic Radiology Interpretation Completed By: ED Physician Summary of Radiographic Findings: no fracture lumbar Radiology Interpretation Completed By: ED Physician Summary of Radiographic Findings: no fracture Adult Trauma Course/Dx - Course Course Of Treatment: 48 year old female presents with right arm and back injury today. States that she ended up tripping and falling on her right forearm. She tried to get up and fell again onto her arm and did the same again. she was complaining of back and neck pain. She denies any head injury or loss consciousness. She also admits to right ankle pain was able to ambulate without any difficulties. Denies any hip or knee pain. Fall was mechanical fall. Denies any chest pain or shortness of breath. Admits to some numbness into her right arm. No urinary symptoms. No loss of bowel or bladder. No saddle anesthesias. No fevers. He has a history of seizures fibromyalgia, seizure, diabetes. on exam tenderness of right arm. Tenderness of entire back and neck. Neurovascularly intact. X-ray show no fracture. does have plate in place on right arm with no new fracture seen. gave sling. told to follow up ortho. told to take pain medication as given by pain clinic. patient understand and agrees with plan. - Diagnoses Differential Diagnosis/HQI/PQRI: Positive: Contusion(s), Fracture, Sprain Provider Diagnoses: Fall, Injury of right lower arm, Back pain, Neck pain Discharge ED - Sign-Out/Discharge Documenting (check all that apply): Patient Departure - Discharge Plan Condition: Good Disposition: HOME Patient Education Materials: R.I.C.E. Treatment (ED) Referrals: Eoduard Louie DO [Primary Care Provider] - Grzegorz Petersen MD [Medical Doctor] - Additional Instructions: take ibuprofen or tyenlol every 6 hours apply ice use sling for comfort follow up with ortho Return to ED if develop any new or worsening symptoms - Billing Disposition and Condition Condition: GOOD Disposition: Home
[2019-01-24] MEDS ORDERED: Ketorolac INJ* 30 MG/ML 1 ML VIAL IM ONE (19:45)
[2019-01-24 20:10] VITALS: BP 120/80
== END 2019-01-24 20:05 | disposition home or self-care (01) ==
LOC: ED 17:21
DX: S59.911A Unspecified injury of right forearm, initial encounter (principal); W01.0XXA Fall on same level from slipping, tripping and stumbling without subsequent striking against object, initial encounter; Y92.9 Unspecified place or not applicable; M54.9 Dorsalgia, unspecified; M51.37 Other intervertebral disc degeneration, lumbosacral region; M50.323 Other cervical disc degeneration at C6-C7 level; E11.9 Type 2 diabetes mellitus without complications; Z79.84 Long term (current) use of oral hypoglycemic drugs; J45.909 Unspecified asthma, uncomplicated; K21.9 Gastro-esophageal reflux disease without esophagitis; Z91.030 Bee allergy status; Z91.041 Radiographic dye allergy status; Z88.5 Allergy status to narcotic agent; Z91.048 Other nonmedicinal substance allergy status; Z87.891 Personal history of nicotine dependence
CPT/HCPCS: 72050; 72070; 72110; 96372; 99282; A9270-GY; J1885